=== PATIENT | female | born 1935 | race Caucasian/White ===

== ENCOUNTER 2016-04-07 17:59 | Emergency (ER) | payer OTHER ==
[~2016-04-07] VITALS: Ht 160 cm; Wt 79.5 kg
[~2016-04-07 17:59] MED LIST: ALPR-411 PO; ANAS1TAB6 PO; ATRINSX INH; CHOL1000 PO; COEN1CAP17 PO; CRG625 PO; CZR50 PO; DENOINJ SQ; FBR PO; FLUO10CA48 PO; FLUO20CA35 PO; HYDR2.5C60 TOP; KPP/250 PO; LSX80 PO; MULT1TAB22 PO; ONDA4TAB10 SL; OXGN; OXYC1TAB3 PO; WARF-285 PO; WARF3TAB PO; ZCR40 PO; [UNRECOGNIZED DRUG - CODE] PO
[2016-04-07 18:05] VITALS: TEMP 36.4; Ht 160 cm; Wt 79.5 kg
[2016-04-07] MEDS ORDERED: OXYCODONE/ACETAMINOPHEN 5-325 TAB PO STA (18:18)
--- NOTE | 2016-04-07 19:08 | DIAGNOSTIC IMAGING REPORT ---
PELVIS 1 OR 2 VIEW ROUTINE CLINICAL HISTORY: fall low back / pelvis pain trauma. Pain. COMPARISON: 10/14/2015 DISCUSSION: Generalized degenerative change of all major osseous structures. Prior right hip total arthroplasty. No evidence for acute bony abnormality. No evidence for acetabular protrusion. There is no evidence for soft tissue swelling. IMPRESSION: Generalized degenerative and postoperative change. No acute bony abnormality. Electronically signed by: Beck Iglesias M.D. 04/07/2016 7:06 PM
--- NOTE | 2016-04-07 19:09 | DIAGNOSTIC IMAGING REPORT ---
LUMBAR SPINE 5 VIEWS HISTORY: Trauma. Pain. fall, low back pain COMPARISON: 03/31/2015 FINDINGS: There is no fracture. -Grade 1 anterolisthesis of L4 on L5 on a degenerative basis. This is unchanged from the prior study. No evidence for an acute compression deformity. Slight wedge deformity superior endplate L1 considerable. Disc spaces are preserved. IMPRESSION: Generalized degenerative change. No acute bony abnormality. Electronically signed by: Beck Iglesias M.D. 04/07/2016 7:07 PM
--- NOTE | 2016-04-07 19:21 | EMERGENCY ROOM VISIT NOTE ---
History Report prepared by Christiano: Pia Dawson Under the Supervision of: Dr. Palomo Kimble D.O. First contact with patient: 18:13 Chief Complaint: BACK PAIN Stated Complaint: BACK & R KNEE PAIN History of Present Illness The patient is an 80 year old female who presents to the Emergency Room with complaints of a sudden fall that occurred yesterday. She currently rates her discomfort as a 5/10 in severity. The patient states that yesterday she was trying to get something out of her closet when she fell onto her right lower back. She notes progressively worsening right back pain. The patient notes difficulty ambulating and difficulty standing since the fall, noting that she has to ask for help when moving. She denies hitting her head during the fall and states that she hit the ground. The patient states that she is persistently on 6 liters of supplemental oxygen at home. She denies any recent illness. The patient states that she lives at home and states that her daughter frequently comes in to check on her. Source of History: patient Onset: yesterday Position: other (global) Symptom Intensity: 5/10 Quality: other (fall) Timing: other (sudden) Associated Symptoms: + back pain (lower right) Review of Systems See HPI for pertinent positives & negatives. A total of 10 systems reviewed and were otherwise negative. 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 (14) GI bleed (15) HTN (hypertension) (16) HYPERLIPIDEMIA NEC/NOS (17) HYPERTENSION NOS (18) Hypothyroidism (19) HYPOTHYROIDISM NOS (20) LBBB (left bundle branch block) (21) Osteoporosis (22) Pulmonary fibrosis (23) Shingles Surgical Problems: (1) H/O lumpectomy (2) History of knee replacement Family History Cancer Diabetes mellitus FHx: stroke Heart disease Hypertension Lung disease Social History Smoking Status: Never Smoker Alcohol Use: occasionally Drug Use: none Marital Status: Housing Status: lives alone Occupation Status: unemployed Current/Historical Medications Scheduled Alprazolam (Alprazolam), 0.5 MG PO BID Anastrozole (Anastrozole), 1 MG PO QAM Calcium Citrate-Vitamin D (Calcium Citrate/Vitamin D), 2 TAB PO QAM Calcium Polycarbophil (Fiber Tabs), 2 CPLT PO QAM Carvedilol (Carvedilol), 6.25 MG PO BIDM Cholecalciferol (Vitamin D3), 2,000 INTER.UNIT PO QAM Coenzyme Q10 (Ubidecarenone) (Co Q 10), 100 MG PO QAM Denosumab (Xgeva), Unknown Dose SQ MONTHLY Fluoxetine (Prozac), 20 MG PO DAILY Fluoxetine (Prozac), 10 MG PO DAILY Furosemide (Furosemide), 80 MG PO QAM Levetiractam (Keppra), 250 MG PO BID Losartan Potassium (Losartan Potassium), 50 MG PO QAM Multiple Vitamins W/ Minerals (One Daily For Women), 1 TAB PO QAM Ondasetron Odt (Zofran Odt), 4 MG SL TID Oxygen (Oxygen), 4 LITERS NA CONTINOUS Simvastatin (Simvastatin), 40 MG PO HS Warfarin Sodium (Warfarin Sodium), 3 MG PO 6XWK Warfarin Sodium (Coumadin), 4.5 MG PO WK Scheduled PRN Hydrocortisone (Rectal) (Procto-Med Hc), 1 APPLN TOP DAILY PRN for Hemorrhoids Ipratropium [place] (Atrovent 0.02% Soln), 1 DOSE INH Q4H PRN for Shortness of Breath Oxycodone Immediate Rel Tab (Roxicodone Ir), 5 MG PO Q6H PRN for Pain Allergies Coded Allergies: No Known Allergies (Verified , 10/14/15) Physical Exam Vital Signs Date Time Temp Pulse Resp B/P Pulse Ox O2 Delivery O2 Flow Rate FiO2 04/07/16 18:09 Nasal Cannula 6.0 04/07/16 18:05 36.4 67 16 127/60 96 6.0 Physical Exam CONSTITUTIONAL/VITAL SIGNS: Reviewed / noted above. GENERAL: Non-toxic in appearance. INTEGUMENTARY: Warm, dry, and [place]. HEAD: Normocephalic. EYES: without scleral icterus or trauma. ENT/OROPHARYNX: clear and moist. LYMPHADENOPATHY/NECK: Is supple without lymphadenopathy or meningismus. RESPIRATORY: Lungs clear and equal. CARDIOVASCULAR: Regular rate and rhythm. GI/ABDOMEN: Soft and nontender. No organomegaly or pulsatile mass. No rebound or guarding. Normal bowel sounds. EXTREMITIES: Warm and well perfused. BACK: Tenderness to palpation of the lower back, midline and right paraspinal muscles and soft tissue. No CVA tenderness. NEUROLOGICAL: Intact without focal deficits. PSYCHIATRIC: normal affect. MUSCULOSKELETAL: Normally developed with good muscle tone. Medical Decision & Procedures ER Provider Diagnostic Interpretation: X ray results and stated below per my interpretation and radiology interpretation. PELVIS 1 OR 2 VIEW ROUTINE CLINICAL HISTORY: fall low back / pelvis pain trauma. Pain. COMPARISON: 10/14/2015 DISCUSSION: Generalized degenerative change of all major osseous structures. Prior right hip total arthroplasty. No evidence for acute bony abnormality. No evidence for acetabular protrusion. There is no evidence for soft tissue swelling. IMPRESSION: Generalized degenerative and postoperative change. No acute bony abnormality. Electronically signed by: Beck Iglesias M.D. 04/07/2016 7:06 PM LUMBAR SPINE 5 VIEWS HISTORY: Trauma. Pain. fall, low back pain COMPARISON: 03/31/2015 FINDINGS: There is no fracture. -Grade 1 anterolisthesis of L4 on L5 on a degenerative basis. This is unchanged from the prior study. No evidence for an acute compression deformity. Slight wedge deformity superior endplate L1 considerable. Disc spaces are preserved. IMPRESSION: Generalized degenerative change. No acute bony abnormality. Electronically signed by: Beck Iglesias M.D. 04/07/2016 7:07 PM Medications Administered Medications (Trade) Dose Ordered Sig/Lindsey Route Start Time Stop Time Status Last Admin Dose Admin Oxycodone/ Acetaminophen (Percocet 5-325MG Tab) 1 tab NOW STAT PO 04/07/16 18:18 04/07/16 18:20 DC 04/07/16 18:26 1 TAB ED Course 1812: Previous medical records were reviewed. The patient was evaluated in room C6. A complete history and physical examination was performed. 1817: Ordered Oxycodone/Acetaminophen 1 tab PO. 1912: I reevaluated the patient and she is resting comfortably. I discussed the exam findings and I discussed the treatment plan. She verbalized complete understanding and agreement. She is ready to go home. Medical Decision Differential includes close head injury, intracranial bleed, facial trauma, cervical spine trauma, chest and thoracic trauma, abdominal and intra-abdominal trauma, spine neurologic trauma, extremity trauma. This is an 80-year-old female who presents to the ED with a chief complaint of a fall yesterday. The patient had a ground-level fall where she landed on the carpet and hit the right side of her back and pelvis. She states that her pain increases with standing. She normally wears oxygen at home. Her vital signs are stable. Exam reveals some tenderness to palpation of the low lumbar region as well as the soft tissue in the right low back region and around the pelvis. There is no obvious ecchymosis or abrasions. The patient does not have any discomfort with movement of the hips or lower extremities. She has no increased pain with straight leg raise off the bed. X-rays of the lumbar spine and pelvis did not show any obvious acute fractures or dislocations. The patient was given Percocet here. She has oxycodone at home for pain. Impression Primary Impression: Back contusion Scribe Attestation The scribe's documentation has been prepared under my direction and personally reviewed by me in its entirety. I confirm that the note above accurately reflects all work, treatment, procedures, and medical decision making performed by me. Departure Information Dispostion Home / Self-Care Referrals Pro,Abdirashid Young M.D. (PCP) Forms HOME CARE DOCUMENTATION FORM, IMPORTANT VISIT INFORMATION Patient Instructions A Signature Page, Back Pain - [facility], [facility] Additional Instructions Percocet as prescribed. No driving within 6 hours of use. Do not take additional Tylenol while taking Percocet. Percocet can cause constipation. Follow-up with your doctor for further care and evaluation in 1-2 days. Return to the emergency department for worsening or new symptoms or any concerns. You have been examined and treated today on an emergency basis only. This is not a substitute for, or an effort to provide, complete comprehensive medical care. It is impossible to recognize and treat all injuries or illnesses in a single emergency department visit. It is therefore important that you follow up closely with your doctor. Call as soon as possible for an appointment.
[2016-04-07 19:51] VITALS: BP 117/55; PULSE 62; O2SAT 94
[2016-05-14] MEDS ORDERED: ONDA4TAB10 SL (09:58)
[2016-05-14] MEDS ORDERED: ALPR0.25 PO (09:58)
[2016-05-14] MEDS ORDERED: LDDP5 TD (09:58)
[2016-06-13] MEDS ORDERED: SULF-302 PO (11:26)
[2016-07-12] MEDS ORDERED: HYDR2.5C37 TOP (11:36)
[2016-07-12] MEDS ORDERED: CLOP1TAB15 PO (11:52)
[2016-07-20] MEDS ORDERED: WARF2TAB PO (12:27)
[2016-08-06] MEDS ORDERED: LSX40 PO (10:31)
[2016-09-08] MEDS ORDERED: ALBINS INH (08:53)
[2016-09-08] MEDS ORDERED: IPRASOL4 INH (08:53)
[2016-09-08] MEDS ORDERED: NYSS5 MT (08:53)
[2016-09-08] MEDS ORDERED: AMOX1TAB43 PO (08:53)
[2016-09-08] MEDS ORDERED: PRD20 PO (09:02)
[2016-09-08] MEDS ORDERED: ALPR0.25 PO (16:54)
== END 2016-04-07 19:52 | disposition home or self-care (01) ==
LOC: EDBD 17:59 → C.EDC 18:02
DX: S20.221A Contusion of right back wall of thorax, initial encounter (principal); W19.XXXA Unspecified fall, initial encounter; I10 Essential (primary) hypertension; I25.10 Atherosclerotic heart disease of native coronary artery without angina pectoris; E03.9 Hypothyroidism, unspecified; Z79.01 Long term (current) use of anticoagulants; Z79.899 Other long term (current) drug therapy

== ENCOUNTER 2016-05-08 15:36 | Emergency (ER) | payer OTHER ==
[~2016-05-08] VITALS: Ht 160 cm; Wt 78.0 kg
[2016-05-08 15:36] VITALS: TEMP 36.8; Ht 160 cm; Wt 78.0 kg
--- NOTE | 2016-05-08 16:02 | EMERGENCY ROOM VISIT NOTE ---
History Report prepared by Kimberlyibwatson: Maury Llamas Under the Supervision of: Dr. Abdirashid Vance D.O. First contact with patient: 15:52 Chief Complaint: FALL Stated Complaint: FALL/ NECK & BACK PAIN History of Present Illness The patient is an 81 year old female who presents to the Emergency Room with complaints of an acute fall that occurred just prior to arrival. The patient fell after tripping over a pillow when she was getting out of bed. The patient now complains of neck pain, rated 6/10 in severity. She did not hit her head or lose consciousness. The patient denies any shortness of breath, nausea, vomiting , back pain, abdominal pain, or leg pain. Source of History: patient Onset: [employer] Position: other (global) Quality: other (fall) Timing: other (acute) Associated Symptoms: + neck pain, No LOC, No SOB, No abdominal pain, No back pain, No headache, No nausea, No vomiting Review of Systems See HPI for pertinent positives & negatives. A total of 10 systems reviewed and were otherwise negative. 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 (14) GI bleed (15) HTN (hypertension) (16) HYPERLIPIDEMIA NEC/NOS (17) HYPERTENSION NOS (18) Hypothyroidism (19) HYPOTHYROIDISM NOS (20) LBBB (left bundle branch block) (21) Osteoporosis (22) Pulmonary fibrosis (23) Shingles Surgical Problems: (1) H/O lumpectomy (2) History of knee replacement Family History Cancer Diabetes mellitus FHx: stroke Heart disease Hypertension Lung disease Social History Smoking Status: Never Smoker Alcohol Use: occasionally Drug Use: none Marital Status: Housing Status: lives alone Occupation Status: unemployed Current/Historical Medications Scheduled Alprazolam (Alprazolam), 0.5 MG PO BID Anastrozole (Anastrozole), 1 MG PO QAM Calcium Citrate-Vitamin D (Calcium Citrate/Vitamin D), 2 TAB PO QAM Calcium Polycarbophil (Fiber), 2 CPLT PO QAM Carvedilol (Carvedilol), 6.25 MG PO BIDM Cholecalciferol (Vitamin D3), 2,000 INTER.UNIT PO QAM Coenzyme Q10 (Ubidecarenone) (Co Q 10), 100 MG PO QAM Denosumab (Xgeva), Unknown Dose SQ MONTHLY Fluoxetine (Prozac), 20 MG PO DAILY Fluoxetine (Prozac), 10 MG PO DAILY Furosemide (Furosemide), 80 MG PO QAM Guaifenesin Ext Rel (Mucinex Ext Rel), 600 MG PO Q12 Levetiractam (Keppra), 250 MG PO BID Losartan Potassium (Losartan Potassium), 50 MG PO QAM Multiple Vitamins W/ Minerals (One Daily For Women), 1 TAB PO QAM Oxygen (Oxygen), 6 LITERS NA CONTINOUS Simvastatin (Simvastatin), 40 MG PO HS Warfarin Sodium (Warfarin Sodium), 3 MG PO 6XWK Warfarin Sodium (Coumadin), 4.5 MG PO WK Scheduled PRN Dextromethorphan Polistirex (Delsym), 20 ML PO Q4 PRN for Cough Hydrocortisone (Rectal) (Procto-Med Hc), 1 APPLN TOP DAILY PRN for Hemorrhoids Ipratropium [place] (Atrovent 0.02% Soln), 1 DOSE INH Q4H PRN for Shortness of Breath Ondasetron Odt (Zofran Odt), 4 MG SL TID PRN for Nausea or Vomiting Oxycodone Immediate Rel Tab (Roxicodone Ir), 5 MG PO Q6H PRN for Pain Allergies Coded Allergies: No Known Allergies (Verified , 10/14/15) Physical Exam Vital Signs Date Time Temp Pulse Resp B/P Pulse Ox O2 Delivery O2 Flow Rate FiO2 05/08/16 18:58 71 18 142/76 93 Room Air 05/08/16 17:19 67 20 124/71 97 Nasal Cannula 6.0 05/08/16 15:36 36.8 77 18 131/66 94 Room Air 6.0 Physical Exam GENERAL: Patient is awake, alert, somewhat anxious and uncomfortable appearing. EYES: The conjunctivae are clear. The pupils are round and reactive. EARS, NOSE, MOUTH AND THROAT: The nose is without any evidence of any deformity. Mucous membranes are moist tongue is midline NECK: Rigid cervical collar was placed [employer]. Midline cervical tenderness,range of motion testing deferred at this time. RESPIRATORY: Normal respiratory effort is noted there is no evidence of wheezing rhonchi or rales CARDIOVASCULAR: Regular rate and rhythm noted there no murmurs rubs or gallops normal S1 normal S2 GASTROINTESTINAL: The abdomen is soft. Bowel sounds are present in all quadrants. Abdomen is nontender BACK: No midline tenderness or or step-off noted range of motion in flexion extension as well as rotation no signs of muscle spasm noted MUSCULOSKELETAL/EXTREMITIES: There is no evidence of gross deformity full range of motion is noted in the hips and shoulders SKIN: Pedal edema noted bilaterally, skin is warm and dry, no evidence for cellulitis. NEUROLOGIC: Patient is awake alert and oriented x3 strength is symmetric. Medical Decision & Procedures ER Provider Diagnostic Interpretation: X ray results and stated below per my interpretation and radiology interpretation. Other radiology results per my review and radiologist interpretation: CERVICAL SPINE CT CT DOSE: 1230.36 mGy.cm HISTORY: Trauma fall TECHNIQUE: Multiaxial CT images of the cervical spine were performed and reformatted in the sagittal and coronal plane without the use of contrast. COMPARISON: None. FINDINGS: No fractures. No subluxation. Prevertebral soft tissues and the C1-C2 interval are intact. No pneumothorax. Considerable degenerative change throughout the entire cervical region. Posterior arch is intact at all levels. Considerable degenerative change lateral facets. IMPRESSION: Degenerative change. No acute bony abnormality. Electronically signed by: Beck Iglesias M.D. 05/08/2016 5:02 PM Dictated Date/Time: 05/08/2016 5:00 PM CHEST ONE VIEW PORTABLE CLINICAL HISTORY: fall trauma COMPARISON STUDY: 02/10/2016 FINDINGS: Moderate stable cardiomegaly. Chronic atelectatic change left base. Chronic pulmonary vascular congestion. Status post left axillary dissection. Status post total right shoulder replacement. IMPRESSION: Pulmonary vascular congestion. Moderate stable cardiomegaly. Electronically signed by: Beck Iglesias M.D. 05/08/2016 5:36 PM Dictated Date/Time: 05/08/2016 5:[address]AST CT DOSE: HISTORY: Trauma. Change in mental status. fall TECHNIQUE: Multiaxial CT images of the head were performed without the use of intravenous contrast. Comparison: 10/14/2015 Findings: The paranasal sinuses and mastoid air cells are clear. Age-related chronic small vessel change. No acute intracranial hemorrhage. No midline shift. Impression: Age-related change. No acute process. No change from the prior study. Electronically signed by: Beck Iglesias M.D. 05/08/2016 5:00 PM Dictated Date/Time: 05/08/2016 4:59 PM PELVIS 1 OR 2 VIEW ROUTINE CLINICAL HISTORY: fall trauma. Pain. COMPARISON: 04/07/2016 DISCUSSION: Total right hip replacement. Prosthetic is in good position. No acute bony abnormality. Mild degenerative change left hip. Degenerative changes low lumbar spine. There is no evidence for soft tissue swelling. IMPRESSION: Postoperative as well as degenerative change. No acute bony abnormality. Electronically signed by: Beck Iglesias M.D. 05/08/2016 5:34 PM Dictated Date/Time: 05/08/2016 5:33 PM Laboratory Results 05/08/16 16:16 Red Blood Count 5.20, Mean Corpuscular Volume 95.4, Mean Corpuscular Hemoglobin 32.3, Mean Corpuscular Hemoglobin Concent 33.9, Mean Platelet Volume 11.0, Neutrophils (%) (Auto) 65.1, Lymphocytes (%) (Auto) 14.1, Monocytes (%) (Auto) 10.9, Eosinophils (%) (Auto) 9.0, Basophils (%) (Auto) 0.6, Neutrophils # (Auto ) 7.06, Lymphocytes # (Auto) 1.53, Monocytes # (Auto) 1.18, Eosinophils # (Auto ) 0.97, Basophils # (Auto) 0.06 05/08/16 16:16 05/08/16 17:46 Test 05/08/16 15:55 05/08/16 16:16 05/08/16 17:46 Urine Color YELLOW Urine Appearance CLEAR (CLEAR) Urine pH 5.5 (4.5-7.5) Urine Specific [place] 1.016 (1.000-1.030) Urine Protein NEG (NEG) Urine Glucose (UA) NEG (NEG) Urine Ketones NEG (NEG) Urine Occult Blood NEG (NEG) Urine Nitrite NEG (NEG) Urine Bilirubin NEG (NEG) Urine Urobilinogen NEG (NEG) Urine Leukocyte Esterase NEG (NEG) White Blood Count 10.83 K/uL (4.8-10.8) Red Blood Count 5.20 M/uL (4.2-5.4) Hemoglobin 16.8 g/dL (12.0-16.0) Hematocrit 49.6 % (37-47) Mean Corpuscular Volume 95.4 fL (80-100) Mean Corpuscular Hemoglobin 32.3 pg (25-34) Mean Corpuscular Hemoglobin Concent 33.9 g/dl (32-36) Platelet Count 597 K/uL (130-400) Mean Platelet Volume 11.0 fL (7.4-10.4) Neutrophils (%) (Auto) 65.1 % Lymphocytes (%) (Auto) 14.1 % Monocytes (%) (Auto) 10.9 % Eosinophils (%) (Auto) 9.0 % Basophils (%) (Auto) 0.6 % Neutrophils # (Auto) 7.06 K/uL (1.4-6.5) Lymphocytes # (Auto) 1.53 K/uL (1.2-3.4) Monocytes # (Auto) 1.18 K/uL (0.11-0.59) Eosinophils # (Auto) 0.97 K/uL (0-0.5) Basophils # (Auto) 0.06 K/uL (0-0.2) RDW Standard Deviation 53.0 fL (36.4-46.3) RDW Coefficient of Variation 15.4 % (11.5-14.5) Immature Granulocyte % (Auto) 0.3 % Immature Granulocyte # (Auto) 0.03 K/uL (0.00-0.02) Anion Gap 10.0 mmol/L (3-11) Est Creatinine Clear Calc Drug Dose 49.6 ml/min Estimated GFR () 73.4 Estimated GFR (Non- 63.4 BUN/Creatinine Ratio 36.1 (10-20) Calcium Level 9.2 mg/dl (8.5-10.1) Total Bilirubin 0.5 mg/dl (0.2-1) Alanine Aminotransferase (ALT/SGPT) 43 U/L (12-78) Alkaline Phosphatase 79 U/L (45-117) Total Protein 7.2 gm/dl (6.4-8.2) Albumin 3.3 gm/dl (3.4-5.0) Lipase 110 U/L (73-393) Prothrombin Time 39.2 SECONDS (9.0-12.0) Prothromb Time International Ratio 3.5 (0.9-1.1) Activated Partial Thromboplast Time 43.4 SECONDS (21.0-31.0) Partial Thromboplastin Ratio 1.7 Direct Bilirubin < 0.1 mg/dl (0-0.2) Aspartate Amino Transf (AST/SGOT) 36 U/L (15-37) Laboratory results per my review. Medications Administered Medications (Trade) Dose Ordered Sig/Lindsey Route Start Time Stop Time Status Last Admin Dose Admin Morphine Sulfate (MoRPHine SULFATE INJ) 4 mg Q15M PRN IV 05/08/16 16:15 05/08/16 20:58 DC 05/08/16 16:21 4 MG Ondansetron HCl 4 mg 4 mg NOW STAT IV 05/08/16 16:03 05/08/16 16:05 DC 05/08/16 16:21 4 MG Sodium Chloride (Nss 500ml) 500 ml @ 999 mls/hr Q31M STAT IV 05/08/16 16:03 05/08/16 16:33 DC 05/08/16 16:21 999 MLS/HR Oxycodone HCl (Roxicodone Immediate Rel 5MG Home Pack) 1 homepack UD ONCE PO 05/08/16 18:45 05/08/16 18:46 DC 05/08/16 18:51 1 HOMEPACK Ondansetron HCl (ZOFRAN ODT 4MG Home Pack) 1 homepack UD ONCE PO 05/08/16 18:45 05/08/16 18:46 DC 05/08/16 18:51 1 HOMEPACK ED Course 1554: The patient was evaluated in room A12b. A complete history and physical examination were performed. 1603: NSS 500 ml @ 999 mls/hr, Zofran 4 mg IV. 1615: Morphine Sulfate 4 mg IV. 1840: Reassessed the patient. Discussed the findings with her. She verbalized understanding and agreement. The patient is ready for discharge. 1845: Zofran Odt 4 mg PO homepack, Oxycodone IR 5 mg PO homepack. Medical Decision Etiologies such as fracture, dislocation, intra-abdominal, pneumothorax, intrathoracic , intracranial, neurologic, as well as other traumatic pathologies were entertained. Nursing notes reviewed. Additional history is obtained from the patient's family members. The patient is an 81-year-old female who presented to the emergency department for an evaluation after a fall. The patient was placed in a cervical collar because of significant neck pain. She did not have any focal neurologic deficits but because she is on Coumadin further CAT scans were obtained to rule out any intercranial bleeding. The patient treated with IV fluids IV pain medicine IV antiemetics. On subsequent reevaluation she was feeling much better. I discussed the patient's laboratory and radiographic studies with her. She was feeling much better. She was encouraged to rest and avoid any strenuous activity. She was encouraged to continue all medications as prescribed. She was also encouraged to follow-up with her primary care physician for reevaluation but return to the emergency department immediately if symptoms change worsen or if the need arises. Impression Primary Impression: Fall Additional Impressions: Cervical strain Dehydration Shoulder strain Scribe Attestation The scribe's documentation has been prepared under my direction and personally reviewed by me in its entirety. I confirm that the note above accurately reflects all work, treatment, procedures, and medical decision making performed by me. Departure Information Dispostion Home / Self-Care Referrals Abdirashid Chavira M.D. (PCP) Forms HOME CARE DOCUMENTATION FORM, IMPORTANT VISIT INFORMATION Patient Instructions My [facility], Neck Strain - [facility] Additional Instructions Rest and avoid any strenuous activities. Call your family to schedule a follow-up appointment. Drink plenty clear liquids. Continue using Tylenol as directed for pain. Problem Qualifiers Additional Impressions: Cervical strain Encounter type: initial encounter Qualified Codes: S16.1XXA - Strain of muscle, fascia and tendon at neck level, initial encounter Shoulder strain Laterality: left
[2016-05-08] MEDS ORDERED: ONDANSETRON INJ 2 MG/ML 2 ML VIAL IV STA (16:03)
[2016-05-08] MEDS ORDERED: SODIUM CHLORIDE 0.9% 500ML 500 ML IV STA (16:03)
[2016-05-08] MEDS ORDERED: MoRPHine SULFATE 4 MG/ML 1 ML CARP\\VIAL IV PRN (16:15)
[2016-05-08 16:35] LABS: BASO % 0.6 %; BASO ABS # 0.06 K/uL (0-0.2); COMPLETE YES; HEMATOCRIT 49.6 % (37-47); IG% 0.3 %; LYMPH % 14.1 %; LYMPH ABS # 1.53 K/uL (1.2-3.4); MEAN CELL VOLUME 95.4 fL (80-100); MEAN CORPUSCULAR HEMOGLOBIN 32.3 pg (25-34); MEAN CORPUSCULAR HGB CONC 33.9 g/dl (32-36); MONO % 10.9 %; NEUT % 65.1 %; PLATELET COUNT 597 K/uL (130-400); WHITE BLOOD COUNT 10.83 K/uL (4.8-10.8)
[2016-05-08 16:46] LABS: MANUAL MICROSCOPIC REQUIRED? NO; REVIEW REQ? NO; URINE APPEARANCE CLEAR (CLEAR); URINE BILIRUBIN NEG (NEG); URINE COLOR YELLOW; URINE NITRITE NEG (NEG); URINE PH 5.5 (4.5-7.5); URINE SPECIFIC GRAVITY 1.016 (1.000-1.030); UROBILINOGEN NEG (NEG)
--- NOTE | 2016-05-08 17:02 | DIAGNOSTIC IMAGING REPORT ---
HEAD CT NONCONTRAST CT DOSE: HISTORY: Trauma. Change in mental status. fall TECHNIQUE: Multiaxial CT images of the head were performed without the use of intravenous contrast. Comparison: 10/14/2015 Findings: The paranasal sinuses and mastoid air cells are clear. Age-related chronic small vessel change. No acute intracranial hemorrhage. No midline shift. Impression: Age-related change. No acute process. No change from the prior study. Electronically signed by: Beck Iglesias M.D. 05/08/2016 5:00 PM Dictated Date/Time: 05/08/2016 4:59 PM
--- NOTE | 2016-05-08 17:03 | DIAGNOSTIC IMAGING REPORT ---
CERVICAL SPINE CT CT DOSE: 1230.36 mGy.cm HISTORY: Trauma fall TECHNIQUE: Multiaxial CT images of the cervical spine were performed and reformatted in the sagittal and coronal plane without the use of contrast. COMPARISON: None. FINDINGS: No fractures. No subluxation. Prevertebral soft tissues and the C1-C2 interval are intact. No pneumothorax. Considerable degenerative change throughout the entire cervical region. Posterior arch is intact at all levels. Considerable degenerative change lateral facets. IMPRESSION: Degenerative change. No acute bony abnormality. Electronically signed by: Beck Iglesias M.D. 05/08/2016 5:02 PM Dictated Date/Time: 05/08/2016 5:00 PM
[2016-05-08 17:08] LABS: ALKALINE PHOSPHATASE 79 U/L (45-117); ALT/SGPT 43 U/L (12-78); BLOOD UREA NITROGEN 31 mg/dl (7-18); BUN/CREATININE RATIO 36.1 (10-20); CALCIUM 9.2 mg/dl (8.5-10.1); CARBON DIOXIDE 29 mmol/L (21-32); CHLORIDE 104 mmol/L (98-107); CREATININE 0.85 mg/dl (0.60-1.20); GLUCOSE 137 mg/dl (70-99); SODIUM 143 mmol/L (136-145)
[2016-05-08] MEDS ORDERED: CALC625T35 PO (17:20)
--- NOTE | 2016-05-08 17:35 | DIAGNOSTIC IMAGING REPORT ---
PELVIS 1 OR 2 VIEW ROUTINE CLINICAL HISTORY: fall trauma. Pain. COMPARISON: 04/07/2016 DISCUSSION: Total right hip replacement. Prosthetic is in good position. No acute bony abnormality. Mild degenerative change left hip. Degenerative changes low lumbar spine. There is no evidence for soft tissue swelling. IMPRESSION: Postoperative as well as degenerative change. No acute bony abnormality. Electronically signed by: Beck Iglesias M.D. 05/08/2016 5:34 PM Dictated Date/Time: 05/08/2016 5:33 PM
--- NOTE | 2016-05-08 17:37 | DIAGNOSTIC IMAGING REPORT ---
CHEST ONE VIEW PORTABLE CLINICAL HISTORY: fall trauma COMPARISON STUDY: 02/10/2016 FINDINGS: Moderate stable cardiomegaly. Chronic atelectatic change left base. Chronic pulmonary vascular congestion. Status post left axillary dissection. Status post total right shoulder replacement. IMPRESSION: Pulmonary vascular congestion. Moderate stable cardiomegaly. Electronically signed by: Beck Iglesias M.D. 05/08/2016 5:36 PM Dictated Date/Time: 05/08/2016 5:35 PM
[2016-05-08] MEDS ORDERED: DEXT5LIQ23 PO (17:41)
[2016-05-08] MEDS ORDERED: GFNSR600 PO (17:41)
[2016-05-08 18:17] LABS: POTASSIUM 4.1 mmol/L (3.5-5.1)
[2016-05-08 18:19] LABS: INR 3.5 (0.9-1.1); PARTIAL THROMBOPLASTIN RATIO 1.7; PROTHROMBIN TIME (PATIENT) 39.2 SECONDS (9.0-12.0)
[2016-05-08 18:22] LABS: AST/SGOT 36 U/L (15-37)
[2016-05-08] MEDS ORDERED: ONDANSETRON HOME PACK 4MG OD TAB PO ONE (18:45)
[2016-05-08] MEDS ORDERED: OXYCODONE IR HOME PACK PO ONE (18:45)
[2016-05-08 18:58] VITALS: BP 142/76; PULSE 71; O2SAT 93
[2016-05-14] MEDS ORDERED: ONDA4TAB10 SL (09:58)
[2016-05-14] MEDS ORDERED: ALPR0.25 PO (09:58)
[2016-05-14] MEDS ORDERED: LDDP5 TD (09:58)
[2016-07-12] MEDS ORDERED: HYDR2.5C37 TOP (11:36)
[2016-07-12] MEDS ORDERED: CLOP1TAB15 PO (11:52)
[2016-07-20] MEDS ORDERED: WARF2TAB PO (12:27)
[2016-08-06] MEDS ORDERED: LSX40 PO (10:31)
[2016-08-25] MEDS ORDERED: SENN8.6T11 PO (12:03)
[2016-08-25] MEDS ORDERED: SENN8.6T15 PO (12:03)
[2016-09-08] MEDS ORDERED: NYSS5 MT (08:53)
[2016-09-08] MEDS ORDERED: AMOX1TAB43 PO (08:53)
[2016-09-08] MEDS ORDERED: ALBINS INH (08:53)
[2016-09-08] MEDS ORDERED: IPRASOL4 INH (08:53)
[2016-09-08] MEDS ORDERED: PRD20 PO (09:02)
[2016-09-08] MEDS ORDERED: ALPR0.25 PO (16:54)
== END 2016-05-08 19:16 | disposition home or self-care (01) ==
LOC: EDBD 15:36 → C.EDA 15:39
DX: S16.1XXA Strain of muscle, fascia and tendon at neck level, initial encounter (principal); S46.819A Strain of other muscles, fascia and tendons at shoulder and upper arm level, unspecified arm, initial encounter; W01.0XXA Fall on same level from slipping, tripping and stumbling without subsequent striking against object, initial encounter; I48.91 Unspecified atrial fibrillation; I50.9 Heart failure, unspecified; I10 Essential (primary) hypertension; E78.5 Hyperlipidemia, unspecified; E03.9 Hypothyroidism, unspecified; Z79.01 Long term (current) use of anticoagulants; Z79.899 Other long term (current) drug therapy

== ENCOUNTER 2016-05-11 13:18 | Inpatient (IN) | payer OTHER ==
[~2016-05-11] VITALS: Ht 160 cm; Wt 81.2 kg
[~2016-05-11 13:18] MED LIST changes: +CALC625T35 PO; +DEXT5LIQ23 PO; -FBR PO; +GFNSR600 PO
--- NOTE | 2016-05-11 14:21 | Pharmacy Progress Note ---
ED Pharmacist Counseling Note Date of Service: May 11, 2016. Background * I spent 10 minutes with the patient and her family discussing likely ingestions * Family believes she took 3 mornings worth and 1 evenings worth of medications. They note that they set up her medications in cups and believe that since discharge on Tuesday she has been non-adherent and then took multiple cups of medications this morning. * Home dose and likely ingestions include the following * Fluoxetine 90 mg (home dose 30 mg daily) * Alprazolam 2 mg (home dose 0.5 mg BID) * Furosemide 240 mg (home dose 80 mg daily) * Carvedilol 25 mg (home dose 6.25 mg BID) * Anastrazole 3 mg (home dose 1 mg daily) * Benadryl 100 mg (home dose prn) * Warfarin 3 mg (home dose 3 mg qPM except Tuesday 4.5 mg) * Simvastain 40 mg (home dose 40 mg qPM) * CoQ10 600 mg (home dose 200 mg daily) * Fiber 3 tabs (home dose 1 tab daily) * Citrate + D3 600 mg (home dose 200 mg daily) * Vitamin D3 3000 mg (home dose 1000 mg daily) * Multivitamin 3 tab (1 tab daily) * Unknown if/how much ingestions include the following: * Oxycodone - Patient typically takes 5 mg po daily. This started ~ 1 month ago. * Tylenol * Delsym * Mucinex Assessment * Ingestions of most concern (based on above) include the following: * Fluoxetine, alprazolam, furosemide, carvedilol, benadryl, oxycodone, tylenol * Warfarin - may not be an issue as patient may have only taken home dose. However, would still recommend close monitoring of INR as exact ingestion is not known. * Anastrazole - may not be an issue as doses up to 10 mg have been studied ( per oncology pharmacist). However, patient may still experience hot flashes, edema, N/V * Simvastatin - may have only taken home dose Recommend * Laboratory studies * PRP, INR, Tylenol level * Close monitoring of vital signs * Strict documentation of I & O (especially urine output) * Most concerned for the following complications: * Sedation/respiratory depression * Excessive beta-blockade * Acute kidney injury * Serotonergic excess * Bleeding 2nd supratherapeutic INR * Tylenol toxicity * Would not recommend flumazenil as this patient is on chronic benzos and this may cause more harm than good Please do not hesitate to contact pharmacy for an evaluation of medication effects and management should any concerning signs/symptoms arise
[2016-05-11 15:08] LABS: BASO % 0.6 %; BASO ABS # 0.06 K/uL (0-0.2); COMPLETE YES; EOS % 8.9 %; HEMATOCRIT 47.8 % (37-47); IG% 0.3 %; LYMPH % 15.1 %; MEAN CELL VOLUME 94.1 fL (80-100); MEAN CORPUSCULAR HEMOGLOBIN 31.9 pg (25-34); MEAN CORPUSCULAR HGB CONC 33.9 g/dl (32-36); MEAN PLATELET VOLUME 10.8 fL (7.4-10.4); MONO % 13.3 %; NEUT % 61.8 %; PLATELET COUNT 578 K/uL (130-400); RED BLOOD COUNT 5.08 M/uL (4.2-5.4); WHITE BLOOD COUNT 10.59 K/uL (4.8-10.8)
[2016-05-11] MEDS ORDERED: ONDANSETRON INJ 2 MG/ML 2 ML VIAL IV PRN (15:15)
[2016-05-11] MEDS ORDERED: OPTIRAY 320 IV PRN (15:30)
[2016-05-11 15:31] LABS: PARTIAL THROMBOPLASTIN RATIO 1.9; PROTHROMBIN TIME (PATIENT) 59.8 SECONDS (9.0-12.0)
[2016-05-11 15:32] LABS: BUN/CREATININE RATIO 42.9 (10-20); CREATININE 0.62 mg/dl (0.60-1.20); POTASSIUM 3.5 mmol/L (3.5-5.1)
[2016-05-11 15:33] LABS: INR 5.2 (0.9-1.1)
[2016-05-11] MEDS ORDERED: GLUCAGON FOR INJ 1 MG VIAL SQ PRN (15:45)
[2016-05-11] MEDS ORDERED: GLUCOSE 40% GEL 15 GM TUBE PO PRN (15:45)
[2016-05-11] MEDS ORDERED: GLUCOSE 10 TABS/TUBE PO PRN (15:45)
[2016-05-11] MEDS ORDERED: DEXTROSE 50% 50 ML SYR IV PRN (15:45)
--- NOTE | 2016-05-11 15:46 | EMERGENCY ROOM VISIT NOTE ---
History Report prepared by Christiano: Reyes Williamson Under the Supervision of: Dr. Laura Serra M.D. First contact with patient: 13:54 Chief Complaint: OVERDOSE (ACCIDENTAL) Stated Complaint: WEAKNESS/ POSSIBLE TOOK TO MANY DAILY MEDS Nursing Triage Summary: PT HERE VIA ALS FROM HOME WITH ALTERED MENTAL STATUS, CONFUSION AFTER TAKING 2 EXTRA DAYS WORTH OF MEDS PER DAUGHTER AFTER LOOKING AT MISSING PILLS. PT IS ALERT BUT SLURRING WORDS AND NOT ANSWERING QUESTIONS APPROPRIATELY. DENIES ANY PAIN. DAUGHTER STATES PT HAS BEEN HAVING INCREASED TROUBLE WITH AMBULATION. PT NORMALLY WEARS 6 LITERS OXYGEN, HX OF PULMONARY FIBROSIS. DENIES ANY PAIN TODAY History of Present Illness The patient is a 81 year old female who presents to the Emergency Room with complaints of an episode of accidental overdose. Per the family, she took 2 mg of Alprazolam when her normal dosage is 0.5 mg. She also has medications for epilepsy and anxiety. The patient notes "her feet were not working" and that her speech has been slurred. The patient notes falling 3 days ago and hitting her head. Source of History: patient, family Onset: earlier today Position: other (global) Quality: other (overdose) Timing: other (episode) Note: The patient notes having slurred speech. Review of Systems See HPI for pertinent positives & negatives. A total of 10 systems reviewed and were otherwise negative. 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 (14) GI bleed (15) HTN (hypertension) (16) HYPERLIPIDEMIA NEC/NOS (17) HYPERTENSION NOS (18) Hypothyroidism (19) HYPOTHYROIDISM NOS (20) LBBB (left bundle branch block) (21) Osteoporosis (22) Overdose (23) Pulmonary fibrosis (24) Shingles Surgical Problems: (1) H/O lumpectomy (2) History of knee replacement Family History Cancer Diabetes mellitus FHx: stroke Heart disease Hypertension Lung disease Social History Smoking Status: Never Smoker Alcohol Use: occasionally Drug Use: none Marital Status: Housing Status: lives alone Occupation Status: unemployed Current/Historical Medications Scheduled Alprazolam (Alprazolam), 0.5 MG PO BID Anastrozole (Anastrozole), 1 MG PO QAM Calcium Citrate-Vitamin D (Calcium Citrate/Vitamin D), 2 TAB PO QAM Calcium Polycarbophil (Fiber), 2 CPLT PO QAM Carvedilol (Carvedilol), 6.25 MG PO BIDM Cholecalciferol (Vitamin D3), 2,000 INTER.UNIT PO QAM Coenzyme Q10 (Ubidecarenone) (Co Q 10), 100 MG PO QAM Denosumab (Xgeva), Unknown Dose SQ MONTHLY Fluoxetine (Prozac), 20 MG PO DAILY Fluoxetine (Prozac), 10 MG PO DAILY Furosemide (Furosemide), 80 MG PO QAM Guaifenesin Ext Rel (Mucinex Ext Rel), 600 MG PO Q12 Levetiractam (Keppra), 250 MG PO BID Losartan Potassium (Losartan Potassium), 50 MG PO QAM Multiple Vitamins W/ Minerals (One Daily For Women), 1 TAB PO QAM Oxygen (Oxygen), 6 LITERS NA CONTINOUS Simvastatin (Simvastatin), 40 MG PO HS Warfarin Sodium (Warfarin Sodium), 3 MG PO 6XWK Warfarin Sodium (Coumadin), 4.5 MG PO WK Scheduled PRN Dextromethorphan Polistirex (Delsym), 20 ML PO Q4 PRN for Cough Hydrocortisone (Rectal) (Procto-Med Hc), 1 APPLN TOP DAILY PRN for Hemorrhoids Ipratropium [place] (Atrovent 0.02% Soln), 1 DOSE INH Q4H PRN for Shortness of Breath Ondasetron Odt (Zofran Odt), 4 MG SL TID PRN for Nausea or Vomiting Oxycodone Immediate Rel Tab (Roxicodone Ir), 5 MG PO Q6H PRN for Pain Allergies Coded Allergies: No Known Allergies (Verified , 10/14/15) Physical Exam Vital Signs Date Time Temp Pulse Resp B/P Pulse Ox O2 Delivery O2 Flow Rate FiO2 05/11/16 15:13 56 16 93 Nasal Cannula 6.0 05/11/16 13:42 94 Nasal Cannula 6.0 05/11/16 13:34 36.6 65 16 127/72 94 Nasal Cannula 6.0 05/11/16 13:28 64 Physical Exam CONSTITUTIONAL: Mildly sedated consistent with benzodiazepine excess. HEENT: No icterus, moist mucous membranes NECK: No meningismus, trachea is midline. CARDIOVASCULAR: Regular rate, normal perfusion RESPIRATORY: Unlabored breathing. Clear to auscultation. GASTROINTESTINAL: Non-tender GENITOURINARY: No flank tenderness MUSCULOSKELETAL: Full range of motion NEUROLOGIC: No acute gross focal deficits. PSYCHIATRIC: Normal affect SKIN: Normal for ethnicity. Medical Decision & Procedures Laboratory Results Test 05/11/16 14:45 Activated Partial Thromboplast Time 50.0 SECONDS (21.0-31.0) Partial Thromboplastin Ratio 1.9 Thyroid Stimulating Hormone (TSH) 1.740 uIu/ml (0.300-4.500) Acetaminophen Level < 2 ug/ml (10-30) Labs reviewed by ED physician. Medications Administered Medications (Trade) Dose Ordered Sig/Lindsey Route Start Time Stop Time Status Last Admin Dose Admin Sodium Chloride (Nss 1000ml) 1,000 ml @ 80 mls/hr [id number] IV 05/11/16 15:05 05/12/16 07:56 DC 05/12/16 07:45 80 MLS/HR ED Course 1357: Past medical records reviewed. The patient was evaluated in room A9B. A complete history and physical examination was performed. 1438: Discussed the patient's case with Dr. Perez. The patient will be evaluated for further management. Medical Decision Differentials include metabolic disorder secondary to therapeutic misadventures. Consults Time Called: 1430 Consulting Physician: Dr. Perez Returned Call: 1438 Discussed the patient's case with Dr. Perez. The patient will be evaluated for further management. Scribe Attestation The scribe's documentation has been prepared under my direction and personally reviewed by me in its entirety. I confirm that the note above accurately reflects all work, treatment, procedures, and medical decision making performed by me. Departure Information Dispostion Being Evaluated By Hospitalist Referrals Abdirashid Chavira M.D. (PCP) Patient Instructions My [facility]
--- NOTE | 2016-05-11 16:02 | History and Physical ---
History & Physical Date & Time of Service: May 11, 2016 at 15:14 Chief Complaint: Weakness/ Possible Took To Many Daily Meds Primary Care Physician: Abdirashid Chavira M.D. History of Present Illness Source: patient, family This is a 81 yo F with PMHx diastolic CHF, Atrial fibrillation with IVC filter, DM II, HTN, hyperlipidemia, hypothyroidism, hx breast cancer with bony metastasis, pulmonary fibrosis with probaby COPD, frequent falls who presents to the ED after accidental ingestion of three times the amount of her morning medications. Pt reports taking all meds at 0700 today and having breakfast. Her daughter and [id number] are present at bedside and supplement history. The patient denies knowing she took more medication that she was supposed to. She denies any acute complaints currently but is confused per the family. Pt's daughter reports she was extremely lethargic and slurring her speech this morning, and found it difficult to get her up to walk. She is unable to answer simple questions that she normally would know the answer to. Pt lives alone in a ranch house, uses a walker for ambulation normally. She reports recent fall on 05/08 where she fell and hit her back and head. She was evaluated in the ED at that time and CT head/cervical spine was negative. She denies fall since that time. The family has been considering moving in with her to support her. Pt has been estimated to have taken the following of concern: alprazolam 2 mg, fluoxetine 90 mg, furosemide 240 mg PO, carvedilol 25 mg. It is unknown if the patient took extra oxycodone (prescribed 5 mg Q4H prn), or tylenol. No imaging has been performed in the ED. Toxicology screen is in process. 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 Status: Chronic (14) HTN (hypertension) Status: Chronic (15) HYPERLIPIDEMIA NEC/NOS Status: Chronic (16) HYPERTENSION NOS Status: Chronic (17) Hypothyroidism Status: Chronic (18) HYPOTHYROIDISM NOS Status: Chronic (19) LBBB (left bundle branch block) Status: Chronic (20) Osteoporosis Status: Chronic (21) Pulmonary fibrosis Status: Chronic (22) Shingles Status: Resolved Surgical Problems: (1) H/O lumpectomy Status: Resolved (2) History of knee replacement Status: Chronic Family History Cancer Diabetes mellitus FHx: stroke Heart disease Hypertension Lung disease Social History Smoking Status: Never Smoker Smokeless Tobacco Use: No Alcohol Use: none Drug Use: none Marital Status: Housing status: lives alone Occupational Status: retired Immunizations History of Influenza Vaccine: Yes Influenza Vaccine Date: Jan 23, 2009 History of Tetanus Vaccine?: Unknown Tetanus Immunization Date: May 26, 2005 History of Pneumococcal: Yes Pneumococcal Date: May 26, 2006 History of Hepatitis B Vaccine: No Multi-Drug Resistant Organisms History of MDRO: No Allergies Coded Allergies: No Known Allergies (Verified , 10/14/15) Home Medications Scheduled Alprazolam (Alprazolam), 0.5 MG PO BID Anastrozole (Anastrozole), 1 MG PO QAM Calcium Citrate-Vitamin D (Calcium Citrate/Vitamin D), 2 TAB PO QAM Calcium Polycarbophil (Fiber), 2 CPLT PO QAM Carvedilol (Carvedilol), 6.25 MG PO BIDM Cholecalciferol (Vitamin D3), 2,000 INTER.UNIT PO QAM Coenzyme Q10 (Ubidecarenone) (Co Q 10), 100 MG PO QAM Denosumab (Xgeva), Unknown Dose SQ MONTHLY Fluoxetine (Prozac), 20 MG PO DAILY Fluoxetine (Prozac), 10 MG PO DAILY Furosemide (Furosemide), 80 MG PO QAM Guaifenesin Ext Rel (Mucinex Ext Rel), 600 MG PO Q12 Levetiractam (Keppra), 250 MG PO BID Losartan Potassium (Losartan Potassium), 50 MG PO QAM Multiple Vitamins W/ Minerals (One Daily For Women), 1 TAB PO QAM Oxygen (Oxygen), 6 LITERS NA CONTINOUS Simvastatin (Simvastatin), 40 MG PO HS Warfarin Sodium (Warfarin Sodium), 3 MG PO 6XWK Warfarin Sodium (Coumadin), 4.5 MG PO WK Scheduled PRN Dextromethorphan Polistirex (Delsym), 20 ML PO Q4 PRN for Cough Hydrocortisone (Rectal) (Procto-Med Hc), 1 APPLN TOP DAILY PRN for Hemorrhoids Ipratropium [place] (Atrovent 0.02% Soln), 1 DOSE INH Q4H PRN for Shortness of Breath Ondasetron Odt (Zofran Odt), 4 MG SL TID PRN for Nausea or Vomiting Oxycodone Immediate Rel Tab (Roxicodone Ir), 5 MG PO Q6H PRN for Pain Review of Systems Constitutional: No chills, No fever, No sweats Eyes: No problem reported ENT: + problem reported (poor peripheral vision, has never driven a vehicle due to this) Respiratory: + problem reported (wears 6L O2 continuosly), No cough, No dyspnea at rest, No dyspnea on exertion, No shortness of breath Cardiovascular: No chest pain, No palpitations Abdomen: No constipation, No diarrhea, No nausea, No pain, No vomiting Musculoskeletal: No joint pain, No swelling Neurologic: + balance problems, No numbness/tingling, No vertigo, No weakness Integumentary: No itch, No rash Physical Exam Vital Signs Date Time Temp Pulse Resp B/P Pulse Ox O2 Delivery O2 Flow Rate FiO2 05/11/16 13:42 94 Nasal Cannula 6.0 05/11/16 13:34 36.6 65 16 127/72 94 Nasal Cannula 6.0 05/11/16 13:28 64 General Appearance: WD/WN, no apparent distress Head: normocephalic, atraumatic Eyes: PERRL, EOMI, + pertinent finding (+ poor peripheral vision with visual perdue test, worse with right peripheral vision testing. ) ENT: hearing grossly normal, pharynx normal Neck: supple, no JVD, no carotid bruits Respiratory/Chest: lungs clear, normal breath sounds, no respiratory distress, no accessory muscle use, + pertinent finding (wearing 6 L )2 via NC) Cardiovascular: regular rate, rhythm, normal peripheral pulses Abdomen/GI: normal bowel sounds, non tender, soft Back: normal inspection Extremities/Musculoskelatal: normal inspection, no calf tenderness, no pedal edema Neurologic/Psych: alert, + disoriented, + pertinent finding (slowed responses to my questions, follow commands appropriately, Strength is 5/5 in upper extremities bilaterally, Strength in lower extremities: 4/5 LLE and 5/5 RLE. No pronator drift. ) Skin: normal color, warm/dry Diagnostics Laboratory Results Results Past 24 Hours Test 05/11/16 14:45 Range/Units White Blood Count 10.59 4.8-10.8 K/uL Red Blood Count 5.08 4.2-5.4 M/uL Hemoglobin 16.2 12.0-16.0 g/dL Hematocrit 47.8 37-47 % Mean Corpuscular Volume 94.1 80-100 fL Mean Corpuscular Hemoglobin 31.9 25-34 pg Mean Corpuscular Hemoglobin Concent 33.9 32-36 g/dl Platelet Count 578 130-400 K/uL Mean Platelet Volume 10.8 7.4-10.4 fL Neutrophils (%) (Auto) 61.8 % Lymphocytes (%) (Auto) 15.1 % Monocytes (%) (Auto) 13.3 % Eosinophils (%) (Auto) 8.9 % Basophils (%) (Auto) 0.6 % Neutrophils # (Auto) 6.55 1.4-6.5 K/uL Lymphocytes # (Auto) 1.60 1.2-3.4 K/uL Monocytes # (Auto) 1.41 0.11-0.59 K/uL Eosinophils # (Auto) 0.94 0-0.5 K/uL Basophils # (Auto) 0.06 0-0.2 K/uL RDW Standard Deviation 52.1 36.4-46.3 fL RDW Coefficient of Variation 15.3 11.5-14.5 % Immature Granulocyte % (Auto) 0.3 % Immature Granulocyte # (Auto) 0.03 0.00-0.02 K/uL Diagnostic Radiology No imaging to review Await CT scan results Await EKG results Impression Assessment and Plan 81 yo F with PMHx diastolic CHF, Atrial fibrillation with IVC filter, DM II, HTN, hyperlipidemia, hypothyroidism, hx breast cancer with bony metastasis, pulmonary fibrosis with probaby COPD, frequent falls who presents to the ED after accidental ingestion of three times the amount of her morning medications. Accidental Medication Overdose - Admit to tele - Toxicology in process, follow - VSS currently - Wears 6 L O2 via NC for pulmonary fibrosis with possible COPD, O2 sats = 88-90 % during exam at bedside - Continue NSS at 80 mL/hr with hx of taking lasix for HTN - Hgb is 16.2 and may be hemoconcentrated - Ordered CT head and brain with recent fall on 05/08 which was done without contrast, r/o intracranial hemorrhage with slurred speech, lethargy, confusion in light of medication overdose. - Checking EKG - Will need PT/OT consults tomorrow Diastolic CHF HTN - Hold cavedilol as patient likely took 25 mg this morning. - Hold lasix as pt likely took 240 mg PO this morning- gently rehydrate with NSS - Continue losartan 50 mg QAM - Closely monitor BPs Q4H at minimum Atrial Fibrillation - HOLD coumadin as pt INR is supratherapeutic at 5.2 ( normal regimen -3 mg daily except for Fridays where pt takes 4.5 mg ) - Checking CT head/brain- follow - Follow coags daily DM II - Diet controlled, not on medications. - Check HA1C with am labs - PRP glucose is 126. Can do ACHS accuchecks for 24 hours and stop if controlled and HgbA1C is <6.0 Pulmonary Fibrosis/ possible COPD - Cont sea captain inhalers- no shortness of breath, no respiratory depression currently. - CXR from 05/08 showing chronic changes - Cont O2 @ 6L continuously - Continuous pulse ox Depression/Anxiety - Hold prozac today with overdose, long half life will allow this to be restarted in 1-2 days. Must restart prior to d/c due to withdrawal effects - Hold xanax with increased lethargy and slurred speech Hypothyroidism - Check TSH; was 1.5 on 01/07/16 - Not on medication DVT ppx: INR supratherapeutic so holding coumadin, SCDs. CODE STATUS: DNR Disposition: CM consulted for discharge planning, from home, lives alone. Level of Care Telemetry Advanced Directives Existing Advance Directive: Yes Existing Living Will: Yes Existing Power of Electroencephalogram Technologist: Yes Resuscitation Status DO NOT RESUSCITATE VTE Prophylaxis VTE Risk Assessment Done? Y/N: Yes Risk Level: Low Given or contraindicated: SCD's Social Service Consult >80 yr.& Lives Alone Reviewed: Pt Seen/Exam by Me, RN Notes, HO Notes, Prior Records, Labs, RAD History I agree with PA H&P except as below 81 yo F with PMHx diastolic CHF, Atrial fibrillation with IVC filter, DM II, HTN, hyperlipidemia, hypothyroidism, hx breast cancer with bony metastasis, pulmonary fibrosis with probaby COPD, frequent falls who presents to the ED after accidental ingestion of three times the amount of her morning medications. Constitutional: denies: chills EENTM: denies: tearing Cardiovascular: denies chest pain Genitourinary: negative discharge Musculoskeletal: negative: back pain Neurological/Psych: negative: anxiety Hematologic/Lymphatic: negative: anemia General Appearance: WD/WN Eye Exam: bilateral eye normal inspection Ears, Nose, Throat: hearing grossly normal, pharynx normal Neck: non-tender, supple Respiratory: chest non-tender, normal breath sounds Cardiovascular: regular rate, rhythm, no gallop Gastrointestinal: normal bowel sounds, soft Extremities: non-tender, normal inspection Neurologic/Psychiatric: alert Skin Characteristics: warm/dry Assessment/Plan 81 yo F with PMHx diastolic CHF, Atrial fibrillation with IVC filter, DM II, HTN, hyperlipidemia, hypothyroidism, hx breast cancer with bony metastasis, pulmonary fibrosis with probaby COPD, frequent falls who presents to the ED after accidental ingestion of three times the amount of her morning medications. Accidental Medication Overdose tele Toxicology screen in process, follow VSS currently Wears 6 L O2 via NC for pulmonary fibrosis with possible COPD, O2 sats = 88-90% during exam at bedside Continue NSS at 80 mL/hr with hx of taking lasix for HTN Hgb is 16.2 and may be hemoconcentrated Checking EKG CT head and brain with recent fall on 05/08 which was done without contrast, normal PT/OT consults tomorrow Diastolic CHF, stable HTN Hold cavedilol as patient likely took 25 mg this morning. Hold lasix as pt likely took 240 mg PO this morning- gently rehydrate with NSS Continue losartan 50 mg QAM check Q4H Atrial Fibrillation HOLD coumadin as pt INR is supratherapeutic at 5.2 ( normal regimen -3 mg daily except for Fridays where pt takes 4.5 mg ) Checking CT head/brain- follow Follow coags daily DM II Diet controlled, not on medications. Check HA1C with am labs PRP glucose is 126. Can do ACHS accuchecks for 24 hours and stop if controlled and HgbA1C is <6.0 Pulmonary Fibrosis/ possible COPD Cont inhalers- no shortness of breath, no respiratory depression currently. CXR from 05/08 showing chronic changes Cont O2 @ 6L continuously Continuous pulse ox Depression/Anxiety Hold prozac today with overdose, long half life will allow this to be restarted in 1-2 days. Must restart prior to d/c due to withdrawal effects Hold xanax with increased lethargy and slurred speech Hypothyroidism Check TSH; was 1.5 on 01/07/16 Not on any medication DVT ppx: INR supratherapeutic so holding coumadin, SCDs. CODE STATUS: DNR Disposition: CM consulted for discharge planning, from home, lives alone. discussed with SONYA Small time spent 45 min
[2016-05-11 16:30] VITALS: BP 138/78; PULSE 69; TEMP 36.8; O2SAT 93; Ht 160 cm; Wt 81.2 kg
[2016-05-11] MEDS: SODIUM CHLORIDE 0.9% 1000ML 1,000 ML IV SCH (17:57)
--- NOTE | 2016-05-11 18:06 | DIAGNOSTIC IMAGING REPORT ---
HEAD CT NONCONTRAST CT DOSE: 638.56 mGycm HISTORY: Mental status change r/o intracranial hemorrhage TECHNIQUE: Multiaxial CT images of the head were performed without the use of intravenous contrast. Comparison: 05/08/2016 Findings: The paranasal sinuses and mastoid air cells are clear. Age-related chronic small vessel change. Stable mild atrophy. Ventricular system is midline. No evidence for acute intracranial hemorrhage. Impression: Age-related change. No acute process. No change from the prior study Electronically signed by: Beck Iglesias M.D. 05/11/2016 6:04 PM Dictated Date/Time: 05/11/2016 6:04 PM
[2016-05-11 18:07] LABS: URINE APPEARANCE CLEAR (CLEAR); URINE BILIRUBIN NEG (NEG); URINE COLOR YELLOW; URINE NITRITE NEG (NEG); URINE PH 7.5 (4.5-7.5); URINE SPECIFIC GRAVITY 1.006 (1.000-1.030); UROBILINOGEN NEG (NEG)
[2016-05-11 18:19] LABS: MANUAL MICROSCOPIC REQUIRED? NO; REVIEW REQ? NO
[2016-05-11] MEDS ORDERED: NURSING VERBAL MED ORDER ONE (18:45)
[2016-05-11 18:52] LABS: BENZODIAZEPINE, URINE POS (NEG); COCAINE,URINE NEG (NEG); PHENCYCLIDINE, URINE NEG (NEG)
[2016-05-11] MEDS: LIDODERM (LIDOCAINE) PATCH 5% TD SCH (19:43)
[2016-05-11 19:50] VITALS: BP 107/70; PULSE 68; TEMP 36.4; O2SAT 91
[2016-05-11] MEDS: SIMVASTATIN 40 MG TAB PO SCH (20:36)
[2016-05-11] MEDS: LEVETIRACETAM 250 MG TAB PO SCH (20:36)
[2016-05-11 23:25] VITALS: BP 109/67; PULSE 66; TEMP 36.6; O2SAT 96
[2016-05-12] VITALS (9 sets, daily range): BP systolic 112–143; BP diastolic 68–80; PULSE 53–70; TEMP 36.3–36.8; O2SAT 93–96
[2016-05-12 06:56] LABS: BASO % 0.4 %; BASO ABS # 0.04 K/uL (0-0.2); COMPLETE YES; EOS % 8.3 %; HEMATOCRIT 46.4 % (37-47); IG% 0.2 %; LYMPH % 18.7 %; LYMPH ABS # 1.76 K/uL (1.2-3.4); MEAN CELL VOLUME 94.7 fL (80-100); MEAN CORPUSCULAR HGB CONC 32.8 g/dl (32-36); MEAN PLATELET VOLUME 10.7 fL (7.4-10.4); MONO % 12.3 %; NEUT % 60.1 %; PLATELET COUNT 576 K/uL (130-400); WHITE BLOOD COUNT 9.41 K/uL (4.8-10.8)
[2016-05-12 07:04] LABS: INR 3.1 (0.9-1.1); PROTHROMBIN TIME (PATIENT) 35.1 SECONDS (9.0-12.0)
[2016-05-12 07:28] LABS: BUN/CREATININE RATIO 31.4 (10-20); CALCIUM 8.7 mg/dl (8.5-10.1); CREATININE 0.8 mg/dl (0.60-1.20); POTASSIUM 3.7 mmol/L (3.5-5.1)
[2016-05-12] MEDS: CEROVITE ADV FORMULA TAB PO SCH (07:44)
[2016-05-12] MEDS: LEVETIRACETAM 250 MG TAB PO SCH ×2 (07:44→20:33)
[2016-05-12] MEDS: LOSARTAN POTASSIUM 50 MG TAB PO SCH (07:45)
[2016-05-12] MEDS: SODIUM CHLORIDE 0.9% 1000ML 1,000 ML IV SCH (07:45)
[2016-05-12] MEDS: CALCIUM POLYCARBOPHIL 1 TAB PO SCH (07:46)
[2016-05-12] MEDS: CHOLECALCIFEROL 1000 INTER.UNIT TAB PO SCH (07:46)
[2016-05-12] MEDS: LIDODERM (LIDOCAINE) PATCH 5% TD SCH (07:49)
--- NOTE | 2016-05-12 07:53 | Progress Note ---
Subjective Date of Service: May 12, 2016. Subjective pt is lethargic but arousable, is mildly confused Problem List Medical Problems: (1) Abdominal contusion Status: Acute (2) Abdominal pain Status: Acute (3) Anxiety Status: Acute (4) Anxiety Status: Acute (5) Back contusion Status: Acute (6) Cervical strain Status: Acute (7) Chest pain Status: Acute (8) Confusion Status: Acute (9) Fall Status: Acute (10) Fall Status: Acute (11) Generalized weakness Status: Acute (12) Hypoglycemia Status: Acute (13) Lumbar contusion Status: Acute (14) Metastatic breast cancer Status: Acute (15) Rectal bleed Status: Acute (16) Shingles Status: Acute (17) Supratherapeutic INR Status: Acute (18) Weakness Status: Acute Review of Systems Constitutional: + fatigue, + weakness, No chills, No fever ENT: No hearing loss Respiratory: No cough, No dyspnea on exertion, No shortness of breath Cardiac: No chest pain, No edema Abdomen: No diarrhea, No nausea, No pain, No vomiting Female : No dysuria, No urinary frequency Objective Vital Signs Date Time Temp Pulse Resp B/P Pulse Ox O2 Delivery O2 Flow Rate FiO2 05/12/16 04:00 Nasal Cannula 6.0 05/12/16 02:58 36.3 53 18 112/69 96 Nasal Cannula 6.0 05/12/16 00:01 96 Nasal Cannula 6.0 05/11/16 23:25 36.6 66 18 109/67 96 Nasal Cannula 6.0 05/11/16 20:00 Nasal Cannula 6.0 05/11/16 19:50 36.4 68 17 107/70 91 Nasal Cannula 4.0 05/11/16 16:30 36.8 69 20 138/78 93 Nasal Cannula 6.0 05/11/16 15:35 59 16 128/68 91 Nasal Cannula 6.0 05/11/16 15:13 56 16 93 Nasal Cannula 6.0 05/11/16 13:42 94 Nasal Cannula 6.0 05/11/16 13:34 36.6 65 16 127/72 94 Nasal Cannula 6.0 05/11/16 13:28 64 Physical Exam General Appearance: WD/WN, + mild distress Respiratory/Chest: chest non-tender, lungs clear Cardiovascular: no murmur, + bradycardia Abdomen: normal bowel sounds, non tender, soft Extremities: normal range of motion, non-tender, normal inspection Neurologic/Psychiatric: alert, + depressed affect, + disoriented Laboratory Results Last 24 Hours Test 05/11/16 14:45 05/11/16 16:36 05/11/16 17:45 05/11/16 20:31 White Blood Count 10.59 K/uL Red Blood Count 5.08 M/uL Hemoglobin 16.2 g/dL Hematocrit 47.8 % Mean Corpuscular Volume 94.1 fL Mean Corpuscular Hemoglobin 31.9 pg Mean Corpuscular Hemoglobin Concent 33.9 g/dl Platelet Count 578 K/uL Mean Platelet Volume 10.8 fL Neutrophils (%) (Auto) 61.8 % Lymphocytes (%) (Auto) 15.1 % Monocytes (%) (Auto) 13.3 % Eosinophils (%) (Auto) 8.9 % Basophils (%) (Auto) 0.6 % Neutrophils # (Auto) 6.55 K/uL Lymphocytes # (Auto) 1.60 K/uL Monocytes # (Auto) 1.41 K/uL Eosinophils # (Auto) 0.94 K/uL Basophils # (Auto) 0.06 K/uL RDW Standard Deviation 52.1 fL RDW Coefficient of Variation 15.3 % Immature Granulocyte % (Auto) 0.3 % Immature Granulocyte # (Auto) 0.03 K/uL Prothrombin Time 59.8 SECONDS Prothromb Time International Ratio 5.2 Activated Partial Thromboplast Time 50.0 SECONDS Partial Thromboplastin Ratio 1.9 Sodium Level 142 mmol/L Potassium Level 3.5 mmol/L Chloride Level 103 mmol/L Carbon Dioxide Level 29 mmol/L Anion Gap 10.0 mmol/L Blood Urea Nitrogen 27 mg/dl Creatinine 0.62 mg/dl Est Creatinine Clear Calc Drug Dose 68.0 ml/min Estimated GFR () 96.6 Estimated GFR (Non- 83.4 BUN/Creatinine Ratio 42.9 Random Glucose 95 mg/dl Calcium Level 9.0 mg/dl Thyroid Stimulating Hormone (TSH) 1.740 uIu/ml Acetaminophen Level < 2 ug/ml Bedside Glucose 110 mg/dl 101 mg/dl Urine Color YELLOW Urine Appearance CLEAR Urine pH 7.5 Urine Specific Stanley 1.006 Urine Protein NEG Urine Glucose (UA) NEG Urine Ketones NEG Urine Occult Blood NEG Urine Nitrite NEG Urine Bilirubin NEG Urine Urobilinogen NEG Urine Leukocyte Esterase NEG Urine Opiates Screen NEG Urine Methadone, Qualitative NEG Urine Barbiturates NEG Urine Phencyclidine (PCP) Level NEG Ur Amphetamine/Methamphetamine NEG MDMA (Ecstasy) Screen NEG Urine Benzodiazepines Screen POS Urine Cocaine Metabolite NEG Urine Marijuana (THC) NEG Test 05/12/16 06:20 05/12/16 06:23 05/12/16 07:17 White Blood Count 9.41 K/uL Red Blood Count 4.90 M/uL Hemoglobin 15.2 g/dL Hematocrit 46.4 % Mean Corpuscular Volume 94.7 fL Mean Corpuscular Hemoglobin 31.0 pg Mean Corpuscular Hemoglobin Concent 32.8 g/dl Platelet Count 576 K/uL Mean Platelet Volume 10.7 fL Neutrophils (%) (Auto) 60.1 % Lymphocytes (%) (Auto) 18.7 % Monocytes (%) (Auto) 12.3 % Eosinophils (%) (Auto) 8.3 % Basophils (%) (Auto) 0.4 % Neutrophils # (Auto) 5.65 K/uL Lymphocytes # (Auto) 1.76 K/uL Monocytes # (Auto) 1.16 K/uL Eosinophils # (Auto) 0.78 K/uL Basophils # (Auto) 0.04 K/uL RDW Standard Deviation 53.4 fL RDW Coefficient of Variation 15.5 % Immature Granulocyte % (Auto) 0.2 % Immature Granulocyte # (Auto) 0.02 K/uL Sodium Level 141 mmol/L Potassium Level 3.7 mmol/L Chloride Level 104 mmol/L Carbon Dioxide Level 31 mmol/L Anion Gap 6.0 mmol/L Blood Urea Nitrogen 25 mg/dl Creatinine 0.80 mg/dl Est Creatinine Clear Calc Drug Dose 52.6 ml/min Estimated GFR () 79.0 Estimated GFR (Non- 68.2 BUN/Creatinine Ratio 31.4 Random Glucose 92 mg/dl Calcium Level 8.7 mg/dl Prothrombin Time 35.1 SECONDS Prothromb Time International Ratio 3.1 Bedside Glucose 91 mg/dl Assessment and Plan 81 yo F accidental ingestion of toxic doses of home meds, does have PMHx breast cancer with bony metastasis, chronic diastolic HF, Atrial fibrillation, IVC filter, DM II, pulmonary fibrosis COPD Accidental Medication Overdose, toxic encephalopathy secondary to accidental overdose supportive care eval of heart rhythm and blood pressure, Chronic hypoxic respiratory failure, 6 L O2 via NC for pulmonary fibrosis with possible COPD, PT/OT consults tomorrow Diastolic CHF/HTN home meds of coreg and lasix held, stop ivf am of 05/12, losartan 50 mg QAM consider restarting meds if stable and bp control is needed Atrial Fibrillation- rate controlled HOLD coumadin as pt INR is supratherapeutic at 5.2 ( normal regimen -3 mg daily except for Fridays where pt takes 4.5 mg ) DM II- Diet controlled, not on medications. HA1C Pulmonary Fibrosis/ possible COPD Depression/Anxiety holding xanax watch for withdrawal, prozac holding is less issue with long half life DVT ppx: INR supratherapeutic so holding coumadin, SCDs. CODE STATUS: DNR
[2016-05-12 08:34] LABS: ESTIMATED AVERAGE GLUCOSE 131 mg/dl; HA1C FLAG Normal (Normal)
--- NOTE | 2016-05-12 09:16 | Clinical Documentation Query ---
MIKAEL Miller : CLINICAL DOCUMENTATION QUERIES QUERY 1 OF 2 Patient is an 81 year old female presenting after accidental ingestion of three times the amount of her morning medications. Notably, these included Alprazolam and possibly Oxycodone. She was described as confused, extremely lethargic, and was slurring her words per family. She was unable to answer simple questions that she would normally know the answer to. CT scan of the head was negative. Toxicology screen pending. In your clinical opinion is this patient being managed for: (xx ) Toxic encephalopathy secondary to accidental overdose ( ) Other explanation of clinical findings (Please Explain) ( ) Unable to determine (Please Define) ( ) Need to Discuss ( ) Not Agree The medical record reflects the following clinical findings, treatment, and risk factors. Clinical Indicators: As above Treatment: Supportive, IVF, CT scan head Risk Factors: Age, ingestion of benzodiazepines, possibly narcotics at larger than prescribed dosages. QUERY 2 OF 2 Documentation includes pulmonary fibrosis, noting continuous use of supplemental oxygen. Please clarify as clinically appropriate. Thank you. In your clinical opinion is this patient being managed for: ( xx ) Chronic hypoxic respiratory failure ( ) Other explanation of clinical findings (Please Explain) ( ) Unable to determine (Please Define) ( ) Need to Discuss ( ) Not Agree The medical record reflects the following clinical findings, treatment, and risk factors. Clinical Indicators: As above Treatment: Ongoing supplemental oxygen Risk Factors: Pulmonary fibrosis. Please clarify and document your clinical opinion in the progress notes and discharge summary. Terms such as "probable", "suspected", "likely", "questionable", "possible", or "still to be ruled out" are acceptable. IF IN AGREEMENT, YOU MUST DOCUMENT ABOVE DIAGNOSTIC STATEMENT IN DAILY PROGRESS NOTES AND DISCHARGE SUMMARY. This document is not part of the patient's record. Thank You, Reyes Mccann, RN [phone]
[2016-05-12] MEDS ORDERED: WARFARIN SOD 3 MG TAB PO SCH (16:00)
[2016-05-12] MEDS: SIMVASTATIN 40 MG TAB PO SCH (20:32)
[2016-05-13] VITALS (7 sets, daily range): BP systolic 122–155; BP diastolic 60–84; PULSE 65–77; TEMP 36.3–36.6; O2SAT 95–98
[2016-05-13 07:12] LABS: INR 1.9 (0.9-1.1)
[2016-05-13 07:15] LABS: BASO % 0.6 %; BASO ABS # 0.06 K/uL (0-0.2); COMPLETE YES; EOS % 6.3 %; HEMATOCRIT 45.9 % (37-47); IG% 0.3 %; LYMPH % 17.1 %; MEAN CELL VOLUME 94.6 fL (80-100); MEAN CORPUSCULAR HEMOGLOBIN 32.4 pg (25-34); MEAN CORPUSCULAR HGB CONC 34.2 g/dl (32-36); MEAN PLATELET VOLUME 10.9 fL (7.4-10.4); NEUT % 62.7 %; PLATELET COUNT 567 K/uL (130-400); RED BLOOD COUNT 4.85 M/uL (4.2-5.4); WHITE BLOOD COUNT 9.38 K/uL (4.8-10.8)
[2016-05-13 07:43] LABS: BUN/CREATININE RATIO 32.1 (10-20); CALCIUM 8.8 mg/dl (8.5-10.1); CREATININE 0.67 mg/dl (0.60-1.20); POTASSIUM 4.2 mmol/L (3.5-5.1)
[2016-05-13] MEDS: CEROVITE ADV FORMULA TAB PO SCH (07:49)
[2016-05-13] MEDS: LEVETIRACETAM 250 MG TAB PO SCH ×2 (07:49→21:00)
[2016-05-13] MEDS: CHOLECALCIFEROL 1000 INTER.UNIT TAB PO SCH (07:50)
[2016-05-13] MEDS: LOSARTAN POTASSIUM 50 MG TAB PO SCH (07:50)
[2016-05-13] MEDS: LIDODERM (LIDOCAINE) PATCH 5% TD SCH (07:50)
[2016-05-13] MEDS: CALCIUM POLYCARBOPHIL 1 TAB PO SCH (07:51)
[2016-05-13] MEDS ORDERED: WARFARIN SOD 3 MG TAB PO SCH (16:00)
--- NOTE | 2016-05-13 17:20 | Progress Note ---
Subjective Date of Service: May 13, 2016. Subjective pt looks great, appears to not need coreg, will follow vs and family is aware for snf for subacute rehab Problem List Medical Problems: (1) Abdominal contusion Status: Acute (2) Abdominal pain Status: Acute (3) Anxiety Status: Acute (4) Anxiety Status: Acute (5) Back contusion Status: Acute (6) Cervical strain Status: Acute (7) Chest pain Status: Acute (8) Confusion Status: Acute (9) Fall Status: Acute (10) Fall Status: Acute (11) Generalized weakness Status: Acute (12) Hypoglycemia Status: Acute (13) Lumbar contusion Status: Acute (14) Metastatic breast cancer Status: Acute (15) Rectal bleed Status: Acute (16) Shingles Status: Acute (17) Supratherapeutic INR Status: Acute (18) Weakness Status: Acute Review of Systems Constitutional: No chills, No fever Respiratory: No cough, No sputum Cardiac: No chest pain, No orthopnea Abdomen: No nausea, No pain Female : No dysuria, No urinary frequency Neurologic: + memory loss (but improved) Objective Vital Signs Date Time Temp Pulse Resp B/P Pulse Ox O2 Delivery O2 Flow Rate FiO2 05/13/16 04:00 Nasal Cannula 6.0 05/13/16 04:00 36.5 65 18 155/84 96 Nasal Cannula 3.0 05/13/16 00:01 Nasal Cannula 6.0 05/12/16 23:05 36.7 67 18 143/80 94 Nasal Cannula 6.0 05/12/16 20:05 36.8 66 18 137/79 95 05/12/16 20:00 Nasal Cannula 6.0 05/12/16 16:00 Nasal Cannula 6.0 05/12/16 15:45 36.6 70 20 134/73 96 05/12/16 12:00 93 Nasal Cannula 6.0 05/12/16 11:47 36.3 62 20 123/76 95 Nasal Cannula 6.0 Physical Exam General Appearance: WD/WN, no apparent distress Neck: supple, no JVD Respiratory/Chest: chest non-tender, lungs clear, normal breath sounds, no respiratory distress Cardiovascular: regular rate, rhythm, no murmur Abdomen: normal bowel sounds, non tender, soft Extremities: no pedal edema, no calf tenderness Neurologic/Psychiatric: alert, + disoriented (only to time) Laboratory Results Last 24 Hours Test 05/12/16 11:16 05/12/16 16:08 05/12/16 20:25 05/13/16 06:31 Bedside Glucose 142 mg/dl 86 mg/dl 120 mg/dl 95 mg/dl Test 05/13/16 06:48 White Blood Count 9.38 K/uL Red Blood Count 4.85 M/uL Hemoglobin 15.7 g/dL Hematocrit 45.9 % Mean Corpuscular Volume 94.6 fL Mean Corpuscular Hemoglobin 32.4 pg Mean Corpuscular Hemoglobin Concent 34.2 g/dl Platelet Count 567 K/uL Mean Platelet Volume 10.9 fL Neutrophils (%) (Auto) 62.7 % Lymphocytes (%) (Auto) 17.1 % Monocytes (%) (Auto) 13.0 % Eosinophils (%) (Auto) 6.3 % Basophils (%) (Auto) 0.6 % Neutrophils # (Auto) 5.88 K/uL Lymphocytes # (Auto) 1.60 K/uL Monocytes # (Auto) 1.22 K/uL Eosinophils # (Auto) 0.59 K/uL Basophils # (Auto) 0.06 K/uL RDW Standard Deviation 53.6 fL RDW Coefficient of Variation 15.6 % Immature Granulocyte % (Auto) 0.3 % Immature Granulocyte # (Auto) 0.03 K/uL Prothrombin Time 21.0 SECONDS Prothromb Time International Ratio 1.9 Sodium Level 142 mmol/L Potassium Level 4.2 mmol/L Chloride Level 108 mmol/L Carbon Dioxide Level 27 mmol/L Anion Gap 7.0 mmol/L Blood Urea Nitrogen 21 mg/dl Creatinine 0.67 mg/dl Est Creatinine Clear Calc Drug Dose 63.5 ml/min Estimated GFR () 94.2 Estimated GFR (Non- 81.3 BUN/Creatinine Ratio 32.1 Random Glucose 90 mg/dl Calcium Level 8.8 mg/dl Assessment and Plan 81 yo F accidental ingestion of toxic doses of home meds, does have PMHx breast cancer with bony metastasis, chronic diastolic HF, Atrial fibrillation, IVC filter, DM II, pulmonary fibrosis COPD Accidental Medication Overdose, toxic encephalopathy secondary to accidental overdose supportive care no issues with heart rhythm and blood pressure, restarted losartan Chronic hypoxic respiratory failure, 6 L O2 via NC for pulmonary fibrosis with possible COPD, appears at baseline Diastolic CHF/HTN home meds of coreg and lasix held, seems to be tolerating withoutneed losartan 50 mg QAM restart 05/13 Atrial Fibrillation- rate controlled restart coumadin s INR normalized follow for titration DM II- Diet controlled, not on medications. HA1C 6.2 Pulmonary Fibrosis/ possible COPD Depression/Anxiety holding xanax watch for withdrawal, prozac holding is less issue with long half life DVT ppx: INR supratherapeutic so holding coumadin, SCDs. CODE STATUS: DNR
[2016-05-13] MEDS: SIMVASTATIN 40 MG TAB PO SCH (20:59)
[2016-05-14 04:07] VITALS: BP 147/73; PULSE 69; TEMP 36.4; O2SAT 97
[2016-05-14 06:28] LABS: BASO % 0.6 %; BASO ABS # 0.06 K/uL (0-0.2); COMPLETE YES; HEMATOCRIT 48.7 % (37-47); IG% 0.3 %; LYMPH ABS # 1.51 K/uL (1.2-3.4); MEAN CORPUSCULAR HEMOGLOBIN 31.3 pg (25-34); MEAN CORPUSCULAR HGB CONC 33.3 g/dl (32-36); MONO % 12.9 %; NEUT % 68.2 %; PLATELET COUNT 550 K/uL (130-400); RED BLOOD COUNT 5.18 M/uL (4.2-5.4)
[2016-05-14 06:34] LABS: INR 1.8 (0.9-1.1); PROTHROMBIN TIME (PATIENT) 19.2 SECONDS (9.0-12.0)
[2016-05-14 07:11] LABS: BUN/CREATININE RATIO 29.4 (10-20); CALCIUM 9.1 mg/dl (8.5-10.1); CREATININE 0.67 mg/dl (0.60-1.20); POTASSIUM 4.4 mmol/L (3.5-5.1)
[2016-05-14 07:19] VITALS: BP 153/79; PULSE 76; TEMP 36.3; O2SAT 96
[2016-05-14] MEDS: CALCIUM POLYCARBOPHIL 1 TAB PO SCH (07:54)
[2016-05-14] MEDS: CEROVITE ADV FORMULA TAB PO SCH (07:54)
[2016-05-14] MEDS: CHOLECALCIFEROL 1000 INTER.UNIT TAB PO SCH (07:55)
[2016-05-14] MEDS: LOSARTAN POTASSIUM 50 MG TAB PO SCH (07:55)
[2016-05-14] MEDS: LEVETIRACETAM 250 MG TAB PO SCH (07:55)
[2016-05-14] MEDS: LIDODERM (LIDOCAINE) PATCH 5% TD SCH (08:12)
[2016-05-14] MEDS ORDERED: ALPRAZOLAM 0.5 MG TAB PO SCH (09:00)
[2016-05-14] MEDS ORDERED: ONDA4TAB10 SL (09:58)
[2016-05-14] MEDS ORDERED: ALPR0.25 PO (09:58)
[2016-05-14] MEDS ORDERED: LDDP5 TD (09:58)
--- NOTE | 2016-05-14 10:03 | Discharge Instructions ---
Discharge Instructions Admission Reason for Admission: Overdose Discharge Discharge Diagnosis / Problem: toxic encephalopathy from accidental ingestion Discharge Goals Goal(s): Diagnostic testing, Therapeutic intervention Activity Recommendations Activity Level: Assistance Required Therapies: Physical Therapy, Occupational Therapy . Additional Information Patient informed of condition: Yes Advance Directives: Yes DNR: Yes Level of Care: Skilled Communicable Disease: No Prognosis: Stable Baum Catheter: No Instructions / Follow-Up Instructions / Follow-Up 81 yo F accidental ingestion of toxic doses of home meds, does have PMHx breast cancer with bony metastasis, chronic diastolic HF, Atrial fibrillation, IVC filter, DM II, pulmonary fibrosis COPD Accidental Medication Overdose, toxic encephalopathy secondary to accidental overdose supportive care no issues with heart rhythm and blood pressure, restarted losartan, did not restart coreg, lower dose of xanax Chronic hypoxic respiratory failure, 6 L O2 via NC for pulmonary fibrosis with possible COPD, appears at baseline Diastolic CHF/HTN coreg and lasix held, seems to be tolerating without need losartan 50 mg QAM restart 05/13 Atrial Fibrillation- rate controlled restart coumadin 29as INR 1.9 at discharge will need to be followed DM II- Diet controlled, not on medications. HA1C 6.2 Pulmonary Fibrosis/ possible COPD Depression/Anxiety low dose xanax restart, prozac at a lower dose CODE STATUS: DNR Current Hospital Diet Patient's current hospital diet: AHA Diet (Heart Healthy), Diabetes Type 2 Diet Discharge Diet Recommended Diet: Regular Diet Pending Studies Studies pending at discharge: no Laboratory Results Hemoglobin A1c Test 05/12/16 06:20 Range/Units Estimated Average Glucose 131 mg/dl Hemoglobin A1c 6.2 H 4.5-5.6 % Medical Emergencies . Who to Call and When: Medical Emergencies: If at any time you feel your situation is an emergency, please call 911 immediately. . Non-Emergent Contact Non-Emergency issues call your: Primary Care Provider . . "Provider Documentation" section prepared by Denny Hernández. Core Measure Problem Core Measures: None
[2016-05-14 11:31] VITALS: BP 114/79; PULSE 71; TEMP 36.6; O2SAT 96
[2016-05-14 12:48] VITALS: BP 114/79; PULSE 71; TEMP 36.6; O2SAT 96
--- NOTE | 2016-05-14 15:11 | Discharge Summary ---
Discharge Summary Admission Date: May 11, 2016 at 15:13 Discharge Date: May 14, 2016 Principal Diagnosis: toxic encephalopathy from unintentional med overdose Immunizations: Have You Had Influenza Vaccine: Yes Influenza Vaccine Date: Jan 23, 2009 History of Tetanus Vaccine?: Unknown Tetanus Immunization Date: May 26, 2005 History of Pneumococcal: Yes Pneumococcal Date: May 26, 2006 History of Hepatitis B Vaccine: No Medication Reconciliation New Medications: Lidocaine (Lidocaine) 1 Patch Tdsy 1 PATCH TD QAM, #10 PATCH Changed Medications: Alprazolam (Xanax) 0.25 Mg Tab 1 TAB PO BID for 30 Days, #60 TAB (Changed from: Alprazolam 0.5 Mg Tab 0.5 Mg PO BID) Continued Medications: Anastrozole (Anastrozole) 1 Mg Tab 1 MG PO QAM, TAB Calcium Citrate-Vitamin D (Calcium Citrate/Vitamin D) 1 Tab Tab 2 TAB PO QAM Calcium Polycarbophil (Fiber) 625 Mg Tab 2 CPLT PO QAM Cholecalciferol (Vitamin D3) 1,000 Unit Tab 2000 INTER.UNIT PO QAM Denosumab (Xgeva) 120 Mg/1.7 Ml Inj Unknown Dose SQ MONTHLY for OSTEOPOROSIS INJECTION ONCE MONTHLY WITH HEM/ONC Fluoxetine (Prozac) 20 Mg Cap 20 MG PO DAILY, CAP TAKE ONE 20 MG CAPSULE ALONG WITH ONE 10 MG CAPSULE TO EQUAL 30 MG DAILY DOSE. Ipratropium [place] (Atrovent 0.02% Soln) 2.5 Ml Nebu 1 DOSE INH Q4H PRN for Shortness of Breath Levetiractam (Keppra) 250 Mg Tab 250 MG PO BID Losartan Potassium (Losartan Potassium) 50 Mg Tab 50 MG PO QAM Multiple Vitamins W/ Minerals (One Daily For Women) 1 Tab Tab 1 TAB PO QAM Ondasetron Odt (Zofran Odt) 4 Mg Tab 4 MG SL TID PRN for Nausea or Vomiting, #30 DOSE (This prescription has been renewed) Oxygen (Oxygen) Gas 6 LITERS NA CONTINOUS Simvastatin (Simvastatin) 40 Mg Tab 40 MG PO HS Warfarin Sodium (Warfarin Sodium) 3 Mg Tab 3 MG PO [id number] MARIA TERESA 4 1/2MG, ALL OTHER DAYS 3 MG DAILY Warfarin Sodium (Coumadin) 3 Mg Tab 4.5 MG PO WK, TAB TAKE TUESDAY Discontinued Medications: Carvedilol (Carvedilol) 6.25 Mg Tab 6.25 MG PO BIDM Coenzyme Q10 (Ubidecarenone) (Co Q 10) 100 Mg Cap 100 MG PO QAM Dextromethorphan Polistirex (Delsym) 30 Mg/5 Ml Liq 20 ML PO Q4 PRN for Cough, ML Fluoxetine (Prozac) 10 Mg Cap 10 MG PO DAILY, CAP TAKE ONE 10 MG CAPSULE ALONG WITH ONE 20 MG CAPSULE TO EQUAL 30 MG DAILY DOSE. Furosemide (Furosemide) 80 Mg Tab 80 MG PO QAM Guaifenesin Ext Rel (Mucinex Ext Rel) 600 Mg Tabcr 600 MG PO Q12, TAB Hydrocortisone (Rectal) (Procto-Med Hc) 2.5 % Cre 1 APPLN TOP DAILY PRN for Hemorrhoids Oxycodone Immediate Rel Tab (Roxicodone Ir) 5 Mg Tab 5 MG PO Q6H PRN for Pain, #10 TAB Discharge Exam Review of Systems: Constitutional: No chills, No fever Respiratory: No cough, No sputum Cardiovascular: No chest pain, No orthopnea Abdomen: No pain Musculoskeletal: + joint pain, + swelling (minor knee swelling), No muscle pain Genitourinary - Female: No dysuria, No urinary frequency Physical Exam: General Appearance: WD/WN, + mild distress Neck: supple, no JVD Respiratory/Chest: chest non-tender, lungs clear, normal breath sounds Cardiovascular: regular rate, rhythm, + systolic murmur Abdomen / GI: normal bowel sounds, non tender, soft Extremities: + pertinent finding (some scant knee swelling and joint line tenerness consistent with oa) Hospital Course 81 yo F accidental ingestion of toxic doses of home meds, does have PMHx breast cancer with bony metastasis, chronic diastolic HF, Atrial fibrillation, IVC filter, DM II, pulmonary fibrosis COPD Accidental Medication Overdose, toxic encephalopathy secondary to accidental overdose supportive care no issues with heart rhythm and blood pressure, restarted losartan, did not restart coreg, lower dose of xanax Chronic hypoxic respiratory failure, 6 L O2 via NC for pulmonary fibrosis with possible COPD, appears at baseline Diastolic CHF/HTN coreg and lasix held, seems to be tolerating without need losartan 50 mg QAM restart 05/13 Atrial Fibrillation- rate controlled restart coumadin 2/9as INR 1.9 at discharge will need to be followed DM II- Diet controlled, not on medications. HA1C 6.2 Pulmonary Fibrosis/ possible COPD Depression/Anxiety low dose xanax restart, prozac at a lower dose some knee pain with history of occasional steroid injections, will follow and may reconsult orhto if needed CODE STATUS: DNR Total Time Spent: Greater than 30 minutes This includes examination of the patient, discharge planning, medication reconciliation, and communication with other providers. Discharge Instructions Please refer to the electronic Patient Visit Report (Discharge Instructions) for additional information.
[2016-05-14] MEDS ORDERED: WARFARIN TAB 4 MG, WARFARIN TAB 0.5 MG PO SCH ×2 (16:00)
[2016-05-14 16:54] LABS: HYDROXYETHYLFLURAZEPAM CONF NEGATIVE NG/ML (CUTOFF=50); HYDROXYMIDAZOLAM NEGATIVE NG/ML (CUTOFF=50); HYDROXYTRIAZOLAM CONF NEGATIVE NG/ML (CUTOFF=50); TEMAZEPAM CONF NEGATIVE NG/ML (CUTOFF=50)
[2016-07-12] MEDS ORDERED: HYDR2.5C37 TOP (11:36)
[2016-07-12] MEDS ORDERED: CLOP1TAB15 PO (11:52)
[2016-07-20] MEDS ORDERED: WARF2TAB PO (12:27)
[2016-08-06] MEDS ORDERED: LSX40 PO (10:31)
[2016-08-25] MEDS ORDERED: SENN8.6T11 PO (12:03)
[2016-08-25] MEDS ORDERED: SENN8.6T15 PO (12:03)
[2016-09-08] MEDS ORDERED: NYSS5 MT (08:53)
[2016-09-08] MEDS ORDERED: IPRASOL4 INH (08:53)
[2016-09-08] MEDS ORDERED: AMOX1TAB43 PO (08:53)
[2016-09-08] MEDS ORDERED: ALBINS INH (08:53)
[2016-09-08] MEDS ORDERED: PRD20 PO (09:02)
[2016-09-08] MEDS ORDERED: ALPR0.25 PO (16:54)
== END 2016-05-14 14:13 | DRG 917 ==
LOC: ENRESERVTM → ENRESERVDT → EDBD 13:18 → C.EDA 13:20 → C.2T 15:13 → C.4E 05-13 15:57
PROVIDERS: ADMIT Hospitalist; ATTEND Internal Medicine
DX: T42.4X1A Poisoning by benzodiazepines, accidental (unintentional), initial encounter (principal); G92 Toxic encephalopathy; I50.32 Chronic diastolic (congestive) heart failure; J96.11 Chronic respiratory failure with hypoxia; I48.91 Unspecified atrial fibrillation; E11.9 Type 2 diabetes mellitus without complications; I10 Essential (primary) hypertension; Z85.3 Personal history of malignant neoplasm of breast; E78.5 Hyperlipidemia, unspecified; I44.7 Left bundle-branch block, unspecified; E03.9 Hypothyroidism, unspecified; F41.9 Anxiety disorder, unspecified; M19.90 Unspecified osteoarthritis, unspecified site; Z86.711 Personal history of pulmonary embolism; F32.9 Major depressive disorder, single episode, unspecified; I25.10 Atherosclerotic heart disease of native coronary artery without angina pectoris; G40.909 Epilepsy, unspecified, not intractable, without status epilepticus; M81.0 Age-related osteoporosis without current pathological fracture; Z96.659 Presence of unspecified artificial knee joint; Z80.9 Family history of malignant neoplasm, unspecified; Z82.49 Family history of ischemic heart disease and other diseases of the circulatory system; Z83.6 Family history of other diseases of the respiratory system; Z82.3 Family history of stroke; Z99.81 Dependence on supplemental oxygen; Z79.899 Other long term (current) drug therapy; Z79.01 Long term (current) use of anticoagulants; J84.10 Pulmonary fibrosis, unspecified; R79.1 Abnormal coagulation profile; Z66 Do not resuscitate

== ENCOUNTER 2016-06-09 14:00 | Inpatient (IN) | payer OTHER ==
[~2016-06-09] VITALS: Ht 160 cm; Wt 76.0 kg
[~2016-06-09 14:00] MED LIST changes: -ALPR-411 PO; +ALPR0.25 PO; -COEN1CAP17 PO; -CRG625 PO; -DEXT5LIQ23 PO; -FLUO10CA48 PO; -GFNSR600 PO; -HYDR2.5C60 TOP; +LDDP5 TD; -LSX80 PO; -OXYC1TAB3 PO
[2016-06-09] MEDS ORDERED: SODIUM CHLORIDE 0.9% 1000ML 1,000 ML IV SCH (14:19)
[2016-06-09 14:40] LABS: BASO % 0.4 %; BASO ABS # 0.05 K/uL (0-0.2); COMPLETE YES; EOS % 2.3 %; HEMATOCRIT 48.5 % (37-47); IG% 0.3 %; LYMPH % 13.3 %; LYMPH ABS # 1.63 K/uL (1.2-3.4); MEAN CELL VOLUME 94.2 fL (80-100); MEAN CORPUSCULAR HEMOGLOBIN 31.8 pg (25-34); MEAN CORPUSCULAR HGB CONC 33.8 g/dl (32-36); MEAN PLATELET VOLUME 10.7 fL (7.4-10.4); MONO % 9.6 %; NEUT % 74.1 %; PLATELET COUNT 743 K/uL (130-400); RED BLOOD COUNT 5.15 M/uL (4.2-5.4); WHITE BLOOD COUNT 12.24 K/uL (4.8-10.8)
--- NOTE | 2016-06-09 14:41 | DIAGNOSTIC IMAGING REPORT ---
HEAD CT NONCONTRAST CT DOSE: 823.94 mGycm HISTORY: Mental status change Stroke TECHNIQUE: Multiaxial CT images of the head were performed without the use of intravenous contrast. Comparison: 05/11/2016 Findings: The paranasal sinuses and mastoid air cells are clear. The calvarium and skull base are intact. The ventricles and sulci are within normal limits. There is no mass, hematoma, midline shift, or acute infarct. Chronic age-related small vessel change unaltered from the prior exam. No evidence for acute intracranial hemorrhage. Impression: Chronic and age-related change. No acute process. No change from the prior exam. Electronically signed by: Beck Iglesias M.D. 06/09/2016 2:39 PM Dictated Date/Time: 06/09/2016 2:38 PM
[2016-06-09] MEDS ORDERED: SALONPAS TD (14:46)
[2016-06-09] MEDS ORDERED: NYST100010 TOP (14:46)
[2016-06-09] MEDS ORDERED: DLSYL PO (14:46)
[2016-06-09] MEDS ORDERED: ACET-1311 PO (14:46)
[2016-06-09] MEDS ORDERED: ALPR0.25 PO (14:46)
[2016-06-09 14:57] LABS: BLOOD UREA NITROGEN 19 mg/dl (7-18); BUN/CREATININE RATIO 23.4 (10-20); CALCIUM 9.6 mg/dl (8.5-10.1); CARBON DIOXIDE 31 mmol/L (21-32); CHLORIDE 101 mmol/L (98-107); CREATININE 0.82 mg/dl (0.60-1.20); GLUCOSE 169 mg/dl (70-99); POTASSIUM 4.3 mmol/L (3.5-5.1); SODIUM 138 mmol/L (136-145)
[2016-06-09 14:59] LABS: INR 2.2 (0.9-1.1); PARTIAL THROMBOPLASTIN RATIO 1.5; PROTHROMBIN TIME (PATIENT) 24.2 SECONDS (9.0-12.0)
[2016-06-09 15:02] LABS: CKMB/CK RATIO 4.5 (0-3.0)
--- NOTE | 2016-06-09 15:43 | DIAGNOSTIC IMAGING REPORT ---
CHEST ONE VIEW PORTABLE CLINICAL HISTORY: stroke COMPARISON STUDY: 05/08/2016 FINDINGS: The heart is enlarged. There is minor central pulmonary vascular congestion. There is no lobar consolidation. There are no significant pleural effusions. There are postsurgical changes involving the right shoulder. There are surgical clips project over the left breast and axillary region.[ IMPRESSION: Stable cardiomegaly and minor central pulmonary vascular congestion. No evidence of focal pulmonary consolidation Electronically signed by: Bartolome Garcia M.D. 06/09/2016 3:42 PM Dictated Date/Time: 06/09/2016 3:41 PM
--- NOTE | 2016-06-09 16:37 | EMERGENCY ROOM VISIT NOTE ---
History Report prepared by Christiano: Doyle Diallo Under the Supervision of: Dr. Sukhjinder Barker D.O. First contact with patient: 14:10 Chief Complaint: STROKE SYMPTOMS Stated Complaint: NO FEELING OR CONTROL ON LEFT SIDE POSS. STROKE Nursing Triage Summary: Triage Note: Pt daughter and grand daughter report "we are concerned that she seems very different than she usually is." Family reports "she can't control bilat legs since about 1300." pt reports "i have felt weak since this morning." pt denies any pain at this time. History of Present Illness The patient is an 81 year old female who presents to the Emergency Room with concerns over possible stroke symptoms that the patient's daughter first noticed this afternoon at 1300, 1.5 hours prior to arrival. The patient's daughter states that she was trying to get her to the [facility] today, when the patient began to exhibit significant weakness in her legs. She was not able to get herself into the car. The daughter also notes that she can currently notice a left-sided facial droop. The patient notes that her right side feels weaker than her left. The patient was last seen at baseline by her speech therapist and daughter at 1300 this morning, 1.5 hours prior to arrival just prior to taking a nap. The patient is under 24-hour care at home due to previous accidental overdoses when she was living on her own. The patient has not been diagnosed with any time of cancer at time, but is being evaluated at the [facility]. Patient denies headache, change in vision, fevers, chest pain, shortness of breath, nausea, vomiting, diarrhea, pain with urination, and melena. Source of History: patient, family Onset: 2.5 hour [employer] Quality: other (Stroke symptoms) Timing: constant Associated Symptoms: + weakness Note: Daughter notes facial droop Review of Systems See HPI for pertinent positives & negatives. A total of 10 systems reviewed and were otherwise negative. 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 (15) GI bleed (16) HTN (hypertension) (17) HYPERLIPIDEMIA NEC/NOS (18) HYPERTENSION NOS (19) Hypothyroidism (20) HYPOTHYROIDISM NOS (21) LBBB (left bundle branch block) (22) Osteoporosis (23) Overdose (24) Pulmonary fibrosis (25) Shingles Surgical Problems: (1) H/O lumpectomy (2) History of knee replacement Family History Cancer Diabetes mellitus FHx: stroke Heart disease Hypertension Lung disease Social History Smoking Status: Never Smoker Alcohol Use: occasionally Drug Use: none Marital Status: Housing Status: lives alone Occupation Status: retired Current/Historical Medications Scheduled Alprazolam (Xanax), 0.25 MG PO BID Anastrozole (Anastrozole), 1 MG PO QAM Calcium Citrate-Vitamin D (Calcium Citrate/Vitamin D), 1 TAB PO BID Cholecalciferol (Vitamin D3), 2,000 INTER.UNIT PO QAM Denosumab (Xgeva), Unknown Dose SQ MONTHLY Fluoxetine (Prozac), 20 MG PO QAM Levetiractam (Keppra), 250 MG PO BID Losartan Potassium (Losartan Potassium), 50 MG PO QAM Nystatin (Topical) (Nystop), 1 APPLN TOP DAILY Oxygen (Oxygen), 6 LITERS NA CONTINOUS Simvastatin (Simvastatin), 40 MG PO HS Warfarin Sodium (Warfarin Sodium), 3 MG PO QPM [Salonpas], 1 PATCH TD QAM Scheduled PRN Acetaminophen (Tylenol), 650 MG PO BID PRN for Pain Dextromethorphan Polymr Complx (Delsym), 10 ML PO Q12 PRN for Cough Allergies Coded Allergies: No Known Allergies (Verified , 06/09/16) Physical Exam Vital Signs Date Time Temp Pulse Resp B/P Pulse Ox O2 Delivery O2 Flow Rate FiO2 06/09/16 17:50 80 20 146/70 98 Nasal Cannula 6.0 06/09/16 17:14 69 20 163/90 06/09/16 15:55 75 18 170/83 96 Nasal Cannula 6.0 168/78 06/09/16 15:23 80 18 151/94 96 Nasal Cannula 6.0 06/09/16 15:01 82 18 140/82 97 Nasal Cannula 6.0 06/09/16 14:47 150/82 06/09/16 14:38 163/107 06/09/16 14:20 100 06/09/16 14:15 138/92 06/09/16 14:13 96 Room Air 06/09/16 14:08 36.3 93 20 132/74 96 Nasal Cannula 6.0 Physical Exam GENERAL: Patient is sitting up in bed, disheveled, chronically ill appearing on nasal cannula. EYE EXAM: normal conjunctiva, PERRL and EOM's intact OROPHARYNX: no exudate, no erythema, lips, buccal mucosa, and tongue normal and mucous membranes are moist NECK: supple, no nuchal rigidity, no adenopathy, non-tender LUNGS: Coarse breath sounds at the bases bilaterally. Normal chest wall mechanics HEART: no murmurs, S1 normal and S2 normal ABDOMEN: abdomen soft, non-tender, normo-active bowel sounds, no masses, no rebound or guarding. BACK: Back is symmetrical on inspection and there is no deformity, no midline tenderness, no CVA tenderness. SKIN: no rashes and no bruising UPPER EXTREMITIES: upper extremities are grossly normal. LOWER EXTREMITIES: No pitting edema. NEURO EXAM: Normal sensorium, cranial nerves II-XII intact, normal speech, no weakness of arms, Slight weakness of plantar and dorsal flexion, right slightly weaker than the left. No drift. Finger to nose intact. Gross sensation intact. Medical Decision & Procedures ER Provider Diagnostic Interpretation: Xray results per the radiologist and my interpretation. Other results have been interpreted by the radiologist and reviewed by me. CHEST ONE VIEW PORTABLE CLINICAL HISTORY: stroke COMPARISON STUDY: 05/08/2016 FINDINGS: The heart is enlarged. There is minor central pulmonary vascular congestion. There is no lobar consolidation. There are no significant pleural effusions. There are postsurgical changes involving the right shoulder. There are surgical clips project over the left breast and axillary region.[ IMPRESSION: Stable cardiomegaly and minor central pulmonary vascular congestion. No evidence of focal pulmonary consolidation Electronically signed by: Bartolome Garcia M.D. 06/09/2016 3:42 PM Dictated Date/Time: 06/09/2016 3:[address] NONCONTRAST CT DOSE: 823.94 mGycm HISTORY: Mental status change Stroke TECHNIQUE: Multiaxial CT images of the head were performed without the use of intravenous contrast. Comparison: 05/11/2016 Findings: The paranasal sinuses and mastoid air cells are clear. The calvarium and skull base are intact. The ventricles and sulci are within normal limits. There is no mass, hematoma, midline shift, or acute infarct. Chronic age-related small vessel change unaltered from the prior exam. No evidence for acute intracranial hemorrhage. Impression: Chronic and age-related change. No acute process. No change from the prior exam. Electronically signed by: Beck Iglesias M.D. 06/09/2016 2:39 PM Dictated Date/Time: 06/09/2016 2:38 PM Laboratory Results 06/09/16 14:28 Red Blood Count 5.15, Mean Corpuscular Volume 94.2, Mean Corpuscular Hemoglobin 31.8, Mean Corpuscular Hemoglobin Concent 33.8, Mean Platelet Volume 10.7, Neutrophils (%) (Auto) 74.1, Lymphocytes (%) (Auto) 13.3, Monocytes (%) (Auto) 9.6, Eosinophils (%) (Auto) 2.3, Basophils (%) (Auto) 0.4, Neutrophils # (Auto) 9.06, Lymphocytes # (Auto) 1.63, Monocytes # (Auto) 1.18, Eosinophils # (Auto) 0.28, Basophils # (Auto) 0.05 06/09/16 14:28 Test 06/09/16 14:24 06/09/16 14:27 06/09/16 14:28 06/09/16 16:30 Bedside Glucose 158 mg/dl (70-90) Bedside Prothrombin Time INR 2.2 (0.9-1.1) White Blood Count 12.24 K/uL (4.8-10.8) Red Blood Count 5.15 M/uL (4.2-5.4) Hemoglobin 16.4 g/dL (12.0-16.0) Hematocrit 48.5 % (37-47) Mean Corpuscular Volume 94.2 fL (80-100) Mean Corpuscular Hemoglobin 31.8 pg (25-34) Mean Corpuscular Hemoglobin Concent 33.8 g/dl (32-36) Platelet Count 743 K/uL (130-400) Mean Platelet Volume 10.7 fL (7.4-10.4) Neutrophils (%) (Auto) 74.1 % Lymphocytes (%) (Auto) 13.3 % Monocytes (%) (Auto) 9.6 % Eosinophils (%) (Auto) 2.3 % Basophils (%) (Auto) 0.4 % Neutrophils # (Auto) 9.06 K/uL (1.4-6.5) Lymphocytes # (Auto) 1.63 K/uL (1.2-3.4) Monocytes # (Auto) 1.18 K/uL (0.11-0.59) Eosinophils # (Auto) 0.28 K/uL (0-0.5) Basophils # (Auto) 0.05 K/uL (0-0.2) RDW Standard Deviation 54.0 fL (36.4-46.3) RDW Coefficient of Variation 15.8 % (11.5-14.5) Immature Granulocyte % (Auto) 0.3 % Immature Granulocyte # (Auto) 0.04 K/uL (0.00-0.02) Prothrombin Time 24.2 SECONDS (9.0-12.0) Prothromb Time International Ratio 2.2 (0.9-1.1) Activated Partial Thromboplast Time 38.0 SECONDS (21.0-31.0) Partial Thromboplastin Ratio 1.5 Anion Gap 6.0 mmol/L (3-11) Est Creatinine Clear Calc Drug Dose 50.7 ml/min Estimated GFR () 76.7 Estimated GFR (Non- 66.2 BUN/Creatinine Ratio 23.4 (10-20) Calcium Level 9.6 mg/dl (8.5-10.1) Total Bilirubin 0.5 mg/dl (0.2-1) Direct Bilirubin 0.1 mg/dl (0-0.2) Aspartate Amino Transf (AST/SGOT) 30 U/L (15-37) Alanine Aminotransferase (ALT/SGPT) 35 U/L (12-78) Alkaline Phosphatase 83 U/L (45-117) Total Creatine Kinase 40 U/L (26-192) Creatine Kinase MB 1.8 ng/ml (0.5-3.6) Creatine Kinase MB Ratio 4.5 (0-3.0) Troponin I < 0.015 ng/ml (0-0.045) Total Protein 7.7 gm/dl (6.4-8.2) Albumin 3.4 gm/dl (3.4-5.0) Lipase 109 U/L (73-393) Urine Color YELLOW Urine Appearance TURBID (CLEAR) Urine pH 7.5 (4.5-7.5) Urine Specific [place] 1.012 (1.000-1.030) Urine Protein 1+ (NEG) Urine Glucose (UA) NEG (NEG) Urine Ketones NEG (NEG) Urine Occult Blood 2+ (NEG) Urine Nitrite NEG (NEG) Urine Bilirubin NEG (NEG) Urine Urobilinogen NEG (NEG) Urine Leukocyte Esterase LARGE (NEG) Urine WBC (Auto) >30 /hpf (0-5) Urine RBC (Auto) 0-4 /hpf (0-4) Urine Hyaline Casts (Auto) 0 /lpf (0-5) Urine Epithelial Cells (Auto) >30 /lpf (0-5) Urine Bacteria (Auto) 3+ (NEG) Urine Pathogenic Casts /lpf (0) Urine Yeast (Auto) (NONE PRSENT) Urine Opiates Screen NEG (NEG) Urine Methadone, Qualitative NEG (NEG) Urine Barbiturates NEG (NEG) Urine Phencyclidine (PCP) Level NEG (NEG) Ur Amphetamine/Methamphetamine NEG (NEG) MDMA (Ecstasy) Screen NEG (NEG) Urine Benzodiazepines Screen POS (NEG) Urine Cocaine Metabolite NEG (NEG) Urine Marijuana (THC) NEG (NEG) Laboratory results per my review. Medications Administered Medications (Trade) Dose Ordered Sig/Lindsey Route Start Time Stop Time Status Last Admin Dose Admin Sodium Chloride (Nss 1000ml) 1,000 ml @ 50 mls/hr Q20H IV 06/09/16 14:19 07/09/16 14:18 06/09/16 14:45 50 MLS/HR Aspirin (Aspirin Chew) 81 mg ONE STAT PO 06/09/16 17:22 06/09/16 17:36 DC 06/09/16 17:50 81 MG ECG Indication: altered mental status, weakness Rate (beats per minute): 83 Rhythm: sinus rhythm Findings: LBBB, other (LAD) Comparison ECG Date: 05/11/2016 Change: no significant change ED Course ED COURSE: Vital signs were reviewed and showed Hypertensive vitals. The patients medical record was reviewed The above diagnostic studies were performed and reviewed. ED treatments and interventions as stated above. 1411: The patient was evaluated in room B6. A complete history and physical examination was performed. 1419: Ordered Sodium Chloride 1000 mL @ 50 mL/hr IV. 1446: I checked on the patient and updated the family at this time. Her INR is currently 2.1 1450: I discussed the case with [facility] at this time, they will evaluate the patient. She is not a TPA candidate. 1512: There was no change on repeat EKG. Updated the patient that she will go to CT at this time. 1524: I discussed the case with Dr. Sosa at this time, he recommends stroke workup and admission to the hospital. 1553: Upon reevaluation, the patient is resting in bed.I discussed my findings with the patient and she understands and agrees with the treatment plan. Based on the patients age, coexisting illnesses, exam and lab findings the decision to treat as an inpatient was made. The patient remained stable while under my care. The patient will be evaluated for further management. 1706: discussed the case with Dr. Hunt at this time, he will evaluate the patient for further treatment. Medical Decision Differential Diagnosis includes but is not limited to ischemic Stroke, hemorrhagic stroke, bells palsy, mass, neoplasm, migraine headache, seizure, subarachnoid hemorrhage, TIA, and transient global amnesia. Patient is an 81-year-old female who is brought in by family as they're concerned that she was having a stroke. They noted around 1 PM she had trouble ambulating and was unable to move her right lower extremity and she had a facial droop on the left side. Upon presentation there still complaining of a left-sided facial droop which I was unable to visualize. Neuro exam was intact with exception of mild weakness in the right lower extremity with plantar and dorsiflexion. Stroke alert was called. CT was negative. INR was therapeutic and consequently she was not a TPA candidate. Her stroke scale is minimal. Patient/family were updated at bedside. Labs show a mild leukocytosis along with an elevated platelets. BMP along with LFTs and troponin were negative. Lipase is negative. INR was therapeutic at 2.2 as discussed above. Patient was updated at bedside. Chest x-ray was unremarkable. EKG shows no signs of obvious ischemia. Patient was admitted to internal medicine for a further stroke workup following being evaluated by neurology via tele-stroke. Consults Time Called: 1621 Consulting Physician: Dr. Hunt - [facility] [place] [facility] Returned Call: [phone] I discussed the case with Dr. Hunt at this time, he will evaluate the patient for further treatment. Additional Consults: Time Called: 1520 Consulted Physician: Dr. Sosa - [facility] Returned Call: [phone] Additional Comments: I discussed the case with [facility] multiple times. Dr. Sosa suggest stroke workup and admission to the hospital. Not a TPA candidate. Impression Primary Impression: Weakness Additional Impressions: possible stroke Elevated platelet count Leukocytosis International normalized ratio (INR) greater than 2 Scribe Attestation The scribe's documentation has been prepared under my direction and personally reviewed by me in its entirety. I confirm that the note above accurately reflects all work, treatment, procedures, and medical decision making performed by me. Departure Information Dispostion Being Evaluated By Hospitalist Referrals Pro,Abdirashid Young M.D. (PCP) Patient Instructions My [facility] Problem Qualifiers Additional Impressions: Leukocytosis Leukocytosis type: unspecified Qualified Codes: D72.829 - Elevated white blood cell count, unspecified
[2016-06-09 16:50] LABS: URINE APPEARANCE TURBID (CLEAR); URINE BILIRUBIN NEG (NEG); URINE COLOR YELLOW; URINE EPITHELIAL CELL AUTO >30 /lpf (0-5); URINE NITRITE NEG (NEG); URINE PH 7.5 (4.5-7.5); URINE SPECIFIC GRAVITY 1.012 (1.000-1.030); UROBILINOGEN NEG (NEG)
[2016-06-09 17:13] LABS: MANUAL MICROSCOPIC REQUIRED? NO; REVIEW REQ? YES
[2016-06-09 17:15] LABS: SULFASALICYLIC ACID POS (NEG)
[2016-06-09] MEDS ORDERED: PHARMACIST DISCHARGE MED REC CONSULT PRN (17:15)
[2016-06-09] MEDS ORDERED: ONDANSETRON INJ 2 MG/ML 2 ML VIAL IV PRN (17:15)
[2016-06-09] MEDS ORDERED: ALUMINUM/MAGNESIUM/SIMETH (MAALOX MAX) 30 ML UDC PO PRN (17:15)
[2016-06-09] MEDS ORDERED: MAGNESIUM HYDROXIDE SUSP 30 ML UDC PO PRN (17:15)
[2016-06-09] MEDS ORDERED: POLYETHYLENE (MIRALAX) 17 GM PACK PO PRN (17:15)
[2016-06-09 17:17] LABS: BENZODIAZEPINE, URINE POS (NEG); COCAINE,URINE NEG (NEG); PHENCYCLIDINE, URINE NEG (NEG)
[2016-06-09] MEDS ORDERED: ASPIRIN 81 MG CHEW PO STA (17:22)
--- NOTE | 2016-06-09 18:01 | History and Physical ---
History & Physical Date & Time of Service: Jun 09, 2016 at 17:24 Chief Complaint: No Feeling Or Control On Left Side Poss. Stroke Primary Care Physician: Abdirashid Chavira M.D. History of Present Illness Source: patient, family 81 y/o F with an extensive medical history including AF, diastolic CHF, pulmonary fibrosis, breast CA, NIDDM, PE and IVC filter placement. Pt became acutely week on her R side exhibiting an unstable gait, RUE weakness, facial asymmetry and slurred speech. This occurred 1.5 hours prior to arriving at the hospital and has persisted. She was evaluated by the telestroke service on arrival to the ER, however she was not eligible for TPA as she is anticoagulated with Coumadin and has a therapeutic INR. The pt denies CP, SOB above baseline, denies a RUBIO or visual changes. She exhibits hemoconcentration on initial labs including an elevated BUN and a high platelet count. 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 (14) HTN (hypertension) Status: Chronic (15) HYPERLIPIDEMIA NEC/NOS Status: Chronic (16) HYPERTENSION NOS Status: Chronic (17) Hypothyroidism Status: Chronic (18) HYPOTHYROIDISM NOS Status: Chronic (19) LBBB (left bundle branch block) Status: Chronic (20) Osteoporosis Status: Chronic (21) Pulmonary fibrosis Status: Chronic (22) Shingles Status: Resolved Surgical Problems: (1) H/O lumpectomy Status: Resolved (2) History of knee replacement Status: Chronic Family History Cancer Diabetes mellitus FHx: stroke Heart disease Hypertension Lung disease Social History Smoking Status: Never Smoker Drug Use: none Marital Status: Housing status: lives alone Occupational Status: retired Immunizations History of Influenza Vaccine: Yes Influenza Vaccine Date: Jan 23, 2009 History of Tetanus Vaccine?: Unknown Tetanus Immunization Date: May 26, 2005 History of Pneumococcal: Yes Pneumococcal Date: May 26, 2006 History of Hepatitis B Vaccine: No Multi-Drug Resistant Organisms History of MDRO: No Allergies Coded Allergies: No Known Allergies (Verified , 06/09/16) Home Medications Scheduled Alprazolam (Xanax), 0.25 MG PO BID Anastrozole (Anastrozole), 1 MG PO QAM Calcium Citrate-Vitamin D (Calcium Citrate/Vitamin D), 1 TAB PO BID Cholecalciferol (Vitamin D3), 2,000 INTER.UNIT PO QAM Denosumab (Xgeva), Unknown Dose SQ MONTHLY Fluoxetine (Prozac), 20 MG PO QAM Levetiractam (Keppra), 250 MG PO BID Losartan Potassium (Losartan Potassium), 50 MG PO QAM Nystatin (Topical) (Nystop), 1 APPLN TOP DAILY Oxygen (Oxygen), 6 LITERS NA CONTINOUS Simvastatin (Simvastatin), 40 MG PO HS Warfarin Sodium (Warfarin Sodium), 3 MG PO QPM [Salonpas], 1 PATCH TD QAM Scheduled PRN Acetaminophen (Tylenol), 650 MG PO BID PRN for Pain Dextromethorphan Polymr Complx (Delsym), 10 ML PO Q12 PRN for Cough Review of Systems Constitutional: No chills, No fever, No sweats Eyes: No eye pain, No worsening of vision ENT: No hearing loss, No nasal symptoms, No unusual epistaxis Respiratory: + shortness of breath (chronic), No cough, No sputum, No wheezing Cardiovascular: No PND, No chest pain, No orthopnea Abdomen: No nausea, No pain, No vomiting Musculoskeletal: + joint pain, + muscle pain (describes RLE pain - bottom of foot ) Genitourinary - Female: No dysuria, No urinary frequency, No urinary urgency Neurologic: + weakness, No memory loss Psychiatric: No anhedonism, No depression symptoms Endocrine: No fatigue Hematologic / Lymphatic: No abnormal bleeding/bruising, No clotting problems Integumentary: No rash Allergic / Immunologic: No environmental allergies, No pet sensitivities, No seasonal allergies Physical Exam Vital Signs Date Time Temp Pulse Resp B/P Pulse Ox O2 Delivery O2 Flow Rate FiO2 06/09/16 15:55 75 18 170/83 96 Nasal Cannula 6.0 168/78 06/09/16 15:23 80 18 151/94 96 Nasal Cannula 6.0 06/09/16 15:01 82 18 140/82 97 Nasal Cannula 6.0 06/09/16 14:47 150/82 06/09/16 14:38 163/107 06/09/16 14:20 100 06/09/16 14:15 138/92 06/09/16 14:13 96 Room Air 06/09/16 14:08 36.3 93 20 132/74 96 Nasal Cannula 6.0 General Appearance: WD/WN, no apparent distress, + pertinent finding (Alert elderly female - facial asymmetry is apparent - speech is slurred) Head: normocephalic, atraumatic Eyes: normal inspection, PERRL, EOMI ENT: normal ENT inspection, hearing grossly normal, pharynx normal Neck: supple, no JVD Respiratory/Chest: chest non-tender, lungs clear, normal breath sounds Cardiovascular: regular rate, rhythm, no edema, no gallop, + systolic murmur Abdomen/GI: normal bowel sounds, non tender, soft Back: normal inspection, no CVA tenderness, no muscle spasm, normal range of motion Extremities/Musculoskelatal: normal inspection, no calf tenderness, normal capillary refill Neurologic/Psych: + pertinent finding (The pts seech is slighly slurred - she does not exhibit recptive aphasiaThere is a R facial droop - there is a probator drift on the R - distal strength is intact. There is weakness of the proximal and distal muscles of the RLE - sensation is slighly impared on R as is coordination - she is fully oriented) Skin: normal color, warm/dry, no rash Diagnostics Laboratory Results Results Past 24 Hours Test 06/09/16 14:24 06/09/16 14:27 06/09/16 14:28 06/09/16 16:30 Range/Units Bedside Glucose 158 70-90 mg/dl Bedside Prothrombin Time INR 2.2 0.9-1.1 White Blood Count 12.24 4.8-10.8 K/uL Red Blood Count 5.15 4.2-5.4 M/uL Hemoglobin 16.4 12.0-16.0 g/dL Hematocrit 48.5 37-47 % Mean Corpuscular Volume 94.2 80-100 fL Mean Corpuscular Hemoglobin 31.8 25-34 pg Mean Corpuscular Hemoglobin Concent 33.8 32-36 g/dl Platelet Count 743 130-400 K/uL Mean Platelet Volume 10.7 7.4-10.4 fL Neutrophils (%) (Auto) 74.1 % Lymphocytes (%) (Auto) 13.3 % Monocytes (%) (Auto) 9.6 % Eosinophils (%) (Auto) 2.3 % Basophils (%) (Auto) 0.4 % Neutrophils # (Auto) 9.06 1.4-6.5 K/uL Lymphocytes # (Auto) 1.63 1.2-3.4 K/uL Monocytes # (Auto) 1.18 0.11-0.59 K/uL Eosinophils # (Auto) 0.28 0-0.5 K/uL Basophils # (Auto) 0.05 0-0.2 K/uL RDW Standard Deviation 54.0 36.4-46.3 fL RDW Coefficient of Variation 15.8 11.5-14.5 % Immature Granulocyte % (Auto) 0.3 % Immature Granulocyte # (Auto) 0.04 0.00-0.02 K/uL Prothrombin Time 24.2 9.0-12.0 SECONDS Prothromb Time International Ratio 2.2 0.9-1.1 Activated Partial Thromboplast Time 38.0 21.0-31.0 SECONDS Partial Thromboplastin Ratio 1.5 Sodium Level 138 136-145 mmol/L Potassium Level 4.3 3.5-5.1 mmol/L Chloride Level 101 98-107 mmol/L Carbon Dioxide Level 31 21-32 mmol/L Anion Gap 6.0 3-11 mmol/L Blood Urea Nitrogen 19 7-18 mg/dl Creatinine 0.82 0.60-1.20 mg/dl Est Creatinine Clear Calc Drug Dose 50.7 ml/min Estimated GFR () 76.7 Estimated GFR (Non- 66.2 BUN/Creatinine Ratio 23.4 10-20 Random Glucose 169 70-99 mg/dl Calcium Level 9.6 8.5-10.1 mg/dl Total Bilirubin 0.5 0.2-1 mg/dl Direct Bilirubin 0.1 0-0.2 mg/dl Aspartate Amino Transf (AST/SGOT) 30 15-37 U/L Alanine Aminotransferase (ALT/SGPT) 35 12-78 U/L Alkaline Phosphatase 83 45-117 U/L Total Creatine Kinase 40 26-192 U/L Creatine Kinase MB 1.8 0.5-3.6 ng/ml Creatine Kinase MB Ratio 4.5 0-3.0 Troponin I < 0.015 0-0.045 ng/ml Total Protein 7.7 6.4-8.2 gm/dl Albumin 3.4 3.4-5.0 gm/dl Lipase 109 73-393 U/L Urine Color YELLOW Urine Appearance TURBID CLEAR Urine pH 7.5 4.5-7.5 Urine Specific [place] 1.012 1.000-1.030 Urine Protein 1+ NEG Urine Glucose (UA) NEG NEG Urine Ketones NEG NEG Urine Occult Blood 2+ NEG Urine Nitrite NEG NEG Urine Bilirubin NEG NEG Urine Urobilinogen NEG NEG Urine Leukocyte Esterase LARGE NEG Urine Opiates Screen NEG NEG Urine Methadone, Qualitative NEG NEG Urine Barbiturates NEG NEG Urine Phencyclidine (PCP) Level NEG NEG Ur Amphetamine/Methamphetamine NEG NEG MDMA (Ecstasy) Screen NEG NEG Urine Benzodiazepines Screen POS NEG Urine Cocaine Metabolite NEG NEG Urine Marijuana (THC) NEG NEG Diagnostic Radiology CT head: Findings: The paranasal sinuses and mastoid air cells are clear. The calvarium and skull base are intact. The ventricles and sulci are within normal limits. There is no mass, hematoma, midline shift, or acute infarct. Chronic age-related small vessel change unaltered from the prior exam. No evidence for acute intracranial hemorrhage. Impression: Chronic and age-related change. No acute process. No change from the prior exam. EKG Sinus , L axis , LVH , incomplete LBBB - no significant morphological change Impression Assessment and Plan 81 y/o F with an extensive medical history including AF, diastolic CHF, pulmonary fibrosis, breast CA, NIDDM, PE and IVC filter placement. Pt became acutely week on her R side exhibiting an unstable gait, RUE weakness, facial asymmetry and slurred speech. This occurred 1.5 hours prior to arriving at the hospital and has persisted. She was evaluated by the telestroke service on arrival to the ER, however she was not eligible for TPA as she is anticoagulated with Coumadin and has a therapeutic INR. The pt denies CP, SOB above baseline, denies a RUBIO or visual changes. She exhibits hemoconcentration on initial labs including an elevated BUN and a high platelet count. Initial CT was negative for acute findings. 1) CVA - MRI/MRA, Carotid dopplers, neurology consult, echo pending. She will continue Coumadin and has been placed on ASA. We will hold her ARB and monitor on telemetry with frequent neurochecks. 2) Elevated cell count - including WBC, RBC, Platelets - may be do to hemoconcentration - we will provide IVF and recheck a CBC AM - if there is persistent elevation in her platelets hematology should be consulted. ASA provided. 3) CHF - pt is presently dehydrated clinically - IVF and monitor volume - echo is pending due to CVA 4) DM - diet controlled presently - we can place her on a low sliding scale as she recovers form her CVA 5) Seizure disorder - cont Keppra 6) Paroxysmal AF - sinus rhythm on admission - Coumadin is continued pending neuro eval 7) Breast CA - hormonal therapy held - she states she is in remission but pending reevaluation as the disease was metastatic previously. 8) Pulmonary fibrosis - 02 - no hypoxia or SOB above baseline described. DNR/DNI - Anticoagulated with Coumadin Total time for this admit including review of extensive records, labs, EKG, imaging - discussion with pt, family and ER attending - 42 min Level of Care Telemetry Resuscitation Status DO NOT RESUSCITATE VTE Prophylaxis VTE Risk Assessment Done? Y/N: Yes Risk Level: High Given or contraindicated: Warfarin (Coumadin)
[2016-06-09 18:15] VITALS: BP 137/79; PULSE 77; TEMP 36.4; O2SAT 99; Ht 160 cm; Wt 76.0 kg
[2016-06-09 19:48] VITALS: BP 124/69; PULSE 78; TEMP 36.7; O2SAT 96
[2016-06-09 20:00] VITALS: O2SAT 96
[2016-06-09] MEDS ORDERED: WARFARIN SOD 3 MG TAB PO SCH (21:00)
[2016-06-09] MEDS: LEVETIRACETAM 250 MG TAB PO SCH (21:11)
[2016-06-09] MEDS: ALPRAZOLAM 0.25 MG TAB PO SCH (21:14)
--- NOTE | 2016-06-09 22:56 | DIAGNOSTIC IMAGING REPORT ---
MR ANGIOGRAM OF THE BRAIN CLINICAL HISTORY: Strokelike symptoms. COMPARISON STUDY: CT of the brain dated 06/09/2016. MRI of the brain dated 04/26/2014. TECHNIQUE: 3-D [id number] MR angiography of the intracranial circulation is performed. 3-D tumble views are created and assessed. IV contrast was not administered for this examination. FINDINGS: There is a large left posterior communicating artery. The internal carotid arteries are widely patent bilaterally, as are the anterior and middle cerebral arteries. There is loss of the left vertebral artery flow void. The right vertebral artery flow void and the basilar flow voids are preserved the posterior cerebral arteries are patent. There is no aneurysm or high-grade stenosis seen throughout the intracranial circulation. The brain parenchyma is normal as visualized. IMPRESSION: 1. There is loss of the left vertebral artery flow with the skull base. This could represent slow flow or occlusion. 2. The remaining intracranial vessels are widely patent. No aneurysm is seen. Electronically signed by: Ricardo Sotomayor M.D. 06/09/2016 10:54 PM Dictated Date/Time: 06/09/2016 10:49 PM
[2016-06-09] MEDS ORDERED: GADAVIST IV PRN (23:30)
[2016-06-09 23:37] VITALS: BP 149/90; PULSE 77; TEMP 36.4; O2SAT 95
[2016-06-10] MEDS ORDERED: HEPARIN IV LOW DOSE NO BOLUS SCH (00:45)
[2016-06-10] MEDS: HEPARIN 25,000 UNIT/500ML D5W 500 ML IV PRN ×2 (01:29→18:11)
[2016-06-10 03:05] LABS: BASO % 0.5 %; BASO ABS # 0.05 K/uL (0-0.2); COMPLETE YES; EOS % 3.5 %; HEMATOCRIT 44.7 % (37-47); IG% 0.3 %; LYMPH % 21.4 %; LYMPH ABS # 1.97 K/uL (1.2-3.4); MEAN CELL VOLUME 94.1 fL (80-100); MEAN CORPUSCULAR HEMOGLOBIN 31.6 pg (25-34); MEAN CORPUSCULAR HGB CONC 33.6 g/dl (32-36); MEAN PLATELET VOLUME 10.4 fL (7.4-10.4); MONO % 12.3 %; PLATELET COUNT 621 K/uL (130-400); RED BLOOD COUNT 4.75 M/uL (4.2-5.4); WHITE BLOOD COUNT 9.19 K/uL (4.8-10.8)
[2016-06-10 03:08] VITALS: BP 148/89; PULSE 75; TEMP 36.4; O2SAT 99
[2016-06-10 03:21] LABS: BUN/CREATININE RATIO 26.4 (10-20); CALCIUM 8.6 mg/dl (8.5-10.1); CREATININE 0.64 mg/dl (0.60-1.20); POTASSIUM 4.4 mmol/L (3.5-5.1)
[2016-06-10 03:24] LABS: CHOLESTEROL/HDL RATIO 2.5
[2016-06-10 06:16] LABS: ESTIMATED AVERAGE GLUCOSE 131 mg/dl; HA1C FLAG Normal (Normal)
--- NOTE | 2016-06-10 07:15 | DIAGNOSTIC IMAGING REPORT ---
NECK MRA HISTORY: Mental status change Stroke TECHNIQUE: Eoaw-ke-cdokok and gadolinium-enhanced MRA of the neck was performed both before and after the intravenous administration of contrast. All measurements were calculated based on NASCET criteria. COMPARISON STUDY: None. FINDINGS: The aortic arch and proximal great vessels are widely patent. Moderate narrowing of the origin of the carotid systems bilaterally at their is a mild to moderate atherosclerotic narrowing of the carotid bifurcations. Left vertebral artery is very small with dampened flow.] Deep arteries dominant with the basilar unremarkable. IMPRESSION: 1. Very small caliber left vertebral artery with dampened flow. Components of this may be on a congenital basis.. 2. Moderate chronic narrowing of the carotid system and carotid bifurcations. 3. No evidence for high-grade stenotic process of the carotid systems Electronically signed by: Beck Iglesias M.D. 06/10/2016 7:13 AM Dictated Date/Time: 06/10/2016 7:05 AM
[2016-06-10 07:48] VITALS: BP 139/73; PULSE 68; TEMP 36.4; O2SAT 97
--- NOTE | 2016-06-10 07:49 | DIAGNOSTIC IMAGING REPORT ---
Brain MRI WITHOUT CONTRAST HISTORY: Mental status change Stroke TECHNIQUE: Multiplanar multisequence MRI of the brain was performed without the use of contrast. COMPARISON STUDY: None. FINDINGS: Diffusion-weighted images show multiple punctate acute infarcts of the left occipital lobe, left cerebral hemisphere, and to a lesser extent right occipital lobe. These findings are superimposed upon considerable chronic small vessel change of the periventricular deep white matter regions. Ventricular system is midline. Sella and parasellar regions are unremarkable. There is no evidence for midline shift. IMPRESSION: Multiple multifocal punctate watershed type infarcts of the left cerebral hemisphere as well as right occipital lobe. All findings are superimposed upon chronic small vessel change. Electronically signed by: Beck Iglesias M.D. 06/10/2016 7:48 AM Dictated Date/Time: 06/10/2016 7:44 AM
--- NOTE | 2016-06-10 07:50 | Progress Note ---
Progress Note Date of Service Jun 10, 2016. Progress Note Called overnight for MRI report by [facility]. Given multiple infarcts while on therapeutic warfarin dosing will hold her warfarin and start on low dose heparin drip pending neurology review in the morning. 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 This appeared to be improving since admission however. Given mildly elevated WBC x3 blood cultures were ordered over 3 hours from 3 sites. We will hold off treating for infective endocarditis at present as she is afebrile and lack of other evidence to support IE diagnosis. Patient was discussed with the team taking over her care during the day.
--- NOTE | 2016-06-10 08:07 | Clinical Documentation Query ---
Dr. LYNN, [facility] : CLINICAL DOCUMENTATION QUERY Patient is an 81 year old female admitted for evaluation and treatment of acute CVA. MRA of the brain read to include "there is loss of the left vertebral artery flow with the skull base. This could represent slow flow or occlusion". She is being monitored on telemetry, had an MRI of the brain completed, carotid dopplers, echocardiogram, and neurology consultation pending. She has been continued on Coumadin and placed on ASA. In your clinical opinion is this patient being managed for: ( ) CVA due to occlusion or stenosis of left vertebral artery ( ) Other explanation of clinical findings (Please Explain) ( ) Unable to determine (Please Define) ( ) Need to Discuss ( x ) Not Agree The medical record reflects the following clinical findings, treatment, and risk factors. Clinical Indicators: As above. Anticoagulated on Coumadin so likely not embolic? Treatment:She is being monitored on telemetry, had an MRI of the brain completed, carotid dopplers, echocardiogram, and neurology consultation pending Risk Factors: Age, DM, hypertension, hyperlipidemia, cerebral vascular disease per MRA Please clarify and document your clinical opinion in the progress notes and discharge summary. Terms such as "probable", "suspected", "likely", "questionable", "possible", or "still to be ruled out" are acceptable. IF IN AGREEMENT, YOU MUST DOCUMENT ABOVE DIAGNOSTIC STATEMENT IN DAILY PROGRESS NOTES AND DISCHARGE SUMMARY. This document is not part of the patient's record. Thank You, Reyes Mccann, BENI [phone]
--- NOTE | 2016-06-10 08:08 | Clinical Documentation Query ---
MUNIR Maciel : CLINICAL DOCUMENTATION QUERY Patient is an 81 year old female admitted for evaluation and treatment of acute CVA. MRA of the brain read to include "there is loss of the left vertebral artery flow with the skull base. This could represent slow flow or occlusion". She is being monitored on telemetry, had an MRI of the brain completed, carotid dopplers, echocardiogram, and neurology consultation pending. She has been continued on Coumadin and placed on ASA. In your clinical opinion is this patient being managed for: ( ) CVA due to occlusion or stenosis of left vertebral artery ( ) Other explanation of clinical findings (Please Explain) ( ) Unable to determine (Please Define) (x ) Need to Discuss ( ) Not Agree The medical record reflects the following clinical findings, treatment, and risk factors. Clinical Indicators: As above. Anticoagulated on Coumadin so likely not embolic? Treatment:She is being monitored on telemetry, had an MRI of the brain completed, carotid dopplers, echocardiogram, and neurology consultation pending Risk Factors: Age, DM, hypertension, hyperlipidemia, cerebral vascular disease per MRA Please clarify and document your clinical opinion in the progress notes and discharge summary. Terms such as "probable", "suspected", "likely", "questionable", "possible", or "still to be ruled out" are acceptable. IF IN AGREEMENT, YOU MUST DOCUMENT ABOVE DIAGNOSTIC STATEMENT IN DAILY PROGRESS NOTES AND DISCHARGE SUMMARY. This document is not part of the patient's record. Thank You, Reyes Mccann, BENI [phone] Patient has a watershed infarct, this is nonocculusive in nature *
--- NOTE | 2016-06-10 08:19 | Family Medicine Progress Note ---
Progress Note Date of Service Jun 10, 2016. Subjective Pt evaluation today including: conversation w/ patient, conversation w/ family , physical exam, chart review, lab review, review of inpatient medication list Pain: 0/10 Voiding: no voiding problems Patient states the numbness of her left arm is improving and she feels there is a mild improvement of her weakness ongoing dysarthria passed dysphagia screen would like me to speak to daughter Constitutional: No fever Eyes: No worsening of vision ENT: No hearing loss Respiratory: No cough, No dyspnea on exertion, No shortness of breath, No sputum, No wheezing Cardiovascular: No chest pain Abdomen: No constipation, No diarrhea, No nausea, No pain, No vomiting Musculoskeletal: No joint pain Neurologic: + balance problems, + numbness/tingling, + paralysis, + weakness Heme: No abnormal bleeding/bruising Endo: No fatigue Skin: No rash Medications Medications Administered Medications (Trade) Dose Ordered Sig/Lindsey Route Start Time Stop Time Status Last Admin Dose Admin Sodium Chloride (Nss 1000ml) 1,000 ml @ 50 mls/hr Q20H IV 06/09/16 14:19 06/09/16 19:33 DC 06/09/16 14:45 50 MLS/HR Alprazolam (Xanax Tab) 0.25 mg BID PO 06/09/16 21:00 07/09/16 20:59 06/09/16 21:14 0.25 MG Levetiracetam (Keppra Tab) 250 mg BID PO 06/09/16 21:00 07/09/16 20:59 06/09/16 21:11 250 MG Warfarin Sodium (Coumadin Tab) 3 mg DAILY@1600 PO 06/09/16 21:00 06/10/16 00:34 DC 06/09/16 21:10 3 MG Aspirin 81 mg 81 mg ONE STAT PO 06/09/16 17:22 06/09/16 17:36 DC 06/09/16 17:50 81 MG Heparin Sodium/ Dextrose (Heparin 25,000 Unit/500ml D5W) 500 ml @ 15 mls/hr Q24H PRN IV 06/10/16 01:30 07/10/16 01:29 06/10/16 01:29 15 MLS/HR Objective Vital Signs Date Time Temp Pulse Resp B/P Pulse Ox O2 Delivery O2 Flow Rate FiO2 06/10/16 07:48 36.4 68 18 139/73 97 Nasal Cannula 6.0 06/10/16 04:00 Nasal Cannula 6.0 06/10/16 03:08 36.4 75 20 148/89 99 Nasal Cannula 5.0 06/09/16 23:59 Nasal Cannula 6.0 06/09/16 23:37 36.4 77 18 149/90 95 Nasal Cannula 5.0 06/09/16 20:00 96 Nasal Cannula 6.0 Humidified Oxygen 06/09/16 19:48 36.7 78 18 124/69 96 06/09/16 18:15 36.4 77 16 137/79 99 Nasal Cannula 6.0 06/09/16 17:50 80 20 146/70 98 Nasal Cannula 6.0 06/09/16 17:14 69 20 163/90 06/09/16 15:55 75 18 170/83 96 Nasal Cannula 6.0 168/78 06/09/16 15:23 80 18 151/94 96 Nasal Cannula 6.0 06/09/16 15:01 82 18 140/82 97 Nasal Cannula 6.0 06/09/16 14:47 150/82 06/09/16 14:38 163/107 06/09/16 14:20 100 06/09/16 14:15 138/92 06/09/16 14:13 96 Room Air 06/09/16 14:08 36.3 93 20 132/74 96 Nasal Cannula 6.0 Physical Exam General Appearance: WD/WN, no apparent distress Eyes: normal inspection ENT: normal ENT inspection Neck: supple Respiratory/Chest: lungs clear, normal breath sounds, no respiratory distress, no accessory muscle use Cardiovascular: regular rate, rhythm, no murmur Abdomen: normal bowel sounds, non tender, soft Extremities: non-tender, no pedal edema, no calf tenderness Neurologic/Psychiatric: + facial droop, + motor weakness (right> left ), + pertinent finding (right facial drooping, right tongue deviation, dysarthria, numbness sensation inleft arm, positive right babinski ) Skin: normal color, warm/dry, no rash Lymphatic: no adenopathy Laboratory Results Results Past 24 Hours Test 06/09/16 14:24 06/09/16 14:27 06/09/16 14:28 06/09/16 16:30 Range/Units Bedside Glucose 158 70-90 mg/dl Bedside Prothrombin Time INR 2.2 0.9-1.1 White Blood Count 12.24 4.8-10.8 K/uL Red Blood Count 5.15 4.2-5.4 M/uL Hemoglobin 16.4 12.0-16.0 g/dL Hematocrit 48.5 37-47 % Mean Corpuscular Volume 94.2 80-100 fL Mean Corpuscular Hemoglobin 31.8 25-34 pg Mean Corpuscular Hemoglobin Concent 33.8 32-36 g/dl Platelet Count 743 130-400 K/uL Mean Platelet Volume 10.7 7.4-10.4 fL Neutrophils (%) (Auto) 74.1 % Lymphocytes (%) (Auto) 13.3 % Monocytes (%) (Auto) 9.6 % Eosinophils (%) (Auto) 2.3 % Basophils (%) (Auto) 0.4 % Neutrophils # (Auto) 9.06 1.4-6.5 K/uL Lymphocytes # (Auto) 1.63 1.2-3.4 K/uL Monocytes # (Auto) 1.18 0.11-0.59 K/uL Eosinophils # (Auto) 0.28 0-0.5 K/uL Basophils # (Auto) 0.05 0-0.2 K/uL RDW Standard Deviation 54.0 36.4-46.3 fL RDW Coefficient of Variation 15.8 11.5-14.5 % Immature Granulocyte % (Auto) 0.3 % Immature Granulocyte # (Auto) 0.04 0.00-0.02 K/uL Prothrombin Time 24.2 9.0-12.0 SECONDS Prothromb Time International Ratio 2.2 0.9-1.1 Activated Partial Thromboplast Time 38.0 21.0-31.0 SECONDS Partial Thromboplastin Ratio 1.5 Sodium Level 138 136-145 mmol/L Potassium Level 4.3 3.5-5.1 mmol/L Chloride Level 101 98-107 mmol/L Carbon Dioxide Level 31 21-32 mmol/L Anion Gap 6.0 3-11 mmol/L Blood Urea Nitrogen 19 7-18 mg/dl Creatinine 0.82 0.60-1.20 mg/dl Est Creatinine Clear Calc Drug Dose 50.7 ml/min Estimated GFR () 76.7 Estimated GFR (Non- 66.2 BUN/Creatinine Ratio 23.4 10-20 Random Glucose 169 70-99 mg/dl Estimated Average Glucose 131 mg/dl Hemoglobin A1c 6.2 4.5-5.6 % Calcium Level 9.6 8.5-10.1 mg/dl Total Bilirubin 0.5 0.2-1 mg/dl Direct Bilirubin 0.1 0-0.2 mg/dl Aspartate Amino Transf (AST/SGOT) 30 15-37 U/L Alanine Aminotransferase (ALT/SGPT) 35 12-78 U/L Alkaline Phosphatase 83 45-117 U/L Total Creatine Kinase 40 26-192 U/L Creatine Kinase MB 1.8 0.5-3.6 ng/ml Creatine Kinase MB Ratio 4.5 0-3.0 Troponin I < 0.015 0-0.045 ng/ml Total Protein 7.7 6.4-8.2 gm/dl Albumin 3.4 3.4-5.0 gm/dl Lipase 109 73-393 U/L Urine Color YELLOW Urine Appearance TURBID CLEAR Urine pH 7.5 4.5-7.5 Urine Specific [place] 1.012 1.000-1.030 Urine Protein 1+ NEG Urine Glucose (UA) NEG NEG Urine Ketones NEG NEG Urine Occult Blood 2+ NEG Urine Nitrite NEG NEG Urine Bilirubin NEG NEG Urine Urobilinogen NEG NEG Urine Leukocyte Esterase LARGE NEG Urine WBC (Auto) >30 0-5 /hpf Urine RBC (Auto) 0-4 0-4 /hpf Urine Hyaline Casts (Auto) 0 0-5 /lpf Urine Epithelial Cells (Auto) >30 0-5 /lpf Urine Bacteria (Auto) 3+ NEG Urine Pathogenic Casts 0 /lpf Urine Yeast (Auto) NONE PRSENT Urine Opiates Screen NEG NEG Urine Methadone, Qualitative NEG NEG Urine Barbiturates NEG NEG Urine Phencyclidine (PCP) Level NEG NEG Ur Amphetamine/Methamphetamine NEG NEG MDMA (Ecstasy) Screen NEG NEG Urine Benzodiazepines Screen POS NEG Urine Cocaine Metabolite NEG NEG Urine Marijuana (THC) NEG NEG Test 06/10/16 02:55 06/10/16 06:30 06/10/16 07:35 Range/Units White Blood Count 9.19 4.8-10.8 K/uL Red Blood Count 4.75 4.2-5.4 M/uL Hemoglobin 15.0 12.0-16.0 g/dL Hematocrit 44.7 37-47 % Mean Corpuscular Volume 94.1 80-100 fL Mean Corpuscular Hemoglobin 31.6 25-34 pg Mean Corpuscular Hemoglobin Concent 33.6 32-36 g/dl Platelet Count 621 130-400 K/uL Mean Platelet Volume 10.4 7.4-10.4 fL Neutrophils (%) (Auto) 62.0 % Lymphocytes (%) (Auto) 21.4 % Monocytes (%) (Auto) 12.3 % Eosinophils (%) (Auto) 3.5 % Basophils (%) (Auto) 0.5 % Neutrophils # (Auto) 5.69 1.4-6.5 K/uL Lymphocytes # (Auto) 1.97 1.2-3.4 K/uL Monocytes # (Auto) 1.13 0.11-0.59 K/uL Eosinophils # (Auto) 0.32 0-0.5 K/uL Basophils # (Auto) 0.05 0-0.2 K/uL RDW Standard Deviation 53.8 36.4-46.3 fL RDW Coefficient of Variation 15.7 11.5-14.5 % Immature Granulocyte % (Auto) 0.3 % Immature Granulocyte # (Auto) 0.03 0.00-0.02 K/uL Sodium Level 141 136-145 mmol/L Potassium Level 4.4 3.5-5.1 mmol/L Chloride Level 105 98-107 mmol/L Carbon Dioxide Level 28 21-32 mmol/L Anion Gap 8.0 3-11 mmol/L Blood Urea Nitrogen 17 7-18 mg/dl Creatinine 0.64 0.60-1.20 mg/dl Est Creatinine Clear Calc Drug Dose 65.0 ml/min Estimated GFR () 95.6 Estimated GFR (Non- 82.5 BUN/Creatinine Ratio 26.4 10-20 Random Glucose 107 70-99 mg/dl Calcium Level 8.6 8.5-10.1 mg/dl Triglycerides Level 39 0-150 mg/dl Cholesterol Level 111 0-200 mg/dl HDL Cholesterol 44 mg/dl LDL Cholesterol, Calculated 59 mg/dl VLDL Cholesterol, Calculated 8 mg/dl Cholesterol/HDL Ratio 2.5 Bedside Glucose 95 70-90 mg/dl Microbiology Results 06/10/16 Blood Culture, Received Pending 06/10/16 Blood Culture, Received Pending 06/10/16 Blood Culture, Received Pending Assessment and Plan This is an 81 yo f with PAF and was therapeutic on warfarin suffering from a stroke. MRI revealed multiple infarcts in watershed regions; hypotensive episode vs embolic in nature CVA in watershed regions and concerning that it is secondary to hypotensive episode vs embolic - continue to monitor on tele - neurochecks q 2 - echo pending - neuro input appreciated - swallow study/ consult - FLP and HBA1c - will d/c heparin as most likely hypotensive episode contributing factor for watershed stroke - was therapeutic on coumadin Leukocytosis - improved overnight - UA reflective of UTI ; possible source of hypotension? - Rocephin DMII - HBA1C was 6.2 - will continue to monitor glucose Seizure Disorder - continue Keppra PAF - Currently on heparin and coumadin held - Coag consult pending H/O Breast Ca - hormonal therapy held at this time - was metastatic in the past and pending evaluation - consult hemm onc- Can she continue hormonal therapy? Pulmonary Fibrosis O2 per protocol HTN - losartan held Depression - fluoxetine and xanax cont DVt Prophylaxis -Heparin Diso: Pt Ot Continued [facility] stay due to: other Discharge planning: uncertain Reviewed: Pt Seen/Exam by Me Constitutional: denies: fever Respiratory: negative: short of breath Cardiovascular: denies chest pain Gastrointestinal/Abdominal: negative: abdominal pain General Appearance: no apparent distress Respiratory: lungs clear, no respiratory distress Cardiovascular: regular rate, rhythm Neurologic/Psychiatric: alert, oriented x 3, other (right facial droop, right UE and LE weakness. positive babinski) Skin Characteristics: warm/dry Assessment/Plan I have reviewed the medical record and performed a history and physical examination of this patient today. I have discussed the case with Dr. Das. The above note reflects my findings, conclusions, and recommendations.
[2016-06-10] MEDS: ANASTROZOLE 1 MG TAB PO SCH (09:23)
[2016-06-10] MEDS: LEVETIRACETAM 250 MG TAB PO SCH ×2 (09:23→21:09)
[2016-06-10] MEDS: ASPIRIN 81 MG ECTAB PO SCH (09:23)
[2016-06-10] MEDS: ALPRAZOLAM 0.25 MG TAB PO SCH ×2 (09:24→21:14)
[2016-06-10] MEDS: FLUOXETINE HCL 20 MG CAP PO SCH (09:24)
--- NOTE | 2016-06-10 10:00 | Neurology Consultation ---
Neurology Consultation Date of Consultation: Jun 10, 2016. Attending Physician: Warren Hunt MD Primary Care Physician: Abdirashid Chavira M.D. Reason for Consultation: Patient is an 81-year-old, who was asked to see the request of Dr. Ghosh, for neurologic consultation regarding stroke. History of Present Illness Source: patient, caregiver, hospital records This patient, although having no history of stroke in the past, has had a number of medical conditions of significance. She has a history of hypertension , dyslipidemia, and type 2 diabetes. These are fairly well controlled over time. She also has a history of congestive heart failure, cardiomyopathy, left bundle branch block. About 3 years ago she had atrial fibrillation has been on Coumadin since. In the past she had a right total knee replacement followed by a DVT in that leg. She has an IVC filter in place. 5 years ago or so she was diagnosed with left breast cancer. She had a lumpectomy biopsy with radiation in the left breast. She directed chemotherapy was put on tamoxifen and other medication thereafter. There was a concern about bony metastases but she did have a biopsy of the T9 bone which showed sclerosis and not a metastasis. She last saw oncologist in 2015. There is no known metastasis or active cancer currently. Patient has a history of a seizure in April 2014. An MRI of the brain at that time just showed old small vessel ischemic disease with no new stroke or other abnormality. She had no tumor or cancer. An EEG was unremarkable. She was put on Keppra 250 mg twice a day and has been on this ever since. She has had no seizure recurrence. Patient has been diagnosed with moderate sleep apnea and is supposed to take C Pap each night. She believes this is too hard to do and she doesn't always wear the mask. She has pulmonary fibrosis and probable COPD. She has chronic spine pain and radicular pain in left greater than right leg. Yesterday morning, June 09, she got up and was in her usual state of health. Around 1:00 in the afternoon she was noted to have the onset of a facial droop, slurred speech and weakness in both legs although right was worse than the left. She could not walk. She arrived in the emergency room at 04/07/07 hours with a temperature 36.3, pulse 93 and regular, respiratory rate 20, blood pressure 132/74, and O2 saturation 96%. Chest x-ray was unremarkable. CT scan of the head was unremarkable except for old ischemia. CBC showed a mildly elevated white count with normal hemoglobin and hematocrit. Chemistry profile showed elevated glucose and lipid profile was unremarkable. Tox screen was unremarkable and a urinalysis showed a probable urinary tract infection. MRI of the brain showed multiple small infarcts in the left hemisphere from frontal to posterior parietal watershed distribution lined up. There was some few punctate spots in the right occipital lobe and may be a spot in the right hemisphere as well. In addition she had old ischemia of a moderate nature with generalized atrophy of a [id number] degree. MRA of the head showed decrease left vertebral flow but otherwise good collateral circulation from the right and no significant stenoses. MRI of the neck showed slow flow in the left vertebral with a small left vertebral possibly congenital. I reviewed these films with the radiologist and there is no evidence of subclavian steal syndrome. This morning the patient is a little short of breath but feels better with her legs. She does have some pain in her left knee. She knows that her speech is still little slurred. She has no headache or pain otherwise. She has no new mentation difficulties. She has no swallowing issues, or chest pain. She does have incontinence of urine but this is chronic. Past Medical/Surgical History Medical Problems: (1) Abdominal contusion Status: Acute (2) Abdominal pain Status: Acute (3) Anxiety Status: Acute (4) Anxiety Status: Acute (5) Back contusion Status: Acute (6) Cervical strain Status: Acute (7) Chest pain Status: Acute (8) Confusion Status: Acute (9) Elevated platelet count Status: Acute (10) Fall Status: Acute (11) Fall Status: Acute (12) Generalized weakness Status: Acute (13) Hypoglycemia Status: Acute (14) International normalized ratio (INR) greater than 2 Status: Acute (15) Leukocytosis Status: Acute (16) Lumbar contusion Status: Acute (17) Metastatic breast cancer Status: Acute (18) Rectal bleed Status: Acute (19) Shingles Status: Acute (20) Supratherapeutic INR Status: Acute (21) Weakness Status: Acute (22) Weakness Status: Acute Seizure April 2014, stable on low-dose Keppra. No seizure recurrence. Hypertension, adequately controlled Dyslipidemia, controlled Type 2 diabetes Hypothyroidism History of depression controlled on fluoxetine Moderate sleep apnea, not overly compliant with C Pap Pulmonary fibrosis with COPD History of atrial fibrillation on Coumadin, currently in sinus rhythm Chronic low back pain History of congestive heart failure, cardiomyopathy, left bundle branch block Chronic urinary incontinence Post bilateral cataract surgery Post-tonsillectomy post left total knee replacement by Dr. Luke Family History Mother at age 75 of heart related issues. Father in his early 70s of heart related issues. Social History Patient never smoked cigarettes and use alcohol. Patient used to work in a [employer] and retired about 10 years ago when she moved to [facility] from [place]. Smoking Status: Never smoker Smokeless Tobacco Use: No Alcohol Use: none Drug Use: none Marital Status: Housing Status: lives alone Occupation Status: retired Allergies Coded Allergies: No Known Allergies (Verified , 06/09/16) Current Inpatient Medications Current Inpatient Medications Medications (Trade) Dose Ordered Sig/Lindsey Route Start Time Stop Time Status Last Admin Dose Admin Miscellaneous Information (Pharmacist Discharge Med Rec Consult) 1 ea UD PRN N/A 06/09/16 17:15 07/09/16 17:14 Alprazolam (Xanax Tab) 0.25 mg BID PO 06/09/16 21:00 07/09/16 20:59 06/09/16 21:14 0.25 MG Anastrozole (Arimidex Tab) 1 mg QAM PO 06/10/16 09:00 07/10/16 08:59 Fluoxetine HCl (Prozac Cap) 20 mg QAM PO 06/10/16 09:00 07/10/16 08:59 Levetiracetam (Keppra Tab) 250 mg BID PO 06/09/16 21:00 07/09/16 20:59 06/09/16 21:11 250 MG Acetaminophen (Tylenol Tab) 650 mg Q4H PRN PO 06/09/16 17:15 07/09/16 17:14 Al Hydrox/Mg Hydrox/Simethicone (Maalox Max Susp) 15 ml Q4H PRN PO 06/09/16 17:15 07/09/16 17:14 Magnesium Hydroxide (Milk Of Magnesia Susp) 30 ml Q12H PRN PO 06/09/16 17:15 07/09/16 17:14 Ondansetron HCl (Zofran Inj) 4 mg Q6H PRN IV 06/09/16 17:15 07/09/16 17:14 Aspirin (Ecotrin Tab) 81 mg QAM PO 06/10/16 09:00 07/10/16 08:59 Polyethylene (Miralax Powder Packet) 17 gm DAILY PRN PO 06/09/16 17:15 07/09/16 17:14 Gadobutrol 7.5 mmol 7.5 mmol UD PRN IV 06/09/16 23:30 06/13/16 23:29 Heparin Sodium/ Dextrose (Heparin 25,000 Unit/500ml D5W) 500 ml @ 15 mls/hr Q24H PRN IV 06/10/16 01:30 07/10/16 01:29 06/10/16 01:29 15 MLS/HR Review of Systems Constitutional: + weakness, No fatigue, No fever Eyes: No diplopia, No worsening of vision ENT: + hearing loss, No tinnitus Respiratory: + cough, + shortness of breath Cardiovascular: No chest pain, No palpitations Abdomen: No nausea, No pain Musculoskeletal: + joint pain, No muscle pain Genitourinary - Female: + urinary incontinence, No dysuria Neurologic: + weakness, No balance problems, No memory loss, No numbness/ tingling, No vertigo Psychiatric: No anxiety, No depression symptoms Endocrine: No fatigue Hematologic / Lymphatic: No abnormal bleeding/bruising Integumentary: No rash Allergic / Immunologic: No hives Physical Exam Vital Signs (Past 24 Hrs): Date Time Temp Pulse Resp B/P Pulse Ox O2 Delivery O2 Flow Rate FiO2 06/10/16 07:48 36.4 68 18 139/73 97 Nasal Cannula 6.0 06/10/16 04:00 Nasal Cannula 6.0 06/10/16 03:08 36.4 75 20 148/89 99 Nasal Cannula 5.0 06/09/16 23:59 Nasal Cannula 6.0 06/09/16 23:37 36.4 77 18 149/90 95 Nasal Cannula 5.0 06/09/16 20:00 96 Nasal Cannula 6.0 Humidified Oxygen 06/09/16 19:48 36.7 78 18 124/69 96 06/09/16 18:15 36.4 77 16 137/79 99 Nasal Cannula 6.0 06/09/16 17:50 80 20 146/70 98 Nasal Cannula 6.0 06/09/16 17:14 69 20 163/90 06/09/16 15:55 75 18 170/83 96 Nasal Cannula 6.0 168/78 06/09/16 15:23 80 18 151/94 96 Nasal Cannula 6.0 06/09/16 15:01 82 18 140/82 97 Nasal Cannula 6.0 06/09/16 14:47 150/82 06/09/16 14:38 163/107 06/09/16 14:20 100 06/09/16 14:15 138/92 06/09/16 14:13 96 Room Air 06/09/16 14:08 36.3 93 20 132/74 96 Nasal Cannula 6.0 The patient is left-handed. The patient is awake and alert. Speech is without aphasia but there is mild dysarthria. She can name and do calculations. Mentation and thought processes seem intact with orientation and normal fund of knowledge. Mood and affect are normal and appropriate. Appearance and grooming are normal. The discs are sharp with positive venous pulsations. There are no exudates, hemorrhages, or blood vessel changes seen. Pupils are 3mm bilaterally and reactive to light. Extraocular eye muscles are intact without nystagmus. Visual acuity and visual perdue seem normal grossly to confrontation. There are no deficits to sensation of the face bilaterally. Corneal reflexes are positive bilaterally. Facial movement is normal bilaterally but there is a right facial droop and. Hearing seems intact grossly to voice and finger rub. Palate moves well without asymmetry. There is normal sternocleidomastoid and trapezius strength bilaterally. Tongue is midline with good strength bilaterally. Neck is with full range of motion without discomfort. There are no cervical bruits. There are no cranial or ocular bruits. Heart is without murmur. Cervical, thoracic, and lumbar spine are nontender to palpation. Gait is is not tested but stance sitting up in bed is normal With outstretched arms there is no drift. There are no resting, postural, or action tremors. There is no ataxia with [id number] testing. There is decreased facility in the right hand, but not the left. There are no abnormal involuntary movements noted. Motor strength is 5/5 diffusely in the arms bilaterally including deltoids, biceps, brachioradialis, wrist flexors and extensors, loan operations specialist, and intrinsic hand muscles. Motor strength is 4/5 diffusely proximally in both legs and 5/5 diffusely distally in both legs. The right leg may be slightly weaker than the left. The limbs have good tone without rigidity or spasticity, and there is no atrophy noted. Muscle bulk is normal, there is no tenderness, no myotonia noted to percussion, and no fasciculations seen. Sensory examination is intact to pin and touch throughout all four limbs. Reflexes are 1/4 in the biceps, triceps, brachioradialis, quadriceps, and Achilles tendons bilaterally. Toes are downgoing with plantar stimulation on the left but upgoing with plantar stimulation on the right. Peripheral pulses are present and of normal quality distally in all four limbs. There is no peripheral edema noted. Laboratory Results Past 24 Hours: 06/10/16 02:55 Red Blood Count 4.75, Mean Corpuscular Volume 94.1, Mean Corpuscular Hemoglobin 31.6, Mean Corpuscular Hemoglobin Concent 33.6, Mean Platelet Volume 10.4, Neutrophils (%) (Auto) 62.0, Lymphocytes (%) (Auto) 21.4, Monocytes (%) (Auto) 12.3, Eosinophils (%) (Auto) 3.5, Basophils (%) (Auto) 0.5, Neutrophils # (Auto ) 5.69, Lymphocytes # (Auto) 1.97, Monocytes # (Auto) 1.13, Eosinophils # (Auto ) 0.32, Basophils # (Auto) 0.05 06/10/16 02:55 Test 06/09/16 14:27 06/09/16 14:28 06/09/16 16:30 06/10/16 02:55 Bedside Prothrombin Time INR 2.2 (0.9-1.1) Prothrombin Time 24.2 SECONDS (9.0-12.0) Prothromb Time International Ratio 2.2 (0.9-1.1) Estimated Average Glucose 131 mg/dl Hemoglobin A1c 6.2 % (4.5-5.6) Total Bilirubin 0.5 mg/dl (0.2-1) Direct Bilirubin 0.1 mg/dl (0-0.2) Aspartate Amino Transf (AST/SGOT) 30 U/L (15-37) Alanine Aminotransferase (ALT/SGPT) 35 U/L (12-78) Alkaline Phosphatase 83 U/L (45-117) Total Creatine Kinase 40 U/L (26-192) Creatine Kinase MB 1.8 ng/ml (0.5-3.6) Creatine Kinase MB Ratio 4.5 (0-3.0) Troponin I < 0.015 ng/ml (0-0.045) Total Protein 7.7 gm/dl (6.4-8.2) Albumin 3.4 gm/dl (3.4-5.0) Lipase 109 U/L (73-393) Urine Color YELLOW Urine Appearance TURBID (CLEAR) Urine pH 7.5 (4.5-7.5) Urine Specific [place] 1.012 (1.000-1.030) Urine Protein 1+ (NEG) Urine Glucose (UA) NEG (NEG) Urine Ketones NEG (NEG) Urine Occult Blood 2+ (NEG) Urine Nitrite NEG (NEG) Urine Bilirubin NEG (NEG) Urine Urobilinogen NEG (NEG) Urine Leukocyte Esterase LARGE (NEG) Urine WBC (Auto) >30 /hpf (0-5) Urine RBC (Auto) 0-4 /hpf (0-4) Urine Hyaline Casts (Auto) 0 /lpf (0-5) Urine Epithelial Cells (Auto) >30 /lpf (0-5) Urine Bacteria (Auto) 3+ (NEG) Urine Pathogenic Casts /lpf (0) Urine Yeast (Auto) (NONE PRSENT) Urine Opiates Screen NEG (NEG) Urine Methadone, Qualitative NEG (NEG) Urine Barbiturates NEG (NEG) Urine Phencyclidine (PCP) Level NEG (NEG) Ur Amphetamine/Methamphetamine NEG (NEG) MDMA (Ecstasy) Screen NEG (NEG) Urine Benzodiazepines Screen POS (NEG) Urine Cocaine Metabolite NEG (NEG) Urine Marijuana (THC) NEG (NEG) White Blood Count 9.19 K/uL (4.8-10.8) Red Blood Count 4.75 M/uL (4.2-5.4) Hemoglobin 15.0 g/dL (12.0-16.0) Hematocrit 44.7 % (37-47) Mean Corpuscular Volume 94.1 fL (80-100) Mean Corpuscular Hemoglobin 31.6 pg (25-34) Mean Corpuscular Hemoglobin Concent 33.6 g/dl (32-36) Platelet Count 621 K/uL (130-400) Mean Platelet Volume 10.4 fL (7.4-10.4) Neutrophils (%) (Auto) 62.0 % Lymphocytes (%) (Auto) 21.4 % Monocytes (%) (Auto) 12.3 % Eosinophils (%) (Auto) 3.5 % Basophils (%) (Auto) 0.5 % Neutrophils # (Auto) 5.69 K/uL (1.4-6.5) Lymphocytes # (Auto) 1.97 K/uL (1.2-3.4) Monocytes # (Auto) 1.13 K/uL (0.11-0.59) Eosinophils # (Auto) 0.32 K/uL (0-0.5) Basophils # (Auto) 0.05 K/uL (0-0.2) RDW Standard Deviation 53.8 fL (36.4-46.3) RDW Coefficient of Variation 15.7 % (11.5-14.5) Immature Granulocyte % (Auto) 0.3 % Immature Granulocyte # (Auto) 0.03 K/uL (0.00-0.02) Anion Gap 8.0 mmol/L (3-11) Est Creatinine Clear Calc Drug Dose 65.0 ml/min Estimated GFR () 95.6 Estimated GFR (Non- 82.5 BUN/Creatinine Ratio 26.4 (10-20) Calcium Level 8.6 mg/dl (8.5-10.1) Triglycerides Level 39 mg/dl (0-150) Cholesterol Level 111 mg/dl (0-200) HDL Cholesterol 44 mg/dl LDL Cholesterol, Calculated 59 mg/dl VLDL Cholesterol, Calculated 8 mg/dl Cholesterol/HDL Ratio 2.5 Test 06/10/16 06:30 06/10/16 07:35 Bedside Glucose 95 mg/dl (70-90) Activated Partial Thromboplast Time 51.6 SECONDS (21.0-31.0) Partial Thromboplastin Ratio 2.0 Imaging Brain MRI WITHOUT CONTRAST HISTORY: Mental status change Stroke TECHNIQUE: Multiplanar multisequence MRI of the brain was performed without the use of contrast. COMPARISON STUDY: None. FINDINGS: Diffusion-weighted images show multiple punctate acute infarcts of the left occipital lobe, left cerebral hemisphere, and to a lesser extent right occipital lobe. These findings are superimposed upon considerable chronic small vessel change of the periventricular deep white matter regions. Ventricular system is midline. Sella and parasellar regions are unremarkable. There is no evidence for midline shift. IMPRESSION: Multiple multifocal punctate watershed type infarcts of the left cerebral hemisphere as well as right occipital lobe. All findings are superimposed upon chronic small vessel change. Electronically signed by: Beck Iglesias M.D. MR ANGIOGRAM OF THE BRAIN CLINICAL HISTORY: Strokelike symptoms. COMPARISON STUDY: CT of the brain dated 06/09/2016. MRI of the brain dated 04/26/2014. TECHNIQUE: 3-D [id number] MR angiography of the intracranial circulation is performed. 3-D tumble views are created and assessed. IV contrast was not administered for this examination. FINDINGS: There is a large left posterior communicating artery. The internal carotid arteries are widely patent bilaterally, as are the anterior and middle cerebral arteries. There is loss of the left vertebral artery flow void. The right vertebral artery flow void and the basilar flow voids are preserved the posterior cerebral arteries are patent. There is no aneurysm or high-grade stenosis seen throughout the intracranial circulation. The brain parenchyma is normal as visualized. IMPRESSION: 1. There is loss of the left vertebral artery flow with the skull base. This could represent slow flow or occlusion. 2. The remaining intracranial vessels are widely patent. No aneurysm is seen. Electronically signed by: Ricardo Sotomayor M.D. 06/09/2016 10:54 PM NECK MRA HISTORY: Mental status change Stroke TECHNIQUE: Tron-rl-[id number] and gadolinium-enhanced MRA of the neck was performed both before and after the intravenous administration of contrast. All measurements were calculated based on NASCET criteria. COMPARISON STUDY: None. FINDINGS: The aortic arch and proximal great vessels are widely patent. Moderate narrowing of the origin of the carotid systems bilaterally at their is a mild to moderate atherosclerotic narrowing of the carotid bifurcations. Left vertebral artery is very small with dampened flow.] Deep arteries dominant with the basilar unremarkable. IMPRESSION: 1. Very small caliber left vertebral artery with dampened flow. Components of this may be on a congenital basis.. 2. Moderate chronic narrowing of the carotid system and carotid bifurcations. 3. No evidence for high-grade stenotic process of the carotid systems Electronically signed by: Beck Iglesias M.D. 06/10/2016 7:13 AM Impression 1. Acute bihemispheric stroke left greater than right side, and a watershed distribution. It is fairly extensive on the left and minimal on the right. It crosses multiple vascular territories. This type of stroke is consistent with global hypoperfusion of the brain due to either transient global hypotension or cardiac dysrhythmia with hypotension. This type of stroke is not consistent with emboli or a single vascular ischemic infarct. The patient has known atrial fibrillation but she's been in sinus rhythm since admission. She has been on Coumadin as well. She has relatively mild deficits on exam including some dysarthria, clumsiness of the right hand, and some weakness of the right leg with upgoing toe. I believe the proximal bilateral lower extremity weakness is old and not new with this stroke. She has multiple risk factors for stroke including atrial fibrillation history and other cardiac history, hypertension, dyslipidemia, diabetes, and sleep apnea. These have been fairly well controlled. The patient wasn't not a TPA candidate based on her presentation and medications on admission. This morning, NIH stroke scale equals 3 2. Patient has changes in her urine consistent with urinary tract infection 3. History of single seizure in April 2014, controlled and stable on low- dose Keppra 4. 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 5. MR angiography shows a small left vertebral artery with slow or no flow. There is adequate collateral circulation and no evidence of subclavian steal. There are no significant vessel stenoses otherwise. Plan 1. Check echocardiogram. If there is no evidence of valvular vegetations or source of emboli that I would discontinue heparin and keep her on Coumadin and 81 mg aspirin alone 2. Keep blood pressure supported so it is not too low. Go for an MAP of 100. 3. Keep Keppra the same 4. Avoid high-dose statins in this patient as she is elderly and has a very low cholesterol 111. High-dose statins would put her at bleeding risk. I've spoken with Dr. Sebastian and Dr. Das regarding this case including differential diagnosis and treatment options. I personally spent over 90 minutes with this patient in direct patient care
[2016-06-10] MEDS ORDERED: CEFTRIAXONE SOD INJ 1 GM in DEXTROSE 5% ADD-VANTAGE 50ML 50 ML IV SCH (11:00)
--- NOTE | 2016-06-10 11:05 | ECHOCARDIOGRAM REPORT ---
*NOTICE TO RECEIVING DEMOCRAT AGENCY This information is strictly Confidential and protected under [place] law. [place] law prohibits you from making any further disclosure of this information unless further disclosure is expressly permitted by the written consent of the person to whom it pertains or is authorized by law. A general authorization for the release of medical or other information is not sufficient for this purpose. Hospital accepts no responsibility if the information is made available to any other person, INCLUDING THE PATIENT. Interpretation Summary * Name: HAILEE HARPER Study Date: 06/10/2016 06:23 AM BP: 148/89 mmHg * Patient Location: C.2E\S\E207\S\1 HR: 72 * : 1935 (M/d/yyyy) Gender: Female Height: 63 in * Age: 81 yrs Ethnicity: CA Weight: 167 lb * Ordering Physician: Warren Hunt * Referring Physician: Self, Referred * Performed By: Ainsley Rosas RCS * * Reason For Study: AORTIC DISSECTION * BSA: 1.8 m2 * -- Conclusions -- * Left ventricular systolic function is moderate to severely reduced. * There is moderate to severe global hypokinesis of the left ventricle. * Ejection Fraction = 25-30%. * There is mild tricuspid regurgitation. * Mildly dilated ascending aorta. Procedure Details * A complete two-dimensional transthoracic echocardiogram was performed (2D, M-mode, Doppler and color flow Doppler). Left Ventricle * The left ventricle is grossly normal size. * There is normal left ventricular wall thickness. * Left ventricular systolic function is moderate to severely reduced. * Ejection Fraction = 25-30%. * There is moderate to severe global hypokinesis of the left ventricle. Right Ventricle * The right ventricular cavity size is normal (basal dimension <4.2 cm in right ventricular apical 4-chamber view). * The right ventricular systolic function is normal as assessed by tricuspid annular plane systolic excursion (TAPSE) (normal >1.5 cm). Atria * The left atrial size is normal. * Right atrial size is normal. * There is no evidence of atrial septal defect, but resolution does not allow assessment for a patent foramen ovale. Mitral Valve * The mitral valve is grossly normal. * There is no mitral valve stenosis. * There is trace mitral regurgitation. Tricuspid Valve * The tricuspid valve is not well visualized, but is grossly normal. * There is no tricuspid stenosis. * There is mild tricuspid regurgitation. Aortic Valve * The aortic valve is trileaflet. * The aortic valve opens well. * Aortic valve sclerosis mild, without significant aortic valvular stenosis. * Trace aortic regurgitation. Pulmonic Valve * The pulmonic valve is not well visualized. * There is no significant pulmonary regurgitation. Great Vessels * The aortic root is normal size. * Mildly dilated ascending aorta. * The pulmonary is not well visualized. Pericardium/Pleural * There is no pericardial effusion. Great Vessels * IVC not well visualized. MMode 2D Measurements and Calculations IVSd 1.5 cm IVSs 1.3 cm LVIDd 4.2 cm LVIDs 3.9 cm LVPWd 1.2 cm LVPWs 1.5 cm IVS/LVPW 1.2 FS 5.8 % EDV(Teich) 76.6 ml ESV(Teich) 66.4 ml EF(Teich) 13.3 % EDV(cubed) 71.7 ml ESV(cubed) 59.8 ml EF(cubed) 16.5 % % IVS thick -12.30 % % LVPW thick 22.2 % LV mass(C)d 204.3 grams LV mass(C)dI 114.0 grams/m\S\2 LV mass(C)s 196.5 grams LV mass(C)sI 109.7 grams/m\S\2 SV(Teich) 10.2 ml SI(Teich) 5.7 ml/m\S\2 SV(cubed) 11.9 ml SI(cubed) 6.6 ml/m\S\2 Ao root diam 3.3 cm Ao root area 8.7 cm\S\2 ACS 1.8 cm LA dimension 2.4 cm LA/Ao 0.73 LVOT diam 2.0 cm LVOT area 3.1 cm\S\2 LVAd ap4 20.7 cm\S\2 LVLd ap4 6.6 cm EDV(MOD-sp4) 53.3 ml EDV(sp4-el) 54.7 ml LVAs ap4 21.7 cm\S\2 LVLs ap4 7.1 cm ESV(MOD-sp4) 57.2 ml ESV(sp4-el) 56.4 ml EF(MOD-sp4) -7.43 % EF(sp4-el) -3.07 % LVAd ap2 27.5 cm\S\2 LVLd ap2 7.0 cm EDV(MOD-sp2) 89.7 ml EDV(sp2-el) 92.2 ml LVAs ap2 22.9 cm\S\2 LVLs ap2 6.2 cm ESV(MOD-sp2) 68.2 ml ESV(sp2-el) 71.4 ml EF(MOD-sp2) 24.0 % EF(sp2-el) 22.6 % LVLd %diff 4.7 % EDV(MOD-bp) 70.3 ml LVLs %diff -13.76 % ESV(MOD-bp) 66.2 ml EF(MOD-bp) 5.9 % SV(MOD-sp4) -3.95 ml SI(MOD-sp4) -2.21 ml/m\S\2 SV(MOD-sp2) 21.5 ml SI(MOD-sp2) 12.0 ml/m\S\2 SV(MOD-bp) 4.1 ml SI(MOD-bp) 2.3 ml/m\S\2 SV(sp4-el) -1.68 ml SI(sp4-el) -0.94 ml/m\S\2 SV(sp2-el) 20.8 ml SI(sp2-el) 11.6 ml/m\S\2 Doppler Measurements and Calculations MV E max april 99.9 cm/sec MV P1/2t max april 109.7 cm/sec MV P1/2t 67.0 msec MVA(P1/2t) 3.3 cm\S\2 MV dec slope 479.2 cm/sec\S\2 MV dec time 0.16 sec Ao V2 max 126.7 cm/sec Ao max PG 6.4 mmHg Ao max PG (full) 4.5 mmHg SANA(V,A) 1.7 cm\S\2 SANA(V,D) 1.7 cm\S\2 LV V1 max PG 1.9 mmHg LV V1 max 68.4 cm/sec MR max april 476.6 cm/sec MR max PG 90.9 mmHg TR max april 297.7 cm/sec
[2016-06-10 11:35] VITALS: BP 136/103; PULSE 78; TEMP 36.6; O2SAT 98
[2016-06-10 12:00] VITALS: BP 143/74; PULSE 78; O2SAT 98
--- NOTE | 2016-06-10 14:14 | DIAGNOSTIC IMAGING REPORT ---
VIDEO SWALLOW STUDY CLINICAL HISTORY: Aspiration. History of stroke. COMPARISON STUDY: Video swallow study dated 07/09/2015. Fluoroscopy time: 3.1 minutes. FINDINGS: Fluoroscopic guidance was provided to the Department of Speech Pathology in performing a video swallow study. The patient consumed barium-impregnated pudding, cracker with paste, nectar thick liquid, and thin barium while the swallowing mechanism was observed in real-time. Penetration with silent aspiration was seen on the thin barium texture. No aspiration was seen with the remaining sample textures. IMPRESSION: 1. Silent aspiration was seen with thin barium. 2. No aspiration was seen with the remaining sampled textures. 3. See dedicated speech pathology report for detailed findings and recommendations. Dictated: 06/10/2016 2:05 PM Transcribed: 06/10/2016 2:13 PM [email or web address] Electronically signed by: Ricardo Sotomayor M.D. 06/10/2016 2:16 PM Dictated Date/Time: 06/10/2016 2:05 PM
[2016-06-10 15:35] VITALS: BP 127/79; PULSE 82; TEMP 36.6; O2SAT 95
--- NOTE | 2016-06-10 15:45 | ONCOLOGY CONSULTATION ---
DATE OF CONSULTATION: 06/10/2016 REASON FOR CONSULTATION: Options for anticoagulation in an 81-year-old female patient with left-sided CVA. HISTORY OF PRESENT ILLNESS: Jade is a pleasant 81-year-old female patient with extensive comorbid issues including atrial fibrillation, diastolic CHF, pulmonary fibrosis and metastatic breast cancer (osseous metastasis), noninsulin dependent diabetes mellitus, status post PE and IVC filter placement. The patient was admitted on June 09 with acutely weak right side. She apparently exhibited unstable gait, right upper extremity weakness, facial asymmetry and altered speech. The symptoms occurred about an hour and a half prior to hospitalization. She was evaluated by the telestroke service on arrival and felt not to be eligible for TPA because she was already anticoagulated with Coumadin and had a therapeutic INR. Jade is well [facility], currently under the care of Dr. Ayush Ling. Her original diagnosis of breast cancer was established in late 2002. She subsequently more recently developed what was believed to be skeletal metastatic disease. However, biopsies have been nonconclusive. She had continued on aromatase inhibitors and receives bisphosphonate therapy in clinic. Dr. Ling had last seen her in March and she is due to be seen in July. Jade has been thoroughly evaluated by neurology who comfirms she had a relatively extensive stroke. She is now on intravenous heparin and primary service is wanting guidance on anticoagulation going forward. Considering the fact she was therapeutic on Coumadin, would certainly suggest warfarin failure. PAST MEDICAL HISTORY: Significant for: 1. Metastatic breast cancer. 2. Atrial fibrillation. 3. Anxiety. 4. Osteoarthritis. 5. Cardiomyopathy. 6. Diastolic CHF. 7. Chronic pulmonary embolism. 8. Coronary atherosclerosis. 9. Depression. 10. Epilepsy. 11. Hypertension. 12. Pulmonary fibrosis. 13. Osteoporosis. 14. Left bundle branch block. PAST SURGICAL HISTORY: Status post knee replacement and lumpectomy. FAMILY HISTORY: Includes cancer, diabetes mellitus, stroke, heart disease, hypertension and pulmonary disease. SOCIAL HISTORY: The patient is , lives by herself. Nonsmoker, nondrinker. MEDICATIONS: On admission include Xanax 0.25 mg p.o. b.i.d., anastrozole 1 mg p.o. every day, calcium citrate with vitamin D 1 tablet p.o. b.i.d., cholecalciferol 2000 international units p.o. q.a.m., Xgeva 120 mg subQ q. monthly, Prozac 20 mg p.o. q.a.m., Keppra 250 mg p.o. b.i.d., losartan 50 mg p.o. q.a.m., Nystatin topical 1 application to the affected area daily, simvastatin 40 mg p.o. at bedtime, and warfarin 3 mg p.o. every day. ALLERGIES: No known drug allergies. REVIEW OF SYSTEMS: As per HPI. The patient herself is not an optimal historian to provide complete review of systems. PHYSICAL EXAMINATION: GENERAL: Jade is an 81-year-old female patient, lying supine in bed, in no acute distress. VITAL SIGNS: Temperature 36.6, pulse 78, respirations 20, blood pressure 136/103. SKIN: Without rash or lesion. No petechiae or ecchymosis noted. Turgor is fair. HEENT: Head is atraumatic, normocephalic. EYES: PERRLA, EOMI. Sclerae nonicteric. No conjunctival injection. Nares patent without rhinorrhea or discharge. Slight facial droop noted. Tongue is midline. No buccal lesions or ulcerations. NECK: Supple without JVD or thyromegaly. LYMPH: No cervical, supraclavicular, axillary palpable nodes. HEART: Regular rate and rhythm. No clicks, rubs, murmurs or gallops. LUNGS: Clear to auscultation bilaterally. ABDOMEN: Soft, nontender, nondistended, without palpable hepatosplenomegaly. EXTREMITIES: No calf tenderness or swelling. No clubbing, cyanosis or edema. NEUROLOGIC: She obviously has slurred speech. Her motor function and general weakness is more notable on right side, particularly right upper extremity. Cranial nerves II-XII appear to be intact. She is awake and alert and again definitely a bit disoriented. LABORATORY DATA: WBC count is 9190, hemoglobin 15, platelet count 621,000. Sodium 141, potassium 4.4, chloride 105, carbon dioxide 28, BUN 17, and creatinine 0.64. RADIOGRAPHIC DATA: MRI of the brain, multiple multifocal punctate, watershed type infarcts in the left cerebral hemisphere as well as right occipital lobe. MRA consistent with loss of left vertebral artery flow at skull base, remaining intracranial vessels are widely patent. IMPRESSION: 1. Cerebrovascular accident. 2. History of atrial fibrillation. 3. Seizure disorder. 4. Diabetes mellitus. 5. Congestive heart failure. 6. Metastatic breast cancer. PLAN: Jade is a pleasant but unfortunate 81-year-old with multiple comorbid issues, admitted for right-sided weakness, abnormal gait and slurring of speech. MRI and MRA confirmed cerebral vascular accident. The patient has been formally evaluated by neurology and agree with their assessment that is stroke may be secondary to hypocerebral perfusion versus cardiac arrhythmia. I am certainly troubled by the fact that her Coumadin was therapeutic on admission, which would make one suspicious for anticoagulant failure. Unfortunately, there is no safe anticoagulant; however, in this case, Jade should be placed on oral direct thrombin inhibition, particularly Pradaxa, which is appropriate in patients with atrial fibrillation. Goal of anticoagulation is to prevent further extension of her stroke. As said previously, there are no absolute safe anticoagulants and bleeding as well as fall risk, all need to be considered in this decision. These risks were explained to Jade and I would be more than happy to discuss further with the patient's daughter. If all parties agree with discontinuing heparin, begin Pradaxa at appropriate therapeutic dose and prepare the patient for outpatient disposition. I will ensure that she is scheduled for follow up with Dr. Ling shortly after discharge. Thank you very much for allowing us to participate in her care. JOSS
[2016-06-10] MEDS ORDERED: NURSING VERBAL MED ORDER ONE (17:45)
[2016-06-10] MEDS: ACETAMINOPHEN 325 MG TAB PO PRN ×2 (18:13→22:20)
[2016-06-10 19:40] VITALS: BP 145/86; PULSE 72; TEMP 36.5; O2SAT 98
[2016-06-10] MEDS: SULFAMETHOXAZOLE/TRIMETHOPRIM DS 800/160MG TAB PO SCH (21:09)
[2016-06-11] VITALS (8 sets, daily range): BP systolic 102–161; BP diastolic 63–107; PULSE 66–85; TEMP 36.5–37.2; O2SAT 94–98
[2016-06-11 06:01] LABS: BASO % 0.8 %; BASO ABS # 0.07 K/uL (0-0.2); COMPLETE YES; EOS % 3.9 %; HEMATOCRIT 45.4 % (37-47); IG% 0.2 %; LYMPH % 21.8 %; LYMPH ABS # 1.95 K/uL (1.2-3.4); MEAN CELL VOLUME 94.8 fL (80-100); MEAN CORPUSCULAR HEMOGLOBIN 31.5 pg (25-34); MEAN CORPUSCULAR HGB CONC 33.3 g/dl (32-36); MEAN PLATELET VOLUME 10.5 fL (7.4-10.4); MONO % 13.4 %; NEUT % 59.9 %; PLATELET COUNT 646 K/uL (130-400); RED BLOOD COUNT 4.79 M/uL (4.2-5.4); WHITE BLOOD COUNT 8.96 K/uL (4.8-10.8)
[2016-06-11 06:27] LABS: INR 2.8 (0.9-1.1); PROTHROMBIN TIME (PATIENT) 31.6 SECONDS (9.0-12.0)
[2016-06-11 06:36] LABS: BUN/CREATININE RATIO 26.3 (10-20); CALCIUM 8.6 mg/dl (8.5-10.1); CREATININE 0.63 mg/dl (0.60-1.20); POTASSIUM 4.2 mmol/L (3.5-5.1)
--- NOTE | 2016-06-11 08:57 | HEME/ONC PROGRESS NOTE ---
DATE: 06/11/2016 DIAGNOSES: 1. Cerebrovascular accident. 2. History of atrial fibrillation. 3. Seizure disorder. 4. Metastatic breast cancer. HOSPITAL COURSE: Jade is a pleasant 81-year-old female patient, well known to the [facility] with significant comorbid issues, admitted because of subacute onset unstable gait, right upper extremity weakness and altered speech. Radiographically proved to have suffered a pretty significant CVA as per described by neurology. I was asked to see her regarding anticoagulation choice. I have recommended Pradaxa. According to nursing family, specifically BLANCA (daughter), are going to decide rather to pursue this option. She continues on intravenous heparin. Clinically, she seems much brighter today. Again other than slurred speech, most of her neurologic deficit seems to be improving. Nursing reports no overnight issues. PHYSICAL EXAMINATION: GENERAL: She is pleasant, awake, and appropriate, in no acute distress. VITAL SIGNS: Temperature 36.9, pulse 78, respirations 18, and blood pressure 142/86. SKIN: Warm and dry without petechiae or ecchymosis. HEENT: Oral mucosa without erythema or ulceration. NECK: Supple. HEART: Regular rate and rhythm. LUNGS: Clear. ABDOMEN: Soft, nontender, and nondistended without palpable hepatosplenomegaly. EXTREMITIES: No calf tenderness or swelling. NEUROLOGIC: Again, slurring of speech, but otherwise nonfocal. LABORATORY DATA: WBC count 8960, hemoglobin 15.1, and platelet count 646,000. Sodium 142, potassium 4.2, chloride 107, carbon dioxide 28, creatinine 0.63, and BUN 17. IMPRESSION: 1. Cerebrovascular accident. 2. History of atrial fibrillation. 3. Metastatic breast cancer. 4. Thrombocytosis. PLAN: Jade is an 81-year-old female patient, well known to the [facility], admitted with right-sided weakness, abnormal gait and slurred speech. MRI/MRA of both the head and neck confirmed hypoperfusion and watershed type of CVA. She continues on an intravenous heparin. I have recommended conversion to Pradaxa as long as power of prosecuting attorney agrees. I will discuss the patient's elevated platelet count with Dr. Ling. It is unclear whether this finding is new. In view of recent vascular events, however, cyto- reduction may be indicated. We will continue to follow with her periodically and ensure of outpatient followup at [facility]. Thank you again for allowing us to assist in the care of this very pleasant lady. JOSS
[2016-06-11] MEDS: LEVETIRACETAM 250 MG TAB PO SCH ×2 (10:05→20:45)
[2016-06-11] MEDS: FLUOXETINE HCL 20 MG CAP PO SCH (10:05)
[2016-06-11] MEDS: SULFAMETHOXAZOLE/TRIMETHOPRIM DS 800/160MG TAB PO SCH ×2 (10:05→20:45)
[2016-06-11] MEDS: ASPIRIN 81 MG ECTAB PO SCH (10:05)
[2016-06-11] MEDS: ANASTROZOLE 1 MG TAB PO SCH (10:06)
[2016-06-11] MEDS: ALPRAZOLAM 0.25 MG TAB PO SCH ×2 (10:08→20:45)
--- NOTE | 2016-06-11 11:23 | Medical Student: [facility] ---
Consultation Date of Consultation: Jun 11, 2016. Requesting Physician: Nicole Sebastian MD Attending Physician: Dimas Ayala MD Reason for Consultation: Cardiomyopathy, heart failure History of Present Illness Ms. Gilbert is a pleasant 81 y/o female with a very complicated past medical history, including diastolic HF, paroxysmal AF, and CAD who presented to the ED yesterday complaining of a right sided hemiparesis, right-sided facial droop, and dysarthria that started around 1300. Head CT showed no bleed or acute changes. MRI of the brain showed multiple small watershed infarcts. tPA was not given, as she is anticoagulated with warfarin and had a therapeutic INR. She has chronic pulmonary emboli and is s/p IVC filter placement. EKG performed on admission showed NSR with a first degree AV block and LBBB, but this is not changed from previous. Labs on admission showed evidence of UTI, but were otherwise unremarkable. Troponin and CK were negative on admission. Echocardiogram performed yesterday showed significant LV systolic dysfunction and moderate to severe global hypokinesis of the LV. Her ejection fraction was estimated to be 25-30%. Today, she feels much better and her symptoms are resolving. She reports some continued clumsiness in the RLE and right-sided facial droop, but these are much improved since yesterday. She denies headache, visual changes, chest pain, or shortness of breath. She does report some intermittent constipation and diarrhea, but this is baseline for her. She denies any lower extremity swelling or calf pain. She did report that it was difficult for her to ambulate to the commode, but this is baseline for her. Her vitals have been stable since admission, with the exception of some labile blood pressures. She has no additional concerns at this time. 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 (15) GI bleed (16) HTN (hypertension) (17) HYPERLIPIDEMIA NEC/NOS (18) HYPERTENSION NOS (19) Hypothyroidism (20) HYPOTHYROIDISM NOS (21) LBBB (left bundle branch block) (22) Osteoporosis (23) Overdose (24) Pulmonary fibrosis (25) Shingles Surgical History: Surgical Problems: (1) H/O lumpectomy (2) History of knee replacement Family History Cancer Diabetes mellitus FHx: stroke Heart disease Hypertension Lung disease Social History Smoking Status: Unknown if Ever Smoked History of Alcohol Use: No Drug Use: none Marital Status: Housing Status: lives alone Occupation Status: retired Review of Systems Constitutional: + fatigue, + weakness, No chills, No fever, No sweats Eyes: No diplopia, No eye pain, No worsening of vision ENT: No hearing loss, No sore throat, No tinnitus, No trouble swallowing Respiratory: + dyspnea on exertion, No cough, No dyspnea at rest, No shortness of breath, No sputum, No wheezing Cardiac: No PND, No chest pain, No claudication, No edema, No orthopnea, No palpitations Breast: No breast lump, No breast pain, No nipple discharge Abdomen: + constipation, + diarrhea, No GI bleeding, No nausea, No pain, No vomiting Musculoskeletal: No calf pain, No muscle pain Female : + see HPI Neurologic: + balance problems, + weakness, No memory loss, No numbness/ tingling, No paralysis, No vertigo Skin: No new/changing skin lesions, No rash All Other Systems: Reviewed and Negative Allergies Coded Allergies: No Known Allergies (Verified , 06/09/16) Medications Current Inpatient Medications Medications (Trade) Dose Ordered Sig/Lindsey Route Start Time Stop Time Status Last Admin Dose Admin Miscellaneous Information (Pharmacist Discharge Med Rec Consult) 1 ea UD PRN N/A 06/09/16 17:15 07/09/16 17:14 Alprazolam (Xanax Tab) 0.25 mg BID PO 06/09/16 21:00 07/09/16 20:59 06/11/16 10:08 0.25 MG Anastrozole (Arimidex Tab) 1 mg QAM PO 06/10/16 09:00 07/10/16 08:59 Future hold 06/11/16 10:06 1 MG Fluoxetine HCl (Prozac Cap) 20 mg QAM PO 06/10/16 09:00 07/10/16 08:59 06/11/16 10:05 20 MG Levetiracetam (Keppra Tab) 250 mg BID PO 06/09/16 21:00 07/09/16 20:59 06/11/16 10:05 250 MG Acetaminophen (Tylenol Tab) 650 mg Q4H PRN PO 06/09/16 17:15 07/09/16 17:14 06/10/16 22:20 650 MG Al Hydrox/Mg Hydrox/Simethicone (Maalox Max Susp) 15 ml Q4H PRN PO 06/09/16 17:15 07/09/16 17:14 Magnesium Hydroxide (Milk Of Magnesia Susp) 30 ml Q12H PRN PO 06/09/16 17:15 07/09/16 17:14 Ondansetron HCl (Zofran Inj) 4 mg Q6H PRN IV 06/09/16 17:15 07/09/16 17:14 Polyethylene (Miralax Powder Packet) 17 gm DAILY PRN PO 06/09/16 17:15 07/09/16 17:14 Gadobutrol (Gadavist) 7.5 mmol UD PRN IV 06/09/16 23:30 06/13/16 23:29 Trimethoprim/ Sulfamethoxazole (Septra Ds 800/ 160MG Tab) 1 tab Q12 PO 06/10/16 21:00 06/15/16 20:59 06/11/16 10:05 1 TAB Clopidogrel Bisulfate (plAVix TAB) 75 mg QAM PO 06/12/16 09:00 07/12/16 08:59 Nystatin (Mycostatin Powder) 1 appln DAILY EXT 06/12/16 09:00 07/12/16 08:59 Physical Exam Date Time Temp Pulse Resp B/P Pulse Ox O2 Delivery O2 Flow Rate FiO2 06/11/16 07:00 36.6 77 16 147/107 98 Nasal Cannula 6.0 06/11/16 04:51 Nasal Cannula 6.0 06/11/16 04:15 36.9 78 18 142/86 95 06/11/16 00:10 36.5 72 18 102/63 98 06/11/16 00:00 Nasal Cannula 6.0 06/10/16 20:00 Nasal Cannula 6.0 06/10/16 19:40 36.5 72 20 145/86 98 Nasal Cannula 6.0 06/10/16 15:35 36.6 82 22 127/79 95 Nasal Cannula 6.0 06/10/16 12:00 78 98 06/10/16 11:35 36.6 78 20 136/103 98 Nasal Cannula 6.0 General Appearance: WD/WN, no apparent distress Eyes: bilateral eyes EOMI, bilateral eyes PERRL, bilateral eyes normal inspection ENT: normal ENT inspection, hearing grossly normal Neck: supple, no adenopathy, thyroid normal, no JVD, no carotid bruits, trachea midline Respiratory: chest non-tender, lungs clear, normal breath sounds, no respiratory distress, no accessory muscle use Cardiovascular: regular rate, rhythm, no edema, no gallop, no JVD, no murmur, + pertinent finding (weak DP and PT pulses bilaterally) Abdomen: normal bowel sounds, non tender, soft, no organomegaly, no pulsatile mass Musculoskeletal: abnormal strength (4/5 strength in R leg) Neurologic/Psychiatric: alert, normal mood/affect, oriented x 3, + abnormal cerebellar tests (unable to adequately perform finger to nose with right hand), + facial droop, + motor weakness Skin: normal color, warm/dry, no rash Laboratory Results Last 24 Hours Test 06/10/16 11:34 06/10/16 21:05 06/11/16 05:40 06/11/16 06:33 Bedside Glucose 123 mg/dl 102 mg/dl 101 mg/dl White Blood Count 8.96 K/uL Red Blood Count 4.79 M/uL Hemoglobin 15.1 g/dL Hematocrit 45.4 % Mean Corpuscular Volume 94.8 fL Mean Corpuscular Hemoglobin 31.5 pg Mean Corpuscular Hemoglobin Concent 33.3 g/dl Platelet Count 646 K/uL Mean Platelet Volume 10.5 fL Neutrophils (%) (Auto) 59.9 % Lymphocytes (%) (Auto) 21.8 % Monocytes (%) (Auto) 13.4 % Eosinophils (%) (Auto) 3.9 % Basophils (%) (Auto) 0.8 % Neutrophils # (Auto) 5.37 K/uL Lymphocytes # (Auto) 1.95 K/uL Monocytes # (Auto) 1.20 K/uL Eosinophils # (Auto) 0.35 K/uL Basophils # (Auto) 0.07 K/uL RDW Standard Deviation 55.5 fL RDW Coefficient of Variation 16.0 % Immature Granulocyte % (Auto) 0.2 % Immature Granulocyte # (Auto) 0.02 K/uL Prothrombin Time 31.6 SECONDS Prothromb Time International Ratio 2.8 Sodium Level 142 mmol/L Potassium Level 4.2 mmol/L Chloride Level 107 mmol/L Carbon Dioxide Level 28 mmol/L Anion Gap 7.0 mmol/L Blood Urea Nitrogen 17 mg/dl Creatinine 0.63 mg/dl Est Creatinine Clear Calc Drug Dose 64.5 ml/min Estimated GFR () 96.1 Estimated GFR (Non- 82.9 BUN/Creatinine Ratio 26.3 Random Glucose 100 mg/dl Calcium Level 8.6 mg/dl Assessment & Plan ASSESSMENT: Ms. Gilbert is a 81 y/o female with a history of paroxysmal AF, CAD , diastolic HF, and a large number of other chronic medical conditions who was admitted yesterday for ischemic stroke. MRI of the head showed multifocal watershed infarcts, which indicates global cerebral hypoperfusion as the etiology of her stroke. Additionally, she was noted to have significant systolic dysfunction of the LV on echo performed in the hospital. Given her additional history of paroxysmal AF and diastolic heart failure, her cerebral hypoperfusion was likely cardiogenic in nature. Blood pressures in the hospital have been labile, but there have not been any episodes of profound hypotension. She has been seen by neurology and they have recommended maintaining a MAP of at least 100 in order to ensure adequate cerebral perfusion. PLAN: 1. Combined systolic and diastolic heart failure with reduced EF -Since EF is only 25-30%, consider ICD -Hold losartan to allow for permissive hypertension -Resume statin therapy -Arrange close outpatient follow-up with cardiology 2. Ischemic stroke -Continue Plavix 75mg daily DR. AYALA ADDENDUM: Patient seen and examined with medical student. Please see my dictated Cardiology Consult for Assessment and Plan.
--- NOTE | 2016-06-11 14:31 | Family Medicine Progress Note ---
Progress Note Date of Service Jun 11, 2016. Subjective Pt evaluation today including: conversation w/ patient, conversation w/ family , physical exam, chart review, lab review, review of studies, conversation w/ property consultant, review of inpatient medication list Pain: 0/10 PO Intake: WNL Voiding: incontinence (occasional) Patient states that she feels that the speech is improving as well as the weakness denies any pain at this time Discussed the case with the daughter and the patient - questions and concerns were addressed Constitutional: No fever Eyes: No worsening of vision ENT: No hearing loss Respiratory: No cough, No dyspnea on exertion, No shortness of breath, No sputum, No wheezing Cardiovascular: No chest pain Abdomen: No constipation, No diarrhea, No nausea, No pain, No vomiting Musculoskeletal: No joint pain, No muscle pain Neurologic: + balance problems, + paralysis, + weakness Psychiatric: No depression symptoms Endo: + fatigue Skin: No rash Medications Medications Administered Medications (Trade) Dose Ordered Sig/Lindsey Route Start Time Stop Time Status Last Admin Dose Admin Sodium Chloride (Nss 1000ml) 1,000 ml @ 50 mls/hr Q20H IV 06/09/16 14:19 06/09/16 19:33 DC 06/09/16 14:45 50 MLS/HR Alprazolam (Xanax Tab) 0.25 mg BID PO 06/09/16 21:00 07/09/16 20:59 06/11/16 10:08 0.25 MG Anastrozole (Arimidex Tab) 1 mg QAM PO 06/10/16 09:00 07/10/16 08:59 Future hold 06/11/16 10:06 1 MG Fluoxetine HCl (Prozac Cap) 20 mg QAM PO 06/10/16 09:00 07/10/16 08:59 06/11/16 10:05 20 MG Levetiracetam (Keppra Tab) 250 mg BID PO 06/09/16 21:00 07/09/16 20:59 06/11/16 10:05 250 MG Warfarin Sodium (Coumadin Tab) 3 mg DAILY@1600 PO 06/09/16 21:00 06/10/16 00:34 DC 06/09/16 21:10 3 MG Acetaminophen (Tylenol Tab) 650 mg Q4H PRN PO 06/09/16 17:15 07/09/16 17:14 06/10/16 22:20 650 MG Aspirin (Ecotrin Tab) 81 mg QAM PO 06/10/16 09:00 06/11/16 10:12 DC 06/11/16 10:05 81 MG Aspirin 81 mg 81 mg ONE STAT PO 06/09/16 17:22 06/09/16 17:36 DC 06/09/16 17:50 81 MG Heparin Sodium/ Dextrose (Heparin 25,000 Unit/500ml D5W) 500 ml @ 15 mls/hr Q24H PRN IV 06/10/16 01:30 06/11/16 10:12 DC 06/10/16 01:29 15 MLS/HR Trimethoprim/ Sulfamethoxazole (Septra Ds 800/ 160MG Tab) 1 tab Q12 PO 06/10/16 21:00 06/15/16 20:59 06/11/16 10:05 1 TAB Objective Vital Signs Date Time Temp Pulse Resp B/P Pulse Ox O2 Delivery O2 Flow Rate FiO2 06/11/16 12:00 Room Air 06/11/16 11:00 81 16 127/77 97 Nasal Cannula 6.0 06/11/16 09:46 75 94 06/11/16 08:00 Room Air 06/11/16 07:00 36.6 77 16 147/107 98 Nasal Cannula 6.0 06/11/16 04:51 Nasal Cannula 6.0 06/11/16 04:15 36.9 78 18 142/86 95 06/11/16 00:10 36.5 72 18 102/63 98 06/11/16 00:00 Nasal Cannula 6.0 06/10/16 20:00 Nasal Cannula 6.0 06/10/16 19:40 36.5 72 20 145/86 98 Nasal Cannula 6.0 06/10/16 15:35 36.6 82 22 127/79 95 Nasal Cannula 6.0 Physical Exam General Appearance: WD/WN, no apparent distress Eyes: normal inspection, + pertinent finding (right facial droop (improved)) ENT: normal ENT inspection Neck: supple Respiratory/Chest: lungs clear, normal breath sounds, no respiratory distress, no accessory muscle use Cardiovascular: regular rate, rhythm, no murmur Abdomen: normal bowel sounds, non tender, soft Extremities: non-tender, normal inspection, no pedal edema, no calf tenderness Neurologic/Psychiatric: alert, normal mood/affect, oriented x 3, + motor weakness (R>L but improving), + pertinent finding (tongue deviation resolved, positive babinski right) Skin: normal color, warm/dry, no rash Lymphatic: no adenopathy Laboratory Results Results Past 24 Hours Test 06/10/16 21:05 06/11/16 05:40 06/11/16 06:33 06/11/16 11:26 Range/Units Bedside Glucose 102 101 101 70-90 mg/dl White Blood Count 8.96 4.8-10.8 K/uL Red Blood Count 4.79 4.2-5.4 M/uL Hemoglobin 15.1 12.0-16.0 g/dL Hematocrit 45.4 37-47 % Mean Corpuscular Volume 94.8 80-100 fL Mean Corpuscular Hemoglobin 31.5 25-34 pg Mean Corpuscular Hemoglobin Concent 33.3 32-36 g/dl Platelet Count 646 130-400 K/uL Mean Platelet Volume 10.5 7.4-10.4 fL Neutrophils (%) (Auto) 59.9 % Lymphocytes (%) (Auto) 21.8 % Monocytes (%) (Auto) 13.4 % Eosinophils (%) (Auto) 3.9 % Basophils (%) (Auto) 0.8 % Neutrophils # (Auto) 5.37 1.4-6.5 K/uL Lymphocytes # (Auto) 1.95 1.2-3.4 K/uL Monocytes # (Auto) 1.20 0.11-0.59 K/uL Eosinophils # (Auto) 0.35 0-0.5 K/uL Basophils # (Auto) 0.07 0-0.2 K/uL RDW Standard Deviation 55.5 36.4-46.3 fL RDW Coefficient of Variation 16.0 11.5-14.5 % Immature Granulocyte % (Auto) 0.2 % Immature Granulocyte # (Auto) 0.02 0.00-0.02 K/uL Prothrombin Time 31.6 9.0-12.0 SECONDS Prothromb Time International Ratio 2.8 0.9-1.1 Sodium Level 142 136-145 mmol/L Potassium Level 4.2 3.5-5.1 mmol/L Chloride Level 107 98-107 mmol/L Carbon Dioxide Level 28 21-32 mmol/L Anion Gap 7.0 3-11 mmol/L Blood Urea Nitrogen 17 7-18 mg/dl Creatinine 0.63 0.60-1.20 mg/dl Est Creatinine Clear Calc Drug Dose 64.5 ml/min Estimated GFR () 96.1 Estimated GFR (Non- 82.9 BUN/Creatinine Ratio 26.3 10-20 Random Glucose 100 70-99 mg/dl Calcium Level 8.6 8.5-10.1 mg/dl Assessment and Plan This is an 81 yo f with PAF and was therapeutic on warfarin suffering from a stroke. MRI revealed multiple infarcts in watershed regions reflective of most likely a hypotensive episode CVA in watershed regions and concerning that it is secondary to hypotensive episode - continue to monitor on tele - neurochecks - echo- EF 25%- 30% Mild TR Mild dil of ascending aorta LV function Severely reduced - neuro input appreciated - plan is to start plavix daily, d/c ASA - swallow study/ consult - appreciate input - FLP and HBA1c - will d/c heparin as most likely hypotensive episode contributing factor for watershed stroke - was therapeutic on coumadin - discussed case with both Dr George and Dr Kelley, will ultimately stay on Warfarin Cardiomyopathy - Echo as above - CVS consult Leukocytosis - improved - UA reflective of UTI ; possible source of hypotension? - Bactrim DMII - HBA1C was 6.2 - will continue to monitor glucose Seizure Disorder - continue Keppra PAF - Currently on heparin and coumadin held - Coag consult pending H/O Breast Ca - hormonal therapy cont Pulmonary Fibrosis O2 per protocol - incentive spirometer HTN - losartan held Depression - fluoxetine and xanax cont DVt Prophylaxis -warfarin- INR therapeutic but warfarin still held for now Diso: Pt Ot Continued [facility] stay due to: other Discharge planning: rehab hospital Reviewed: Pt Seen/Exam by Me History no new issues overnight Constitutional: denies: fever Respiratory: negative: short of breath Cardiovascular: denies chest pain Gastrointestinal/Abdominal: negative: abdominal pain General Appearance: no apparent distress (sitting in chair) Respiratory: lungs clear, no respiratory distress Cardiovascular: regular rate, rhythm Neurologic/Psychiatric: alert, oriented x 3, other (neuro exam unchanged) Skin Characteristics: warm/dry Assessment/Plan I have reviewed the medical record and performed a history and physical examination of this patient today. I have discussed the case with Dr. Das. The above note reflects my findings, conclusions, and recommendations.
--- NOTE | 2016-06-11 15:16 | Neurology Progress Notes ---
Neurology Progress Note Date of Service Jun 11, 2016. Subjective Patient feels better today. Nursing reports no new events or seizures. She still has some right-sided weakness and clumsiness although she feels this may be a little bit better. Echocardiogram showed moderate to severe global hypokinesis of the left ventricle with some moderate to severely reduced left ventricular systolic function. Ejection fraction was 25-30% with mild tricuspid regurgitation. Objective Date Time Temp Pulse Resp B/P Pulse Ox O2 Delivery O2 Flow Rate FiO2 06/11/16 12:00 Room Air 06/11/16 11:00 81 16 127/77 97 Nasal Cannula 6.0 06/11/16 09:46 75 94 06/11/16 08:00 Room Air 06/11/16 07:00 36.6 77 16 147/107 98 Nasal Cannula 6.0 06/11/16 04:51 Nasal Cannula 6.0 06/11/16 04:15 36.9 78 18 142/86 95 06/11/16 00:10 36.5 72 18 102/63 98 06/11/16 00:00 Nasal Cannula 6.0 06/10/16 20:00 Nasal Cannula 6.0 06/10/16 19:40 36.5 72 20 145/86 98 Nasal Cannula 6.0 06/10/16 15:35 36.6 82 22 127/79 95 Nasal Cannula 6.0 Last 24 Hours Test 06/10/16 21:05 06/11/16 05:40 06/11/16 06:33 06/11/16 11:26 Bedside Glucose 102 mg/dl 101 mg/dl 101 mg/dl White Blood Count 8.96 K/uL Red Blood Count 4.79 M/uL Hemoglobin 15.1 g/dL Hematocrit 45.4 % Mean Corpuscular Volume 94.8 fL Mean Corpuscular Hemoglobin 31.5 pg Mean Corpuscular Hemoglobin Concent 33.3 g/dl Platelet Count 646 K/uL Mean Platelet Volume 10.5 fL Neutrophils (%) (Auto) 59.9 % Lymphocytes (%) (Auto) 21.8 % Monocytes (%) (Auto) 13.4 % Eosinophils (%) (Auto) 3.9 % Basophils (%) (Auto) 0.8 % Neutrophils # (Auto) 5.37 K/uL Lymphocytes # (Auto) 1.95 K/uL Monocytes # (Auto) 1.20 K/uL Eosinophils # (Auto) 0.35 K/uL Basophils # (Auto) 0.07 K/uL RDW Standard Deviation 55.5 fL RDW Coefficient of Variation 16.0 % Immature Granulocyte % (Auto) 0.2 % Immature Granulocyte # (Auto) 0.02 K/uL Prothrombin Time 31.6 SECONDS Prothromb Time International Ratio 2.8 Sodium Level 142 mmol/L Potassium Level 4.2 mmol/L Chloride Level 107 mmol/L Carbon Dioxide Level 28 mmol/L Anion Gap 7.0 mmol/L Blood Urea Nitrogen 17 mg/dl Creatinine 0.63 mg/dl Est Creatinine Clear Calc Drug Dose 64.5 ml/min Estimated GFR () 96.1 Estimated GFR (Non- 82.9 BUN/Creatinine Ratio 26.3 Random Glucose 100 mg/dl Calcium Level 8.6 mg/dl Exam: She is awake and alert. Speech is normal without any significant aphasia or dysarthria. Mood and affect seem normal and appropriate. Thought processes are intact. Extraocular eye muscles are intact without nystagmus. She does have a facial droop at the corner of the mouth on the right but it moves fairly well with voluntary command. She has some clumsiness and weakness of the right upper extremity as before and has weakness of the proximal right lower extremity. The left side is strong. There are no abnormal involuntary movements Current Inpatient Medications Medications (Trade) Dose Ordered Sig/Lindsey Route Start Time Stop Time Status Last Admin Dose Admin Miscellaneous Information (Pharmacist Discharge Med Rec Consult) 1 ea UD PRN N/A 06/09/16 17:15 07/09/16 17:14 Alprazolam (Xanax Tab) 0.25 mg BID PO 06/09/16 21:00 07/09/16 20:59 06/11/16 10:08 0.25 MG Anastrozole (Arimidex Tab) 1 mg QAM PO 06/10/16 09:00 07/10/16 08:59 Future hold 06/11/16 10:06 1 MG Fluoxetine HCl (Prozac Cap) 20 mg QAM PO 06/10/16 09:00 07/10/16 08:59 06/11/16 10:05 20 MG Levetiracetam (Keppra Tab) 250 mg BID PO 06/09/16 21:00 07/09/16 20:59 06/11/16 10:05 250 MG Acetaminophen (Tylenol Tab) 650 mg Q4H PRN PO 06/09/16 17:15 07/09/16 17:14 06/10/16 22:20 650 MG Al Hydrox/Mg Hydrox/Simethicone (Maalox Max Susp) 15 ml Q4H PRN PO 06/09/16 17:15 07/09/16 17:14 Magnesium Hydroxide (Milk Of Magnesia Susp) 30 ml Q12H PRN PO 06/09/16 17:15 07/09/16 17:14 Ondansetron HCl (Zofran Inj) 4 mg Q6H PRN IV 06/09/16 17:15 07/09/16 17:14 Polyethylene (Miralax Powder Packet) 17 gm DAILY PRN PO 06/09/16 17:15 07/09/16 17:14 Gadobutrol (Gadavist) 7.5 mmol UD PRN IV 06/09/16 23:30 06/13/16 23:29 Trimethoprim/ Sulfamethoxazole (Septra Ds 800/ 160MG Tab) 1 tab Q12 PO 06/10/16 21:00 06/15/16 20:59 06/11/16 10:05 1 TAB Clopidogrel Bisulfate (plAVix TAB) 75 mg QAM PO 06/12/16 09:00 07/12/16 08:59 Nystatin (Mycostatin Powder) 1 appln DAILY EXT 06/12/16 09:00 07/12/16 08:59 Impression 1. Acute bihemispheric stroke left greater than right side, in a watershed distribution. It is fairly extensive on the left and minimal on the right. It crosses multiple vascular territories. This type of stroke is consistent with global hypoperfusion of the brain due to either transient global hypotension or cardiac dysrhythmia with hypotension. Alternatively global hypoxia such as could be obtained from significant sleep apnea, is also a possibility. This type of stroke is not consistent with emboli or a single vascular ischemic infarct. I do not believe it has anything to do with a subtherapeutic anticoagulant level. The patient has known atrial fibrillation but she's been in sinus rhythm since admission. She has been on Coumadin as well. She is making improvements mildly clinically. She has multiple risk factors for stroke including atrial fibrillation history and other cardiac history, hypertension, dyslipidemia, diabetes, and sleep apnea. These have been fairly well controlled. The patient wasn't not a TPA candidate based on her presentation and medications on admission. This morning, NIH stroke scale equals 2 2. Patient has changes in her urine consistent with urinary tract infection 3. History of single seizure in April 2014, controlled and stable on low- dose Keppra 4. 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 5. MR angiography shows a small left vertebral artery with slow or no flow. There is adequate collateral circulation and no evidence of subclavian steal. There are no significant vessel stenoses otherwise. Plan 1. Keep on an anticoagulant because of her cardiac issues and initiate Plavix 75 mg daily for small vessel ischemic disease prevention. Aspirin can be discontinued. 2. Keep blood pressure supported so it is not too low. Go for an MAP of 100. 3. Keep Keppra the same 4. Avoid high-dose statins in this patient as she is elderly and has a very low cholesterol 111. High-dose statins would put her at bleeding risk. 5. The patient needs to use C Pap regularly for her sleep apnea I've spoken with Dr. Sebastian and Dr. Das regarding this case including differential diagnosis and treatment options. I have no further neurologic testing or treatment recommendations to make at this time. Please contact me if I can be of further assistance on this case.
--- NOTE | 2016-06-11 17:10 | CARDIOLOGY CONSULTATION ---
DATE OF CONSULTATION: 06/11/2016 REQUESTING PHYSICIAN: Dr. Nicole Sebastian. REASON FOR CONSULTATION: LV dysfunction. HISTORY OF PRESENT ILLNESS: Ms. Gilbert is a very pleasant 80-year-old woman with a history of paroxysmal atrial fibrillation on Coumadin, hypertension, chronic diastolic heart failure, pulmonary fibrosis on 4 liters, obstructive sleep apnea on CPAP, metastatic breast cancer on hormonal therapy, who was readmitted in the setting of acute onset of right-sided weakness and facial droop who was found to have an acute bilateral watershed strokes. In the process of her workup, the patient was noted to have new LV dysfunction and cardiology consulted for further management. The patient is followed by me as an outpatient for her cardiac care and was last seen back in December. She had recently been in [facility] after she had had a hospital admission in the setting of confusion and slurred speech. At that point, the episode was thought to be due to medication overdose as she had taken 3 extra days of her medications including Keppra, Xanax and her blood pressure medications. Following her rehab stay, she had returned home, but soon thereafter developed acute onset of right-sided weakness as well as facial droop. She was brought to the Emergency Department where a head CT showed no acute intracranial hemorrhage. She was evaluated by neurology telestroke medicine and as she was on anticoagulation was not thought to be a candidate for TPA. MRI later confirmed left hemispheric and right occipital CVAs thought secondary to hypoperfusion/watershed in nature. As part of her workup, she had an echocardiogram done which showed new moderate to severely reduced LV function with global hypokinesis and an EF of 25%-30%. There was mild TR. There was mildly dilated ascending aorta. No significant regional wall motion abnormalities. No significant valvular pathology. At present, the patient states that she is feeling okay. She states that her strength seems to be returning and that her facial droop seems to be improving. Prior to this event, she denies any chest pain, any palpitations. Denies any recent illnesses other than viral upper respiratory symptoms approximately 2 weeks ago. PAST MEDICAL HISTORY: 1. Atrial fibrillation. 2. Breast cancer on hormonal therapy. 3. Chronic diastolic heart failure. 4. Hypertension. 5. Hyperlipidemia. 6. Hypothyroidism. 7. Chronic left bundle branch block. 8. Pulmonary fibrosis on 6 liters of oxygen. 9. Anxiety. 10. Arthritis. FAMILY HISTORY: Noncontributory. SOCIAL HISTORY: She is a lifelong never smoker. Denies any alcohol or drug use. She is . She lives with her daughter. ALLERGIES: No known drug allergies. HOME MEDICATIONS: Xanax, anastrozole, calcium, vitamin D, cholecalciferol, denosumab, fluoxetine, Keppra, losartan 50, simvastatin and warfarin. REVIEW OF SYSTEMS: A 10-point review of systems was completed and otherwise negative unless mentioned in the HPI. PHYSICAL EXAMINATION: VITAL SIGNS: Temperature 36.6, pulse 81, blood pressure 127/77. She is satting 97% on 6 liters nasal cannula. GENERAL: The patient appears comfortable in no acute distress. HEENT: Sclera anicteric. Oropharynx is clear. She has a notable right facial droop. NECK: No significant jugular venous distention. LUNGS: Clear to auscultation bilaterally. CARDIAC: She has a regular rate and rhythm with no murmurs, rubs or gallops. ABDOMEN: Soft, nontender, nondistended with positive bowel sounds. EXTREMITIES: Warm. She has trace lower extremity edema to just above the ankle, left greater than right. SKIN: Shows no significant rashes or lesions. NEUROLOGIC: She has grossly equal strength bilaterally in upper and lower extremities. PSYCHIATRIC: She is alert and oriented x3 and mood and affect is appropriate. DATA: White blood cell count 8.9, hemoglobin 15.1, platelets of 646. INR of 2.8. Sodium of 142, potassium of 4.2, BUN of 17, creatinine 0.6, calcium 8.6. Troponin on admission was negative at less than 0.015. Total cholesterol 111, triglycerides 39, LDL 59, HDL 44. IMAGING: Brain MRI showed multiple multifocal punctate watershed type infarcts in the left cerebral hemisphere as well as right occipital lobe superimposed on chronic vessel change. MRA, there was loss of vertebral flow on the left at the skull base, otherwise intracranial vessels are widely patent. Carotids showed moderate chronic narrowing at the bifurcations, but no evidence of high grade stenosis and chest x-ray showed stable cardiomegaly with minor pulmonary vascular congestion. Telemetry reviewed. No complex arrhythmias. IMPRESSION AND PLAN: 1. Acute watershed CVA involving the left hemisphere, right occipital lobe. 2. New [id number] left ventricular dysfunction. 3. Atrial fibrillation. 4. Hypertension. 5. Pulmonary fibrosis on 6 liters. 6. Breast cancer on hormonal therapy. Patient with new [id number] LV dysfunction on echocardiogram. Etiology of new dysfunction not initially clear. The patient has no regional wall motion abnormalities and has chronic left bundle branch block. No prior symptoms to suggest ischemic cause, but may consider further evaluation with possible stress test as an outpatient. Otherwise, would check reversible metabolic causes including repeat thyroid panel. Possible cardiomyopathy may be a stress-induced phenomenon and is secondary to neurologic event. Going forward when safe to resume blood pressure medications from a stroke standpoint would continue on home losartan and resume prior carvedilol. Will need repeat surveillance echocardiogram in 2-3 months. Otherwise, unclear what exactly led to global hypoperfusion as reduced LV function should not have led to reduced cardiac output alone. Question possible arrhythmia induced hypotension in the setting of LV dysfunction. No indication for ICD or RELAY RECORD CLERK-D device at present but will continue to monitor on telemetry and if no further events and LV dysfunction persists consider 3 months from now. [facility] specialist [facility] prognosis with regards to cancer would affect potential to receive ICD. Will continue to follow patient while she is in the hospital. Please contact with any questions. Thank you for allowing us to participate in the care of this patient. JOSS
[2016-06-12] VITALS (8 sets, daily range): BP systolic 136–157; BP diastolic 68–86; PULSE 65–77; TEMP 36.4–36.5; O2SAT 94–98
[2016-06-12 06:11] LABS: BASO % 0.6 %; BASO ABS # 0.06 K/uL (0-0.2); COMPLETE YES; EOS % 3.3 %; HEMATOCRIT 44.1 % (37-47); IG% 0.4 %; LYMPH % 21.1 %; LYMPH ABS # 2.04 K/uL (1.2-3.4); MEAN CELL VOLUME 92.5 fL (80-100); MEAN CORPUSCULAR HGB CONC 33.6 g/dl (32-36); MEAN PLATELET VOLUME 10.6 fL (7.4-10.4); MONO % 9.6 %; PLATELET COUNT 680 K/uL (130-400); RED BLOOD COUNT 4.77 M/uL (4.2-5.4); WHITE BLOOD COUNT 9.67 K/uL (4.8-10.8)
[2016-06-12 06:49] LABS: BUN/CREATININE RATIO 24.9 (10-20); CALCIUM 8.8 mg/dl (8.5-10.1); CREATININE 0.6 mg/dl (0.60-1.20); POTASSIUM 4.6 mmol/L (3.5-5.1)
--- NOTE | 2016-06-12 07:35 | Family Medicine Progress Note ---
Progress Note Date of Service Jun 12, 2016. Subjective Pt evaluation today including: conversation w/ patient, physical exam, chart review, lab review, review of studies, review of inpatient medication list Pain: denies pain PO Intake: adequate Voiding: no voiding problems Patient reports feeling significantly better. Weakness has improved as well as speech. She denies Numbness, tingling. denies CP, SOB, palpitation Medications Current Inpatient Medications Medications (Trade) Dose Ordered Sig/Lindsey Route Start Time Stop Time Status Last Admin Dose Admin Miscellaneous Information (Pharmacist Discharge Med Rec Consult) 1 ea UD PRN N/A 06/09/16 17:15 07/09/16 17:14 Alprazolam (Xanax Tab) 0.25 mg BID PO 06/09/16 21:00 07/09/16 20:59 06/11/16 20:45 0.25 MG Anastrozole (Arimidex Tab) 1 mg QAM PO 06/10/16 09:00 07/10/16 08:59 Future hold 06/11/16 10:06 1 MG Fluoxetine HCl (Prozac Cap) 20 mg QAM PO 06/10/16 09:00 07/10/16 08:59 06/11/16 10:05 20 MG Levetiracetam (Keppra Tab) 250 mg BID PO 06/09/16 21:00 07/09/16 20:59 06/11/16 20:45 250 MG Acetaminophen (Tylenol Tab) 650 mg Q4H PRN PO 06/09/16 17:15 07/09/16 17:14 06/10/16 22:20 650 MG Al Hydrox/Mg Hydrox/Simethicone (Maalox Max Susp) 15 ml Q4H PRN PO 06/09/16 17:15 07/09/16 17:14 Magnesium Hydroxide (Milk Of Magnesia Susp) 30 ml Q12H PRN PO 06/09/16 17:15 07/09/16 17:14 Ondansetron HCl (Zofran Inj) 4 mg Q6H PRN IV 06/09/16 17:15 07/09/16 17:14 Polyethylene (Miralax Powder Packet) 17 gm DAILY PRN PO 06/09/16 17:15 07/09/16 17:14 06/11/16 16:30 17 GM Gadobutrol (Gadavist) 7.5 mmol UD PRN IV 06/09/16 23:30 06/13/16 23:29 Trimethoprim/ Sulfamethoxazole (Septra Ds 800/ 160MG Tab) 1 tab Q12 PO 06/10/16 21:00 06/15/16 20:59 06/11/16 20:45 1 TAB Clopidogrel Bisulfate (plAVix TAB) 75 mg QAM PO 06/12/16 09:00 07/12/16 08:59 Nystatin (Mycostatin Powder) 1 appln DAILY EXT 06/12/16 09:00 07/12/16 08:59 Objective Vital Signs Date Time Temp Pulse Resp B/P Pulse Ox O2 Delivery O2 Flow Rate FiO2 06/12/16 04:30 36.5 65 16 136/80 98 Nasal Cannula 6.0 06/12/16 04:00 Nasal Cannula 6.0 06/12/16 00:00 Nasal Cannula 6.0 06/11/16 23:25 37.0 66 24 128/74 96 Nasal Cannula 6.0 06/11/16 20:00 Nasal Cannula 6.0 06/11/16 19:00 36.8 85 20 132/74 94 Nasal Cannula 6.0 06/11/16 16:23 Nasal Cannula 6.0 Humidified Oxygen 06/11/16 15:15 37.2 79 16 152/102 94 Nasal Cannula 6.0 06/11/16 12:00 Nasal Cannula 6.0 06/11/16 11:00 81 16 127/77 97 Nasal Cannula 6.0 06/11/16 09:46 75 94 06/11/16 08:00 Nasal Cannula 6.0 Humidified Oxygen Physical Exam General Appearance: WD/WN, no apparent distress Eyes: normal inspection, PERRL, EOMI Neck: supple, no carotid bruits Respiratory/Chest: chest non-tender, lungs clear, normal breath sounds, no respiratory distress Cardiovascular: no edema, no gallop, no murmur, + irregularly irregular Abdomen: normal bowel sounds, non tender, soft Extremities: no pedal edema, no calf tenderness Neurologic/Psychiatric: regulatory intern II-XII nml as tested, no motor/sensory deficits, alert, normal mood/affect, oriented x 3, + facial droop, + pertinent finding (5/ 5 strength UE, LE leonor) Skin: normal color, warm/dry, no rash Laboratory Results Results Past 24 Hours Test 06/11/16 11:26 06/11/16 16:13 06/11/16 19:50 06/12/16 05:43 Range/Units Bedside Glucose 101 99 91 70-90 mg/dl White Blood Count 9.67 4.8-10.8 K/uL Red Blood Count 4.77 4.2-5.4 M/uL Hemoglobin 14.8 12.0-16.0 g/dL Hematocrit 44.1 37-47 % Mean Corpuscular Volume 92.5 80-100 fL Mean Corpuscular Hemoglobin 31.0 25-34 pg Mean Corpuscular Hemoglobin Concent 33.6 32-36 g/dl Platelet Count 680 130-400 K/uL Mean Platelet Volume 10.6 7.4-10.4 fL Neutrophils (%) (Auto) 65.0 % Lymphocytes (%) (Auto) 21.1 % Monocytes (%) (Auto) 9.6 % Eosinophils (%) (Auto) 3.3 % Basophils (%) (Auto) 0.6 % Neutrophils # (Auto) 6.28 1.4-6.5 K/uL Lymphocytes # (Auto) 2.04 1.2-3.4 K/uL Monocytes # (Auto) 0.93 0.11-0.59 K/uL Eosinophils # (Auto) 0.32 0-0.5 K/uL Basophils # (Auto) 0.06 0-0.2 K/uL RDW Standard Deviation 53.6 36.4-46.3 fL RDW Coefficient of Variation 15.9 11.5-14.5 % Immature Granulocyte % (Auto) 0.4 % Immature Granulocyte # (Auto) 0.04 0.00-0.02 K/uL Sodium Level 142 136-145 mmol/L Potassium Level 4.6 3.5-5.1 mmol/L Chloride Level 107 98-107 mmol/L Carbon Dioxide Level 28 21-32 mmol/L Anion Gap 7.0 3-11 mmol/L Blood Urea Nitrogen 15 7-18 mg/dl Creatinine 0.60 0.60-1.20 mg/dl Est Creatinine Clear Calc Drug Dose 69.1 ml/min Estimated GFR () 97.7 Estimated GFR (Non- 84.3 BUN/Creatinine Ratio 24.9 10-20 Random Glucose 94 70-99 mg/dl Calcium Level 8.8 8.5-10.1 mg/dl Test 06/12/16 06:37 06/12/16 07:13 Range/Units Bedside Glucose 101 70-90 mg/dl Assessment and Plan 81 yo F with Paroxysmal AFib on warfarin prior to arrival p/w Acute CVA with MRI showing multiple infarcts in watershed regions reflective of most likely a hypotensive episode CVA in watershed regions ode - Weakness, dysarthria Right facial droop significantly improved - likely secondary to hypotensive epis - echo- EF 25%- 30% Mild TR Mild dilation of ascending aorta LV function Severely reduced -Neck MRA: -small caliber left vertebral artery with dampened flow. Moderate chronic narrowing of the carotid system and carotid bifurcations. No evidence for high-grade stenotic process of the carotid systems - Neuro input appreciated - Continue Plavix daily - Continue neurochecks - Restart Coumadin 1mg - Recheck PT/INR in AM Aspiration Risk s/p swallowing evaluation -Appreciate recommendation from Speech Therapy 1.Moist mechanical soft diet, NECTAR thick liquids. No mixed consistencies. (i.e., cereal in milk). 2.Aspiration precautions, NO straws. Fully upright for all p.o. intake and for 30-60 minutes after meals. 3.Safe swallow strategies: Small bites, alternate solids and liquids to clear oral retention. Monitor for oral pocketing. Stringent oral care in order to reduced oral bacteria that can be aspirated in saliva. 4. Would benefit from continued speech therapy services in acute rehab for communication and dysphagia, with focus on improved swallow initiation time and overall pharyngeal strengthening. Would also benefit from further education and training on diet consistency and safe swallow strategies. Cardiomyopathy - Echo as above - As per Cardiology, after discharge, followup in outpatient for work-up/ management Suspected UTI - Leukocytosis resolved -Blood cx's negative -Day 3/5 of Bactrim -Continue to course completion DMII - HBA1C was 6.2 - will continue to monitor glucose Seizure Disorder - continue Keppra Paroxysmal AFib - rate controlled - Coumadin restarted at 1mg daily - F/u PT/INR H/O Breast Ca - hormonal therapy cont Pulmonary Fibrosis O2 per protocol - incentive spirometer HTN - Losartan remains held Depression - Continue fluoxetine and xanax DVt Prophylaxis -Coumadin Diso: Pt Ot [facility] referral made. Awaiting placement Continued [facility] stay due to: abnormal vital signs, home environment unsafe for pt Discharge planning: rehab hospital Resident Tracking Resident Involvement: Resident Care Provided Care Provided: Adult Hospital Medicine Reviewed: Pt Seen/Exam by Me History feeling well this am Constitutional: denies: fever Respiratory: negative: short of breath Cardiovascular: denies chest pain Gastrointestinal/Abdominal: negative: abdominal pain General Appearance: no apparent distress Respiratory: lungs clear, no respiratory distress Cardiovascular: irregularly irregular Neurologic/Psychiatric: alert, oriented x 3, other (right side weakness improving) Assessment/Plan I have reviewed the medical record and performed a history and physical examination of this patient today. I have discussed the case with Dr. Causey. The above note reflects my findings, conclusions, and recommendations.
[2016-06-12 08:10] LABS: INR 2.4 (0.9-1.1); PROTHROMBIN TIME (PATIENT) 26.2 SECONDS (9.0-12.0)
[2016-06-12] MEDS: LEVETIRACETAM 250 MG TAB PO SCH ×2 (08:14→21:30)
[2016-06-12] MEDS: SULFAMETHOXAZOLE/TRIMETHOPRIM DS 800/160MG TAB PO SCH ×2 (08:14→21:30)
[2016-06-12] MEDS: ANASTROZOLE 1 MG TAB PO SCH (08:15)
[2016-06-12] MEDS: CLOPIDOGREL BISULFATE 75 MG TAB PO SCH (08:15)
[2016-06-12] MEDS: FLUOXETINE HCL 20 MG CAP PO SCH (08:15)
[2016-06-12] MEDS: ALPRAZOLAM 0.25 MG TAB PO SCH ×2 (08:20→21:31)
[2016-06-12] MEDS: NYSTATIN POWDER 15GM BTL EXT SCH (08:46)
--- NOTE | 2016-06-12 10:54 | Cardiology Follow-Up ---
Subjective Subjective Date of Service: Jun 12, 2016. Pt evaluation today including: conversation w/ patient, physical exam, chart review, lab review, review of studies, review of inpatient medication list Additional Details: States she is feeling better. Feels like her speech is improving. No chest pain, shortness of breath. Tele reviewed -- no arrhythmias Problem List Medical Problems: (1) Abdominal contusion Status: Acute (2) Abdominal pain Status: Acute (3) Anxiety Status: Acute (4) Anxiety Status: Acute (5) Back contusion Status: Acute (6) Cervical strain Status: Acute (7) Chest pain Status: Acute (8) Confusion Status: Acute (9) Elevated platelet count Status: Acute (10) Fall Status: Acute (11) Fall Status: Acute (12) Generalized weakness Status: Acute (13) Hypoglycemia Status: Acute (14) International normalized ratio (INR) greater than 2 Status: Acute (15) Leukocytosis Status: Acute (16) Lumbar contusion Status: Acute (17) Metastatic breast cancer Status: Acute (18) Rectal bleed Status: Acute (19) Shingles Status: Acute (20) Supratherapeutic INR Status: Acute (21) Weakness Status: Acute (22) Weakness Status: Acute Review of Systems Constitutional: No fever Respiratory: No cough, No shortness of breath Cardiac: No chest pain Abdomen: No nausea, No pain Neurologic: + balance problems, + weakness Psychiatric: No depression symptoms Heme: No abnormal bleeding/bruising Endo: + fatigue Skin: No rash Objective Vital Signs Last Vital Signs Documentation Date Time Temp Pulse Resp B/P Pulse Ox O2 Delivery O2 Flow Rate FiO2 06/12/16 08:00 Nasal Cannula 6.0 Humidified Oxygen 06/12/16 07:48 36.5 71 20 157/86 97 Physical Exam: General Appearance: WD/WN, no apparent distress ENT: normal ENT inspection Neck: supple, no carotid bruits Respiratory/Chest: lungs clear, normal breath sounds, no respiratory distress Cardiovascular: regular rate, rhythm (sinus rhythm today), no edema, no gallop , + extra beats Abdomen: normal bowel sounds, non tender, soft Extremities: no pedal edema, no calf tenderness Neurologic/Psychiatric: alert, normal mood/affect, oriented x 3, + facial droop , + pertinent finding (5/5 strength UE, LE leonor) Skin: normal color, warm/dry, no rash Lymphatic: no adenopathy Assessment and Plan 1. 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 New moderate-severe LV dysfunction -- suspect non-ischemic 3. Paroxysmal AF -- sinus rhythm at present; on chronic anticoagulation with coumadin 4. Pulmonary fibrosis -- on 6L 02 at baseline 5. Breast CA-- on chronic hormonal therapy 6. Hypertension -- permissive HTN post CVA at present 7. Chronic LBBB Well perfused, no significant congestion on exam Electrically stable on telemetry -- when OK per neurology post CVA would resume home beta-elizabeth/ARB for LV dysfunction -- continue anticoagulation with coumadin for her AF prison -- Ok from cardiac standpoint for discharge to rehab with further outpatient work-up/management of cardiomyopathy Continued [facility] stay due to: other Discharge planning: rehab hospital Medications: Current Inpatient Medications Medications (Trade) Dose Ordered Sig/Lindsey Route Start Time Stop Time Status Last Admin Dose Admin Miscellaneous Information (Pharmacist Discharge Med Rec Consult) 1 ea UD PRN N/A 06/09/16 17:15 07/09/16 17:14 Alprazolam (Xanax Tab) 0.25 mg BID PO 06/09/16 21:00 07/09/16 20:59 06/12/16 08:20 0.25 MG Anastrozole (Arimidex Tab) 1 mg QAM PO 06/10/16 09:00 07/10/16 08:59 Future hold 06/12/16 08:15 1 MG Fluoxetine HCl (Prozac Cap) 20 mg QAM PO 06/10/16 09:00 07/10/16 08:59 06/12/16 08:15 20 MG Levetiracetam (Keppra Tab) 250 mg BID PO 06/09/16 21:00 07/09/16 20:59 06/12/16 08:14 250 MG Acetaminophen (Tylenol Tab) 650 mg Q4H PRN PO 06/09/16 17:15 07/09/16 17:14 06/10/16 22:20 650 MG Al Hydrox/Mg Hydrox/Simethicone (Maalox Max Susp) 15 ml Q4H PRN PO 06/09/16 17:15 07/09/16 17:14 Magnesium Hydroxide (Milk Of Magnesia Susp) 30 ml Q12H PRN PO 06/09/16 17:15 07/09/16 17:14 Ondansetron HCl (Zofran Inj) 4 mg Q6H PRN IV 06/09/16 17:15 07/09/16 17:14 Polyethylene (Miralax Powder Packet) 17 gm DAILY PRN PO 06/09/16 17:15 07/09/16 17:14 06/11/16 16:30 17 GM Gadobutrol (Gadavist) 7.5 mmol UD PRN IV 06/09/16 23:30 06/13/16 23:29 Trimethoprim/ Sulfamethoxazole (Septra Ds 800/ 160MG Tab) 1 tab Q12 PO 06/10/16 21:00 06/15/16 20:59 06/12/16 08:14 1 TAB Clopidogrel Bisulfate (plAVix TAB) 75 mg QAM PO 06/12/16 09:00 07/12/16 08:59 06/12/16 08:15 75 MG Nystatin (Mycostatin Powder) 1 appln DAILY EXT 06/12/16 09:00 07/12/16 08:59 Lab Results: Test 06/12/16 05:43 06/12/16 06:37 06/12/16 07:13 06/12/16 07:40 RDW Standard Deviation 53.6 fL (36.4-46.3) RDW Coefficient of Variation 15.9 % (11.5-14.5) White Blood Count 9.67 K/uL (4.8-10.8) Red Blood Count 4.77 M/uL (4.2-5.4) Hemoglobin 14.8 g/dL (12.0-16.0) Hematocrit 44.1 % (37-47) Mean Corpuscular Volume 92.5 fL (80-100) Mean Corpuscular Hemoglobin 31.0 pg (25-34) Mean Corpuscular Hemoglobin Concent 33.6 g/dl (32-36) Platelet Count 680 K/uL (130-400) Mean Platelet Volume 10.6 fL (7.4-10.4) Neutrophils (%) (Auto) 65.0 % Lymphocytes (%) (Auto) 21.1 % Monocytes (%) (Auto) 9.6 % Eosinophils (%) (Auto) 3.3 % Basophils (%) (Auto) 0.6 % Neutrophils # (Auto) 6.28 K/uL (1.4-6.5) Lymphocytes # (Auto) 2.04 K/uL (1.2-3.4) Monocytes # (Auto) 0.93 K/uL (0.11-0.59) Eosinophils # (Auto) 0.32 K/uL (0-0.5) Basophils # (Auto) 0.06 K/uL (0-0.2) Immature Granulocyte % (Auto) 0.4 % Immature Granulocyte # (Auto) 0.04 K/uL (0.00-0.02) Est Creatinine Clear Calc Drug Dose 69.1 ml/min Bedside Glucose 101 mg/dl (70-90) Prothrombin Time 26.2 SECONDS (9.0-12.0) Prothromb Time International Ratio 2.4 (0.9-1.1)
--- NOTE | 2016-06-12 15:05 | DIAGNOSTIC IMAGING REPORT ---
CHEST 2 VIEWS ROUTINE CLINICAL HISTORY: Acute shortness of breath. Left-sided crackles. COMPARISON STUDY: 06/09/2016 FINDINGS: The heart remains enlarged. A line shadow caliber and the left lateral hemithorax is felt to represent a skinfold. There is no lobar consolidation. There is stable bibasal interstitial thickening. Surgical clips project over the left axillary region and left breast. There are postsurgical changes of a right hip arthroplasty[ IMPRESSION: Stable cardiomegaly. Stable basal interstitial thickening. Mild central vascular prominence without evidence of overt failure Electronically signed by: Bartolome Garcia M.D. 06/12/2016 3:04 PM Dictated Date/Time: 06/12/2016 3:02 PM
[2016-06-12 15:31] LABS: HYDROXYETHYLFLURAZEPAM CONF NEGATIVE NG/ML (CUTOFF=50); HYDROXYMIDAZOLAM NEGATIVE NG/ML (CUTOFF=50); HYDROXYTRIAZOLAM CONF NEGATIVE NG/ML (CUTOFF=50); TEMAZEPAM CONF NEGATIVE NG/ML (CUTOFF=50)
[2016-06-12] MEDS ORDERED: WARFARIN SOD 1 MG TAB PO SCH (16:00)
[2016-06-13] MEDS: ACETAMINOPHEN 325 MG TAB PO PRN (03:26)
[2016-06-13 04:20] VITALS: BP 145/75; PULSE 66; TEMP 36.5; O2SAT 95
[2016-06-13 04:49] LABS: INR 2.1 (0.9-1.1); PROTHROMBIN TIME (PATIENT) 22.7 SECONDS (9.0-12.0)
[2016-06-13 07:43] LABS: HEMATOCRIT 43.9 % (37-47); MEAN CELL VOLUME 92.2 fL (80-100); MEAN CORPUSCULAR HEMOGLOBIN 30.7 pg (25-34); MEAN CORPUSCULAR HGB CONC 33.3 g/dl (32-36); MEAN PLATELET VOLUME 10.5 fL (7.4-10.4); PLATELET COUNT 716 K/uL (130-400); RED BLOOD COUNT 4.76 M/uL (4.2-5.4); WHITE BLOOD COUNT 9.62 K/uL (4.8-10.8)
[2016-06-13 07:47] VITALS: BP 141/72; PULSE 68; TEMP 36.4; O2SAT 97
[2016-06-13 08:10] LABS: BUN/CREATININE RATIO 26.7 (10-20); CALCIUM 8.9 mg/dl (8.5-10.1); CREATININE 0.7 mg/dl (0.60-1.20); POTASSIUM 4.4 mmol/L (3.5-5.1)
[2016-06-13] MEDS: LEVETIRACETAM 250 MG TAB PO SCH (08:11)
[2016-06-13] MEDS: FLUOXETINE HCL 20 MG CAP PO SCH (08:11)
[2016-06-13] MEDS: SULFAMETHOXAZOLE/TRIMETHOPRIM DS 800/160MG TAB PO SCH (08:11)
[2016-06-13] MEDS: NYSTATIN POWDER 15GM BTL EXT SCH (08:11)
[2016-06-13] MEDS: CLOPIDOGREL BISULFATE 75 MG TAB PO SCH (08:11)
[2016-06-13] MEDS: ANASTROZOLE 1 MG TAB PO SCH (08:12)
[2016-06-13] MEDS: ALPRAZOLAM 0.25 MG TAB PO SCH (08:15)
[2016-06-13] MEDS ORDERED: WARF2.5T8 PO (11:00)
[2016-06-13] MEDS ORDERED: LOSA1TAB PO (11:00)
--- NOTE | 2016-06-13 11:23 | Discharge Instructions ---
Discharge Instructions Date of Service Jun 13, 2016. Admission Reason for Admission: No Feeling Or Control On Left Side Poss. Stroke Discharge Discharge Diagnosis / Problem: CVA Discharge Goals Goal(s): Decrease discomfort, Improve function, Increase independence, Improve disease control, Improve nutritional status, Learn about illness, Diagnostic testing, Therapeutic intervention, Screening, Prevent Disease Progression, Specific goals Activity Recommendations Activity Level: Assistance Required Therapies: Physical Therapy, Occupational Therapy, Speech Therapy Lifting Limitations: gradually increase as tolerated Exercise/Sports Limitations: as tolerated Shower/Bathe: no limitations . Additional Information Patient informed of condition: Yes Advance Directives: Yes DNR: Yes Level of Care: Acute Rehab Communicable Disease: No Prognosis: Improving Baum Catheter: No Instructions / Follow-Up Instructions / Follow-Up 81 yo F with Paroxysmal AFib on warfarin prior to arrival p/w Acute CVA with MRI showing multiple infarcts in watershed regions reflective of most likely a hypotensive episode CVA in watershed regions ode - Weakness, dysarthria Right facial droop significantly improved - likely secondary to hypotensive epis - echo- EF 25%- 30% Mild TR Mild dilation of ascending aorta LV function Severely reduced -Neck MRA: -small caliber left vertebral artery with dampened flow. Moderate chronic narrowing of the carotid system and carotid bifurcations. No evidence for high-grade stenotic process of the carotid systems - Continue Plavix daily - Coumadin 2.5 mg on D/C - Recheck PT/INR daily -F/u with Neurology following d/c from rehab Aspiration Risk s/p swallowing evaluation -Appreciate recommendation from Speech Therapy 1.Moist mechanical soft diet, NECTAR thick liquids. No mixed consistencies. (i.e., cereal in milk). 2.Aspiration precautions, NO straws. Fully upright for all p.o. intake and for 30-60 minutes after meals. 3.Safe swallow strategies: Small bites, alternate solids and liquids to clear oral retention. Monitor for oral pocketing. Stringent oral care in order to reduced oral bacteria that can be aspirated in saliva. 4. Would benefit from continued speech therapy services in acute rehab for communication and dysphagia, with focus on improved swallow initiation time and overall pharyngeal strengthening. Would also benefit from further education and training on diet consistency and safe swallow strategies. Cardiomyopathy - Echo as above - As per Cardiology, after discharge, followup in outpatient for work-up/management after discharge from [facility] Suspected UTI - Leukocytosis resolved -Blood cx's negative -Day 4/5 of Bactrim -Complete last day of Bactrim DMII - HBA1C was 6.2 - Monitor BGL Seizure Disorder - continue Keppra Paroxysmal AFib - rate controlled - Discharge with 2.5 mg Coumadin daily - Daily PT/INR H/O Breast Ca - hormonal therapy cont Pulmonary Fibrosis O2 per protocol - incentive spirometer HTN -Restart Losartan at 25 mg daily Depression - Continue fluoxetine and xanax DVt Prophylaxis -Coumadin Diso: Pt Ot FOLLOW UP with: Primary Care Provider, Neurologist ( Dr. Andrew Kelley) , Prosecuting Attorney ( Dr. Dimas Ayala) following discharge from rehab Repeat Echocardiogram in 3 mos with Cardiology Current Hospital Diet Patient's current hospital diet: AHA Diet (Heart Healthy), Diabetes Type 2 Diet Discharge Diet Recommended Diet: AHA Diet (Heart Healthy) Diet Texture: Mechanical Soft (ground) (Moist mechanical soft diet) Liquid Consistency: Reedy Thick (No mixed consistencies) Pending Studies Studies pending at discharge: no Physician Orders On Transfer Additional Orders: - Vitals signs. Monitor BP in particular for Hypotension( likely cause of her CVA) -BGL measurements -daily PT/INR's - Patient Followup With Primary Care Provider, Cardiology, Neurology following discharge from [facility] Laboratory Results Hemoglobin A1c Test 06/09/16 14:28 Range/Units Estimated Average Glucose 131 mg/dl Hemoglobin A1c 6.2 H 4.5-5.6 % Lipid Panel Test 06/10/16 02:55 Range/Units Triglycerides Level 39 0-150 mg/dl Cholesterol Level 111 0-200 mg/dl HDL Cholesterol 44 mg/dl Cholesterol/HDL Ratio 2.5 LDL Cholesterol, Calculated 59 mg/dl Medical Emergencies . Who to Call and When: Medical Emergencies: If at any time you feel your situation is an emergency, please call 911 immediately. . Non-Emergent Contact Non-Emergency issues call your: Primary Care Provider, Prosecuting Attorney, Neurologist Call Non-Emergent contact if: you have a fever, temperature is above 101.5, your pain is not controlled, your pain is worsening, your pain is unusual for you, your pain is concerning you, you have any medication questions . . "Provider Documentation" section prepared by Pravin Causey. Core Measure Problem Core Measures: Stroke Stroke Core Measures Reason no t-PA for Stroke: Treatment not indicated Reason no antithrom by day 2: Treatment not indicated Reason no antithrom at D/C: Treatment not indicated Reason no statin at D/C: Treatment provided - N/A Reason no anticoag w/a fib: Treatment provided - N/A
[2016-06-13] MEDS ORDERED: SULF-183 PO (11:26)
[2016-06-13 11:38] VITALS: BP_SYST 119; BP_SYST 128; BP_DIAS 65; BP_DIAS 68; PULSE 70; PULSE 90; TEMP 36.5; TEMP 36.6; O2SAT 97
--- NOTE | 2016-06-13 11:39 | Discharge Summary ---
Discharge Summary Date of Service Jun 13, 2016. (Pravin Causey MD) Discharge Summary Admission Date: Jun 09, 2016 at 17:19 Discharge Date: Jun 13, 2016 Discharge Disposition: Rehab Principal Diagnosis: CVA Problems/Secondary Diagnoses: Cardiomyopathy DMII Seizure Disorder Paroxysmal A Fib HTN Immunizations: Have You Had Influenza Vaccine: Yes Influenza Vaccine Date: Jan 23, 2009 History of Tetanus Vaccine?: Unknown Tetanus Immunization Date: May 26, 2005 History of Pneumococcal: Yes Pneumococcal Date: May 26, 2006 History of Hepatitis B Vaccine: No Procedures: HEAD CT NONCONTRAST CT DOSE: 823.94 mGycm HISTORY: Mental status change Stroke TECHNIQUE: Multiaxial CT images of the head were performed without the use of intravenous contrast. Comparison: 05/11/2016 Findings: The paranasal sinuses and mastoid air cells are clear. The calvarium and skull base are intact. The ventricles and sulci are within normal limits. There is no mass, hematoma, midline shift, or acute infarct. Chronic age-related small vessel change unaltered from the prior exam. No evidence for acute intracranial hemorrhage. Impression: Chronic and age-related change. No acute process. No change from the prior exam. ] CHEST ONE VIEW PORTABLE CLINICAL HISTORY: stroke COMPARISON STUDY: 05/08/2016 FINDINGS: The heart is enlarged. There is minor central pulmonary vascular congestion. There is no lobar consolidation. There are no significant pleural effusions. There are postsurgical changes involving the right shoulder. There are surgical clips project over the left breast and axillary region.[ IMPRESSION: Stable cardiomegaly and minor central pulmonary vascular congestion. No evidence of focal pulmonary consolidation NECK MRA HISTORY: Mental status change Stroke TECHNIQUE: [id number] and gadolinium-enhanced MRA of the neck was performed both before and after the intravenous administration of contrast. All measurements were calculated based on NASCET criteria. COMPARISON STUDY: None. FINDINGS: The aortic arch and proximal great vessels are widely patent. Moderate narrowing of the origin of the carotid systems bilaterally at their is a mild to moderate atherosclerotic narrowing of the carotid bifurcations. Left vertebral artery is very small with dampened flow.] Deep arteries dominant with the basilar unremarkable. IMPRESSION: 1. Very small caliber left vertebral artery with dampened flow. Components of this may be on a congenital basis.. 2. Moderate chronic narrowing of the carotid system and carotid bifurcations. 3. No evidence for high-grade stenotic process of the carotid systems Brain MRI WITHOUT CONTRAST HISTORY: Mental status change Stroke TECHNIQUE: Multiplanar multisequence MRI of the brain was performed without the use of contrast. COMPARISON STUDY: None. FINDINGS: Diffusion-weighted images show multiple punctate acute infarcts of the left occipital lobe, left cerebral hemisphere, and to a lesser extent right occipital lobe. These findings are superimposed upon considerable chronic small vessel change of the periventricular deep white matter regions. Ventricular system is midline. Sella and parasellar regions are unremarkable. There is no evidence for midline shift. IMPRESSION: Multiple multifocal punctate watershed type infarcts of the left cerebral hemisphere as well as right occipital lobe. All findings are superimposed upon chronic small vessel change. VIDEO SWALLOW STUDY CLINICAL HISTORY: Aspiration. History of stroke. COMPARISON STUDY: Video swallow study dated 07/09/2015. Fluoroscopy time: 3.1 minutes. FINDINGS: Fluoroscopic guidance was provided to the Department of Speech Pathology in performing a video swallow study. The patient consumed barium-impregnated pudding, cracker with paste, nectar thick liquid, and thin barium while the swallowing mechanism was observed in real-time. Penetration with silent aspiration was seen on the thin barium texture. No aspiration was seen with the remaining sample textures. IMPRESSION: 1. Silent aspiration was seen with thin barium. 2. No aspiration was seen with the remaining sampled textures. 3. See dedicated speech pathology report for detailed findings and recommendations. CHEST 2 VIEWS ROUTINE CLINICAL HISTORY: Acute shortness of breath. Left-sided crackles. COMPARISON STUDY: 06/09/2016 FINDINGS: The heart remains enlarged. A line shadow caliber and the left lateral hemithorax is felt to represent a skinfold. There is no lobar consolidation. There is stable bibasal interstitial thickening. Surgical clips project over the left axillary region and left breast. There are postsurgical changes of a right hip arthroplasty[ IMPRESSION: Stable cardiomegaly. Stable basal interstitial thickening. Mild central vascular prominence without evidence of overt failure Consultations: Telestroke ([facility]) Neurology ([facility]) Cardiology ([facility]) (Pravin Causey MD) Medication Reconciliation New Medications: Losartan Potassium (Cozaar) 25 Mg Tab 25 MG PO DAILY for 30 Days, #30 TAB Warfarin Sod (Jantoven) 2.5 Mg Tab 2.5 MG PO DAILY for 30 Days, #30 TAB Sulfamethoxazole-Trimethoprim (Smz-Tmp Ds) 1 Tab Tab 1 TAB PO Q12 for 1 Day, #2 TAB 0 Refills Continued Medications: Acetaminophen (Tylenol) 325 Mg Tab 650 MG PO BID PRN for Pain, TAB Alprazolam (Xanax) 0.25 Mg Tab 0.25 MG PO BID, TAB Anastrozole (Anastrozole) 1 Mg Tab 1 MG PO QAM, TAB Calcium Citrate-Vitamin D (Calcium Citrate/Vitamin D) 1 Tab Tab 1 TAB PO BID Cholecalciferol (Vitamin D3) 1,000 Unit Tab 2000 INTER.UNIT PO QAM Denosumab (Xgeva) 120 Mg/1.7 Ml Inj Unknown Dose SQ MONTHLY for OSTEOPOROSIS INJECTION ONCE MONTHLY WITH HEM/ONC Dextromethorphan Polymr Complx (Delsym) 30 Mg/5 Ml Liqcr 10 ML PO Q12 PRN for Cough Fluoxetine (Prozac) 20 Mg Cap 20 MG PO QAM, CAP Levetiractam (Keppra) 250 Mg Tab 250 MG PO BID Nystatin (Topical) (Nystop) 100,000 Unit/Gm Pow 1 APPLN TOP DAILY, #30 Oxygen (Oxygen) Gas 6 LITERS NA CONTINOUS Simvastatin (Simvastatin) 40 Mg Tab 40 MG PO HS [Salonpas] () 1 PATCH TD QAM APPLY AM REMOVE PM Discontinued Medications: Losartan Potassium (Losartan Potassium) 50 Mg Tab 50 MG PO QAM Warfarin Sodium (Warfarin Sodium) 3 Mg Tab 3 MG PO QPM Discharge Exam General Appearance: WD/WN, no apparent distress Eyes: normal inspection, PERRL, EOMI Neck: supple, no carotid bruits Respiratory/Chest: chest non-tender, lungs clear, normal breath sounds, no respiratory distress Cardiovascular: no edema, no gallop, no murmur, + irregularly irregular Abdomen: normal bowel sounds, non tender, soft Extremities: no pedal edema, no calf tenderness Neurologic/Psychiatric: 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, no motor/sensory deficits, alert, normal mood/affect, oriented x 3, + facial droop, + pertinent finding (5/ 5 strength UE, LE leonor) Skin: normal color, warm/dry, no rash Review of Systems: Constitutional: No chills, No fever, No weakness Eyes: No diplopia, No worsening of vision ENT: No trouble swallowing Respiratory: + cough, No shortness of breath Cardiovascular: No chest pain, No edema, No palpitations Abdomen: No constipation, No diarrhea, No nausea, No pain, No vomiting Genitourinary - Female: No dysuria, No urinary frequency, No urinary urgency Neurologic: No numbness/tingling, No paralysis, No weakness Integumentary: No itch, No new/changing skin lesions, No rash (Pravin Causey MD) weakness improving Review of Systems: Constitutional: No fever Respiratory: No shortness of breath Cardiovascular: No chest pain Physical Exam: General Appearance: no apparent distress Respiratory/Chest: lungs clear, no respiratory distress Cardiovascular: regular rate, rhythm Neurologic/Psychiatric: alert, oriented x 3, + pertinent finding (mild right facial droop) (Nicole Sebastian M.D.) Hospital Course 81 yo F with hx of Paroxysmal AFib on Coumadin ,Seizure disorder on Keppra, HTN on Losartan, Chronic Diastolic CHF, Chronic Pulmonary Fibrosis, Metastatic Breast Cancer, Obstructive Sleep Apnea, p/w Acute Right Sided Weakness/Facial droop, admitted for CVA with MRI showing Acute Leonor watershed strokes.She was evaluated by [facility] telestroke service on arrival however she was not eligible for TPA as she due to therapeutic INR with Coumadin. Coumadin was held in ED. MRA neck showed no evidence for high-grade stenotic process of the carotid systems.MRA head showed loss of the left vertebral artery flow with the skull base possible representing slow flow or occlusion. Patient was initially started on ASA and then switched to Plavix following consultation with Neurology. Swallowing study showed moderate oral-pharyngeal dysphagia.Diet was changed to mechanical soft diet. Coumadin was restarted prior to discharge at 2.5mg dose along with a reduced dose of Losartan (25 mg). Also During hospital stay, patient was treated for suspected UTI with 5 day course of Bactrim. Patient was discharged to [facility] for rehab. Total Time Spent: Less than 30 minutes This includes examination of the patient, discharge planning, medication reconciliation, and communication with other providers. (Pravin Causey MD) I have reviewed the medical record and performed a history and physical examination of this patient today. I have discussed the case with Dr. Causey. The above note reflects my findings, conclusions, and recommendations with the following additions Stroke in watershed area - ? sec to episode of hypotension/arrhythmia. Strictly Avoid hypotension. Total Time Spent: Greater than 30 minutes (40) (Nicole Sebastian M.D.) Discharge Instructions Please refer to the electronic Patient Visit Report (Discharge Instructions) for additional information. (Pravin Causey MD) Additional Copies To [facility] Resident Tracking Resident Involvement: Resident Care Provided Care Provided: Adult Hospital Medicine (Pravin Causey MD)
[2016-07-12] MEDS ORDERED: HYDR2.5C37 TOP (11:36)
[2016-07-12] MEDS ORDERED: CLOP1TAB15 PO (11:52)
[2016-07-20] MEDS ORDERED: WARF2TAB PO (12:27)
[2016-08-06] MEDS ORDERED: LSX40 PO (10:31)
[2016-08-25] MEDS ORDERED: SENN8.6T15 PO (12:03)
[2016-08-25] MEDS ORDERED: SENN8.6T11 PO (12:03)
[2016-09-08] MEDS ORDERED: ALBINS INH (08:53)
[2016-09-08] MEDS ORDERED: AMOX1TAB43 PO (08:53)
[2016-09-08] MEDS ORDERED: NYSS5 MT (08:53)
[2016-09-08] MEDS ORDERED: IPRASOL4 INH (08:53)
[2016-09-08] MEDS ORDERED: PRD20 PO (09:02)
[2016-09-08] MEDS ORDERED: ALPR0.25 PO (16:54)
== END 2016-06-13 15:36 | DRG 65 ==
LOC: ENRESERVTM → ENRESERVDT → C.EDB 14:02 → C.2E 17:19
PROVIDERS: ADMIT Internal Medicine; ATTEND Family Medicine
DX: I63.8 Other cerebral infarction (principal); I50.30 Unspecified diastolic (congestive) heart failure; N39.0 Urinary tract infection, site not specified; I42.9 Cardiomyopathy, unspecified; E11.9 Type 2 diabetes mellitus without complications; I48.0 Paroxysmal atrial fibrillation; J84.10 Pulmonary fibrosis, unspecified; D72.829 Elevated white blood cell count, unspecified; G40.909 Epilepsy, unspecified, not intractable, without status epilepticus; I10 Essential (primary) hypertension; F32.9 Major depressive disorder, single episode, unspecified; G47.33 Obstructive sleep apnea (adult) (pediatric); Z66 Do not resuscitate; Z79.01 Long term (current) use of anticoagulants; Z79.899 Other long term (current) drug therapy; Z85.3 Personal history of malignant neoplasm of breast; Z83.3 Family history of diabetes mellitus

== ENCOUNTER → 2016-07-07 | Outpatient (CLI) | payer OTHER ==
[~2016-07-07] MED LIST changes: +ACET-1311 PO; +ALBINS INH; +AMOX1TAB43 PO; -ATRINSX INH; +CALC-453 PO; -CALC625T35 PO; +CARV3.122 PO; +CEPH500C2 PO; +CLC100 PO; +CLOP1TAB15 PO; +CMD1 PO; +CPC PO; +CZR25 PO; -CZR50 PO; +DLSYL PO; +FLUT50SP45; +FURO-85 PO; +HYDR2.5C37 TOP; +HYDRCRE28 RE; +IPRASOL4 INH; -LDDP5 TD; +LOSA1TAB PO; +LSX40 PO; -MULT1TAB22 PO; +NYSS5 MT; +NYST100010 TOP; -ONDA4TAB10 SL; +PRD20 PO; +SALI0.6515 NAE; +SALONPAS TD; +SENN1TAB86 PO; +SENN8.6T96 PO; +SULF-183 PO; +WARF2.5T8 PO; +WARF2TAB PO; +WARF2TAB8 PO; -WARF3TAB PO; +ZOLP5TAB PO; +[UNRECOGNIZED DRUG - CODE] PO
--- NOTE | 2016-07-07 14:09 | DIAGNOSTIC IMAGING REPORT ---
PET/CT HISTORY: BREAST CANCER TECHNIQUE: PET/CT was performed from the base of the skull through the pelvis following the intravenous administration of 13.5 mCi of F18-FDG. Non-contrast CT imaging was performed over the same range without breath-hold for attenuation correction of PET images and anatomic correlation, but not for primary interpretation as it is not of standard diagnostic quality. CT DOSE: COMPARISON: Bone scan 09/11/2013. Thoracic and lumbar spine MRI 03/25/2016. PET CT 02/26/2015. FINDINGS: HEAD AND NECK: There is no FDG-avid disease or significant lymphadenopathy in the imaged portions of the head and the neck. CHEST: There is no FDG-avid disease in the chest. Stable mildly enlarged mediastinal lymph nodes. These do not demonstrate abnormal FDG uptake. No hilar or axillary lymphadenopathy. Postoperative changes within the left axilla and left breast are again noted. The heart is mildly enlarged.. There is no pleural or pericardial effusion. There is no suspicious lung nodule. Pulmonary fibrosis is again noted. ABDOMEN/PELVIS: Below the diaphragm, tracer is distributed physiologically in the gastrointestinal and genitourinary tracts. There is no significant lymphadenopathy and no FDG-avid disease. IVC filter. MUSCULOSKELETAL: Scattered sclerotic lesions seen within the thoracic spine, lumbar spine, sacrum, and pelvis remain unchanged. These do not demonstrate abnormal FDG uptake. Dominant lesion is located within the T9 level. Patchy FDG uptake associated with the right shoulder prosthesis is likely due to the postoperative change. This remains unchanged. There is a right total hip arthroplasty. Patchy areas of FDG uptake within the marrow of the thoracic and lumbar spine is nonspecific. However, there is a 1.8 cm focus of moderate FDG uptake within the right side of the L3 vertebral body which demonstrates an SUV max of 4.7. This is progressed in the interval and corresponds to a lesion seen on the prior lumbar spine MRI. There is also a 2.5 cm focus of moderate FDG uptake with an SUV max of 4 within the right posterior iliac bone. No definite CT corresponding abnormality. However, the FDG uptake has progressed from the prior study when it measured 2.9. There is also a small focus of FDG uptake within the right side of the sacrum with an SUV max of 3.7, previously demonstrating an SUV max of 2.9. No corresponding abnormality by CT. However, these the sites are concerning for areas of progressive metastatic disease. IMPRESSION: 1. Focal areas of moderate FDG uptake seen within the right side of the L3 vertebral body, right side of the sacrum, and right posterior iliac bone which have progressed compared to the prior study. No definite corresponding abnormality by CT. However, the L3 location corresponds to the lesion seen on the most recent lumbar spine MRI. Therefore, these findings are suspicious for progression of metastatic disease. 2. The additional scattered sclerotic lesions seen within the thoracic spine, lumbar spine, sacrum, and pelvis remain unchanged. These do not demonstrate abnormal FDG uptake but are consistent with osteoblastic metastatic disease. 3. Additional areas of patchy mild FDG uptake within the marrow of the thoracic and lumbar spine is nonspecific but could be related to posttreatment changes. Electronically signed by: Jf Dumont M.D. 07/07/2016 2:07 PM Dictated Date/Time: 07/07/2016 1:41 PM
== END | disposition home or self-care (01) ==
LOC: C.PET 10:48
PROVIDERS: ATTEND Internal Medicine Hematology & Oncology
DX: C50.412 Malignant neoplasm of upper-outer quadrant of left female breast (principal)

== ENCOUNTER → 2016-07-09 | Outpatient (CLI) | payer OTHER ==
--- NOTE | 2016-07-09 14:13 | DIAGNOSTIC IMAGING REPORT ---
CHEST 2 VIEWS ROUTINE CLINICAL HISTORY: Shortness of breath. COMPARISON STUDY: Chest radiograph June 12, 2016. FINDINGS: Incidental note is made of left axillary/breast surgical clips and a right shoulder arthroplasty. Cardiomegaly is unchanged. There is no pneumothorax or pleural effusion. Lower lung prominent interstitial thickening is unchanged. IMPRESSION: No acute cardiopulmonary findings. Stable lower lung interstitial thickening which suggests interstitial lung disease. Electronically signed by: Joseph Emery M.D. 07/09/2016 2:10 PM Dictated Date/Time: 07/09/2016 2:08 PM
== END | disposition home or self-care (01) ==
LOC: C.RAD1850 13:55
PROVIDERS: ATTEND Physician Assistant
DX: R06.02 Shortness of breath (principal)

== ENCOUNTER 2016-07-18 13:02 | Emergency (ER) | payer OTHER ==
[~2016-07-18] VITALS: Ht 160 cm; Wt 65.8 kg
[~2016-07-18 13:02] MED LIST changes: -ALBINS INH; -AMOX1TAB43 PO; -CALC-453 PO; -CARV3.122 PO; -CEPH500C2 PO; -CLC100 PO; -CMD1 PO; -CPC PO; -CZR25 PO; -DLSYL PO; -FLUT50SP45; -FURO-85 PO; -HYDRCRE28 RE; -IPRASOL4 INH; -LOSA1TAB PO; -LSX40 PO; -NYSS5 MT; -PRD20 PO; -SALI0.6515 NAE; -SALONPAS TD; -SENN1TAB86 PO; -SENN8.6T96 PO; -SULF-183 PO; -WARF-285 PO; -WARF2.5T8 PO; -WARF2TAB PO; -WARF2TAB8 PO; -ZOLP5TAB PO; -[UNRECOGNIZED DRUG - CODE] PO
[2016-07-18 13:14] VITALS: TEMP 36.5; Ht 160 cm; Wt 65.8 kg
[2016-07-18 13:18] VITALS: O2SAT 96
[2016-07-18 13:53] LABS: BASO % 0.5 %; BASO ABS # 0.06 K/uL (0-0.2); COMPLETE YES; EOS % 2.6 %; HEMATOCRIT 46.9 % (37-47); IG% 0.3 %; LYMPH ABS # 1.82 K/uL (1.2-3.4); MEAN CELL VOLUME 95.5 fL (80-100); MEAN CORPUSCULAR HEMOGLOBIN 32.2 pg (25-34); MEAN CORPUSCULAR HGB CONC 33.7 g/dl (32-36); MEAN PLATELET VOLUME 10.9 fL (7.4-10.4); NEUT % 70.6 %; PLATELET COUNT 843 K/uL (130-400); RED BLOOD COUNT 4.91 M/uL (4.2-5.4); WHITE BLOOD COUNT 11.39 K/uL (4.8-10.8)
[2016-07-18 13:57] LABS: INR 2.1 (0.9-1.1); PARTIAL THROMBOPLASTIN RATIO 1.3
[2016-07-18 14:01] LABS: ALT/SGPT 50 U/L (12-78); AST/SGOT 38 U/L (15-37); BLOOD UREA NITROGEN 16 mg/dl (7-18); BUN/CREATININE RATIO 23.6 (10-20); CALCIUM 9.2 mg/dl (8.5-10.1); CARBON DIOXIDE 28 mmol/L (21-32); CHLORIDE 107 mmol/L (98-107); CREATININE 0.69 mg/dl (0.60-1.20); GLUCOSE 88 mg/dl (70-99); POTASSIUM 4.6 mmol/L (3.5-5.1); SODIUM 145 mmol/L (136-145)
[2016-07-18 14:06] LABS: ALB/GLOB RATIO 0.8 (0.9-2); ALKALINE PHOSPHATASE 91 U/L (45-117); CKMB/CK RATIO 4.5 (0-3.0)
[2016-07-18] MEDS ORDERED: ALBUT/IPRATROP 3MG/0.5MG NEB 3 ML VIAL INH STA (14:24)
--- NOTE | 2016-07-18 14:48 | DIAGNOSTIC IMAGING REPORT ---
SINGLE VIEW CHEST CLINICAL HISTORY: Dyspnea. FINDINGS: An AP, portable, upright chest radiograph is compared to study dated 07/09/2016 and correlated with chest CT dated 02/03/2015. The examination is degraded by portable technique and patient rotation. The heart is enlarged and there is atherosclerotic calcification of the thoracic aorta. The pulmonary vasculature is noncongested. Chronic interstitial thickening is unchanged. There are bibasilar airspace opacities, left greater than right. These are likely similar appearance to previous. No large pleural effusion is identified No pneumothorax is seen. The skeletal structures are osteopenic. A right shoulder arthroplasty is in place. Numerous surgical clips are present in the left axilla. IMPRESSION: 1. Cardiomegaly without radiographic evidence of congestive failure. 2. There is no airspace consolidation typical for pneumonia or large pleural effusion. 3. Chronic interstitial thickening is similar to previous. Electronically signed by: Ricardo Sotomayor M.D. 07/18/2016 2:46 PM Dictated Date/Time: 07/18/2016 2:44 PM
--- NOTE | 2016-07-18 15:10 | EMERGENCY ROOM VISIT NOTE ---
History Report prepared by Christiano: Oracio Peters Under the Supervision of: Dr. Palomo Kimble D.O. First contact with patient: 13:43 Chief Complaint: SHORTNESS OF BREATH Stated Complaint: SOB Nursing Triage Summary: pt reports she has been feeling sob for a few days was recently discharged from [facility] after rehab for cva affecting right side. pt reports she uses 6l o2 nc at home. sob intermittent and has increased. History of Present Illness The patient is an 81 year old female who presents to the Emergency Room with complaints of worsening shortness of breath for the past few days. The patient' s daughter states that the patient is on 6L of oxygen at home, and the patient has not felt that she is breathing well and cannot get enough oxygen in. Additionally, she states that the patient is on CPAP. The patient denies any recent colds or coughs. The daughter states that the patient was recently at her PCP, and they took X-rays that were clear. The daughter additionally states that the patient recently had a stroke due to lack of oxygen, she has a A-fib, and she has congestive heart failure. Source of History: patient, family Onset: few days ago Position: other (global) Quality: other (shortness of breath) Timing: worsening Associated Symptoms: No cough Review of Systems See HPI for pertinent positives & negatives. A total of 10 systems reviewed and were otherwise negative. 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 (15) GI bleed (16) HTN (hypertension) (17) HYPERLIPIDEMIA NEC/NOS (18) HYPERTENSION NOS (19) Hypothyroidism (20) HYPOTHYROIDISM NOS (21) LBBB (left bundle branch block) (22) Osteoporosis (23) Overdose (24) Pulmonary fibrosis (25) Shingles Surgical Problems: (1) H/O lumpectomy (2) History of knee replacement Family History Cancer Diabetes mellitus FHx: stroke Heart disease Hypertension Lung disease Social History Smoking Status: Never Smoker Alcohol Use: occasionally Drug Use: none Marital Status: Housing Status: lives alone Occupation Status: retired Current/Historical Medications Scheduled Alprazolam (Xanax), 0.25 MG PO BID Anastrozole (Anastrozole), 1 MG PO QAM Calcium Citrate-Vitamin D (Calcium Citrate/Vitamin D), 1 TAB PO BID Cholecalciferol (Vitamin D3), 2,000 INTER.UNIT PO QAM Clopidogrel (Plavix), 75 MG PO DAILY Denosumab (Xgeva), Unknown Dose SQ MONTHLY Fluoxetine (Prozac), 20 MG PO QAM Hydrocortisone 2.5% (Rectal) (Anusol-Hc 2.5%), 1 APPLN TOP BID Levetiractam (Keppra), 250 MG PO BID Losartan Potassium (Losartan Potassium), 25 MG PO DAILY Nystatin (Topical) (Nystop), 1 APPLN TOP DAILY Oxygen (Oxygen), 6 LITERS NA CONTINOUS Simvastatin (Simvastatin), 40 MG PO HS Warfarin Sod (Jantoven), 2.5 MG PO DAILY Scheduled PRN Acetaminophen (Tylenol), 650 MG PO BID PRN for Pain Allergies Coded Allergies: No Known Allergies (Verified , 06/09/16) Physical Exam Vital Signs Date Time Temp Pulse Resp B/P Pulse Ox O2 Delivery O2 Flow Rate FiO2 07/18/16 15:29 82 20 138/84 96 Nebulizer 6.0 07/18/16 14:46 75 20 144/77 96 Nebulizer 07/18/16 13:26 79 07/18/16 13:18 96 Nasal Cannula 5.0 07/18/16 13:14 36.5 78 20 150/74 88 Room Air 07/18/16 13:14 88 Room Air Physical Exam CONSTITUTIONAL/VITAL SIGNS: Reviewed / noted above. GENERAL: Non-toxic in appearance. INTEGUMENTARY: Warm, dry, and [place]. HEAD: Normocephalic. EYES: without scleral icterus or trauma. ENT/OROPHARYNX: clear and moist. LYMPHADENOPATHY/NECK: Is supple without lymphadenopathy or meningismus. RESPIRATORY: Lungs clear and equal. CARDIOVASCULAR: Regular rate and rhythm. GI/ABDOMEN: Soft and nontender. No organomegaly or pulsatile mass. No rebound or guarding. Normal bowel sounds. EXTREMITIES: Warm and well perfused. BACK: No CVA tenderness. NEUROLOGICAL: Intact without focal deficits. PSYCHIATRIC: normal affect. MUSCULOSKELETAL: Normally developed with good muscle tone. Medical Decision & Procedures ER Provider Diagnostic Interpretation: X ray results and stated below per my interpretation and radiology interpretation. SINGLE VIEW CHEST CLINICAL HISTORY: Dyspnea. FINDINGS: An AP, portable, upright chest radiograph is compared to study dated 07/09/2016 and correlated with chest CT dated 02/03/2015. The examination is degraded by portable technique and patient rotation. The heart is enlarged and there is atherosclerotic calcification of the thoracic aorta. The pulmonary vasculature is noncongested. Chronic interstitial thickening is unchanged. There are bibasilar airspace opacities, left greater than right. These are likely similar appearance to previous. No large pleural effusion is identified No pneumothorax is seen. The skeletal structures are osteopenic. A right shoulder arthroplasty is in place. Numerous surgical clips are present in the left axilla. IMPRESSION: 1. Cardiomegaly without radiographic evidence of congestive failure. 2. There is no airspace consolidation typical for pneumonia or large pleural effusion. 3. Chronic interstitial thickening is similar to previous. Electronically signed by: Ricardo Sotomayor M.D. 07/18/2016 2:46 PM Dictated Date/Time: 07/18/2016 2:44 PM Laboratory Results 07/18/16 13:10 Red Blood Count 4.91, Mean Corpuscular Volume 95.5, Mean Corpuscular Hemoglobin 32.2, Mean Corpuscular Hemoglobin Concent 33.7, Mean Platelet Volume 10.9, Neutrophils (%) (Auto) 70.6, Lymphocytes (%) (Auto) 16.0, Monocytes (%) (Auto) 10.0, Eosinophils (%) (Auto) 2.6, Basophils (%) (Auto) 0.5, Neutrophils # (Auto ) 8.04, Lymphocytes # (Auto) 1.82, Monocytes # (Auto) 1.14, Eosinophils # (Auto ) 0.30, Basophils # (Auto) 0.06 07/18/16 13:10 Test 07/18/16 13:10 White Blood Count 11.39 K/uL (4.8-10.8) Red Blood Count 4.91 M/uL (4.2-5.4) Hemoglobin 15.8 g/dL (12.0-16.0) Hematocrit 46.9 % (37-47) Mean Corpuscular Volume 95.5 fL (80-100) Mean Corpuscular Hemoglobin 32.2 pg (25-34) Mean Corpuscular Hemoglobin Concent 33.7 g/dl (32-36) Platelet Count 843 K/uL (130-400) Mean Platelet Volume 10.9 fL (7.4-10.4) Neutrophils (%) (Auto) 70.6 % Lymphocytes (%) (Auto) 16.0 % Monocytes (%) (Auto) 10.0 % Eosinophils (%) (Auto) 2.6 % Basophils (%) (Auto) 0.5 % Neutrophils # (Auto) 8.04 K/uL (1.4-6.5) Lymphocytes # (Auto) 1.82 K/uL (1.2-3.4) Monocytes # (Auto) 1.14 K/uL (0.11-0.59) Eosinophils # (Auto) 0.30 K/uL (0-0.5) Basophils # (Auto) 0.06 K/uL (0-0.2) RDW Standard Deviation 55.3 fL (36.4-46.3) RDW Coefficient of Variation 15.8 % (11.5-14.5) Immature Granulocyte % (Auto) 0.3 % Immature Granulocyte # (Auto) 0.03 K/uL (0.00-0.02) Prothrombin Time 23.0 SECONDS (9.0-12.0) Prothromb Time International Ratio 2.1 (0.9-1.1) Activated Partial Thromboplast Time 34.1 SECONDS (21.0-31.0) Partial Thromboplastin Ratio 1.3 Anion Gap 10.0 mmol/L (3-11) Est Creatinine Clear Calc Drug Dose 56.3 ml/min Estimated GFR () 93.3 Estimated GFR (Non- 80.5 BUN/Creatinine Ratio 23.6 (10-20) Calcium Level 9.2 mg/dl (8.5-10.1) Total Bilirubin 0.6 mg/dl (0.2-1) Aspartate Amino Transf (AST/SGOT) 38 U/L (15-37) Alanine Aminotransferase (ALT/SGPT) 50 U/L (12-78) Alkaline Phosphatase 91 U/L (45-117) Total Creatine Kinase 29 U/L (26-192) Creatine Kinase MB 1.3 ng/ml (0.5-3.6) Creatine Kinase MB Ratio 4.5 (0-3.0) Troponin I < 0.015 ng/ml (0-0.045) Total Protein 7.1 gm/dl (6.4-8.2) Albumin 3.2 gm/dl (3.4-5.0) Globulin 3.9 gm/dl (2.5-4.0) Albumin/Globulin Ratio 0.8 (0.9-2) Laboratory results as stated above per my review. Medications Administered Medications (Trade) Dose Ordered Sig/Lindsey Route Start Time Stop Time Status Last Admin Dose Admin Albuterol/ Ipratropium (Duoneb) 3 ml NOW STAT INH 07/18/16 14:24 07/18/16 14:25 DC 07/18/16 14:45 3 ML ECG Indication: SOB/dyspnea Rate (beats per minute): 74 Rhythm: normal sinus Findings: LBBB, no ectopy, other (No acute injury) Comparison ECG Date: 06/12/16 Change: no significant change ED Course 1359: Previous medical records were reviewed. The patient was evaluated in room B11. A complete history and physical examination was performed. 1424: DuoNeb 3ml INH 1514: On reevaluation, the patient is feeling better. I discussed the results and findings with the patient. She verbalized agreement of the treatment plan. She was discharged home. Medical Decision the differential was considered includes acute myocardial infarction, acute coronary syndrome, myocarditis, pericarditis, pericardial effusions /tamponad, esophageal perforation, pulmonary embolism, pneumonia, pneumothorax, cardiomyopathy, congestive heart, anemia , COPD/asthma exacerbation. This is a 81-year-old female who presents to the ED with a chief complaint of shortness of breath. The patient is normally on 6 L of oxygen at home. She states that she feels as though she is not getting enough oxygen. She is currently on 4 L here and saturating 96%. The patient denies any other significant symptoms. Denies any cough, fever, chest pains, weakness, headaches or other symptoms. Her exam was relatively unremarkable. She is in no distress. She is resting comfortably. Her CBC is unremarkable. INR is 2.1. PRP is normal. Other chemistry panel was normal. Troponin is negative. Chest x-ray did not show acute disease. The patient was treated with a DuoNeb treatment. She is felt to be stable for discharge and outpatient follow-up. Impression Primary Impression: Dyspnea Scribe Attestation The scribe's documentation has been prepared under my direction and personally reviewed by me in its entirety. I confirm that the note above accurately reflects all work, treatment, procedures, and medical decision making performed by me. Departure Information Dispostion Home / Self-Care Referrals Abdirashid Chavira M.D. (PCP) Forms HOME CARE DOCUMENTATION FORM, IMPORTANT VISIT INFORMATION Patient Instructions ED Dyspnea Shortness of Breath, My [facility] Additional Instructions Follow-up with your doctor for further care and evaluation in 1-2 days. Return to the emergency department for worsening or new symptoms or any concerns. You have been examined and treated today on an emergency basis only. This is not a substitute for, or an effort to provide, complete comprehensive medical care. It is impossible to recognize and treat all injuries or illnesses in a single emergency department visit. It is therefore important that you follow up closely with your doctor. Call as soon as possible for an appointment.
[2016-07-18 15:29] VITALS: BP 138/84; PULSE 82; O2SAT 96
[2016-07-18] MEDS ORDERED: WARF2.5T8 PO (15:36)
[2016-07-18] MEDS ORDERED: CZR25 PO (15:36)
[2016-07-20] MEDS ORDERED: WARF2TAB PO (12:27)
[2016-08-06] MEDS ORDERED: LSX40 PO (10:31)
[2016-09-08] MEDS ORDERED: ALBINS INH (08:53)
[2016-09-08] MEDS ORDERED: IPRASOL4 INH (08:53)
[2016-09-08] MEDS ORDERED: NYSS5 MT (08:53)
[2016-09-08] MEDS ORDERED: AMOX1TAB43 PO (08:53)
[2016-09-08] MEDS ORDERED: PRD20 PO (09:02)
[2016-09-08] MEDS ORDERED: ALPR0.25 PO (16:54)
== END 2016-07-18 15:31 | disposition home or self-care (01) ==
LOC: EDBD 13:02 → C.EDB 13:03
DX: R06.00 Dyspnea, unspecified (principal); Z99.81 Dependence on supplemental oxygen; I50.9 Heart failure, unspecified; I48.91 Unspecified atrial fibrillation; Z86.73 Personal history of transient ischemic attack (TIA), and cerebral infarction without residual deficits; Z85.3 Personal history of malignant neoplasm of breast; Z86.711 Personal history of pulmonary embolism; I25.10 Atherosclerotic heart disease of native coronary artery without angina pectoris; F32.9 Major depressive disorder, single episode, unspecified; I10 Essential (primary) hypertension; E03.9 Hypothyroidism, unspecified; M81.0 Age-related osteoporosis without current pathological fracture; J84.10 Pulmonary fibrosis, unspecified; Z80.9 Family history of malignant neoplasm, unspecified; Z83.3 Family history of diabetes mellitus; Z82.49 Family history of ischemic heart disease and other diseases of the circulatory system; Z83.6 Family history of other diseases of the respiratory system; Z79.01 Long term (current) use of anticoagulants; Z79.899 Other long term (current) drug therapy

== ENCOUNTER 2016-07-28 13:19 | Emergency (ER) | payer OTHER ==
[~2016-07-28] VITALS: Ht 160 cm; Wt 82.1 kg
[~2016-07-28 13:19] MED LIST changes: +CZR25 PO; +WARF2TAB PO
[2016-07-28 13:27] VITALS: TEMP 36.5
[2016-07-28 13:46] VITALS: O2SAT 94; Ht 160 cm; Wt 82.1 kg
--- NOTE | 2016-07-28 14:04 | EMERGENCY ROOM VISIT NOTE ---
History Report prepared by Christiano: Alphonso Perciado Under the Supervision of: Dr. Abdirashid Vance D.O. First contact with patient: 13:40 Chief Complaint: SHORTNESS OF BREATH Stated Complaint: RIGHT LEG SWELLING/PAIN History of Present Illness The patient is an 81 year old female who presents to the Emergency Room with complaints of worsening shortness of breath that started this morning. She was at the cancer center prior to arrival, and was sent here for testing for a possible clot in the lungs or legs. The patient is 97 percent on oxygen currently. She is on oxygen all the time. Per the patient's family, the patient was complaining of shortness of breath last week, and was seen here in the ED and had a chest x-ray done. Nothing abnormal was found on the x-ray, and she was sent home. The patient saw her television news photographer a few days later, and the television news photographer said that the patient had fluid in her lungs, and was put on Lasix for 3 days. The patient has gained 7 pounds since she was here last week. The patient denies any chest pain, nausea, or vomiting. She is on Coumadin and Plavix daily. Her hemoglobin has been fine recently. She had breast cancer in 2004 with a lumpectomy and with chemotherapy. The patient is no longer having chemotherapy. However, there is concern that the cancer may have metastasized to her bones. Source of History: patient, family Onset: This morning Position: other (global - shortness of breath) Timing: worsening Associated Symptoms: No chest pain, No nausea, No vomiting Note: Associated symptoms: Gained 7 pounds in past week. Review of Systems See HPI for pertinent positives & negatives. A total of 10 systems reviewed and were otherwise negative. 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 (15) GI bleed (16) HTN (hypertension) (17) HYPERLIPIDEMIA NEC/NOS (18) HYPERTENSION NOS (19) Hypothyroidism (20) HYPOTHYROIDISM NOS (21) LBBB (left bundle branch block) (22) Osteoporosis (23) Overdose (24) Pulmonary fibrosis (25) Shingles Surgical Problems: (1) H/O lumpectomy (2) History of knee replacement Family History Cancer Diabetes mellitus FHx: stroke Heart disease Hypertension Lung disease Social History Smoking Status: Never Smoker Alcohol Use: occasionally Drug Use: none Marital Status: Housing Status: lives alone Occupation Status: retired Current/Historical Medications Scheduled Acetaminophen (Tylenol), 500 MG PO BID Alprazolam (Xanax), 0.25 MG PO BID Anastrozole (Anastrozole), 1 MG PO QAM Calcium Citrate-Vitamin D (Calcium Citrate/Vitamin D), 1 TAB PO BID Carvedilol (Coreg), 1 TAB PO BID Cephalexin Monohydrate (Keflex), 500 MG PO QID Cholecalciferol (Vitamin D3), 2,000 INTER.UNIT PO QAM Clopidogrel (Plavix), 75 MG PO DAILY Denosumab (Xgeva), Unknown Dose SQ MONTHLY Fluoxetine (Prozac), 20 MG PO QAM Furosemide (Lasix), 1 TAB PO DAILY Levetiractam (Keppra), 250 MG PO BID Losartan Potassium (Losartan Potassium), 25 MG PO DAILY Nystatin (Topical) (Nystop), 1 APPLN TOP DAILY Oxygen (Oxygen), 6 LITERS NA CONTINOUS Simvastatin (Simvastatin), 40 MG PO HS Warfarin Sodium (Warfarin Sodium), 1 TAB PO DAILY Scheduled PRN Zolpidem Tartrate (Ambien), 5 MG PO HS PRN for Sleep Allergies Coded Allergies: No Known Allergies (Verified , 07/28/16) Physical Exam Vital Signs Date Time Temp Pulse Resp B/P Pulse Ox O2 Delivery O2 Flow Rate FiO2 07/28/16 19:09 67 18 140/76 98 07/28/16 18:09 70 20 147/80 93 Nasal Cannula 6.0 07/28/16 17:47 65 20 123/79 97 Nasal Cannula 4.0 07/28/16 16:19 70 18 127/70 97 Room Air 07/28/16 13:50 67 07/28/16 13:46 94 Nasal Cannula 6.0 07/28/16 13:46 94 Nasal Cannula 6.0 07/28/16 13:32 98 Nasal Cannula 8.0 07/28/16 13:27 36.5 85 18 128/79 98 Nasal Cannula 6.0 Physical Exam GENERAL: Patient is awake, alert, mildly anxious appearing but comfortable. EYES: The conjunctivae are clear. The pupils are round and reactive. EARS, NOSE, MOUTH AND THROAT: The nose is without any evidence of any deformity. Mucous membranes are moist tongue is midline NECK: The neck is nontender and supple. RESPIRATORY: Lung sounds diminished at both bases. No significant tachypnea or conversational dyspnea noted. CARDIOVASCULAR: Regular rate and rhythm noted there no murmurs rubs or gallops normal S1 normal S2 GASTROINTESTINAL: The abdomen is soft. Bowel sounds are present in all quadrants. Abdomen is nontender MUSCULOSKELETAL/EXTREMITIES: There is no evidence of gross deformity full range of motion is noted in the hips and shoulders SKIN: Pedal edema bilaterally, right greater than left. Right calf tenderness to palpation. No signs of cellulitis noted. NEUROLOGIC: Patient is awake alert and oriented x3. Medical Decision & Procedures ER Provider Diagnostic Interpretation: Radiology results as stated below per my review and radiologist interpretation: ULTRASOUND BILATERAL LOWER EXTREMITY VENOUS CLINICAL HISTORY: Lower extremity edema. COMPARISON STUDY: Bilateral lower extremity venous ultrasound dated 10/22/2015. TECHNIQUE: Real-time, grayscale, and color Doppler sonography of the deep veins of the right and left lower extremity was performed from the inguinal crease to the calf. Compression and augmentation were utilized. FINDINGS: There is no sonographic evidence of deep venous thrombosis identified in the right or left lower extremity. The common femoral, superficial femoral, and popliteal veins are patent and normally compressible bilaterally. The greater saphenous vein and the profunda femoris vein at the junction with the common femoral vein are clear in both legs. The visualized calf veins are patent bilaterally. IMPRESSION: There is no sonographic evidence of deep venous thrombosis identified in the right or left lower extremity. Electronically signed by: Ricardo Sotomayor M.D. 07/28/2016 3:31 PM Dictated Date/Time: 07/28/2016 3:30 PM CHEST ONE VIEW PORTABLE CLINICAL HISTORY: Respiratory distress. Dyspnea. COMPARISON STUDY: Chest radiograph July 18, 2016 and PET/CT July 07, 2016. FINDINGS: A right shoulder arthroplasty and left axillary surgical clips are noted. Moderate cardiomegaly is unchanged. There is no pneumothorax or pleural effusion. There is no evidence for pulmonary edema. Interstitial thickening is unchanged. A sclerotic lower thoracic vertebral lesion remains unchanged. IMPRESSION: No acute cardiopulmonary findings. No change in appearance of the chest. Stable cardiomegaly. Electronically signed by: Joseph Emery M.D. 07/28/2016 2:19 PM Dictated Date/Time: 07/28/2016 2:17 PM CHEST CTA for PULMONARY ARTERIES CT DOSE: 616.73 mGy.cm HISTORY: Atypical chest pain. TECHNIQUE: Multiaxial CT images of the chest were performed following the intravenous administration of contrast to evaluate the pulmonary arteries. Maximal intensity projection images were also obtained. COMPARISON STUDY: Chest CT 02/03/2015. FINDINGS: Normal caliber thoracic aorta. However, there is inadequate contrast within the aorta to assess for an aortic dissection. The heart remains enlarged. No significant pleural or pericardial effusions. Bilateral lower lobe subsegmental pulmonary arteries are essentially nondiagnostic due to motion artifact. Otherwise, the remaining pulmonary arteries are patent with no evidence for pulmonary embolus. Retrograde flow of contrast into the hepatic veins consistent with right-sided heart failure. Otherwise, the liver and spleen are unremarkable. No significant mediastinal or hilar lymphadenopathy. Postoperative changes seen within the left breast. Stable sclerotic lesion at T9. Increase in size in the 6 mm sclerotic lesion at T10. No pneumothorax. The central airways are patent. No new focal lung consolidations to suggest pneumonia. Interstitial thickening is again noted. This favors fibrotic change. IMPRESSION: 1. No evidence for pulmonary embolus with limitations as described above. 2. Stable T9 sclerotic lesion. Slight increase in size in the 6 mm T10 sclerotic lesion. This favors metastatic disease until proven otherwise. 3. Chronic interstitial thickening is again noted. No new focal lung consolidations. 4. Stable cardiomegaly. Electronically signed by: Jf Dumont M.D. 07/28/2016 4:44 PM Dictated Date/Time: 07/28/2016 4:35 PM Laboratory Results 07/28/16 14:00 Red Blood Count 4.71, Mean Corpuscular Volume 94.9, Mean Corpuscular Hemoglobin 30.4, Mean Corpuscular Hemoglobin Concent 32.0, Mean Platelet Volume 10.4, Neutrophils (%) (Auto) 66.6, Lymphocytes (%) (Auto) 19.1, Monocytes (%) (Auto) 9.6, Eosinophils (%) (Auto) 3.7, Basophils (%) (Auto) 0.7, Neutrophils # (Auto) 6.89, Lymphocytes # (Auto) 1.97, Monocytes # (Auto) 0.99, Eosinophils # (Auto) 0.38, Basophils # (Auto) 0.07 07/28/16 14:00 Test 07/28/16 14:00 07/28/16 14:05 07/28/16 16:15 White Blood Count 10.33 K/uL (4.8-10.8) Red Blood Count 4.71 M/uL (4.2-5.4) Hemoglobin 14.3 g/dL (12.0-16.0) Hematocrit 44.7 % (37-47) Mean Corpuscular Volume 94.9 fL (80-100) Mean Corpuscular Hemoglobin 30.4 pg (25-34) Mean Corpuscular Hemoglobin Concent 32.0 g/dl (32-36) Platelet Count 718 K/uL (130-400) Mean Platelet Volume 10.4 fL (7.4-10.4) Neutrophils (%) (Auto) 66.6 % Lymphocytes (%) (Auto) 19.1 % Monocytes (%) (Auto) 9.6 % Eosinophils (%) (Auto) 3.7 % Basophils (%) (Auto) 0.7 % Neutrophils # (Auto) 6.89 K/uL (1.4-6.5) Lymphocytes # (Auto) 1.97 K/uL (1.2-3.4) Monocytes # (Auto) 0.99 K/uL (0.11-0.59) Eosinophils # (Auto) 0.38 K/uL (0-0.5) Basophils # (Auto) 0.07 K/uL (0-0.2) RDW Standard Deviation 54.6 fL (36.4-46.3) RDW Coefficient of Variation 15.6 % (11.5-14.5) Immature Granulocyte % (Auto) 0.3 % Immature Granulocyte # (Auto) 0.03 K/uL (0.00-0.02) Prothrombin Time 21.7 SECONDS (9.0-12.0) Prothromb Time International Ratio 2.0 (0.9-1.1) Activated Partial Thromboplast Time 33.1 SECONDS (21.0-31.0) Partial Thromboplastin Ratio 1.3 Anion Gap 5.0 mmol/L (3-11) Est Creatinine Clear Calc Drug Dose 63.6 ml/min Estimated GFR () 93.8 Estimated GFR (Non- 80.9 BUN/Creatinine Ratio 25.8 (10-20) Calcium Level 9.3 mg/dl (8.5-10.1) Total Bilirubin 0.6 mg/dl (0.2-1) Aspartate Amino Transf (AST/SGOT) 50 U/L (15-37) Alanine Aminotransferase (ALT/SGPT) 83 U/L (12-78) Alkaline Phosphatase 93 U/L (45-117) Total Creatine Kinase 32 U/L (26-192) Creatine Kinase MB 1.2 ng/ml (0.5-3.6) Creatine Kinase MB Ratio 3.8 (0-3.0) Troponin I 0.020 ng/ml (0-0.045) Pro-B-Type Natriuretic Peptide 6016 pg/ml (0-1800) Total Protein 6.8 gm/dl (6.4-8.2) Albumin 3.1 gm/dl (3.4-5.0) Globulin 3.7 gm/dl (2.5-4.0) Albumin/Globulin Ratio 0.8 (0.9-2) Bedside D-Dimer > 450 ng/mlFEU (0-450) Urine Color YELLOW Urine Appearance CLOUDY (CLEAR) Urine pH 5.0 (4.5-7.5) Urine Specific [place] 1.020 (1.000-1.030) Urine Protein TRACE (NEG) Urine Glucose (UA) NEG (NEG) Urine Ketones NEG (NEG) Urine Occult Blood NEG (NEG) Urine Nitrite NEG (NEG) Urine Bilirubin NEG (NEG) Urine Urobilinogen NEG (NEG) Urine Leukocyte Esterase MODERATE (NEG) Urine WBC (Auto) 10-30 /hpf (0-5) Urine RBC (Auto) 0-4 /hpf (0-4) Urine Hyaline Casts (Auto) 5-10 /lpf (0-5) Urine Epithelial Cells (Auto) >30 /lpf (0-5) Urine Bacteria (Auto) 1+ (NEG) Urine Renal Epithelial Cells /lpf (0-5) Urine Pathogenic Casts 0-3 GRANULAR CASTS /lpf (0) Urine Yeast (Auto) (NONE PRSENT) Laboratory results per my review. Medications Administered Medications (Trade) Dose Ordered Sig/Lindsey Route Start Time Stop Time Status Last Admin Dose Admin Furosemide (Lasix Inj) 40 mg NOW STAT IV 07/28/16 17:37 07/28/16 17:38 DC 07/28/16 17:46 40 MG Ceftriaxone Sodium (Rocephin Inj) 1 gm NOW STAT IV 07/28/16 17:37 07/28/16 17:38 DC 07/28/16 17:46 1 GM ECG Indication: SOB/dyspnea Rate (beats per minute): 66 Rhythm: normal sinus Findings: 1st degree AV block, LBBB, no ectopy Change: no significant change (from 07/18/16) ED Course 1353: The patient was evaluated in room C8. A complete history and physical examination were performed. 1538: I reevaluated the patient and told her that she needs a CT of her chest. 7: Ordered Rocephin Inj 1 gm IV, Lasix Inj 40 mg IV. 1742: Upon reevaluation, the patient is resting comfortably. I discussed the results and treatment plan with her. She verbalized agreement of the treatment plan. She was discharged home. Medical Decision Prior records reviewed and summarized above. Triage Nursing notes reviewed. Differential diagnosis: Etiologies such as DVT, musculoskeletal, infection, joint effusion, trauma, lymphedema, idiopathic, CHF, as well as others were entertained.. The patient is an 81-year-old female who presented to the emergency department for an evaluation after she was seen at the cancer center. The patient was having shortness of breath which had been ongoing. She doesn't a history of breast cancer. She was sent to the emergency department for rule out pulmonary embolism. The patient's oncologist called emergency department and talk to me and asked me to order CT the chest to rule out pulmonary embolism. The patient initially had chest x-ray laboratory studies as well as Dopplers. No definite signs of venous trouble embolic disease were noted. CT the chest was then ordered. No definite signs of pulmonary embolism were noted. The patient was found have peripheral edema and some signs of CHF. She also has a slight urinary tract infection. She was started on antibiotic. She was also given a dose of Lasix in the emergency department. Her Lasix had recently been decreased because of renal insufficiency. I encouraged her to follow-up with her family doctor tomorrow for reevaluation and to discuss if she needs further Lasix treatment. She was also encouraged to continue all other medications as prescribed and rest. Otherwise she was encouraged to return to the emergency department immediately if symptoms change worsen or the need arises. Impression Primary Impression: Congestive heart failure Additional Impressions: SOB (shortness of breath) UTI (urinary tract infection) Peripheral edema Scribe Attestation The scribe's documentation has been prepared under my direction and personally reviewed by me in its entirety. I confirm that the note above accurately reflects all work, treatment, procedures, and medical decision making performed by me. Departure Information Dispostion Home / Self-Care Prescriptions Cephalexin Monohydrate (KEFLEX) 500 Mg Cap 500 MG PO QID, #28 CAP Prov: Abdirashid Vance, DO 07/28/16 Referrals No Doctor, Assigned (PCP) Forms HOME CARE DOCUMENTATION FORM, IMPORTANT VISIT INFORMATION Patient Instructions ED CHF General, My [facility], Urinary Tract Infecs Women Additional Instructions Follow-up with Dr. bateman this week as scheduled. Continue all medications as prescribed. Rest and avoid any strenuous activity. Return to the emergency Department immediately if symptoms change worsen or the need arises. Problem Qualifiers
[2016-07-28 14:13] LABS: BASO % 0.7 %; BASO ABS # 0.07 K/uL (0-0.2); COMPLETE YES; EOS % 3.7 %; HEMATOCRIT 44.7 % (37-47); IG% 0.3 %; LYMPH % 19.1 %; LYMPH ABS # 1.97 K/uL (1.2-3.4); MEAN CELL VOLUME 94.9 fL (80-100); MEAN CORPUSCULAR HEMOGLOBIN 30.4 pg (25-34); MEAN PLATELET VOLUME 10.4 fL (7.4-10.4); MONO % 9.6 %; NEUT % 66.6 %; PLATELET COUNT 718 K/uL (130-400); RED BLOOD COUNT 4.71 M/uL (4.2-5.4); WHITE BLOOD COUNT 10.33 K/uL (4.8-10.8)
--- NOTE | 2016-07-28 14:22 | DIAGNOSTIC IMAGING REPORT ---
CHEST ONE VIEW PORTABLE CLINICAL HISTORY: Respiratory distress. Dyspnea. COMPARISON STUDY: Chest radiograph July 18, 2016 and PET/CT July 07, 2016. FINDINGS: A right shoulder arthroplasty and left axillary surgical clips are noted. Moderate cardiomegaly is unchanged. There is no pneumothorax or pleural effusion. There is no evidence for pulmonary edema. Interstitial thickening is unchanged. A sclerotic lower thoracic vertebral lesion remains unchanged. IMPRESSION: No acute cardiopulmonary findings. No change in appearance of the chest. Stable cardiomegaly. Electronically signed by: Joseph Emery M.D. 07/28/2016 2:19 PM Dictated Date/Time: 07/28/2016 2:17 PM
[2016-07-28 14:26] LABS: PARTIAL THROMBOPLASTIN RATIO 1.3; PROTHROMBIN TIME (PATIENT) 21.7 SECONDS (9.0-12.0)
[2016-07-28 14:45] LABS: BUN/CREATININE RATIO 25.8 (10-20); CALCIUM 9.3 mg/dl (8.5-10.1); CREATININE 0.68 mg/dl (0.60-1.20); POTASSIUM 4.3 mmol/L (3.5-5.1)
[2016-07-28] MEDS ORDERED: FURO-85 PO (14:50)
[2016-07-28] MEDS ORDERED: WARF-285 PO (14:50)
[2016-07-28] MEDS ORDERED: CARV3.122 PO (14:50)
[2016-07-28] MEDS ORDERED: ZOLP5TAB PO (14:50)
[2016-07-28 14:58] LABS: ALB/GLOB RATIO 0.8 (0.9-2); CKMB/CK RATIO 3.8 (0-3.0)
--- NOTE | 2016-07-28 15:33 | DIAGNOSTIC IMAGING REPORT ---
ULTRASOUND BILATERAL LOWER EXTREMITY VENOUS CLINICAL HISTORY: Lower extremity edema. COMPARISON STUDY: Bilateral lower extremity venous ultrasound dated 10/22/2015. TECHNIQUE: Real-time, grayscale, and color Doppler sonography of the deep veins of the right and left lower extremity was performed from the inguinal crease to the calf. Compression and augmentation were utilized. FINDINGS: There is no sonographic evidence of deep venous thrombosis identified in the right or left lower extremity. The common femoral, superficial femoral, and popliteal veins are patent and normally compressible bilaterally. The greater saphenous vein and the profunda femoris vein at the junction with the common femoral vein are clear in both legs. The visualized calf veins are patent bilaterally. IMPRESSION: There is no sonographic evidence of deep venous thrombosis identified in the right or left lower extremity. Electronically signed by: Ricardo Sotomayor M.D. 07/28/2016 3:31 PM Dictated Date/Time: 07/28/2016 3:30 PM
[2016-07-28 16:33] LABS: URINE APPEARANCE CLOUDY (CLEAR); URINE BILIRUBIN NEG (NEG); URINE COLOR YELLOW; URINE EPITHELIAL CELL AUTO >30 /lpf (0-5); URINE NITRITE NEG (NEG); UROBILINOGEN NEG (NEG)
[2016-07-28 16:34] LABS: MANUAL MICROSCOPIC REQUIRED? NO; REVIEW REQ? YES
[2016-07-28 16:43] LABS: URINE PATH CASTS 0-3 GRANULAR CASTS /lpf (0)
[2016-07-28] MEDS ORDERED: OPTIRAY 320 IV PRN (16:45)
--- NOTE | 2016-07-28 16:46 | DIAGNOSTIC IMAGING REPORT ---
CHEST CTA for PULMONARY ARTERIES CT DOSE: 616.73 mGy.cm HISTORY: Atypical chest pain. TECHNIQUE: Multiaxial CT images of the chest were performed following the intravenous administration of contrast to evaluate the pulmonary arteries. Maximal intensity projection images were also obtained. COMPARISON STUDY: Chest CT 02/03/2015. FINDINGS: Normal caliber thoracic aorta. However, there is inadequate contrast within the aorta to assess for an aortic dissection. The heart remains enlarged. No significant pleural or pericardial effusions. Bilateral lower lobe subsegmental pulmonary arteries are essentially nondiagnostic due to motion artifact. Otherwise, the remaining pulmonary arteries are patent with no evidence for pulmonary embolus. Retrograde flow of contrast into the hepatic veins consistent with right-sided heart failure. Otherwise, the liver and spleen are unremarkable. No significant mediastinal or hilar lymphadenopathy. Postoperative changes seen within the left breast. Stable sclerotic lesion at T9. Increase in size in the 6 mm sclerotic lesion at T10. No pneumothorax. The central airways are patent. No new focal lung consolidations to suggest pneumonia. Interstitial thickening is again noted. This favors fibrotic change. IMPRESSION: 1. No evidence for pulmonary embolus with limitations as described above. 2. Stable T9 sclerotic lesion. Slight increase in size in the 6 mm T10 sclerotic lesion. This favors metastatic disease until proven otherwise. 3. Chronic interstitial thickening is again noted. No new focal lung consolidations. 4. Stable cardiomegaly. Electronically signed by: Jf Dumont M.D. 07/28/2016 4:44 PM Dictated Date/Time: 07/28/2016 4:35 PM
[2016-07-28] MEDS ORDERED: FUROSEMIDE 40 MG/4 ML VIAL IV STA (17:37)
[2016-07-28] MEDS ORDERED: CEFTRIAXONE SOD INJ 1 GM ADDVIAL IV STA (17:37)
[2016-07-28] MEDS ORDERED: CEPH500C2 PO (17:47)
[2016-07-28 19:09] VITALS: BP 140/76; PULSE 67; O2SAT 98
[2016-08-06] MEDS ORDERED: LSX40 PO (10:31)
[2016-09-08] MEDS ORDERED: IPRASOL4 INH (08:53)
[2016-09-08] MEDS ORDERED: ALBINS INH (08:53)
[2016-09-08] MEDS ORDERED: NYSS5 MT (08:53)
[2016-09-08] MEDS ORDERED: AMOX1TAB43 PO (08:53)
[2016-09-08] MEDS ORDERED: PRD20 PO (09:02)
[2016-09-08] MEDS ORDERED: ALPR0.25 PO (16:54)
== END 2016-07-28 19:11 | disposition home or self-care (01) ==
LOC: C.EDB 13:20 → C.EDC 19:11
DX: I50.9 Heart failure, unspecified (principal); R06.02 Shortness of breath; N39.0 Urinary tract infection, site not specified; R60.9 Edema, unspecified; Z85.3 Personal history of malignant neoplasm of breast; I48.91 Unspecified atrial fibrillation; F41.9 Anxiety disorder, unspecified; Z86.711 Personal history of pulmonary embolism; I25.10 Atherosclerotic heart disease of native coronary artery without angina pectoris; F32.9 Major depressive disorder, single episode, unspecified; G40.109 Localization-related (focal) (partial) symptomatic epilepsy and epileptic syndromes with simple partial seizures, not intractable, without status epilepticus; I10 Essential (primary) hypertension; E78.5 Hyperlipidemia, unspecified; E03.9 Hypothyroidism, unspecified; M81.0 Age-related osteoporosis without current pathological fracture; J84.10 Pulmonary fibrosis, unspecified; Z99.81 Dependence on supplemental oxygen; Z80.9 Family history of malignant neoplasm, unspecified; Z83.3 Family history of diabetes mellitus; Z82.49 Family history of ischemic heart disease and other diseases of the circulatory system; Z83.6 Family history of other diseases of the respiratory system; Z79.01 Long term (current) use of anticoagulants; Z79.02 Long term (current) use of antithrombotics/antiplatelets; Z79.899 Other long term (current) drug therapy

== ENCOUNTER 2016-07-30 15:04 | Inpatient (IN) | payer OTHER ==
[~2016-07-30] VITALS: Ht 160 cm; Wt 80.9 kg
[~2016-07-30 15:04] MED LIST changes: +CARV3.122 PO; +CEPH500C2 PO; +FURO-85 PO; -HYDR2.5C37 TOP; +WARF-285 PO; -WARF2TAB PO; +ZOLP5TAB PO
--- NOTE | 2016-07-30 15:55 | EMERGENCY ROOM VISIT NOTE ---
History Report prepared by Christiano: Alphonso Preciado Under the Supervision of: Dr. Sanjuana Easley D.O. First contact with patient: 15:42 Chief Complaint: RESPIRATORY PROBLEMS Stated Complaint: PROBLEMS BREATHING Nursing Triage Summary: Pt reports SOB x1 week Pt has gained 11lbs in 1 week PCP wants pt admitted History of Present Illness The patient is an 81 year old female with a history of CHF who presents to the Emergency Room with complaints of worsening shortness of breath that started around 2 weeks ago. Per the patient's daughter, the patient has gained 11 pounds in the past week. The patient's primary care physician wants the patient to be admitted for monitoring of her kidneys. The patient went to see her doctor at the [facility] last week, and the patient noted that her ankles were swollen, so she was sent here for evaluation of a possible blood clot in the legs or lungs. She had all her tests done, and she was determined to be fine to go back to [facility]. The patient says her current symptoms are worse than when she had COPD in the past. She currently complains of the shortness of breath as well as abdominal pain. She was recently given hemorrhoid cream because her hemorrhoids were very hard to pass for a while. She is normally on 6 liters of oxygen, and wears a CPAP at night. The patient had a stroke last month. She had an echo recently, which revealed that only 30- 45% of her heart is working. She used to be on a water pill, but was taken off by her doctors. Was given additional lasix here 2 days ago. The patient has no history of heart attack or kidney troubles. She has never smoked cigarettes. She has no history of asthma or COPD. Source of History: patient, family Onset: 2 weeks ago Position: other (global - shortness of breath) Timing: worsening Associated Symptoms: + abdominal pain Note: Associated symptoms: Having hemorrhoids recently. Review of Systems See HPI for pertinent positives & negatives. A total of 10 systems reviewed and were otherwise negative. 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 (16) GI bleed (17) HTN (hypertension) (18) HYPERLIPIDEMIA NEC/NOS (19) HYPERTENSION NOS (20) Hypothyroidism (21) HYPOTHYROIDISM NOS (22) LBBB (left bundle branch block) (23) Osteoporosis (24) Overdose (25) Pulmonary fibrosis (26) Shingles Surgical Problems: (1) H/O lumpectomy (2) History of knee replacement Family History Cancer Diabetes mellitus FHx: stroke Heart disease Hypertension Lung disease Social History Smoking Status: Never Smoker Alcohol Use: occasionally Drug Use: none Marital Status: Housing Status: lives alone Occupation Status: retired Current/Historical Medications Scheduled Acetaminophen (Tylenol), 500 MG PO BID Alprazolam (Xanax), 0.25 MG PO BID Anastrozole (Anastrozole), 1 MG PO QAM Calcium Citrate-Vitamin D (Calcium Citrate/Vitamin D), 1 TAB PO BID Carvedilol (Coreg), 1 TAB PO BID Cephalexin Monohydrate (Keflex), 500 MG PO QID Cholecalciferol (Vitamin D3), 2,000 INTER.UNIT PO QAM Clopidogrel (Plavix), 75 MG PO DAILY Denosumab (Xgeva), Unknown Dose SQ MONTHLY Fluoxetine (Prozac), 20 MG PO QAM Levetiractam (Keppra), 250 MG PO BID Losartan Potassium (Losartan Potassium), 25 MG PO DAILY Nystatin (Topical) (Nystop), 1 APPLN TOP DAILY Oxygen (Oxygen), 6 LITERS NA CONTINOUS Simvastatin (Simvastatin), 40 MG PO HS Warfarin Sod (Jantoven), 2 MG PO 6XWK Scheduled PRN Furosemide (Lasix), 20 MG PO DAILY PRN for PRN Zolpidem Tartrate (Ambien), 5 MG PO HS PRN for Sleep Allergies Coded Allergies: No Known Allergies (Verified , 07/30/16) Physical Exam Vital Signs Date Time Temp Pulse Resp B/P Pulse Ox O2 Delivery O2 Flow Rate FiO2 07/30/16 20:59 63 17 133/99 94 BiPAP 07/30/16 20:41 62 17 130/78 95 BiPAP 07/30/16 20:20 64 94 40 07/30/16 19:00 64 18 131/69 96 BiPAP 07/30/16 17:09 65 22 128/68 96 BiPAP 40 07/30/16 17:05 68 97 40 07/30/16 16:16 95 Nasal Cannula 6.0 07/30/16 16:14 95 Nasal Cannula 6.0 07/30/16 16:07 71 07/30/16 15:28 36.4 75 22 96/54 87 Nasal Cannula 6.0 Physical Exam GENERAL: alert, well appearing, well nourished, mild distress, non-toxic EYE EXAM: normal conjunctiva, PERRL and EOM's grossly intact OROPHARYNX: Cyanotic lips. Buccal mucosa, and tongue normal and mucous membranes are moist NECK: supple, no nuchal rigidity, no adenopathy, non-tender LUNGS: Increased work of breathing. Rales bilaterally, but no wheezes or rhonchi. HEART: no murmurs, S1 normal and S2 normal ABDOMEN: abdomen soft, non-tender, normo-active bowel sounds, no masses, no rebound or guarding. BACK: Back is symmetrical on inspection and there is no deformity, no midline tenderness, no CVA tenderness. SKIN: no rashes and no bruising UPPER EXTREMITIES: upper extremities are grossly normal. LOWER EXTREMITIES: 1+ right lower extremity edema. NEURO EXAM: Normal sensorium, cranial nerves II-XII grossly intact, normal speech, no gross weakness of arms, no gross weakness of legs. No drift. Finger to nose intact. Gross sensation intact. Medical Decision & Procedures ER Provider Diagnostic Interpretation: Xray results per the radiologist and my interpretation. CHEST ONE VIEW PORTABLE CLINICAL HISTORY: Torus of breath COMPARISON STUDY: 07/28/2016 FINDINGS: The heart is enlarged. There is mild interstitial thickening/edema similar to the preceding study. There is no lobar consolidation. There are minor left basilar atelectatic changes. There are postsurgical changes of a right shoulder arthroplasty. There are surgical clips in the left axillary region. No pleural effusions are visualized. IMPRESSION: No change the prior study. Stable cardiomegaly and interstitial thickening. No evidence of lobar consolidation. Electronically signed by: Bartolome Garcia M.D. 07/30/2016 4:42 PM Dictated Date/Time: 07/30/2016 4:41 P Laboratory Results Test 07/30/16 16:35 07/30/16 17:38 Immature Granulocyte % (Auto) 0.4 % White Blood Count 9.48 K/uL (4.8-10.8) Red Blood Count 4.74 M/uL (4.2-5.4) Hemoglobin 14.8 g/dL (12.0-16.0) Hematocrit 45.0 % (37-47) Mean Corpuscular Volume 94.9 fL (80-100) Mean Corpuscular Hemoglobin 31.2 pg (25-34) Mean Corpuscular Hemoglobin Concent 32.9 g/dl (32-36) Platelet Count 692 K/uL (130-400) Mean Platelet Volume 10.7 fL (7.4-10.4) Neutrophils (%) (Auto) 70.3 % Lymphocytes (%) (Auto) 13.8 % Monocytes (%) (Auto) 12.1 % Eosinophils (%) (Auto) 2.8 % Basophils (%) (Auto) 0.6 % Neutrophils # (Auto) 6.65 K/uL (1.4-6.5) Lymphocytes # (Auto) 1.31 K/uL (1.2-3.4) Monocytes # (Auto) 1.15 K/uL (0.11-0.59) Eosinophils # (Auto) 0.27 K/uL (0-0.5) Basophils # (Auto) 0.06 K/uL (0-0.2) Immature Granulocyte # (Auto) 0.04 K/uL (0.00-0.02) Nucleated RBC Absolute Count (auto) 0.02 K/uL (0-0) Nucleated Red Blood Cells % 0.2 % Total Bilirubin 0.4 mg/dl (0.2-1) Aspartate Amino Transf (AST/SGOT) 57 U/L (15-37) Alanine Aminotransferase (ALT/SGPT) 76 U/L (12-78) Alkaline Phosphatase 92 U/L (45-117) Troponin I 0.018 ng/ml (0-0.045) Pro-B-Type Natriuretic Peptide 7372 pg/ml (0-1800) Total Protein 6.8 gm/dl (6.4-8.2) Albumin 3.0 gm/dl (3.4-5.0) Globulin 3.8 gm/dl (2.5-4.0) Albumin/Globulin Ratio 0.8 (0.9-2) Urine Color YELLOW Urine Appearance CLEAR (CLEAR) Urine pH 6.5 (4.5-7.5) Urine Specific Thomson 1.010 (1.000-1.030) Urine Protein NEG (NEG) Urine Glucose (UA) NEG (NEG) Urine Ketones NEG (NEG) Urine Occult Blood NEG (NEG) Urine Nitrite NEG (NEG) Urine Bilirubin NEG (NEG) Urine Urobilinogen NEG (NEG) Urine Leukocyte Esterase NEG (NEG) Urine WBC (Auto) 0 /hpf (0-5) Urine RBC (Auto) 0-4 /hpf (0-4) Urine Hyaline Casts (Auto) 0 /lpf (0-5) Urine Epithelial Cells (Auto) 0-5 /lpf (0-5) Urine Bacteria (Auto) NEG (NEG) Laboratory results per my review. Medications Administered Medications (Trade) Dose Ordered Sig/Lindsey Route Start Time Stop Time Status Last Admin Dose Admin Furosemide (Lasix Inj) 40 mg NOW STAT IV 07/30/16 16:47 07/30/16 16:49 DC 07/30/16 17:06 40 MG ECG Indication: SOB/dyspnea Rate (beats per minute): 70 Rhythm: normal sinus Findings: 1st degree AV block, LBBB, left axis deviation, prolonged QT Change: no significant change (from 07/28/16) ED Course 1544: The patient was evaluated in room B9. A complete history and physical exam was performed. 164: Ordered Lasix Inj 40 mg IV. 1653: I reevaluated and updated the patient. 1710: I reevaluated the patient and she is just now getting BiPAP. She is not hypoxic but she still sounds wet. 1857: I reevaluated the patient and she is resting. Her work of breathing is diminished, and she still sounds wet but it is much better. Patient has diuresed 800 mls out. 1946: I reevaluated the patient and she is resting comfortably. The patient verbally expressed understanding and agreement of the treatment plan. The patient will be evaluated for further treatment. 1950: I discussed the patient with Dr. Hunt - [facility] hospitalist - he will evaluate the patient for further treatment. Medical Decision Differential diagnoses includes but is not limited to pneumonia, bronchitis, COPD/Asthma exacerbation, pneumothorax, pulmonary embolism, congestive heart failure, acute coronary syndrome Patient hydrated 48 hours ago for possible DVT/PE and found to be negative. Was given additional diuretics here and discharged home to follow closely with family doctor. Patient not taking daily diuretics. Admits to worsening shortness of breath as well as weight gain. Patient likely with acute on chronic congestive heart failure given history. Patient improved markedly with IV Lasix and BiPAP here. Patient admitted for continued diuresis and monitoring of improvement given pt's cardiac hx and risk. Doubt new PE and INR therapeutic, no evidence of acute infectious process, doubt template, effusion, no evidence or history to suggest dissection. Consults Time Called: 1944 Consulting Physician: Dr. Gilbert GOLDSTEIN hospitalist Returned Call: 1949 I discussed the patient with Dr. Gilbert GOLDSTEIN hospitalist - he will evaluate the patient for further treatment. Impression Primary Impression: Dyspnea Additional Impressions: Pulmonary edema CHF (congestive heart failure) Scribe Attestation The scribe's documentation has been prepared under my direction and personally reviewed by me in its entirety. I confirm that the note above accurately reflects all work, treatment, procedures, and medical decision making performed by me. Departure Information Dispostion Being Evaluated By Hospitalist Referrals Pro,Abdirashid Young M.D. (PCP) Patient Instructions My [facility] Problem Qualifiers Primary Impression: Dyspnea Dyspnea type: shortness of breath Qualified Codes: R06.02 - Shortness of breath Additional Impressions: Pulmonary edema Chronicity: acute Qualified Codes: J81.0 - Acute pulmonary edema CHF (congestive heart failure) Congestive heart failure type: combined Congestive heart failure chronicity: acute on chronic Qualified Codes: I50.43 - Acute on chronic combined systolic (congestive) and diastolic (congestive) heart failure
[2016-07-30] MEDS ORDERED: WARF2TAB8 PO (15:57)
--- NOTE | 2016-07-30 16:43 | DIAGNOSTIC IMAGING REPORT ---
CHEST ONE VIEW PORTABLE CLINICAL HISTORY: Torus of breath COMPARISON STUDY: 07/28/2016 FINDINGS: The heart is enlarged. There is mild interstitial thickening/edema similar to the preceding study. There is no lobar consolidation. There are minor left basilar atelectatic changes. There are postsurgical changes of a right shoulder arthroplasty. There are surgical clips in the left axillary region. No pleural effusions are visualized. IMPRESSION: No change the prior study. Stable cardiomegaly and interstitial thickening. No evidence of lobar consolidation. Electronically signed by: Bartolome Garcia M.D. 07/30/2016 4:42 PM Dictated Date/Time: 07/30/2016 4:41 PM
[2016-07-30] MEDS ORDERED: FUROSEMIDE 40 MG/4 ML VIAL IV STA (16:47)
[2016-07-30 16:53] LABS: BASO % 0.6 %; BASO ABS # 0.06 K/uL (0-0.2); COMPLETE YES; EOS % 2.8 %; IG% 0.4 %; LYMPH % 13.8 %; LYMPH ABS # 1.31 K/uL (1.2-3.4); MEAN CELL VOLUME 94.9 fL (80-100); MEAN CORPUSCULAR HEMOGLOBIN 31.2 pg (25-34); MEAN CORPUSCULAR HGB CONC 32.9 g/dl (32-36); MEAN PLATELET VOLUME 10.7 fL (7.4-10.4); MONO % 12.1 %; NEUT % 70.3 %; PLATELET COUNT 692 K/uL (130-400); RED BLOOD COUNT 4.74 M/uL (4.2-5.4); WHITE BLOOD COUNT 9.48 K/uL (4.8-10.8)
[2016-07-30 17:05] VITALS: PULSE 68; O2SAT 97
[2016-07-30 17:12] LABS: BUN/CREATININE RATIO 28.5 (10-20); CALCIUM 9.2 mg/dl (8.5-10.1); CREATININE 0.86 mg/dl (0.60-1.20); POTASSIUM 4.7 mmol/L (3.5-5.1)
[2016-07-30 17:17] LABS: ALB/GLOB RATIO 0.8 (0.9-2)
[2016-07-30 18:07] LABS: URINE APPEARANCE CLEAR (CLEAR); URINE BILIRUBIN NEG (NEG); URINE COLOR YELLOW; URINE EPITHELIAL CELL AUTO 0-5 /lpf (0-5); URINE NITRITE NEG (NEG); URINE PH 6.5 (4.5-7.5); UROBILINOGEN NEG (NEG); ZZURINE CULT IF INDIC CATH NO
[2016-07-30 18:17] LABS: MANUAL MICROSCOPIC REQUIRED? NO; REVIEW REQ? NO
[2016-07-30 19:35] LABS: INR 2.2 (0.9-1.1); PROTHROMBIN TIME (PATIENT) 24.1 SECONDS (9.0-12.0)
[2016-07-30 20:20] VITALS: PULSE 64; O2SAT 94
[2016-07-30] MEDS ORDERED: MoRPHine SULFATE 2 MG/ML CARP IV PRN (21:15)
[2016-07-30] MEDS ORDERED: ALUMINUM/MAGNESIUM/SIMETH (MAALOX MAX) 30 ML UDC PO PRN (21:15)
[2016-07-30] MEDS ORDERED: ONDANSETRON INJ 2 MG/ML 2 ML VIAL IV PRN (21:15)
[2016-07-30] MEDS ORDERED: NITROGLYCERIN 0.4 MG SL PER TAB CHARGE SL PRN (21:15)
--- NOTE | 2016-07-30 22:07 | History and Physical ---
History & Physical Date & Time of Service: Jul 30, 2016 at 21:42 Chief Complaint: Problems Breathing Primary Care Physician: Abdirashid Chavira M.D. History of Present Illness Source: patient 81 y/o F with an extensive medical history including AF, diastolic CHF, pulmonary fibrosis, breast CA, NIDDM, PE and IVC filter placement CVA 06/18. She presents due to worsening SOB over a 2 week period. She reports and 11 pound weight gain over this time. She was recently in the ER due to SOB and treated for CHF exacerbation and released. She denies any CP, productive cough , N/V, dysuria or fevers. The pt wears 02 6L continuous owing to her fibrosis an has not increased her requirements. Past Medical/Surgical History Medical Problems: (1) A-fib Status: Chronic (2) Anxiety Status: Chronic (3) Arthritis Status: Chronic (4) BLADDER DISORDER NOS Status: Chronic (5) Breast cancer Status: Resolved (6) Bronchitis Status: Chronic (7) Cardiomyopathy Status: Chronic (8) CHF (congestive heart failure) Status: Chronic (9) CHRONIC PULMONARY EMBOLISM Status: Chronic (10) CORONARY ATHEROSCLEROSIS OF [place] CORONARY VESSEL Status: Chronic (11) Depression Status: Chronic (12) Diastolic CHF Status: Chronic (13) Focal epilepsy Status: Chronic (14) HTN (hypertension) Status: Chronic (15) HYPERLIPIDEMIA NEC/NOS Status: Chronic (16) HYPERTENSION NOS Status: Chronic (17) Hypothyroidism Status: Chronic (18) HYPOTHYROIDISM NOS Status: Chronic (19) LBBB (left bundle branch block) Status: Chronic (20) Osteoporosis Status: Chronic (21) Pulmonary fibrosis Status: Chronic (22) Shingles Status: Resolved Surgical Problems: (1) H/O lumpectomy Status: Resolved (2) History of knee replacement Status: Chronic Family History Cancer Diabetes mellitus FHx: stroke Heart disease Hypertension Lung disease Social History Smoking Status: Never Smoker Drug Use: none Marital Status: Housing status: lives alone Occupational Status: retired Immunizations History of Influenza Vaccine: Yes Influenza Vaccine Date: Jan 23, 2009 History of Tetanus Vaccine?: Unknown Tetanus Immunization Date: May 26, 2005 History of Pneumococcal: Yes Pneumococcal Date: May 26, 2006 History of Hepatitis B Vaccine: No Multi-Drug Resistant Organisms History of MDRO: No Allergies Coded Allergies: No Known Allergies (Verified , 07/30/16) Home Medications Scheduled Acetaminophen (Tylenol), 500 MG PO BID Alprazolam (Xanax), 0.25 MG PO BID Anastrozole (Anastrozole), 1 MG PO QAM Calcium Citrate-Vitamin D (Calcium Citrate/Vitamin D), 1 TAB PO BID Carvedilol (Coreg), 1 TAB PO BID Cephalexin Monohydrate (Keflex), 500 MG PO QID Cholecalciferol (Vitamin D3), 2,000 INTER.UNIT PO QAM Clopidogrel (Plavix), 75 MG PO DAILY Denosumab (Xgeva), Unknown Dose SQ MONTHLY Fluoxetine (Prozac), 20 MG PO QAM Levetiractam (Keppra), 250 MG PO BID Losartan Potassium (Losartan Potassium), 25 MG PO DAILY Nystatin (Topical) (Nystop), 1 APPLN TOP DAILY Oxygen (Oxygen), 6 LITERS NA CONTINOUS Simvastatin (Simvastatin), 40 MG PO HS Warfarin Sod (Jantoven), 2 MG PO 6XWK Scheduled PRN Furosemide (Lasix), 20 MG PO DAILY PRN for PRN Zolpidem Tartrate (Ambien), 5 MG PO HS PRN for Sleep Review of Systems Constitutional: No chills, No fever, No sweats Eyes: No eye pain, No worsening of vision ENT: No hearing loss, No nasal symptoms, No unusual epistaxis Respiratory: + dyspnea at rest, + dyspnea on exertion, + shortness of breath, No cough, No sputum, No wheezing Cardiovascular: No PND, No chest pain, No orthopnea Abdomen: No nausea, No pain, No vomiting Musculoskeletal: No joint pain, No muscle pain Genitourinary - Female: No dysuria, No hematuria, No urinary frequency, No urinary incontinence, No urinary retention, No urinary urgency Neurologic: No memory loss, No paralysis, No weakness Psychiatric: No depression symptoms Endocrine: + fatigue Hematologic / Lymphatic: No abnormal bleeding/bruising Integumentary: No rash Allergic / Immunologic: No environmental allergies Physical Exam Vital Signs Date Time Temp Pulse Resp B/P Pulse Ox O2 Delivery O2 Flow Rate FiO2 07/30/16 20:41 62 17 130/78 95 BiPAP 07/30/16 20:20 64 94 40 07/30/16 19:00 64 18 131/69 96 BiPAP 07/30/16 17:09 65 22 128/68 96 BiPAP 40 07/30/16 17:05 68 97 40 07/30/16 16:16 95 Nasal Cannula 6.0 07/30/16 16:14 95 Nasal Cannula 6.0 07/30/16 16:07 71 07/30/16 15:28 36.4 75 22 96/54 87 Nasal Cannula 6.0 General Appearance: WD/WN, no apparent distress Head: normocephalic Eyes: normal inspection, PERRL, EOMI ENT: normal ENT inspection, pharynx normal Neck: supple, no adenopathy, thyroid normal, no JVD Respiratory/Chest: chest non-tender, + decreased breath sounds, + pertinent finding (very poor air movement - cannot discern crackel/wheezing) Cardiovascular: regular rate, rhythm, + systolic murmur Abdomen/GI: normal bowel sounds, non tender, soft Back: normal inspection, no CVA tenderness Extremities/Musculoskelatal: normal inspection, no calf tenderness, normal capillary refill, no pedal edema, normal range of motion Neurologic/Psych: emergency room technician II-XII nml as tested, no motor/sensory deficits, alert, normal mood/affect, normal reflexes, oriented x 3 Skin: normal color, warm/dry, no rash Diagnostics Laboratory Results Results Past 24 Hours Test 07/30/16 16:35 07/30/16 17:38 Range/Units White Blood Count 9.48 4.8-10.8 K/uL Red Blood Count 4.74 4.2-5.4 M/uL Hemoglobin 14.8 12.0-16.0 g/dL Hematocrit 45.0 37-47 % Mean Corpuscular Volume 94.9 80-100 fL Mean Corpuscular Hemoglobin 31.2 25-34 pg Mean Corpuscular Hemoglobin Concent 32.9 32-36 g/dl Platelet Count 692 130-400 K/uL Mean Platelet Volume 10.7 7.4-10.4 fL Neutrophils (%) (Auto) 70.3 % Lymphocytes (%) (Auto) 13.8 % Monocytes (%) (Auto) 12.1 % Eosinophils (%) (Auto) 2.8 % Basophils (%) (Auto) 0.6 % Neutrophils # (Auto) 6.65 1.4-6.5 K/uL Lymphocytes # (Auto) 1.31 1.2-3.4 K/uL Monocytes # (Auto) 1.15 0.11-0.59 K/uL Eosinophils # (Auto) 0.27 0-0.5 K/uL Basophils # (Auto) 0.06 0-0.2 K/uL RDW Standard Deviation 54.5 36.4-46.3 fL RDW Coefficient of Variation 15.6 11.5-14.5 % Immature Granulocyte % (Auto) 0.4 % Immature Granulocyte # (Auto) 0.04 0.00-0.02 K/uL Nucleated RBC Absolute Count (auto) 0.02 0-0 K/uL Nucleated Red Blood Cells % 0.2 % Prothrombin Time 24.1 9.0-12.0 SECONDS Prothromb Time International Ratio 2.2 0.9-1.1 Sodium Level 139 136-145 mmol/L Potassium Level 4.7 3.5-5.1 mmol/L Chloride Level 106 98-107 mmol/L Carbon Dioxide Level 27 21-32 mmol/L Anion Gap 6.0 3-11 mmol/L Blood Urea Nitrogen 24 7-18 mg/dl Creatinine 0.86 0.60-1.20 mg/dl Est Creatinine Clear Calc Drug Dose 50.4 ml/min Estimated GFR () 72.4 Estimated GFR (Non- 62.5 BUN/Creatinine Ratio 28.5 10-20 Random Glucose 107 70-99 mg/dl Calcium Level 9.2 8.5-10.1 mg/dl Total Bilirubin 0.4 0.2-1 mg/dl Aspartate Amino Transf (AST/SGOT) 57 15-37 U/L Alanine Aminotransferase (ALT/SGPT) 76 12-78 U/L Alkaline Phosphatase 92 45-117 U/L Troponin I 0.018 0-0.045 ng/ml Pro-B-Type Natriuretic Peptide 7372 0-1800 pg/ml Total Protein 6.8 6.4-8.2 gm/dl Albumin 3.0 3.4-5.0 gm/dl Globulin 3.8 2.5-4.0 gm/dl Albumin/Globulin Ratio 0.8 0.9-2 Urine Color YELLOW Urine Appearance CLEAR CLEAR Urine pH 6.5 4.5-7.5 Urine Specific [place] 1.010 1.000-1.030 Urine Protein NEG NEG Urine Glucose (UA) NEG NEG Urine Ketones NEG NEG Urine Occult Blood NEG NEG Urine Nitrite NEG NEG Urine Bilirubin NEG NEG Urine Urobilinogen NEG NEG Urine Leukocyte Esterase NEG NEG Urine WBC (Auto) 0 0-5 /hpf Urine RBC (Auto) 0-4 0-4 /hpf Urine Hyaline Casts (Auto) 0 0-5 /lpf Urine Epithelial Cells (Auto) 0-5 0-5 /lpf Urine Bacteria (Auto) NEG NEG Diagnostic Radiology CXR: No change the prior study. Stable cardiomegaly and interstitial thickening. No evidence of lobar consolidation. EKG Sinus - LBBB - L axis Possible prev inf infarct Impression Assessment and Plan 81 y/o F with an extensive medical history including AF, diastolic CHF, pulmonary fibrosis, breast CA, NIDDM, PE and IVC filter placement, CVA 06/18, thrombocytosis. She presents due to worsening SOB over a 2 week period. She reports and 11 pound weight gain over this time. She was recently in the ER due to SOB and treated for CHF exacerbation and released. She denies any CP, productive cough, N/V, dysuria or fevers. The pt wears 02 6L continuous owing to her fibrosis and has not increased her requirements. 1) SOB - this may be either due to Fibrosis/COPD or CHF - she reports weight gain but does not have LE edema - her CXR is unchanged from recent and is essentially equivocal due to her underlying structural disease. It is unclear therefore if her current SOB is due to pulmonary or cardiac etiology or a combination. She appears to have responded well to an initial dose of IV Lasix in the ER so that we will begin treatment with 20mg TID. If there is no improvement and clinical evidence of euvolemia or hypovolemia, would consider treatment for COPD/Fibrosis exacerbation. She is currently comfortable on 6L. Cont B elizabeth, ARB. 2) AF - paroxysmal - currently in a sinus rhythm. INR is therapeutic. Cont Coumadin, B elizabeth. 3) Recent CVA - ASA, Statin - anticoagulated with Coumadin however her INR was therapeutic when she had a CVA. 4) Thrombocytosis - stable 5) Breast CA - listed as metastatic - f/u a outpt 6) Seizure disorder - cont Keppra Full code -Coumadin Total time for this admit including review of labs, meds, EKG, imaging, extensive records - discussion with pt and ER attending 44 min Level of Care Telemetry Resuscitation Status FULL RESUSCITATION VTE Prophylaxis VTE Risk Assessment Done? Y/N: Yes Risk Level: Moderate Given or contraindicated: Warfarin (Coumadin)
[2016-07-30 22:57] VITALS: PULSE 62; O2SAT 97
[2016-07-30 23:23] VITALS: O2SAT 93; Ht 160 cm; Wt 80.9 kg
[2016-07-30 23:57] VITALS: PULSE 97; O2SAT 91
[2016-07-31] VITALS (14 sets, daily range): BP systolic 86–136; BP diastolic 57–85; PULSE 54–91; TEMP 36.4–36.7; O2SAT 92–97
[2016-07-31] MEDS ORDERED: NITROGLYCERIN OINT 2% 1GM PACKET EXT ONE (01:30)
[2016-07-31] MEDS ORDERED: IV FLUIDS COMPLETED PRN (02:00)
[2016-07-31 07:56] LABS: HEMATOCRIT 44.3 % (37-47); MEAN CELL VOLUME 94.9 fL (80-100); MEAN CORPUSCULAR HGB CONC 32.7 g/dl (32-36); MEAN PLATELET VOLUME 10.6 fL (7.4-10.4); PLATELET COUNT 653 K/uL (130-400); RED BLOOD COUNT 4.67 M/uL (4.2-5.4); WHITE BLOOD COUNT 9.06 K/uL (4.8-10.8)
[2016-07-31] MEDS: NYSTATIN POWDER 15GM BTL EXT SCH (08:09)
[2016-07-31 08:10] LABS: INR 1.9 (0.9-1.1); PROTHROMBIN TIME (PATIENT) 20.4 SECONDS (9.0-12.0)
[2016-07-31] MEDS: FUROSEMIDE INJ 20 MG in SYRINGE 0 ML IV SCH ×3 (08:10→21:23)
[2016-07-31] MEDS: ANASTROZOLE 1 MG TAB PO SCH (08:11)
[2016-07-31] MEDS: CEPHALEXIN MONOHYDRATE 500 MG CAP PO SCH ×4 (08:13→21:21)
[2016-07-31] MEDS: CARVEDILOL 3.125 MG TAB PO SCH ×2 (08:14→21:18)
[2016-07-31] MEDS: CHOLECALCIFEROL 1000 INTER.UNIT TAB PO SCH (08:14)
[2016-07-31] MEDS: CLOPIDOGREL BISULFATE 75 MG TAB PO SCH (08:14)
[2016-07-31] MEDS: FLUOXETINE HCL 20 MG CAP PO SCH (08:14)
[2016-07-31] MEDS: LEVETIRACETAM 250 MG TAB PO SCH ×2 (08:15→21:22)
[2016-07-31] MEDS: LOSARTAN POTASSIUM 25 MG TAB PO SCH (08:15)
[2016-07-31] MEDS: ALPRAZOLAM 0.25 MG TAB PO SCH ×2 (08:17→21:17)
[2016-07-31 08:40] LABS: BUN/CREATININE RATIO 32.6 (10-20); CREATININE 0.7 mg/dl (0.60-1.20); MAGNESIUM 2.1 mg/dl (1.8-2.4); POTASSIUM 3.9 mmol/L (3.5-5.1)
[2016-07-31 08:57] LABS: CALCIUM 9.3 mg/dl (8.5-10.1)
[2016-07-31] MEDS ORDERED: POTASSIUM CHLORIDE 20 MEQ TABCR PO ONE (09:45)
[2016-07-31] MEDS ORDERED: ENOXAPARIN 120 MG/0.8 ML SYR SQ ONE (10:00)
[2016-07-31] MEDS ORDERED: WARFARIN SOD 2 MG TAB PO SCH (16:00)
[2016-07-31] MEDS: WARFARIN SOD 3 MG TAB PO SCH (17:00)
[2016-07-31] MEDS: SIMVASTATIN 40 MG TAB PO SCH (21:17)
[2016-07-31] MEDS: MoRPHine SULFATE 4 MG/ML 1 ML CARP\\VIAL IV PRN (21:27)
--- NOTE | 2016-07-31 21:42 | Hospitalist Progress Note ---
Hospitalist Progress Note Date of Service Jul 31, 2016. Subjective Pt evaluation today including: conversation w/ patient, physical exam Patient reports she still feels short of breath but overall a bit better than yesterday. She has some chronic sciatica-type pain in the left leg. Constitutional: No fever Respiratory: + dyspnea on exertion, + shortness of breath Cardiovascular: No chest pain Abdomen: No pain All Other Systems: Reviewed and Negative Objective Vital Signs Date Time Temp Pulse Resp B/P Pulse Ox O2 Delivery O2 Flow Rate FiO2 07/31/16 21:17 67 107/60 07/31/16 19:34 36.6 71 20 86/63 95 Nasal Cannula 6.0 07/31/16 16:00 97 Nasal Cannula 6.0 40 07/31/16 15:15 36.7 66 18 92/57 97 Nasal Cannula 6.0 07/31/16 12:00 97 Nasal Cannula 6.0 40 07/31/16 11:39 36.4 74 18 104/64 92 Nasal Cannula 6.0 07/31/16 08:27 36.4 69 20 123/72 94 07/31/16 08:00 97 Nasal Cannula 6.0 40 07/31/16 05:52 67 97 40 07/31/16 04:03 36.4 67 20 123/72 97 BiPAP 40 07/31/16 04:00 96 BiPAP 40 07/31/16 02:19 63 96 40 07/30/16 23:57 97 91 40 07/30/16 23:26 63 16 132/90 96 07/30/16 23:23 93 BiPAP 6.0 40 07/30/16 23:01 63 16 132/90 96 BiPAP 07/30/16 22:57 62 97 40 07/30/16 22:00 61 16 147/91 96 BiPAP Physical Exam General Appearance: WD/WN, no apparent distress Eyes: normal inspection, sclerae normal ENT: hearing grossly normal Neck: trachea midline Respiratory/Chest: no respiratory distress, no accessory muscle use, + crackles (at the bases bilaterally) Cardiovascular: regular rate, rhythm, + pertinent finding (trace pitting edema in the legs to the knees bilaterally) Abdomen: normal bowel sounds, non tender, soft Extremities: no calf tenderness Neurologic/Psychiatric: alert, normal mood/affect Skin: normal color, warm/dry, no rash Laboratory Results Last 24 Hours Test 07/31/16 07:30 White Blood Count 9.06 K/uL Red Blood Count 4.67 M/uL Hemoglobin 14.5 g/dL Hematocrit 44.3 % Mean Corpuscular Volume 94.9 fL Mean Corpuscular Hemoglobin 31.0 pg Mean Corpuscular Hemoglobin Concent 32.7 g/dl RDW Standard Deviation 54.0 fL RDW Coefficient of Variation 15.6 % Platelet Count 653 K/uL Mean Platelet Volume 10.6 fL Prothrombin Time 20.4 SECONDS Prothromb Time International Ratio 1.9 Sodium Level 142 mmol/L Potassium Level 3.9 mmol/L Chloride Level 105 mmol/L Carbon Dioxide Level 29 mmol/L Anion Gap 8.0 mmol/L Blood Urea Nitrogen 23 mg/dl Creatinine 0.70 mg/dl Est Creatinine Clear Calc Drug Dose 61.1 ml/min Estimated GFR () 92.9 Estimated GFR (Non- 80.1 BUN/Creatinine Ratio 32.6 Random Glucose 99 mg/dl Calcium Level 9.3 mg/dl Magnesium Level 2.1 mg/dl Thyroid Stimulating Hormone (TSH) 2.180 uIu/ml Assessment and Plan 81 y/o F with an extensive medical history including AF, diastolic CHF, pulmonary fibrosis, breast CA, NIDDM, PE and IVC filter placement, CVA 06/18, thrombocytosis. She presents due to worsening SOB over a 2 week period. She reports an 11 pound weight gain over this time. She was recently in the ER due to SOB and treated for CHF exacerbation and released. She denies any CP, productive cough, N/V, dysuria or fevers. The pt wears 02 6L continuous owing to her fibrosis and has not increased her requirements. 1) SOB -likely due acute systolic CHF - LVEF 25-30% on echocardiogram from June 2016 when she was here with her CVA. She reports weight gain but does not have significant LE edema - her CXR is unchanged from recent and is essentially equivocal due to her underlying structural disease. It is unclear therefore if her current SOB is due to pulmonary or cardiac etiology or a combination. She appears to have responded well to IV Lasix. -Cont B elizabeth, ARB. 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 INR is is now subtherapeutic. Cont but with increased dose of Coumadin, -Continue B elizabeth. - Add Lovenox for bridging until INR is therapeutic again 3) Recent CVA -stable, no issues -Continue ASA, Statin - anticoagulated with Coumadin however her INR was therapeutic when she had a CVA her CVAs were watershed and related to hypotension 4) Thrombocytosis - stable from previous 5) Breast CA - listed as metastatic - f/u as outpt -Continue anastrozole 6) Seizure disorder -stable, no current issues - cont Keppra Prophylaxis-Lovenox and Coumadin Full code Disposition-back to shelter when medically stable
[2016-08-01] VITALS (14 sets, daily range): BP systolic 95–116; BP diastolic 55–70; PULSE 61–77; TEMP 36–36.5; O2SAT 91–98
[2016-08-01 07:15] LABS: BASO % 0.7 %; BASO ABS # 0.06 K/uL (0-0.2); COMPLETE YES; EOS % 2.8 %; HEMATOCRIT 45.6 % (37-47); IG% 0.1 %; LYMPH % 17.3 %; LYMPH ABS # 1.48 K/uL (1.2-3.4); MEAN CORPUSCULAR HEMOGLOBIN 30.7 pg (25-34); MEAN PLATELET VOLUME 10.6 fL (7.4-10.4); MONO % 11.6 %; NEUT % 67.5 %; PLATELET COUNT 637 K/uL (130-400); RED BLOOD COUNT 4.75 M/uL (4.2-5.4); WHITE BLOOD COUNT 8.57 K/uL (4.8-10.8)
[2016-08-01 07:25] LABS: PROTHROMBIN TIME (PATIENT) 21.6 SECONDS (9.0-12.0)
[2016-08-01 07:44] LABS: BUN/CREATININE RATIO 26.1 (10-20); CALCIUM 8.4 mg/dl (8.5-10.1); CREATININE 0.84 mg/dl (0.60-1.20); MAGNESIUM 2.3 mg/dl (1.8-2.4); POTASSIUM 4.3 mmol/L (3.5-5.1)
[2016-08-01] MEDS: NYSTATIN POWDER 15GM BTL EXT SCH (08:13)
[2016-08-01] MEDS: FUROSEMIDE INJ 20 MG in SYRINGE 0 ML IV SCH ×3 (08:14→20:41)
[2016-08-01] MEDS: LEVETIRACETAM 250 MG TAB PO SCH ×2 (08:16→20:36)
[2016-08-01] MEDS: CLOPIDOGREL BISULFATE 75 MG TAB PO SCH (08:17)
[2016-08-01] MEDS: FLUOXETINE HCL 20 MG CAP PO SCH (08:17)
[2016-08-01] MEDS: ANASTROZOLE 1 MG TAB PO SCH (08:18)
[2016-08-01] MEDS: CEPHALEXIN MONOHYDRATE 500 MG CAP PO SCH ×4 (08:18→20:39)
[2016-08-01] MEDS: LOSARTAN POTASSIUM 25 MG TAB PO SCH (08:19)
[2016-08-01] MEDS: POTASSIUM CHLORIDE 20 MEQ TABCR PO SCH (08:19)
[2016-08-01] MEDS: CHOLECALCIFEROL 1000 INTER.UNIT TAB PO SCH (08:19)
[2016-08-01] MEDS: CARVEDILOL 3.125 MG TAB PO SCH ×2 (08:20→20:39)
[2016-08-01] MEDS: ALPRAZOLAM 0.25 MG TAB PO SCH ×2 (08:25→20:35)
[2016-08-01] MEDS: MoRPHine SULFATE 4 MG/ML 1 ML CARP\\VIAL IV PRN (11:33)
--- NOTE | 2016-08-01 12:13 | CARDIOLOGY CONSULTATION ---
DATE OF CONSULTATION: 08/01/2016 PERTINENT HISTORY: Mrs. Gilbert is an 81-year-old white female with a complex past medical history who was admitted on July 30 with shortness of breath and decompensated congestive heart failure. This consultation was ordered to assist in her cardiac management. Of note, the patient typically follows with Dr. Dimas Camara, in our practice. The patient claims she was in her usual state of health until approximately 2 weeks ago when she began to note progressive exertional dyspnea and progressive orthopnea. The patient explains that she has gained 11 pounds over that timeframe. She was seen in the Emergency Room on the 28 of July and given a dose of intravenous Lasix. She diuresed well and was sent home. The patient carries a history of a newly recognized cardiomyopathy with an ejection fraction of 25-30%. That echocardiogram was performed in June of this year. The patient has been maintained on carvedilol, losartan and Lasix since that time. The patient also has a history of metastatic breast carcinoma. She was recently diagnosed in 2002 and underwent a left partial mastectomy and radiation therapy. She has been diagnosed with bony metastases and is on hormonal therapy. Currently, the patient is resting comfortably in bed without complaints. PAST MEDICAL HISTORY: 1. Dilated cardiomyopathy - 25-30% - June 2016. 2. Chronic systolic congestive heart failure. 3. Paroxysmal atrial fibrillation. 4. Hypertension. 5. Hypercholesterolemia. 6. Left bundle branch block. 7. Diabetes mellitus. 8. Pulmonary fibrosis - on chronic oxygen therapy. 9. Metastatic breast carcinoma - diagnosed in 2002. 10. Infiltrating ductal carcinoma - 2002. 11. Left partial mastectomy - 2002. 12. 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 13. History of pulmonary embolism and Ghazal filter placement - 2000. 14. Anxiety. 15. Right total shoulder replacement - February 2009. 16. Right total hip replacement. 17. Left total hip replacement. 18. Left upper extremity lymphedema. MEDICATIONS: 1. Lasix 20 mg IV t.i.d. 2. Carvedilol 3.125 mg b.i.d. 3. Losartan 25 mg per day. 4. Potassium 20 mEq daily. 5. Simvastatin 40 mg at bedtime. 6. Warfarin 3 mg daily. 7. Plavix 75 mg per day. 8. Xanax 0.25 mg b.i.d. 9. Arimidex 1 mg daily. 10. Keflex 500 mg q.i.d. 11. Keppra 250 mg b.i.d. 12. Vitamin D 2000 international units daily. ALLERGIES: None. SOCIAL HISTORY: The patient is a . Does not use tobacco or alcohol. FAMILY HISTORY: No early coronary artery disease. REVIEW OF SYSTEMS: A 10-point review of systems is negative except for that described above. PHYSICAL EXAMINATION: GENERAL: This is a well-developed, well-nourished white female seated at the bedside chair without complaints. VITAL SIGNS: Blood pressure is 105/65 with a regular pulse of 62. Respiratory rate is 18. The patient is afebrile at 36.5 degrees Celsius. Saturation is 98% on 6 liters nasal cannula. HEENT: Negative. NECK: Supple with full carotid upstrokes. No carotid bruits. Jugular venous pressure is 8 cm of water at 90 degrees. There is no thyromegaly. CARDIOVASCULAR: Reveals a regular rhythm with normal S1 and S2. A 1/6 systolic murmur is heard along the left sternal border. No S3 or S4. LUNGS: Note bibasilar crackles. ABDOMEN: Soft, nontender without bruits. EXTREMITIES: Reveal intact radial artery pulses bilaterally. Trace pretibial edema is noted. DATA: CBC notes hemoglobin 14.6, hematocrit 45.6, white count 8.5, platelet count 631,000. Electrolytes note a sodium of 143, potassium 4.3, chloride 105, bicarb 31, BUN 22, creatinine 2.8, glucose 134. Troponin I level is normal at 0.018. TSH is normal at 2.18. BNP is elevated at 7372. EKG notes sinus rhythm with first degree AV block, left axis deviation, left bundle branch block, and old anterior myocardial infarction pattern, and an old anterolateral myocardial infarction pattern. Chest x-rays notes cardiomegaly, but no evidence of pulmonary edema. Telemetry monitoring is benign. IMPRESSION: Mrs. Gilbert was admitted in decompensated congestive heart failure. She has known left ventricular dysfunction and presented with complaints of an 11-pound weight gain, orthopnea, and shortness of breath. She has responded well to the use of intravenous diuretics. We have discussed the importance of daily weights and sliding scale diuretics when she is an outpatient. PLAN: 1. Agree with intravenous diuresis for now. 2. Continue usual cardiac medications as you are. 3. Instructed on daily weights and sliding scale diuretics as an outpatient. 4. Further recommendations depending on her clinical course.
[2016-08-01] MEDS: WARFARIN SOD 3 MG TAB PO SCH (19:54)
[2016-08-01] MEDS: ZOLPIDEM TARTRATE 5 MG TAB PO PRN (20:34)
[2016-08-01] MEDS: SIMVASTATIN 40 MG TAB PO SCH (20:40)
--- NOTE | 2016-08-01 23:11 | Hospitalist Progress Note ---
Hospitalist Progress Note Date of Service Aug 01, 2016. Subjective Pt evaluation today including: conversation w/ patient, conversation w/ family Feeling very well, much less short of breath and is diuresing with IV Lasix. No significant events on telemetry overnight. All Other Systems: Reviewed and Negative Objective Vital Signs Date Time Temp Pulse Resp B/P Pulse Ox O2 Delivery O2 Flow Rate FiO2 08/01/16 21:22 69 94 30 08/01/16 20:37 77 102/62 08/01/16 20:10 36.5 08/01/16 20:00 Nasal Cannula 6.0 08/01/16 19:32 36.3 68 18 104/70 95 6.0 08/01/16 16:00 97 Nasal Cannula 6.0 08/01/16 15:44 36.3 69 18 95/60 92 Nasal Cannula 6.0 08/01/16 12:01 36.3 66 18 104/70 97 Nasal Cannula 6.0 08/01/16 12:00 95 Nasal Cannula 6.0 08/01/16 08:00 96 Nasal Cannula 6.0 08/01/16 07:35 36.5 62 18 104/66 98 Nasal Cannula 6.0 08/01/16 05:18 63 93 30 08/01/16 04:00 BiPAP 6.0 08/01/16 04:00 36.3 61 18 116/66 94 BiPAP 6.0 08/01/16 02:10 62 96 30 08/01/16 00:00 BiPAP 6.0 07/31/16 23:44 36.6 91 20 136/85 95 Nasal Cannula 2.0 Physical Exam General Appearance: WD/WN, no apparent distress Eyes: normal inspection, sclerae normal ENT: hearing grossly normal Neck: trachea midline Respiratory/Chest: no respiratory distress, no accessory muscle use, + crackles (bibasilar but improved) Cardiovascular: regular rate, rhythm, no edema, no gallop, no murmur Abdomen: normal bowel sounds, non tender, soft Extremities: non-tender, no pedal edema, no calf tenderness Neurologic/Psychiatric: alert, normal mood/affect Skin: normal color, warm/dry, no rash Laboratory Results Last 24 Hours Test 08/01/16 07:00 White Blood Count 8.57 K/uL Red Blood Count 4.75 M/uL Hemoglobin 14.6 g/dL Hematocrit 45.6 % Mean Corpuscular Volume 96.0 fL Mean Corpuscular Hemoglobin 30.7 pg Mean Corpuscular Hemoglobin Concent 32.0 g/dl Platelet Count 637 K/uL Mean Platelet Volume 10.6 fL Neutrophils (%) (Auto) 67.5 % Lymphocytes (%) (Auto) 17.3 % Monocytes (%) (Auto) 11.6 % Eosinophils (%) (Auto) 2.8 % Basophils (%) (Auto) 0.7 % Neutrophils # (Auto) 5.79 K/uL Lymphocytes # (Auto) 1.48 K/uL Monocytes # (Auto) 0.99 K/uL Eosinophils # (Auto) 0.24 K/uL Basophils # (Auto) 0.06 K/uL RDW Standard Deviation 55.0 fL RDW Coefficient of Variation 15.6 % Immature Granulocyte % (Auto) 0.1 % Immature Granulocyte # (Auto) 0.01 K/uL Prothrombin Time 21.6 SECONDS Prothromb Time International Ratio 2.0 Sodium Level 143 mmol/L Potassium Level 4.3 mmol/L Chloride Level 105 mmol/L Carbon Dioxide Level 31 mmol/L Anion Gap 7.0 mmol/L Blood Urea Nitrogen 22 mg/dl Creatinine 0.84 mg/dl Est Creatinine Clear Calc Drug Dose 50.8 ml/min Estimated GFR () 74.5 Estimated GFR (Non- 64.3 BUN/Creatinine Ratio 26.1 Random Glucose 139 mg/dl Calcium Level 8.4 mg/dl Magnesium Level 2.3 mg/dl Assessment and Plan 81 y/o F with an extensive medical history including PAF, diastolic CHF, pulmonary fibrosis, breast CA, prediabetes, PE and IVC filter placement, CVA , thrombocytosis. She presents due to worsening SOB over a 2 week period. She reports an 11 pound weight gain over this time. She was recently in the ER due to SOB and treated for CHF exacerbation and released. She denies any CP, productive cough, N/V, dysuria or fevers. The pt wears 02 6L continuous owing to her fibrosis and has not increased her requirements. 1) SOB -secondary to acute on chronic systolic CHF superimposed on pulmonary fibrosis, chronic respiratory failure on home O2 - LVEF 25-30% on echocardiogram from June 2016 when she was here with her CVA. She reports weight gain but does not have significant LE edema - her CXR is unchanged from recent and is essentially equivocal due to her underlying structural disease. Her proBNP is elevated at 7000 which corresponds with acute systolic CHF. She appears to have responded well to IV Lasix and is diuresing and clinically improved.. -Cont B elizabeth, ARB. -Continue IV Lasix and replace potassium and magnesium as needed, goal diuresis would be 5 L overall which would account for her 11 pound weight gain -Strict I's and O's and daily weights -Consult to cardiology is appreciated-it is unclear if this is an ischemic cardiomyopathy or related to her recent stroke as per previous cardiology notes -Will need updated echo in 1-2 months to see if her LVEF has recovered status post her acute CVA 2) AF - paroxysmal - currently in a sinus rhythm. INR was subtherapeutic on admission and as history of CVA. -Cont with increased dose of Coumadin 3 mg daily, received Lovenox for bridging but now INR is therapeutic -Continue B elizabeth. -Follow INR -Continue on telemetry 3) Recent CVA -stable, with right-sided hemiparesis -Continue Plavix, Statin - anticoagulated with Coumadin however her INR was therapeutic when she had a CVA her CVAs were watershed and related to hypotension 4) Thrombocytosis - stable from previous in the 600-700 K range 5) Breast CA - listed as metastatic - f/u as outpt -Continue anastrozole 6) Seizure disorder -stable, no current issues - cont Keppra 7) prediabetes-hemoglobin A1c was 6.2% last month-no current issues -Glucose checks not indicated 8) osteoporosis-stable no issues -Continue calcium and vitamin D, Xgeva Prophylaxis- Coumadin Full code Disposition-back to [facility] when medically stable-needs PT/OT evals
[2016-08-02] VITALS (9 sets, daily range): BP systolic 96–125; BP diastolic 56–81; PULSE 60–94; TEMP 34.9–36.6; O2SAT 92–97
[2016-08-02 06:26] LABS: INR 3.1 (0.9-1.1); PROTHROMBIN TIME (PATIENT) 34.7 SECONDS (9.0-12.0)
[2016-08-02] MEDS: POTASSIUM CHLORIDE 20 MEQ TABCR PO SCH (08:37)
[2016-08-02] MEDS: LEVETIRACETAM 250 MG TAB PO SCH ×2 (08:38→20:45)
[2016-08-02] MEDS: CEPHALEXIN MONOHYDRATE 500 MG CAP PO SCH ×4 (08:38→20:46)
[2016-08-02] MEDS: CLOPIDOGREL BISULFATE 75 MG TAB PO SCH (08:39)
[2016-08-02] MEDS: CARVEDILOL 3.125 MG TAB PO SCH ×2 (08:39→20:47)
[2016-08-02] MEDS: CHOLECALCIFEROL 1000 INTER.UNIT TAB PO SCH (08:39)
[2016-08-02] MEDS: LOSARTAN POTASSIUM 25 MG TAB PO SCH (08:39)
[2016-08-02] MEDS: FLUOXETINE HCL 20 MG CAP PO SCH (08:39)
[2016-08-02] MEDS: ALPRAZOLAM 0.25 MG TAB PO SCH ×2 (08:42→20:44)
[2016-08-02] MEDS: ANASTROZOLE 1 MG TAB PO SCH (08:42)
[2016-08-02] MEDS: FUROSEMIDE INJ 20 MG in SYRINGE 0 ML IV SCH ×3 (08:43→20:45)
[2016-08-02] MEDS: NYSTATIN POWDER 15GM BTL EXT SCH (08:44)
--- NOTE | 2016-08-02 10:16 | Cardiology Follow-Up ---
Subjective Subjective Date of Service: August 02, 2016. Pt evaluation today including: conversation w/ patient, physical exam, chart review, lab review, review of studies, review of inpatient medication list Additional Details: Breathing somewhat improved today. Still feels very weak. Endorses pain in her left knee/hip. Very much wants to get back to rehab. States my daughter can't take care of me at home. Problem List Medical Problems: (1) Abdominal contusion Status: Acute (2) Abdominal pain Status: Acute (3) Anxiety Status: Acute (4) Anxiety Status: Acute (5) Back contusion Status: Acute (6) Cervical strain Status: Acute (7) Chest pain Status: Acute (8) CHF (congestive heart failure) Status: Chronic (9) Confusion Status: Acute (10) Congestive heart failure Status: Acute (11) Dyspnea Status: Acute (12) Dyspnea Status: Acute (13) Elevated platelet count Status: Acute (14) Fall Status: Acute (15) Fall Status: Acute (16) Generalized weakness Status: Acute (17) Hypoglycemia Status: Acute (18) International normalized ratio (INR) greater than 2 Status: Acute (19) Leukocytosis Status: Acute (20) Lumbar contusion Status: Acute (21) Metastatic breast cancer Status: Acute (22) Peripheral edema Status: Acute (23) Pulmonary edema Status: Acute (24) Rectal bleed Status: Acute (25) Shingles Status: Acute (26) Supratherapeutic INR Status: Acute (27) UTI (urinary tract infection) Status: Acute (28) Weakness Status: Acute (29) Weakness Status: Acute Review of Systems Constitutional: No fever Respiratory: + dyspnea on exertion, + shortness of breath, No cough, No sputum Cardiac: No chest pain Abdomen: No pain Neurologic: + balance problems, + weakness Heme: No abnormal bleeding/bruising Endo: + fatigue Skin: No rash Objective Vital Signs Last Vital Signs Documentation Date Time Temp Pulse Resp B/P Pulse Ox O2 Delivery O2 Flow Rate FiO2 08/02/16 08:00 Nasal Cannula 6.0 BiPAP 08/02/16 07:39 36.6 62 20 125/81 96 08/02/16 05:36 30 Physical Exam: General Appearance: no apparent distress ENT: hearing grossly normal Neck: trachea midline Respiratory/Chest: no respiratory distress, no accessory muscle use, + crackles (fine bibasilar crackles. chronic) Cardiovascular: regular rate, rhythm, no edema, no murmur, + JVD (JVP ~9-10) Abdomen: normal bowel sounds, non tender, soft Extremities: non-tender, no pedal edema, no calf tenderness Neurologic/Psychiatric: alert, normal mood/affect Skin: normal color, warm/dry, no rash Lymphatic: no adenopathy Assessment and Plan 1. Acute on chronic systolic heart failure 2. Recent bilateral watershed CVA -- chronic small intracranial vessel disease; on plavix 3. Paroxysmal AF -- sinus rhythm at present; on chronic anticoagulation with coumadin 4. Pulmonary fibrosis -- on 6L 02 at baseline 5. Breast CA-- on chronic hormonal therapy 6. Hypertension -- stable on current therapy 7. Chronic LBBB Negative almost 3L since admission. Today well perfused, some continued systemic venous congestion. Renal function stable -- Continue current IV diuretics today, follow I/Os, daily weights. -- continue current ARB/Beta-elizabeth -- Therapeutic on coumadin -- Continue home plavix, statin. Medications: Current Inpatient Medications Medications (Trade) Dose Ordered Sig/Lindsey Route Start Time Stop Time Status Last Admin Dose Admin Alprazolam (Xanax Tab) 0.25 mg BID PO 07/31/16 09:00 08/30/16 08:59 08/02/16 08:42 0.25 MG Anastrozole (Arimidex Tab) 1 mg QAM PO 07/31/16 09:00 08/30/16 08:59 08/02/16 08:42 1 MG Carvedilol (Coreg Tab) 3.125 mg BID PO 07/31/16 09:00 08/30/16 08:59 08/02/16 08:39 3.125 MG Cephalexin Monohydrate (Keflex Cap) 500 mg QID PO 07/31/16 09:00 08/05/16 08:59 08/02/16 08:38 500 MG Cholecalciferol (Vitamin D Tab) 2,000 inter.unit QAM PO 07/31/16 09:00 08/30/16 08:59 08/02/16 08:39 2,000 INTER.UNIT Clopidogrel Bisulfate (plAVix TAB) 75 mg DAILY PO 07/31/16 09:00 08/30/16 08:59 08/02/16 08:39 75 MG Fluoxetine HCl (Prozac Cap) 20 mg QAM PO 07/31/16 09:00 08/30/16 08:59 08/02/16 08:39 20 MG Levetiracetam (Keppra Tab) 250 mg BID PO 07/31/16 09:00 08/30/16 08:59 08/02/16 08:38 250 MG Losartan Potassium (coZAAR TAB) 25 mg DAILY PO 07/31/16 09:00 08/30/16 08:59 08/02/16 08:39 25 MG Nystatin (Mycostatin Powder) 1 appln DAILY EXT 07/31/16 09:00 08/30/16 08:59 08/02/16 08:44 1 APPLN Simvastatin (Zocor Tab) 40 mg HS PO 07/31/16 21:00 08/30/16 20:59 08/01/16 20:40 40 MG Zolpidem Tartrate (Ambien Tab) 5 mg HS PRN PO 07/30/16 21:15 08/29/16 21:14 08/01/16 20:34 5 MG Acetaminophen (Tylenol Tab) 650 mg Q4H PRN PO 07/30/16 21:15 08/29/16 21:14 Al Hydrox/Mg Hydrox/Simethicone (Maalox Max Susp) 15 ml Q4H PRN PO 07/30/16 21:15 08/29/16 21:14 Magnesium Hydroxide (Milk Of Magnesia Susp) 30 ml Q12H PRN PO 07/30/16 21:15 08/29/16 21:14 Ondansetron HCl (Zofran Inj) 4 mg Q6H PRN IV 07/30/16 21:15 08/29/16 21:14 Nitroglycerin 0.4 mg 0.4 mg UD PRN SL 07/30/16 21:15 08/29/16 21:14 Furosemide/Syringe (Lasix Inj/ Syringe) 2 ml @ 4 mls/min TID IV 07/31/16 09:00 08/30/16 08:59 08/02/16 08:43 4 MLS/MIN Miscellaneous (Iv Fluids Completed) 1 ea PRN PRN N/A 07/31/16 02:00 07/31/17 01:59 Warfarin Sodium (Coumadin Tab) 3 mg DAILY@1600 PO 07/31/16 16:00 08/30/16 15:59 08/01/16 19:54 3 MG Potassium Chloride (Klor-Con Tab) 20 meq QAM PO 08/01/16 09:00 08/31/16 08:59 08/02/16 08:37 20 MEQ Morphine Sulfate (MoRPHine SULFATE INJ) 4 mg Q4H PRN IV 07/31/16 13:30 08/14/16 13:29 08/01/16 11:33 4 MG Lab Results: Test 08/02/16 05:30 Prothrombin Time 34.7 SECONDS (9.0-12.0) Prothromb Time International Ratio 3.1 (0.9-1.1)
--- NOTE | 2016-08-02 12:08 | Clinical Documentation Query ---
CLINICAL DOCUMENTATION QUERY Dr. NGUYEN, In your clinical opinion is this patient being managed for: (X ) Acute and chronic respiratory failure with tachypnea, increased work of breathing and O2 sat 87% on 6L-acute phase treated and resolving ( ) Other explanation of clinical findings (Please Explain) ( ) Unable to determine (Please Define) ( ) Need to Discuss ( ) Not Agree The medical record reflects the following clinical findings, treatment, and risk factors. Clinical Indicators: 81 yo female presenting with worsening dyspnea/acute systolic CHF. Upon ER arrival pt was tachypneic (RR 22), hypoxic on 6L (87%) and described as having an increased work of breathing. Subsequent progress notes indicate pt with much less SOB. Treatment: tele, BIPAP/O2 support, IV lasix Risk Factors: age, pulmonary fibrosis, acute systolic CHF, cardiomyopathy, chronic respiratory failure Please clarify and document your clinical opinion in the progress notes and discharge summary. Terms such as "probable", "suspected", "likely", "questionable", "possible", or "still to be ruled out" are acceptable. IF IN AGREEMENT, YOU MUST DOCUMENT ABOVE DIAGNOSTIC STATEMENT IN DAILY PROGRESS NOTES AND DISCHARGE SUMMARY. This document is not part of the patient's record. Thank You, Clara Ayala, RN [phone]
--- NOTE | 2016-08-02 13:05 | Progress Note ---
Subjective Date of Service: August 02, 2016. Subjective Pt evaluation today including: conversation w/ patient, physical exam, chart review, lab review, review of studies, review of inpatient medication list Resting comfortably in bed Breathing improved No cough or worsening swelling No acute events overnight Problem List Medical Problems: (1) Abdominal contusion Status: Acute (2) Abdominal pain Status: Acute (3) Anxiety Status: Acute (4) Anxiety Status: Acute (5) Back contusion Status: Acute (6) Cervical strain Status: Acute (7) Chest pain Status: Acute (8) CHF (congestive heart failure) Status: Chronic (9) Confusion Status: Acute (10) Congestive heart failure Status: Acute (11) Dyspnea Status: Acute (12) Dyspnea Status: Acute (13) Elevated platelet count Status: Acute (14) Fall Status: Acute (15) Fall Status: Acute (16) Generalized weakness Status: Acute (17) Hypoglycemia Status: Acute (18) International normalized ratio (INR) greater than 2 Status: Acute (19) Leukocytosis Status: Acute (20) Lumbar contusion Status: Acute (21) Metastatic breast cancer Status: Acute (22) Peripheral edema Status: Acute (23) Pulmonary edema Status: Acute (24) Rectal bleed Status: Acute (25) Shingles Status: Acute (26) Supratherapeutic INR Status: Acute (27) UTI (urinary tract infection) Status: Acute (28) Weakness Status: Acute (29) Weakness Status: Acute Review of Systems Constitutional: No chills, No fever Respiratory: No cough, No shortness of breath, No sputum, No wheezing Cardiac: No chest pain, No orthopnea Abdomen: No diarrhea, No nausea, No pain, No vomiting Musculoskeletal: No joint pain, No swelling Female : No dysuria, No urinary frequency Psychiatric: No anhedonism, No depression symptoms Objective Vital Signs Date Time Temp Pulse Resp B/P Pulse Ox O2 Delivery O2 Flow Rate FiO2 08/02/16 11:43 36.6 94 18 110/56 96 4.0 08/02/16 08:00 Nasal Cannula 6.0 BiPAP 08/02/16 07:39 36.6 62 20 125/81 96 BiPAP 6.0 08/02/16 05:36 62 96 30 08/02/16 04:33 36.6 90 20 112/69 92 BiPAP 6.0 08/02/16 04:00 BiPAP 6.0 08/02/16 02:47 60 93 30 08/02/16 00:00 BiPAP 6.0 08/01/16 23:06 36.0 66 18 100/55 91 BiPAP 08/01/16 21:22 69 94 30 08/01/16 20:37 77 102/62 08/01/16 20:10 36.5 08/01/16 20:00 Nasal Cannula 6.0 08/01/16 19:32 36.3 68 18 104/70 95 6.0 08/01/16 16:00 97 Nasal Cannula 6.0 08/01/16 15:44 36.3 69 18 95/60 92 Nasal Cannula 6.0 Physical Exam General Appearance: WD/WN, no apparent distress Neck: supple, no adenopathy Respiratory/Chest: lungs clear, normal breath sounds Cardiovascular: no edema, no gallop Abdomen: non tender, soft Neurologic/Psychiatric: alert, oriented x 3 Laboratory Results Last 24 Hours Test 08/02/16 05:30 Prothrombin Time 34.7 SECONDS Prothromb Time International Ratio 3.1 Assessment and Plan 81 y/o F with an extensive medical history including PAF, diastolic CHF, pulmonary fibrosis, breast CA, prediabetes, PE and IVC filter placement, CVA , thrombocytosis. She presents due to worsening SOB over a 2 week period. She reports an 11 pound weight gain over this time. She was recently in the ER due to SOB and treated for CHF exacerbation and released. She denies any CP, productive cough, N/V, dysuria or fevers. The pt wears 02 6L continuous owing to her fibrosis and has not increased her requirements. Acute and chronic respiratory failure with tachypnea, increased work of breathing and O2 sat 87% on 6Lacute phase treated and resolving likely secondary to acute on chronic systolic CHF superimposed on pulmonary fibrosis, chronic respiratory failure on home O2 - LVEF 25-30% on echocardiogram from June 2016 when she was here with her CVA. She reports weight gain but does not have significant LE edema - her CXR is unchanged from recent and is essentially equivocal due to her underlying structural disease. Her proBNP is elevated at 7000 which corresponds with acute systolic CHF. She appears to have responded well to IV Lasix and is diuresing and clinically improved.. -Cont B elizabeth, ARB. -Continue IV Lasix and replace potassium and magnesium as needed, goal diuresis would be 5 L overall which would account for her 11 pound weight gain -Strict I's and O's and daily weights -Consult to cardiology 2) AF - paroxysmal - currently in a sinus rhythm. INR was subtherapeutic on admission and as history of CVA. -Cont with increased dose of Coumadin 3 mg daily, received Lovenox for bridging but now INR is therapeutic -Continue B elizabeth. -Follow INR -Continue on telemetry 3) Recent CVA -stable, with right-sided hemiparesis -Continue Plavix, Statin - anticoagulated with Coumadin however her INR was therapeutic when she had a CVA her CVAs were watershed and related to hypotension 4) Thrombocytosis - stable from previous in the 600-700 K range 5) Breast CA - listed as metastatic - f/u as outpt -Continue anastrozole 6) Seizure disorder -stable, no current issues - cont Keppra 7) prediabetes-hemoglobin A1c was 6.2% last month-no current issues -Glucose checks not indicated 8) osteoporosis-stable no issues -Continue calcium and vitamin D, Xgeva Prophylaxis- Coumadin Full code Disposition-back to long term when medically stable-needs PT/OT haileyals
[2016-08-02] MEDS: ACETAMINOPHEN 325 MG TAB PO PRN (13:33)
[2016-08-02] MEDS: MAGNESIUM HYDROXIDE SUSP 30 ML UDC PO PRN (15:46)
[2016-08-02] MEDS: WARFARIN SOD 3 MG TAB PO SCH (15:48)
[2016-08-02] MEDS: MoRPHine SULFATE 4 MG/ML 1 ML CARP\\VIAL IV PRN (20:43)
[2016-08-02] MEDS: SIMVASTATIN 40 MG TAB PO SCH (20:47)
[2016-08-02] MEDS: ZOLPIDEM TARTRATE 5 MG TAB PO PRN (22:30)
[2016-08-03] VITALS (8 sets, daily range): BP systolic 91–129; BP diastolic 53–76; PULSE 58–65; TEMP 34.8–37; O2SAT 92–99
[2016-08-03] MEDS: LEVETIRACETAM 250 MG TAB PO SCH ×2 (08:05→20:37)
[2016-08-03] MEDS: ALPRAZOLAM 0.25 MG TAB PO SCH ×2 (08:05→20:31)
[2016-08-03] MEDS: POTASSIUM CHLORIDE 20 MEQ TABCR PO SCH (08:07)
[2016-08-03] MEDS: ANASTROZOLE 1 MG TAB PO SCH (08:07)
[2016-08-03] MEDS: CEPHALEXIN MONOHYDRATE 500 MG CAP PO SCH ×4 (08:08→20:31)
[2016-08-03] MEDS: FLUOXETINE HCL 20 MG CAP PO SCH (08:08)
[2016-08-03] MEDS: CHOLECALCIFEROL 1000 INTER.UNIT TAB PO SCH (08:08)
[2016-08-03] MEDS: LOSARTAN POTASSIUM 25 MG TAB PO SCH (08:09)
[2016-08-03] MEDS: CARVEDILOL 3.125 MG TAB PO SCH ×2 (08:10→20:32)
[2016-08-03] MEDS: CLOPIDOGREL BISULFATE 75 MG TAB PO SCH (08:11)
[2016-08-03] MEDS: NYSTATIN POWDER 15GM BTL EXT SCH (08:11)
[2016-08-03] MEDS: FUROSEMIDE INJ 20 MG in SYRINGE 0 ML IV SCH ×3 (08:11→21:16)
[2016-08-03] MEDS: MAGNESIUM HYDROXIDE SUSP 30 ML UDC PO PRN ×2 (08:14→20:36)
[2016-08-03] MEDS: ACETAMINOPHEN 325 MG TAB PO PRN ×2 (08:14→20:36)
--- NOTE | 2016-08-03 15:05 | Progress Note ---
Subjective Date of Service: August 03, 2016. Subjective Pt evaluation today including: conversation w/ patient, conversation w/ family , physical exam, chart review, lab review, review of studies, review of inpatient medication list Pt resting comfortably in bed No distress noted Diuresing well with IV lasix No shortness of breath, no acute events overnight Problem List Medical Problems: (1) Abdominal contusion Status: Acute (2) Abdominal pain Status: Acute (3) Anxiety Status: Acute (4) Anxiety Status: Acute (5) Back contusion Status: Acute (6) Cervical strain Status: Acute (7) Chest pain Status: Acute (8) CHF (congestive heart failure) Status: Chronic (9) Confusion Status: Acute (10) Congestive heart failure Status: Acute (11) Dyspnea Status: Acute (12) Dyspnea Status: Acute (13) Elevated platelet count Status: Acute (14) Fall Status: Acute (15) Fall Status: Acute (16) Generalized weakness Status: Acute (17) Hypoglycemia Status: Acute (18) International normalized ratio (INR) greater than 2 Status: Acute (19) Leukocytosis Status: Acute (20) Lumbar contusion Status: Acute (21) Metastatic breast cancer Status: Acute (22) Peripheral edema Status: Acute (23) Pulmonary edema Status: Acute (24) Rectal bleed Status: Acute (25) Shingles Status: Acute (26) Supratherapeutic INR Status: Acute (27) UTI (urinary tract infection) Status: Acute (28) Weakness Status: Acute (29) Weakness Status: Acute Review of Systems Constitutional: No chills, No fever Respiratory: No cough, No shortness of breath, No sputum, No wheezing Cardiac: No chest pain, No orthopnea Abdomen: No constipation, No diarrhea, No nausea, No pain, No vomiting Musculoskeletal: No joint pain, No muscle pain Female : No dysuria, No urinary frequency Objective Vital Signs Date Time Temp Pulse Resp B/P Pulse Ox O2 Delivery O2 Flow Rate FiO2 08/03/16 12:00 Nasal Cannula 6.0 BiPAP 08/03/16 11:09 36.5 63 18 103/64 99 6.0 08/03/16 08:00 Nasal Cannula 6.0 BiPAP 08/03/16 07:55 36.3 58 18 108/70 97 BiPAP 08/03/16 04:53 34.8 61 20 115/75 94 Nasal Cannula 6.0 5/2/17 04:00 Nasal Cannula 6.0 BiPAP 08/03/16 00:00 Nasal Cannula 6.0 BiPAP 08/02/16 23:44 34.9 63 20 104/63 94 BiPAP 6.0 08/02/16 23:06 68 96 30 08/02/16 20:20 Nasal Cannula 6.0 08/02/16 20:11 36.5 66 18 109/66 95 6.0 08/02/16 16:00 Nasal Cannula 6.0 08/02/16 15:36 36.5 65 18 96/60 97 6.0 Physical Exam General Appearance: WD/WN, no apparent distress Neck: supple, no adenopathy Respiratory/Chest: lungs clear, normal breath sounds Cardiovascular: no gallop, no JVD Abdomen: non tender, soft Neurologic/Psychiatric: alert, oriented x 3 Assessment and Plan 81 y/o F with an extensive medical history including PAF, diastolic CHF, pulmonary fibrosis, breast CA, prediabetes, PE and IVC filter placement, CVA , thrombocytosis. She presents due to worsening SOB over a 2 week period. She reports an 11 pound weight gain over this time. She was recently in the ER due to SOB and treated for CHF exacerbation and released. She denies any CP, productive cough, N/V, dysuria or fevers. The pt wears 02 6L continuous owing to her fibrosis and has not increased her requirements. Acute and chronic respiratory failure with tachypnea, increased work of breathing and O2 sat 87% on 6Lacute phase treated and resolving likely secondary to acute on chronic systolic CHF superimposed on pulmonary fibrosis, chronic respiratory failure on home O2 - LVEF 25-30% on echocardiogram from June 2016 when she was here with her CVA. She reports weight gain but does not have significant LE edema - her CXR is unchanged from recent and is essentially equivocal due to her underlying structural disease. Her proBNP is elevated at 7000 which corresponds with acute systolic CHF. She appears to have responded well to IV Lasix and is diuresing and clinically improved.. -Cont B elizabeth, ARB. -Continue IV Lasix and replace potassium and magnesium as needed, goal diuresis would be 5 L overall which would account for her 11 pound weight gain -Strict I's and O's and daily weights -Consult to cardiology, agreeable with IV diuresis -Likely switch to PO lasix and DC in next 24 hrs 2) AF - paroxysmal - currently in a sinus rhythm. INR was subtherapeutic on admission and as history of CVA. -Cont with increased dose of Coumadin 3 mg daily, received Lovenox for bridging but now INR is therapeutic -Continue B elizabeth. -Follow INR -Continue on telemetry 3) Recent CVA -stable, with right-sided hemiparesis -Continue Plavix, Statin - anticoagulated with Coumadin however her INR was therapeutic when she had a CVA her CVAs were watershed and related to hypotension 4) Thrombocytosis - stable from previous in the 600-700 K range 5) Breast CA - listed as metastatic - f/u as outpt -Continue anastrozole 6) Seizure disorder -stable, no current issues - cont Keppra 7) prediabetes-hemoglobin A1c was 6.2% last month-no current issues -Glucose checks not indicated 8) osteoporosis-stable no issues -Continue calcium and vitamin D, Xgeva Prophylaxis- Coumadin Full code Disposition-back to care home when medically stable-needs PT/OT evals
[2016-08-03] MEDS: WARFARIN SOD 3 MG TAB PO SCH (16:03)
--- NOTE | 2016-08-03 17:57 | Cardiology Follow-Up ---
Subjective Subjective Date of Service: August 03, 2016. Pt evaluation today including: conversation w/ patient, physical exam, chart review, lab review, review of studies, review of inpatient medication list Additional Details: Patient reports continued fatigue. Breathing about the same per patient. Denies any chest pain, palpitations. Telemetry reviewed--no events noted Problem List Medical Problems: (1) Abdominal contusion Status: Acute (2) Abdominal pain Status: Acute (3) Anxiety Status: Acute (4) Anxiety Status: Acute (5) Back contusion Status: Acute (6) Cervical strain Status: Acute (7) Chest pain Status: Acute (8) CHF (congestive heart failure) Status: Chronic (9) Confusion Status: Acute (10) Congestive heart failure Status: Acute (11) Dyspnea Status: Acute (12) Dyspnea Status: Acute (13) Elevated platelet count Status: Acute (14) Fall Status: Acute (15) Fall Status: Acute (16) Generalized weakness Status: Acute (17) Hypoglycemia Status: Acute (18) International normalized ratio (INR) greater than 2 Status: Acute (19) Leukocytosis Status: Acute (20) Lumbar contusion Status: Acute (21) Metastatic breast cancer Status: Acute (22) Peripheral edema Status: Acute (23) Pulmonary edema Status: Acute (24) Rectal bleed Status: Acute (25) Shingles Status: Acute (26) Supratherapeutic INR Status: Acute (27) UTI (urinary tract infection) Status: Acute (28) Weakness Status: Acute (29) Weakness Status: Acute Review of Systems Constitutional: No chills, No fever Respiratory: + shortness of breath, No cough, No sputum, No wheezing Cardiac: No chest pain, No orthopnea Abdomen: No constipation, No diarrhea, No nausea, No pain, No vomiting Musculoskeletal: No joint pain, No muscle pain Female : No dysuria, No urinary frequency Neurologic: + balance problems, + weakness Psychiatric: No anhedonism, No depression symptoms Heme: No abnormal bleeding/bruising Endo: + fatigue Skin: No rash Objective Vital Signs Last Vital Signs Documentation Date Time Temp Pulse Resp B/P Pulse Ox O2 Delivery O2 Flow Rate FiO2 08/03/16 16:10 Nasal Cannula 6.0 08/03/16 15:53 37.0 65 16 97/64 94 08/02/16 23:06 30 Physical Exam: General Appearance: no apparent distress ENT: hearing grossly normal Neck: supple Respiratory/Chest: lungs clear, normal breath sounds Cardiovascular: no gallop, no JVD, + JVD (Approximately 8-9) Abdomen: non tender, soft Extremities: non-tender, no pedal edema, no calf tenderness Neurologic/Psychiatric: alert, oriented x 3 Skin: normal color, warm/dry, no rash Lymphatic: no adenopathy Assessment and Plan 1. Acute on chronic systolic heart failure 2. Recent bilateral watershed CVA -- chronic small intracranial vessel disease; on plavix 3. Paroxysmal AF -- sinus rhythm at present; on chronic anticoagulation with coumadin 4. Pulmonary fibrosis -- on 6L 02 at baseline 5. Breast CA-- on chronic hormonal therapy 6. Hypertension -- stable on current therapy 7. Chronic LBBB 8. Thrombocytosis Negative almost 5 L since admission. She remains well perfused with mild systemic venous congestion on exam. Weight is likely inaccurate. -- agree with continued IV diuretics today and tentative plan for p.o. diuretics tomorrow. -- repeat BMP, electrolytes tomorrow -- continue current ARB/Beta-elizabeth -- Therapeutic on coumadin -- Continue home plavix, statin. Medications: Current Inpatient Medications Medications (Trade) Dose Ordered Sig/Lindsey Route Start Time Stop Time Status Last Admin Dose Admin Alprazolam (Xanax Tab) 0.25 mg BID PO 07/31/16 09:00 08/30/16 08:59 08/03/16 08:05 0.25 MG Anastrozole (Arimidex Tab) 1 mg QAM PO 07/31/16 09:00 08/30/16 08:59 08/03/16 08:07 1 MG Carvedilol (Coreg Tab) 3.125 mg BID PO 07/31/16 09:00 08/30/16 08:59 08/02/16 20:47 3.125 MG Cephalexin Monohydrate (Keflex Cap) 500 mg QID PO 07/31/16 09:00 08/05/16 08:59 08/03/16 16:03 500 MG Cholecalciferol (Vitamin D Tab) 2,000 inter.unit QAM PO 07/31/16 09:00 08/30/16 08:59 08/03/16 08:08 2,000 INTER.UNIT Clopidogrel Bisulfate (plAVix TAB) 75 mg DAILY PO 07/31/16 09:00 08/30/16 08:59 08/03/16 08:11 75 MG Fluoxetine HCl (Prozac Cap) 20 mg QAM PO 07/31/16 09:00 08/30/16 08:59 08/03/16 08:08 20 MG Levetiracetam (Keppra Tab) 250 mg BID PO 07/31/16 09:00 08/30/16 08:59 08/03/16 08:05 250 MG Losartan Potassium (coZAAR TAB) 25 mg DAILY PO 07/31/16 09:00 08/30/16 08:59 08/03/16 08:09 25 MG Nystatin (Mycostatin Powder) 1 appln DAILY EXT 07/31/16 09:00 08/30/16 08:59 08/03/16 08:11 1 APPLN Simvastatin (Zocor Tab) 40 mg HS PO 07/31/16 21:00 08/30/16 20:59 08/02/16 20:47 40 MG Zolpidem Tartrate (Ambien Tab) 5 mg HS PRN PO 07/30/16 21:15 08/29/16 21:14 08/02/16 22:30 5 MG Acetaminophen (Tylenol Tab) 650 mg Q4H PRN PO 07/30/16 21:15 08/29/16 21:14 08/03/16 08:14 650 MG Al Hydrox/Mg Hydrox/Simethicone (Maalox Max Susp) 15 ml Q4H PRN PO 07/30/16 21:15 08/29/16 21:14 Magnesium Hydroxide (Milk Of Magnesia Susp) 30 ml Q12H PRN PO 07/30/16 21:15 08/29/16 21:14 08/03/16 08:14 30 ML Ondansetron HCl (Zofran Inj) 4 mg Q6H PRN IV 07/30/16 21:15 08/29/16 21:14 Nitroglycerin 0.4 mg 0.4 mg UD PRN SL 07/30/16 21:15 08/29/16 21:14 Furosemide/Syringe (Lasix Inj/ Syringe) 2 ml @ 4 mls/min TID IV 07/31/16 09:00 08/30/16 08:59 08/03/16 13:22 4 MLS/MIN Miscellaneous (Iv Fluids Completed) 1 ea PRN PRN N/A 07/31/16 02:00 07/31/17 01:59 Warfarin Sodium (Coumadin Tab) 3 mg DAILY@1600 PO 07/31/16 16:00 08/30/16 15:59 08/03/16 16:03 3 MG Potassium Chloride (Klor-Con Tab) 20 meq QAM PO 08/01/16 09:00 08/31/16 08:59 08/03/16 08:07 20 MEQ Morphine Sulfate (MoRPHine SULFATE INJ) 4 mg Q4H PRN IV 07/31/16 13:30 08/14/16 13:29 08/02/16 20:43 4 MG
[2016-08-03] MEDS: ZOLPIDEM TARTRATE 5 MG TAB PO PRN (20:34)
[2016-08-03] MEDS: SIMVASTATIN 40 MG TAB PO SCH (20:37)
[2016-08-04] VITALS (10 sets, daily range): BP systolic 97–121; BP diastolic 65–82; PULSE 60–91; TEMP 34.7–36.5; O2SAT 95–98
[2016-08-04 07:07] LABS: INR 4.6 (0.9-1.1)
[2016-08-04] MEDS: NYSTATIN POWDER 15GM BTL EXT SCH (08:10)
[2016-08-04] MEDS: CHOLECALCIFEROL 1000 INTER.UNIT TAB PO SCH (08:11)
[2016-08-04] MEDS: LEVETIRACETAM 250 MG TAB PO SCH ×2 (08:12→21:05)
[2016-08-04] MEDS: CEPHALEXIN MONOHYDRATE 500 MG CAP PO SCH ×2 (08:12→14:08)
[2016-08-04] MEDS: CARVEDILOL 3.125 MG TAB PO SCH ×2 (08:12→21:05)
[2016-08-04] MEDS: CLOPIDOGREL BISULFATE 75 MG TAB PO SCH (08:12)
[2016-08-04] MEDS: LOSARTAN POTASSIUM 25 MG TAB PO SCH (08:13)
[2016-08-04] MEDS: POTASSIUM CHLORIDE 20 MEQ TABCR PO SCH (08:13)
[2016-08-04] MEDS: FLUOXETINE HCL 20 MG CAP PO SCH (08:13)
[2016-08-04] MEDS: FUROSEMIDE INJ 20 MG in SYRINGE 0 ML IV SCH ×3 (08:16→21:05)
[2016-08-04] MEDS: ANASTROZOLE 1 MG TAB PO SCH (08:18)
[2016-08-04] MEDS: ACETAMINOPHEN 325 MG TAB PO PRN ×2 (08:27→16:57)
[2016-08-04] MEDS: ALPRAZOLAM 0.25 MG TAB PO SCH ×2 (08:27→21:05)
[2016-08-04] MEDS: WARFARIN SOD 3 MG TAB PO SCH (08:36)
[2016-08-04 08:49] LABS: BUN/CREATININE RATIO 26.9 (10-20); CREATININE 0.74 mg/dl (0.60-1.20)
[2016-08-04 09:25] LABS: CALCIUM 8.6 mg/dl (8.5-10.1)
--- NOTE | 2016-08-04 14:02 | Cardiology Follow-Up ---
Subjective Subjective Date of Service: August 04, 2016. Pt evaluation today including: conversation w/ patient, physical exam, chart review, lab review, review of studies, review of inpatient medication list Additional Details: Breathing improved today. Denies any chest pain overnight. No other new concerns today. Telemetry reviewed no events overnight. Problem List Medical Problems: (1) Abdominal contusion Status: Acute (2) Abdominal pain Status: Acute (3) Anxiety Status: Acute (4) Anxiety Status: Acute (5) Back contusion Status: Acute (6) Cervical strain Status: Acute (7) Chest pain Status: Acute (8) CHF (congestive heart failure) Status: Chronic (9) Confusion Status: Acute (10) Congestive heart failure Status: Acute (11) Dyspnea Status: Acute (12) Dyspnea Status: Acute (13) Elevated platelet count Status: Acute (14) Fall Status: Acute (15) Fall Status: Acute (16) Generalized weakness Status: Acute (17) Hypoglycemia Status: Acute (18) International normalized ratio (INR) greater than 2 Status: Acute (19) Leukocytosis Status: Acute (20) Lumbar contusion Status: Acute (21) Metastatic breast cancer Status: Acute (22) Peripheral edema Status: Acute (23) Pulmonary edema Status: Acute (24) Rectal bleed Status: Acute (25) Shingles Status: Acute (26) Supratherapeutic INR Status: Acute (27) UTI (urinary tract infection) Status: Acute (28) Weakness Status: Acute (29) Weakness Status: Acute Review of Systems Constitutional: No chills, No fever Respiratory: + shortness of breath, No cough, No sputum, No wheezing Cardiac: No chest pain, No orthopnea Abdomen: No constipation, No diarrhea, No nausea, No pain, No vomiting Musculoskeletal: No joint pain, No muscle pain Female : No dysuria, No urinary frequency Neurologic: + balance problems, + weakness Psychiatric: No anhedonism, No depression symptoms Heme: No abnormal bleeding/bruising Endo: + fatigue Skin: No rash Objective Vital Signs Last Vital Signs Documentation Date Time Temp Pulse Resp B/P Pulse Ox O2 Delivery O2 Flow Rate FiO2 08/04/16 12:14 36.4 63 16 97/69 97 Nasal Cannula 4.0 08/04/16 05:14 30 Physical Exam: General Appearance: no apparent distress ENT: hearing grossly normal Neck: supple Respiratory/Chest: lungs clear, normal breath sounds, + crackles (Chronic) Cardiovascular: no gallop, no JVD Abdomen: non tender, soft Extremities: non-tender, no pedal edema, no calf tenderness Neurologic/Psychiatric: alert, oriented x 3 Skin: normal color, warm/dry, no rash Lymphatic: no adenopathy Assessment and Plan 1. Acute on chronic systolic heart failure 2. Recent bilateral watershed CVA -- chronic small intracranial vessel disease; on plavix 3. Paroxysmal AF -- sinus rhythm at present; on chronic anticoagulation with coumadin 4. Pulmonary fibrosis -- on 6L 02 at baseline 5. Breast CA-- on chronic hormonal therapy 6. Hypertension -- stable on current therapy 7. Chronic LBBB 8. Thrombocytosis Negative more than 6 L since admission. Systemic venous congestion improved today on exam. Feel that approaching euvolemic and that weights are likely inaccurate. --can transition to p.o. diuretics today, going forward would plan on 40 mg p.o. daily -- continue current ARB/Beta-elizabeth -- Therapeutic on coumadin -- Continue home plavix, statin. On discharge can follow up with [facility] in the next 2 weeks. Follow up with me in 3 months Medications: Current Inpatient Medications Medications (Trade) Dose Ordered Sig/Lindsey Route Start Time Stop Time Status Last Admin Dose Admin Alprazolam (Xanax Tab) 0.25 mg BID PO 07/31/16 09:00 08/30/16 08:59 08/04/16 08:27 0.25 MG Anastrozole (Arimidex Tab) 1 mg QAM PO 07/31/16 09:00 08/30/16 08:59 08/04/16 08:18 1 MG Carvedilol (Coreg Tab) 3.125 mg BID PO 07/31/16 09:00 08/30/16 08:59 08/04/16 08:12 3.125 MG Cephalexin Monohydrate (Keflex Cap) 500 mg QID PO 07/31/16 09:00 08/05/16 08:59 08/04/16 08:12 500 MG Cholecalciferol (Vitamin D Tab) 2,000 inter.unit QAM PO 07/31/16 09:00 08/30/16 08:59 08/04/16 08:11 2,000 INTER.UNIT Clopidogrel Bisulfate (plAVix TAB) 75 mg DAILY PO 07/31/16 09:00 08/30/16 08:59 08/04/16 08:12 75 MG Fluoxetine HCl (Prozac Cap) 20 mg QAM PO 07/31/16 09:00 08/30/16 08:59 08/04/16 08:13 20 MG Levetiracetam (Keppra Tab) 250 mg BID PO 07/31/16 09:00 08/30/16 08:59 08/04/16 08:12 250 MG Losartan Potassium (coZAAR TAB) 25 mg DAILY PO 07/31/16 09:00 08/30/16 08:59 08/04/16 08:13 25 MG Nystatin (Mycostatin Powder) 1 appln DAILY EXT 07/31/16 09:00 08/30/16 08:59 08/04/16 08:10 1 APPLN Simvastatin (Zocor Tab) 40 mg HS PO 07/31/16 21:00 08/30/16 20:59 08/03/16 20:37 40 MG Zolpidem Tartrate (Ambien Tab) 5 mg HS PRN PO 07/30/16 21:15 08/29/16 21:14 08/03/16 20:34 5 MG Acetaminophen (Tylenol Tab) 650 mg Q4H PRN PO 07/30/16 21:15 08/29/16 21:14 08/04/16 08:27 650 MG Al Hydrox/Mg Hydrox/Simethicone (Maalox Max Susp) 15 ml Q4H PRN PO 07/30/16 21:15 08/29/16 21:14 Magnesium Hydroxide (Milk Of Magnesia Susp) 30 ml Q12H PRN PO 07/30/16 21:15 08/29/16 21:14 08/03/16 20:36 30 ML Ondansetron HCl (Zofran Inj) 4 mg Q6H PRN IV 07/30/16 21:15 08/29/16 21:14 Nitroglycerin 0.4 mg 0.4 mg UD PRN SL 07/30/16 21:15 08/29/16 21:14 Furosemide/Syringe (Lasix Inj/ Syringe) 2 ml @ 4 mls/min TID IV 07/31/16 09:00 08/30/16 08:59 08/04/16 08:16 4 MLS/MIN Miscellaneous (Iv Fluids Completed) 1 ea PRN PRN N/A 07/31/16 02:00 07/31/17 01:59 Potassium Chloride (Klor-Con Tab) 20 meq QAM PO 08/01/16 09:00 08/31/16 08:59 08/04/16 08:13 20 MEQ Morphine Sulfate (MoRPHine SULFATE INJ) 4 mg Q4H PRN IV 07/31/16 13:30 08/14/16 13:29 08/02/16 20:43 4 MG Loperamide HCl (Imodium Cap) 2 mg Q4 PRN PO 08/04/16 09:45 09/03/16 09:44 Lab Results: 08/04/16 06:21 Test 08/04/16 06:21 Prothrombin Time 52.0 SECONDS (9.0-12.0) Prothromb Time International Ratio 4.6 (0.9-1.1) Anion Gap 4.0 mmol/L (3-11) Est Creatinine Clear Calc Drug Dose 59.2 ml/min Estimated GFR () 86.8 Estimated GFR (Non- 74.9 BUN/Creatinine Ratio 26.9 (10-20) Calcium Level 8.6 mg/dl (8.5-10.1)
--- NOTE | 2016-08-04 15:31 | Progress Note ---
Subjective Date of Service: August 04, 2016. Subjective Pt evaluation today including: conversation w/ patient, physical exam, chart review, lab review, review of studies, review of inpatient medication list Problem List Medical Problems: (1) Abdominal contusion Status: Acute (2) Abdominal pain Status: Acute (3) Anxiety Status: Acute (4) Anxiety Status: Acute (5) Back contusion Status: Acute (6) Cervical strain Status: Acute (7) Chest pain Status: Acute (8) CHF (congestive heart failure) Status: Chronic (9) Confusion Status: Acute (10) Congestive heart failure Status: Acute (11) Dyspnea Status: Acute (12) Dyspnea Status: Acute (13) Elevated platelet count Status: Acute (14) Fall Status: Acute (15) Fall Status: Acute (16) Generalized weakness Status: Acute (17) Hypoglycemia Status: Acute (18) International normalized ratio (INR) greater than 2 Status: Acute (19) Leukocytosis Status: Acute (20) Lumbar contusion Status: Acute (21) Metastatic breast cancer Status: Acute (22) Peripheral edema Status: Acute (23) Pulmonary edema Status: Acute (24) Rectal bleed Status: Acute (25) Shingles Status: Acute (26) Supratherapeutic INR Status: Acute (27) UTI (urinary tract infection) Status: Acute (28) Weakness Status: Acute (29) Weakness Status: Acute Review of Systems Constitutional: + fatigue, + weakness, No chills, No fever Respiratory: No cough, No sputum, No wheezing Cardiac: No chest pain, No orthopnea Abdomen: + diarrhea, No nausea, No pain Musculoskeletal: No joint pain, No muscle pain Female : No dysuria, No urinary frequency Objective Vital Signs Date Time Temp Pulse Resp B/P Pulse Ox O2 Delivery O2 Flow Rate FiO2 08/04/16 12:14 36.4 63 16 97/69 97 Nasal Cannula 4.0 08/04/16 12:00 Nasal Cannula 6.0 08/04/16 08:00 98 Nasal Cannula 6.0 08/04/16 07:26 36.4 61 18 118/75 98 Nasal Cannula 4.0 08/04/16 05:29 34.7 60 20 116/71 97 BiPAP 6.0 08/04/16 05:14 60 98 30 08/04/16 04:00 Nasal Cannula 6.0 BiPAP 08/04/16 02:18 91 95 30 08/04/16 00:00 Nasal Cannula 6.0 BiPAP 08/03/16 23:54 36.6 64 18 98/64 92 CPAP 08/03/16 22:02 61 96 30 08/03/16 21:53 Nasal Cannula 6.0 08/03/16 19:46 36.4 63 16 91/53 96 Nasal Cannula 5.0 08/03/16 16:10 Nasal Cannula 6.0 08/03/16 15:53 37.0 65 16 97/64 94 Room Air Physical Exam General Appearance: WD/WN, + mild distress Neck: supple, no adenopathy Respiratory/Chest: lungs clear, normal breath sounds Cardiovascular: no edema, no gallop Abdomen: non tender, soft Neurologic/Psychiatric: alert, normal mood/affect Laboratory Results Last 24 Hours Test 08/04/16 06:21 Prothrombin Time 52.0 SECONDS Prothromb Time International Ratio 4.6 Sodium Level 139 mmol/L Potassium Level 5.0 mmol/L Chloride Level 102 mmol/L Carbon Dioxide Level 33 mmol/L Anion Gap 4.0 mmol/L Blood Urea Nitrogen 20 mg/dl Creatinine 0.74 mg/dl Est Creatinine Clear Calc Drug Dose 59.2 ml/min Estimated GFR () 86.8 Estimated GFR (Non- 74.9 BUN/Creatinine Ratio 26.9 Random Glucose 95 mg/dl Calcium Level 8.6 mg/dl Assessment and Plan 81 y/o F with an extensive medical history including PAF, diastolic CHF, pulmonary fibrosis, breast CA, prediabetes, PE and IVC filter placement, CVA , thrombocytosis. She presents due to worsening SOB over a 2 week period. She reports an 11 pound weight gain over this time. She was recently in the ER due to SOB and treated for CHF exacerbation and released. She denies any CP, productive cough, N/V, dysuria or fevers. The pt wears 02 6L continuous owing to her fibrosis and has not increased her requirements. Acute and chronic respiratory failure with tachypnea, increased work of breathing and O2 sat 87% on 6Lacute phase treated and resolving likely secondary to acute on chronic systolic CHF superimposed on pulmonary fibrosis, chronic respiratory failure on home O2 - LVEF 25-30% on echocardiogram from June 2016 when she was here with her CVA. She reports weight gain but does not have significant LE edema - her CXR is unchanged from recent and is essentially equivocal due to her underlying structural disease. Her proBNP is elevated at 7000 which corresponds with acute systolic CHF. She appears to have responded well to IV Lasix and is diuresing and clinically improved.. -Cont B elizabeth, ARB. -Continue IV Lasix and replace potassium and magnesium as needed, goal diuresis would be 5 L overall which would account for her 11 pound weight gain -Strict I's and O's and daily weights -Consult to cardiology, agreeable with IV diuresis -Likely switch to PO lasix and DC in next 24 hrs Diarrhea Will check C diff and stool cx Loperamide PRN AF - paroxysmal - currently in a sinus rhythm. INR was subtherapeutic on admission and as history of CVA. -Cont with increased dose of Coumadin 3 mg daily, received Lovenox for bridging but now INR is therapeutic -Continue B elizabeth. -Follow INR -Continue on telemetry Recent CVA -stable, with right-sided hemiparesis -Continue Plavix, Statin - anticoagulated with Coumadin however her INR was therapeutic when she had a CVA her CVAs were watershed and related to hypotension Thrombocytosis - stable from previous in the 600-700 K range Breast CA - listed as metastatic - f/u as outpt -Continue anastrozole Seizure disorder -stable, no current issues - cont Keppra Prediabetes-hemoglobin A1c was 6.2% last month-no current issues -Glucose checks not indicated Osteoporosis-stable no issues -Continue calcium and vitamin D, Xgeva Prophylaxis- Coumadin Full code Disposition-back to [facility] when medically stable-needs PT/OT haileyals
[2016-08-04] MEDS: LOPERAMIDE HCL 2 MG CAP PO PRN ×2 (16:56→17:58)
[2016-08-04] MEDS: MoRPHine SULFATE 4 MG/ML 1 ML CARP\\VIAL IV PRN (19:33)
[2016-08-04] MEDS: SIMVASTATIN 40 MG TAB PO SCH (21:05)
[2016-08-05] VITALS (10 sets, daily range): BP systolic 106–136; BP diastolic 68–80; PULSE 59–127; TEMP 36.3–36.9; O2SAT 93–98
[2016-08-05] MEDS: NYSTATIN POWDER 15GM BTL EXT SCH (08:19)
[2016-08-05] MEDS: ANASTROZOLE 1 MG TAB PO SCH (08:20)
[2016-08-05] MEDS: ALPRAZOLAM 0.25 MG TAB PO SCH ×2 (08:21→20:51)
[2016-08-05] MEDS: CHOLECALCIFEROL 1000 INTER.UNIT TAB PO SCH (08:21)
[2016-08-05] MEDS: LOSARTAN POTASSIUM 25 MG TAB PO SCH (08:21)
[2016-08-05] MEDS: POTASSIUM CHLORIDE 20 MEQ TABCR PO SCH (08:22)
[2016-08-05] MEDS: FLUOXETINE HCL 20 MG CAP PO SCH (08:22)
[2016-08-05] MEDS: CLOPIDOGREL BISULFATE 75 MG TAB PO SCH (08:22)
[2016-08-05] MEDS: LEVETIRACETAM 250 MG TAB PO SCH ×2 (08:23→20:51)
[2016-08-05] MEDS: CARVEDILOL 3.125 MG TAB PO SCH ×2 (08:23→20:51)
[2016-08-05] MEDS: FUROSEMIDE 40 MG TAB PO SCH (08:28)
[2016-08-05 09:01] LABS: PROTHROMBIN TIME (PATIENT) 46.1 SECONDS (9.0-12.0)
[2016-08-05 09:07] LABS: INR 4.1 (0.9-1.1)
--- NOTE | 2016-08-05 10:48 | Progress Note ---
Subjective Date of Service: August 05, 2016. Subjective Pt evaluation today including: conversation w/ patient, physical exam, chart review, lab review, review of studies, review of inpatient medication list Pt resting comfortably in bed Feels weak and fatigued States constipation for past couple days No other concerns addressed Problem List Medical Problems: (1) Abdominal contusion Status: Acute (2) Abdominal pain Status: Acute (3) Anxiety Status: Acute (4) Anxiety Status: Acute (5) Back contusion Status: Acute (6) Cervical strain Status: Acute (7) Chest pain Status: Acute (8) CHF (congestive heart failure) Status: Chronic (9) Confusion Status: Acute (10) Congestive heart failure Status: Acute (11) Dyspnea Status: Acute (12) Dyspnea Status: Acute (13) Elevated platelet count Status: Acute (14) Fall Status: Acute (15) Fall Status: Acute (16) Generalized weakness Status: Acute (17) Hypoglycemia Status: Acute (18) International normalized ratio (INR) greater than 2 Status: Acute (19) Leukocytosis Status: Acute (20) Lumbar contusion Status: Acute (21) Metastatic breast cancer Status: Acute (22) Peripheral edema Status: Acute (23) Pulmonary edema Status: Acute (24) Rectal bleed Status: Acute (25) Shingles Status: Acute (26) Supratherapeutic INR Status: Acute (27) UTI (urinary tract infection) Status: Acute (28) Weakness Status: Acute (29) Weakness Status: Acute Review of Systems Constitutional: No chills, No fever Respiratory: No cough, No shortness of breath, No sputum, No wheezing Cardiac: No chest pain, No orthopnea Abdomen: + constipation, No diarrhea, No nausea, No pain, No vomiting Musculoskeletal: No joint pain, No muscle pain Female : No dysuria, No urinary frequency Psychiatric: No anxiety, No depression symptoms Objective Vital Signs Date Time Temp Pulse Resp B/P Pulse Ox O2 Delivery O2 Flow Rate FiO2 08/05/16 07:05 36.3 61 18 118/76 98 Room Air 08/05/16 04:26 36.6 59 18 136/76 94 CPAP 08/05/16 04:00 Nasal Cannula 6.0 08/05/16 00:00 BiPAP 6.0 08/04/16 22:19 69 96 30 08/04/16 21:00 121/82 08/04/16 20:00 Nasal Cannula 6.0 08/04/16 19:32 36.5 64 20 102/65 95 Nasal Cannula 6.0 08/04/16 16:03 35.8 65 20 104/70 96 Nasal Cannula 4.0 08/04/16 16:00 Nasal Cannula 6.0 08/04/16 12:14 36.4 63 16 97/69 97 Nasal Cannula 4.0 08/04/16 12:00 Nasal Cannula 6.0 Physical Exam General Appearance: WD/WN, no apparent distress Neck: supple, no adenopathy Respiratory/Chest: lungs clear, normal breath sounds Cardiovascular: no gallop, no JVD Abdomen: non tender, soft Neurologic/Psychiatric: alert, oriented x 3 Laboratory Results Last 24 Hours Test 08/05/16 08:33 Prothrombin Time 46.1 SECONDS Prothromb Time International Ratio 4.1 Assessment and Plan 81 y/o F with an extensive medical history including PAF, diastolic CHF, pulmonary fibrosis, breast CA, prediabetes, PE and IVC filter placement, CVA , thrombocytosis. She presents due to worsening SOB over a 2 week period. She reports an 11 pound weight gain over this time. She was recently in the ER due to SOB and treated for CHF exacerbation and released. She denies any CP, productive cough, N/V, dysuria or fevers. The pt wears 02 6L continuous owing to her fibrosis and has not increased her requirements. Acute and chronic respiratory failure with tachypnea, increased work of breathing and O2 sat 87% on 6Lacute phase treated and resolving likely secondary to acute on chronic systolic CHF superimposed on pulmonary fibrosis, chronic respiratory failure on home O2 - LVEF 25-30% on echocardiogram from June 2016 when she was here with her CVA. She reports weight gain but does not have significant LE edema - her CXR is unchanged from recent and is essentially equivocal due to her underlying structural disease. Her proBNP is elevated at 7000 which corresponds with acute systolic CHF. She appears to have responded well to IV Lasix and is diuresing and clinically improved.. -Cont B elizabeth, ARB. -Continue IV Lasix and replace potassium and magnesium as needed, goal diuresis would be 5 L overall which would account for her 11 pound weight gain -Strict I's and O's and daily weights -Consult to cardiology, improved with IV diuresis, converted to PO lasix 40 mg PO on 08/05 Diarrhea resolved Will check C diff and stool cx Loperamide PRN AF - paroxysmal - currently in a sinus rhythm. INR was subtherapeutic on admission and as history of CVA. -Cont with increased dose of Coumadin 3 mg daily, received Lovenox for bridging but now INR is therapeutic -Continue B elizabeth. -Follow INR -Continue on telemetry Recent CVA -stable, with right-sided hemiparesis -Continue Plavix, Statin - anticoagulated with Coumadin however her INR was therapeutic when she had a CVA her CVAs were watershed and related to hypotension Thrombocytosis - stable from previous in the 600-700 K range Breast CA - listed as metastatic - f/u as outpt -Continue anastrozole Seizure disorder -stable, no current issues - cont Keppra Prediabetes-hemoglobin A1c was 6.2% last month-no current issues -Glucose checks not indicated Osteoporosis-stable no issues -Continue calcium and vitamin D, Xgeva Prophylaxis- Coumadin Full code [facility]-likely on 08/06
[2016-08-05] MEDS ORDERED: POLYETHYLENE (MIRALAX) 17 GM PACK PO ONE (11:00)
[2016-08-05] MEDS: ACETAMINOPHEN 325 MG TAB PO PRN (19:23)
[2016-08-05] MEDS: SIMVASTATIN 40 MG TAB PO SCH (20:51)
[2016-08-06 03:30] VITALS: BP 125/72; PULSE 62; TEMP 36.5; O2SAT 98
[2016-08-06 05:58] LABS: PROTHROMBIN TIME (PATIENT) 42.7 SECONDS (9.0-12.0)
[2016-08-06 06:05] LABS: INR 3.8 (0.9-1.1)
[2016-08-06 07:08] VITALS: BP 128/80; PULSE 62; TEMP 36.3; O2SAT 97
[2016-08-06 08:00] VITALS: O2SAT 97
[2016-08-06] MEDS: CLOPIDOGREL BISULFATE 75 MG TAB PO SCH (08:13)
[2016-08-06] MEDS: LOSARTAN POTASSIUM 25 MG TAB PO SCH (08:14)
[2016-08-06] MEDS: FLUOXETINE HCL 20 MG CAP PO SCH (08:15)
[2016-08-06] MEDS: FUROSEMIDE 40 MG TAB PO SCH (08:15)
[2016-08-06] MEDS: POTASSIUM CHLORIDE 20 MEQ TABCR PO SCH (08:15)
[2016-08-06] MEDS: LEVETIRACETAM 250 MG TAB PO SCH (08:15)
[2016-08-06] MEDS: CARVEDILOL 3.125 MG TAB PO SCH (08:20)
[2016-08-06] MEDS: CHOLECALCIFEROL 1000 INTER.UNIT TAB PO SCH (08:20)
[2016-08-06] MEDS: ANASTROZOLE 1 MG TAB PO SCH (08:24)
[2016-08-06] MEDS: NYSTATIN POWDER 15GM BTL EXT SCH (08:26)
[2016-08-06] MEDS: ALPRAZOLAM 0.25 MG TAB PO SCH (08:26)
[2016-08-06] MEDS ORDERED: POLYETHYLENE (MIRALAX) 17 GM PACK PO SCH (09:00)
[2016-08-06] MEDS ORDERED: LSX40 PO (10:31)
--- NOTE | 2016-08-06 10:36 | Discharge Instructions ---
Discharge Instructions Date of Service August 06, 2016. Admission Reason for Admission: Chf Exacerbation Discharge Discharge Diagnosis / Problem: acute on chronic respiratory failure, acute on chronic systolic CHF exab Discharge Goals Goal(s): Decrease discomfort, Improve function, Increase independence, Improve disease control, Learn about illness, Diagnostic testing, Therapeutic intervention Activity Recommendations Activity Limitations: resume your previous activity Exercise/Sports Limitations: none Shower/Bathe: no limitations . Instructions / Follow-Up Instructions / Follow-Up [facility] Please note increase in lasix on discharge to 40 mg once daily, prescription sent to pharmacy Please hold coumadin and recheck PT/INR on tuesday or tuesday prior to resuming medication No further changes in medications If worsening fevers, chills, swelling, shortness of breath or chest pain, please report to ER Current Hospital Diet Patient's current hospital diet: AHA Diet (Heart Healthy), Low Sodium Diet (2gm Na) Discharge Diet Recommended Diet: AHA Diet (Heart Healthy), Low Sodium Diet (2gm Na) Pending Studies Studies pending at discharge: no Laboratory Results Hemoglobin A1c Test 06/09/16 14:28 Range/Units Estimated Average Glucose 131 mg/dl Hemoglobin A1c 6.2 H 4.5-5.6 % Lipid Panel Test 06/10/16 02:55 Range/Units Triglycerides Level 39 0-150 mg/dl Cholesterol Level 111 0-200 mg/dl HDL Cholesterol 44 mg/dl Cholesterol/HDL Ratio 2.5 LDL Cholesterol, Calculated 59 mg/dl Medical Emergencies . Who to Call and When: Medical Emergencies: If at any time you feel your situation is an emergency, please call 911 immediately. . Non-Emergent Contact Non-Emergency issues call your: Primary Care Provider Call Non-Emergent contact if: you have a fever, your pain is worsening . . "Provider Documentation" section prepared by [employer]. . VTE Core Measure Inpt VTE Proph given/why not?: Warfarin (Coumadin)
[2016-08-06 11:46] VITALS: BP 118/74; PULSE 60; TEMP 36.4; O2SAT 99
--- NOTE | 2016-08-06 14:15 | Discharge Summary ---
Discharge Summary Date of Service August 06, 2016. Discharge Summary Admission Date: Jul 31, 2016 at 09:33 Discharge Date: August 06, 2016 Discharge Disposition: Rehab ([facility]) Principal Diagnosis: Acute CHF exacerbation Problems/Secondary Diagnoses: (1) CHF (congestive heart failure) Status: Chronic Immunizations: Have You Had Influenza Vaccine: Yes Influenza Vaccine Date: Jan 23, 2009 History of Tetanus Vaccine?: Unknown Tetanus Immunization Date: May 26, 2005 History of Pneumococcal: Yes Pneumococcal Date: May 26, 2006 History of Hepatitis B Vaccine: No Consultations: Cardiology Medication Reconciliation New Medications: Furosemide (Furosemide) 40 Mg Tab 40 MG PO QAM for 30 Days, #30 TAB Continued Medications: Acetaminophen (Tylenol) 325 Mg Tab 500 MG PO BID, TAB Alprazolam (Xanax) 0.25 Mg Tab 0.25 MG PO BID, TAB Anastrozole (Anastrozole) 1 Mg Tab 1 MG PO QAM, TAB Calcium Citrate-Vitamin D (Calcium Citrate/Vitamin D) 1 Tab Tab 1 TAB PO BID Carvedilol (Coreg) 3.125 Mg Tab 1 TAB PO BID, TAB Cholecalciferol (Vitamin D3) 1,000 Unit Tab 2000 INTER.UNIT PO QAM Clopidogrel (Plavix) 75 Mg Tab 75 MG PO DAILY, TAB Denosumab (Xgeva) 120 Mg/1.7 Ml Inj Unknown Dose SQ MONTHLY for OSTEOPOROSIS INJECTION ONCE MONTHLY WITH HEM/ONC Fluoxetine (Prozac) 20 Mg Cap 20 MG PO QAM, CAP Levetiractam (Keppra) 250 Mg Tab 250 MG PO BID Losartan Potassium (Losartan Potassium) 25 Mg Tab 25 MG PO DAILY, #30 Nystatin (Topical) (Nystop) 100,000 Unit/Gm Pow 1 APPLN TOP DAILY, #30 Oxygen (Oxygen) Gas 6 LITERS NA CONTINOUS Simvastatin (Simvastatin) 40 Mg Tab 40 MG PO HS Zolpidem Tartrate (Ambien) 5 Mg Tab 5 MG PO HS PRN for Sleep, TAB Discontinued Medications: Cephalexin Monohydrate (Keflex) 500 Mg Cap 500 MG PO QID, #28 CAP Furosemide (Lasix) 20 Mg Tab 20 MG PO DAILY PRN for PRN, TAB Warfarin Sod (Jantoven) 2 Mg Tab 2 MG PO 6XWK, #35 TAKE 2MG EVERYDAY EXCEPT TUESDAY Discharge Exam Review of Systems: Constitutional: + weakness, No chills, No fever Respiratory: No cough, No sputum Cardiovascular: No chest pain, No orthopnea Abdomen: No nausea, No pain, No vomiting Musculoskeletal: No joint pain, No muscle pain Genitourinary - Female: No dysuria, No urinary frequency, No urinary urgency Psychiatric: No anxiety, No depression symptoms Physical Exam: General Appearance: WD/WN, no apparent distress Neck: supple, no adenopathy Respiratory/Chest: lungs clear, normal breath sounds Cardiovascular: no edema, no gallop Abdomen / GI: non tender, soft Neurologic/Psychiatric: alert, oriented x 3 Hospital Course 81 y/o F with an extensive medical history including PAF, diastolic CHF, pulmonary fibrosis, breast CA, prediabetes, PE and IVC filter placement, CVA , thrombocytosis. She presents due to worsening SOB over a 2 week period. She reports an 11 pound weight gain over this time. She was recently in the ER due to SOB and treated for CHF exacerbation and released. She denies any CP, productive cough, N/V, dysuria or fevers. The pt wears 02 6L continuous owing to her fibrosis and has not increased her requirements. Acute and chronic respiratory failure with tachypnea, increased work of breathing and O2 sat 87% on 6Lacute phase treated and resolving likely secondary to acute on chronic systolic CHF superimposed on pulmonary fibrosis, chronic respiratory failure on home O2 - LVEF 25-30% on echocardiogram from June 2016 when she was here with her CVA. She reports weight gain but does not have significant LE edema - her CXR is unchanged from recent and is essentially equivocal due to her underlying structural disease. Her proBNP is elevated at 7000 which corresponds with acute systolic CHF. She appears to have responded well to IV Lasix and is diuresing and clinically improved.. -Cont B elizabeth, ARB. -Continue IV Lasix and replace potassium and magnesium as needed, goal diuresis would be 5 L overall which would account for her 11 pound weight gain -Strict I's and O's and daily weights -Consult to cardiology, improved with IV diuresis, converted to PO lasix 40 mg PO on 08/05 Diarrhea resolved C diff and stool cx neg Loperamide PRN AF - paroxysmal - currently in a sinus rhythm. INR was subtherapeutic on admission and as history of CVA. -Coumadin initially increased to 3 mg however INR became supratherapeutic, coumadin on hold until recheck on tuesday. -Continue B elizabeth. -Follow INR -Continue on telemetry Recent CVA -stable, with right-sided hemiparesis -Continue Plavix, Statin - anticoagulated with Coumadin however her INR was therapeutic when she had a CVA her CVAs were watershed and related to hypotension Thrombocytosis - stable from previous in the 600-700 K range Breast CA - listed as metastatic - f/u as outpt -Continue anastrozole Seizure disorder -stable, no current issues - cont Keppra Prediabetes-hemoglobin A1c was 6.2% last month-no current issues -Glucose checks not indicated Osteoporosis-stable no issues -Continue calcium and vitamin D, Xgeva Prophylaxis- Coumadin Full code Disposition-back to [facility] when medically stable-likely on 08/06 Total Time Spent: Greater than 30 minutes This includes examination of the patient, discharge planning, medication reconciliation, and communication with other providers. Discharge Instructions Please refer to the electronic Patient Visit Report (Discharge Instructions) for additional information.
[2016-08-06 15:16] VITALS: BP 96/57; PULSE 65; TEMP 36.4; O2SAT 96
[2016-09-08] MEDS ORDERED: ALBINS INH (08:53)
[2016-09-08] MEDS ORDERED: NYSS5 MT (08:53)
[2016-09-08] MEDS ORDERED: IPRASOL4 INH (08:53)
[2016-09-08] MEDS ORDERED: AMOX1TAB43 PO (08:53)
[2016-09-08] MEDS ORDERED: PRD20 PO (09:02)
[2016-09-08] MEDS ORDERED: ALPR0.25 PO (16:54)
== END 2016-08-06 16:20 | DRG 291 ==
LOC: ENRESERVDT → ENRESERVTM → C.EDB 15:04 → C.MED 21:23 → OBSVTOIN 07-31 09:33
PROVIDERS: ADMIT Internal Medicine; ATTEND Hospitalist
DX: I50.33 Acute on chronic diastolic (congestive) heart failure (principal); J96.20 Acute and chronic respiratory failure, unspecified whether with hypoxia or hypercapnia; I42.0 Dilated cardiomyopathy; I27.82 Chronic pulmonary embolism; B02.29 Other postherpetic nervous system involvement; G40.109 Localization-related (focal) (partial) symptomatic epilepsy and epileptic syndromes with simple partial seizures, not intractable, without status epilepticus; I69.351 Hemiplegia and hemiparesis following cerebral infarction affecting right dominant side; I48.0 Paroxysmal atrial fibrillation; J84.10 Pulmonary fibrosis, unspecified; E11.9 Type 2 diabetes mellitus without complications; F32.9 Major depressive disorder, single episode, unspecified; F41.9 Anxiety disorder, unspecified; M19.90 Unspecified osteoarthritis, unspecified site; Z99.81 Dependence on supplemental oxygen; I25.10 Atherosclerotic heart disease of native coronary artery without angina pectoris; E03.9 Hypothyroidism, unspecified; E78.5 Hyperlipidemia, unspecified; N32.9 Bladder disorder, unspecified; I44.7 Left bundle-branch block, unspecified; E78.00 Pure hypercholesterolemia, unspecified; M81.0 Age-related osteoporosis without current pathological fracture; D47.3 Essential (hemorrhagic) thrombocythemia; R19.7 Diarrhea, unspecified; K59.00 Constipation, unspecified; M54.32 Sciatica, left side; Z79.899 Other long term (current) drug therapy; Z79.01 Long term (current) use of anticoagulants; Z82.49 Family history of ischemic heart disease and other diseases of the circulatory system; Z85.3 Personal history of malignant neoplasm of breast; Z87.440 Personal history of urinary (tract) infections; Z96.611 Presence of right artificial shoulder joint; Z96.643 Presence of artificial hip joint, bilateral; Z90.12 Acquired absence of left breast and nipple; Z80.9 Family history of malignant neoplasm, unspecified; Z83.3 Family history of diabetes mellitus; Z83.6 Family history of other diseases of the respiratory system; Z82.3 Family history of stroke; N39.0 Urinary tract infection, site not specified; R60.9 Edema, unspecified; Z86.711 Personal history of pulmonary embolism; I10 Essential (primary) hypertension; Z79.02 Long term (current) use of antithrombotics/antiplatelets

== ENCOUNTER 2016-08-25 10:54 | Inpatient (IN) | payer OTHER ==
[~2016-08-25] VITALS: Ht 160 cm; Wt 83.6 kg
[2016-08-25] VITALS (7 sets, daily range): BP systolic 101–123; BP diastolic 52–69; PULSE 65–70; TEMP 36.6–36.8; O2SAT 94–97; Ht 160 cm; Wt 83.6 kg
[~2016-08-25 10:54] MED LIST changes: -CEPH500C2 PO; -FURO-85 PO; +LSX40 PO; -WARF-285 PO
--- NOTE | 2016-08-25 11:33 | EMERGENCY ROOM VISIT NOTE ---
History Report prepared by Christiano: Alphonso Preciado Under the Supervision of: Dr. Abdirashid Vance D.O. First contact with patient: 11:25 Chief Complaint: SHORTNESS OF BREATH Stated Complaint: SHORTNESS OF BREATH Nursing Triage Summary: Patient presents via ALS ambulance to room C03 with c/o increased shortness of breath Patient is currently at [facility] continuing rehabilitation post stroke, was just admitted to [facility] a few days ago - prior to this she was at [facility] Patient reports that she began feeling cough, short of breath, and fatigued within the last two days Reports she saw her PCP yesterday for symptoms Per EMS report, SOB began 30 minutes prior to arrival of EMS Oxygen saturation at their arrival in the 70s% - reportedly there was a problem with the oxygen distributor History of Present Illness The patient is an 81 year old female who presents to the Emergency Room via EMS from [facility] with complaints of worsening shortness of breath that started 2 days ago. The patient says that she has been seen here many times for similar symptoms. She notes that she was coughing a lot last night and her legs have been more swollen than usual. The patient says that she coughs a lot with eating , but denies any problems with aspiration. She normally wears 6 liters of oxygen. The patient is currently at [facility] continuing rehabilitation post- stroke. The patient was at [facility] prior to being at [facility]. She saw her primary care physician yesterday for her symptoms. Per EMS, the patient had 70% oxygen saturation on their arrival. She is on a blood thinner. Source of History: patient, EMS Onset: 2 days ago Position: other (global - shortness of breath) Timing: worsening Associated Symptoms: + cough (worsened with eating) Note: Associated symptoms: Legs more swollen than usual. 70% oxygen saturation upon EMS arrival. Denies problems with aspiration. Review of Systems See HPI for pertinent positives & negatives. A total of 10 systems reviewed and were otherwise negative. 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 (13) CVA (cerebral vascular accident) (14) Depression (15) Diastolic CHF (16) Focal epilepsy (17) GI bleed (18) HTN (hypertension) (19) HYPERLIPIDEMIA NEC/NOS (20) HYPERTENSION NOS (21) Hypothyroidism (22) HYPOTHYROIDISM NOS (23) LBBB (left bundle branch block) (24) Osteoporosis (25) Overdose (26) Pulmonary fibrosis (27) Shingles Surgical Problems: (1) H/O lumpectomy (2) History of knee replacement Family History Cancer Diabetes mellitus FHx: stroke Heart disease Hypertension Lung disease Social History Smoking Status: Former Smoker Alcohol Use: occasionally Drug Use: none Marital Status: Housing Status: lives alone Occupation Status: retired Current/Historical Medications Scheduled Alprazolam (Xanax), 0.25 MG PO BID Anastrozole (Anastrozole), 1 MG PO QAM Calcium Carbonate-Cholecalcife (Oyster Shell Calcium Plus 500-200 mg-Unit), 1 TAB PO BID Calcium Citrate-Vitamin D (Calcium Citrate/Vitamin D), 1 TAB PO BID Carvedilol (Coreg), 1 TAB PO BID Clopidogrel (Plavix), 75 MG PO DAILY Fluoxetine (Prozac), 20 MG PO QAM Fluticasone Propionate (Nasal) (Allergy Nasal [place] 24 Ho), 2 SPRAYS NA DAILY Furosemide (Furosemide), 40 MG PO QAM Levetiractam (Keppra), 250 MG PO BID Losartan Potassium (Losartan Potassium), 25 MG PO DAILY Oxygen (Oxygen), 6 LITERS NA CONTINOUS Saline (Saline Mist), 4 SPRAYS JENNIE QID Sennosides-Docusate Sodium (Doc-Q-Lax), 1 TAB PO BID Sennosides-Docusate Sodium (Sennalax-S), 1 TAB PO DAILY Simvastatin (Simvastatin), 40 MG PO HS Starch (Thickening) (Thick-It #2), 1 DOSE PO TID Warfarin Sod (Jantoven), 2 MG PO DAILY Scheduled PRN Acetaminophen (Tylenol), 500 MG PO Q4H PRN for Pain or Fever Hydrocortisone (Rectal) (Proctozone-Hc), 1 APPLN RE Q24H PRN for PRN Allergies Coded Allergies: Cranberries (Unverified Allergy, Mild, , 08/25/16) Physical Exam Vital Signs Date Time Temp Pulse Resp B/P Pulse Ox O2 Delivery O2 Flow Rate FiO2 08/25/16 13:40 95 Nasal Cannula 6.0 08/25/16 13:24 70 15 92 08/25/16 13:14 69 08/25/16 13:02 67 20 112/62 95 Nasal Cannula 6.0 08/25/16 13:02 112/62 08/25/16 12:54 68 26 08/25/16 12:24 166 22 92 08/25/16 12:13 104/62 08/25/16 12:11 64 18 104/62 94 Nasal Cannula 6.0 08/25/16 11:54 75 22 94 08/25/16 11:24 71 18 95 08/25/16 11:01 103/55 08/25/16 11:01 70 08/25/16 11:00 93 Nasal Cannula 6.0 08/25/16 11:00 93 Nasal Cannula 6.0 08/25/16 11:00 36.8 71 18 103/55 93 Nasal Cannula 6.0 Physical Exam GENERAL: Patient is awake, alert, anxious appearing and appears to be having significant respiratory distress. EYES: The conjunctivae are clear. The pupils are round and reactive. EARS, NOSE, MOUTH AND THROAT: The nose is without any evidence of any deformity. Mucous membranes are moist tongue is midline NECK: The neck is nontender and supple. RESPIRATORY: Lung sounds diminished throughout. Significant tachypnea and conversational dyspnea noted. Perioral cyanosis noted. CARDIOVASCULAR: Regular rate and rhythm noted, no definite murmur appreciated. GASTROINTESTINAL: The abdomen is soft. Bowel sounds are present in all quadrants. Abdomen is nontender MUSCULOSKELETAL/EXTREMITIES: There is no evidence of gross deformity full range of motion is noted in the hips and shoulders SKIN: Pale and cool, pedal edema bilaterally. NEUROLOGIC: Patient is awake alert and oriented x3. Medical Decision & Procedures ER Provider Diagnostic Interpretation: X-ray results as stated below per interpretation by me and the radiologist. CHEST ONE VIEW PORTABLE CLINICAL HISTORY: Sepsis dyspnea COMPARISON STUDY: 07/30/2016 FINDINGS: Moderate cardiomegaly. Prominent pulmonary vasculature. Post left axilla dissection. Right shoulder arthroplasty. IMPRESSION: Findings consistent with congestive failure versus pulmonary edema. Electronically signed by: Beck Iglesias M.D. 08/25/2016 12:32 PM Dictated Date/Time: 08/25/2016 12:31 PM Laboratory Results 08/25/16 12:10 Red Blood Count 4.89, Mean Corpuscular Volume 89.8, Mean Corpuscular Hemoglobin 28.8, Mean Corpuscular Hemoglobin Concent 32.1, Mean Platelet Volume 10.7, Neutrophils (%) (Auto) 74.6, Lymphocytes (%) (Auto) 9.2, Monocytes (%) (Auto) 13.3, Eosinophils (%) (Auto) 1.8, Basophils (%) (Auto) 0.6, Neutrophils # (Auto ) 7.00, Lymphocytes # (Auto) 0.86, Monocytes # (Auto) 1.25, Eosinophils # (Auto ) 0.17, Basophils # (Auto) 0.06 08/25/16 12:10 Test 08/25/16 12:10 08/25/16 13:30 White Blood Count 9.39 K/uL (4.8-10.8) Red Blood Count 4.89 M/uL (4.2-5.4) Hemoglobin 14.1 g/dL (12.0-16.0) Hematocrit 43.9 % (37-47) Mean Corpuscular Volume 89.8 fL (80-100) Mean Corpuscular Hemoglobin 28.8 pg (25-34) Mean Corpuscular Hemoglobin Concent 32.1 g/dl (32-36) Platelet Count 664 K/uL (130-400) Mean Platelet Volume 10.7 fL (7.4-10.4) Neutrophils (%) (Auto) 74.6 % Lymphocytes (%) (Auto) 9.2 % Monocytes (%) (Auto) 13.3 % Eosinophils (%) (Auto) 1.8 % Basophils (%) (Auto) 0.6 % Neutrophils # (Auto) 7.00 K/uL (1.4-6.5) Lymphocytes # (Auto) 0.86 K/uL (1.2-3.4) Monocytes # (Auto) 1.25 K/uL (0.11-0.59) Eosinophils # (Auto) 0.17 K/uL (0-0.5) Basophils # (Auto) 0.06 K/uL (0-0.2) RDW Standard Deviation 53.5 fL (36.4-46.3) RDW Coefficient of Variation 16.3 % (11.5-14.5) Immature Granulocyte % (Auto) 0.5 % Immature Granulocyte # (Auto) 0.05 K/uL (0.00-0.02) Giant Platelets 1+ Hypochromasia PRESENT Anisocytosis PRESENT Erythrocyte Sedimentation Rate 6 mm/hr (0-21) Prothrombin Time 25.6 SECONDS (9.0-12.0) Prothromb Time International Ratio 2.3 (0.9-1.1) Activated Partial Thromboplast Time 33.4 SECONDS (21.0-31.0) Partial Thromboplastin Ratio 1.3 Venous Blood pH 7.49 (7.36-7.41) Venous Blood Partial Pressure CO2 30 mmHg (38.0-50.0) Venous Blood Partial Pressure O2 64 mmHg Venous Blood HCO3 23 mmol/L Venous Blood Oxygen Saturation 92.0 % Venous Blood Base Excess 0.4 mmol/L Anion Gap 8.0 mmol/L (3-11) Est Creatinine Clear Calc Drug Dose 46.5 ml/min Estimated GFR () 63.4 Estimated GFR (Non- 54.7 BUN/Creatinine Ratio 19.4 (10-20) Bedside Lactic Acid Venous 2.63 mmol/L (0.90-1.70) Calcium Level 8.6 mg/dl (8.5-10.1) Phosphorus Level 2.4 mg/dl (2.5-4.9) Magnesium Level 2.2 mg/dl (1.8-2.4) Total Bilirubin 0.7 mg/dl (0.2-1) Aspartate Amino Transf (AST/SGOT) 64 U/L (15-37) Alanine Aminotransferase (ALT/SGPT) 74 U/L (12-78) Alkaline Phosphatase 99 U/L (45-117) Total Creatine Kinase 32 U/L (26-192) Creatine Kinase MB 0.7 ng/ml (0.5-3.6) Creatine Kinase MB Ratio 2.2 (0-3.0) C-Reactive Protein < 0.29 mg/dl (0-0.29) Pro-B-Type Natriuretic Peptide 5648 pg/ml (0-1800) Total Protein 6.6 gm/dl (6.4-8.2) Albumin 2.9 gm/dl (3.4-5.0) Globulin 3.7 gm/dl (2.5-4.0) Albumin/Globulin Ratio 0.8 (0.9-2) Lipase 74 U/L (73-393) Troponin I 0.020 ng/ml (0-0.045) Laboratory results per my review. Medications Administered Medications (Trade) Dose Ordered Sig/Lindsey Route Start Time Stop Time Status Last Admin Dose Admin Furosemide (Lasix Inj) 40 mg NOW STAT IV 08/25/16 13:31 08/25/16 13:32 DC 08/25/16 13:55 40 MG Acetaminophen (Tylenol Tab) 650 mg Q4H PRN PO 08/25/16 13:45 09/24/16 13:44 08/25/16 16:49 650 MG ECG Indication: SOB/dyspnea Rate (beats per minute): 71 Rhythm: normal sinus Findings: 1st degree AV block, LBBB Change: no significant change (from July 30 of this year) ED Course 1129: The patient was evaluated in room C3. A complete history and physical examination were performed. 1322: I discussed the patient with Dr. Mayur GOLDSTEIN splitting machine tender. He will evaluate the patient for further treatment. 1331: I reevaluated the patient and she is resting. The patient verbally expressed understanding and agreement with the treatment plan. The patient will be evaluated for further treatment. Medical Decision Prior records/ancillary studies reviewed. Triage Nursing notes reviewed. Differential diagnosis: Etiologies such as infections, reactive airway disease, pneumonia, pneumothorax , COPD, CHF, cardiac ischemia, pulmonary embolism, musculoskeletal, gastrointestinal, as well as others were entertained. The patient is an 81-year-old female who presented to the emergency department for an evaluation of hypoxia and shortness of breath. The patient was recently admitted to our facility for stroke. She was discharged to inpatient rehabilitation and then discharged to a assisted. The patient was sent to the emergency department today because of shortness of breath. She had hypoxia. The patient was noted to have a very low oxygen saturation prior to arrival. The patient was placed on supple anoxic. The patient was treated with Lasix for presumed pulmonary edema. I discussed the patient's laboratory and radiographic studies with her. I also discussed his case with the on-call [facility] hospitalist. They've agreed to evaluate the patient in the emergency apartment for further management and disposition. Consults Time Called: 1320 Consulting Physician: Dr. Mayur GOLDSTEIN splitting machine tender Returned Call: 1322 I discussed the patient with Dr. Merchant [facility] splitting machine tender. He will evaluate the patient for further treatment. Impression Primary Impression: Pulmonary edema Additional Impression: Hypoxia Scribe Attestation The scribe's documentation has been prepared under my direction and personally reviewed by me in its entirety. I confirm that the note above accurately reflects all work, treatment, procedures, and medical decision making performed by me. Departure Information Dispostion Being Evaluated By Hospitalist Referrals Pro,Abdirashid Young M.D. (PCP) Patient Instructions My [facility] Problem Qualifiers Primary Impression: Pulmonary edema Chronicity: acute Qualified Codes: J81.0 - Acute pulmonary edema
[2016-08-25] MEDS ORDERED: [UNRECOGNIZED DRUG - CODE] PO (12:03)
[2016-08-25] MEDS ORDERED: CALC-453 PO (12:03)
[2016-08-25] MEDS ORDERED: SALI0.6515 NAE (12:03)
[2016-08-25] MEDS ORDERED: FLUT50SP45 (12:03)
[2016-08-25] MEDS ORDERED: SENN8.6T96 PO (12:03)
[2016-08-25] MEDS ORDERED: WARF2TAB8 PO (12:03)
[2016-08-25] MEDS ORDERED: HYDRCRE28 RE (12:03)
[2016-08-25] MEDS ORDERED: SENN1TAB86 PO (12:03)
[2016-08-25 12:23] LABS: VEN BLOOD GAS BASE EXCESS 0.4 mmol/L
[2016-08-25 12:28] LABS: MEAN CORPUSCULAR HGB CONC 32.1 g/dl (32-36); MEAN PLATELET VOLUME 10.7 fL (7.4-10.4); PLATELET COUNT 664 K/uL (130-400)
--- NOTE | 2016-08-25 12:33 | DIAGNOSTIC IMAGING REPORT ---
CHEST ONE VIEW PORTABLE CLINICAL HISTORY: Sepsis dyspnea COMPARISON STUDY: 07/30/2016 FINDINGS: Moderate cardiomegaly. Prominent pulmonary vasculature. Post left axilla dissection. Right shoulder arthroplasty. IMPRESSION: Findings consistent with congestive failure versus pulmonary edema. Electronically signed by: Beck Iglesias M.D. 08/25/2016 12:32 PM Dictated Date/Time: 08/25/2016 12:31 PM
[2016-08-25 12:44] LABS: INR 2.3 (0.9-1.1); PARTIAL THROMBOPLASTIN RATIO 1.3; PROTHROMBIN TIME (PATIENT) 25.6 SECONDS (9.0-12.0)
[2016-08-25 12:46] LABS: CALCIUM 8.6 mg/dl (8.5-10.1)
[2016-08-25 12:47] LABS: ALT/SGPT 74 U/L (12-78); BLOOD UREA NITROGEN 19 mg/dl (7-18); BUN/CREATININE RATIO 19.4 (10-20); C-REACTIVE PROTEIN < 0.29 mg/dl (0-0.29); CARBON DIOXIDE 26 mmol/L (21-32); CHLORIDE 105 mmol/L (98-107); CREATININE 0.96 mg/dl (0.60-1.20); GLUCOSE 127 mg/dl (70-99); MAGNESIUM 2.2 mg/dl (1.8-2.4); POTASSIUM 3.7 mmol/L (3.5-5.1); SODIUM 139 mmol/L (136-145)
[2016-08-25 12:50] LABS: ALB/GLOB RATIO 0.8 (0.9-2); ALKALINE PHOSPHATASE 99 U/L (45-117); AST/SGOT 64 U/L (15-37); CKMB/CK RATIO 2.2 (0-3.0); PHOSPHORUS 2.4 mg/dl (2.5-4.9)
[2016-08-25 13:00] LABS: ANISOCYTOSIS PRESENT; BASO % 0.6 %; BASO ABS # 0.06 K/uL (0-0.2); COMPLETE YES; EOS % 1.8 %; GIANT PLATELETS 1+; HEMATOCRIT 43.9 % (37-47); HYPOCHROMIA PRESENT; IG% 0.5 %; LYMPH % 9.2 %; LYMPH ABS # 0.86 K/uL (1.2-3.4); MEAN CELL VOLUME 89.8 fL (80-100); MEAN CORPUSCULAR HEMOGLOBIN 28.8 pg (25-34); MONO % 13.3 %; NEUT % 74.6 %; RED BLOOD COUNT 4.89 M/uL (4.2-5.4); WHITE BLOOD COUNT 9.39 K/uL (4.8-10.8)
[2016-08-25] MEDS ORDERED: FUROSEMIDE 40 MG/4 ML VIAL IV STA (13:31)
[2016-08-25] MEDS ORDERED: ONDANSETRON INJ 2 MG/ML 2 ML VIAL IV PRN (13:45)
--- NOTE | 2016-08-25 14:03 | History and Physical ---
History & Physical Date & Time of Service: August 25, 2016 at 13:51 Chief Complaint: Shortness Of Breath Primary Care Physician: Abdirashid Chavira M.D. History of Present Illness Source: patient Pt is a 81 yo female who presents to the ER via EMS from [facility] with complaints of worsening shortness of breath and leg swelling for past 2 days. Pt has was recently admitted to [facility] earlier this month in which she was treated for acute on chronic resp failure likely secondary to systolic CHF exacerbation. Pt was instructed at that time to continue lasix 40 mg once daily. Pt reported initially feeling better until 2 days ago when her shortness of breath and leg swelling worsened. Pt was seen by Dr Ayala just yesterday in which she states her lasix was increased. Pt has noticed weight gain and also cough but states nonproductive. Pt denies any fevers, chills, N/V/D, chest pain or abd pain. Past Medical/Surgical History Medical Problems: (1) A-fib Status: Chronic (2) Anxiety Status: Chronic (3) Arthritis Status: Chronic (4) BLADDER DISORDER NOS Status: Chronic (5) Breast cancer Status: Resolved (6) Bronchitis Status: Chronic (7) Cardiomyopathy Status: Chronic (8) CHF (congestive heart failure) Status: Chronic (9) CHRONIC PULMONARY EMBOLISM Status: Chronic (10) CORONARY ATHEROSCLEROSIS OF [place] CORONARY VESSEL Status: Chronic (11) Depression Status: Chronic (12) Diastolic CHF Status: Chronic (13) Focal epilepsy Status: Chronic (14) HTN (hypertension) Status: Chronic (15) HYPERLIPIDEMIA NEC/NOS Status: Chronic (16) HYPERTENSION NOS Status: Chronic (17) Hypothyroidism Status: Chronic (18) HYPOTHYROIDISM NOS Status: Chronic (19) LBBB (left bundle branch block) Status: Chronic (20) Osteoporosis Status: Chronic (21) Pulmonary fibrosis Status: Chronic (22) Shingles Status: Resolved Surgical Problems: (1) H/O lumpectomy Status: Resolved (2) History of knee replacement Status: Chronic Family History Cancer Diabetes mellitus FHx: stroke Heart disease Hypertension Lung disease Social History Smoking Status: Former Smoker Drug Use: none Marital Status: Housing status: lives alone Occupational Status: retired Immunizations History of Influenza Vaccine: Yes Influenza Vaccine Date: Jan 23, 2009 History of Tetanus Vaccine?: Unknown Tetanus Immunization Date: May 26, 2005 History of Pneumococcal: Yes Pneumococcal Date: May 26, 2006 History of Hepatitis B Vaccine: No Multi-Drug Resistant Organisms History of MDRO: No Allergies Coded Allergies: Cranberries (Unverified Allergy, Mild, , 08/25/16) Home Medications Scheduled Alprazolam (Xanax), 0.25 MG PO BID Anastrozole (Anastrozole), 1 MG PO QAM Calcium Carbonate-Cholecalcife (Oyster Shell Calcium Plus 500-200 mg-Unit), 1 TAB PO BID Calcium Citrate-Vitamin D (Calcium Citrate/Vitamin D), 1 TAB PO BID Carvedilol (Coreg), 1 TAB PO BID Clopidogrel (Plavix), 75 MG PO DAILY Fluoxetine (Prozac), 20 MG PO QAM Fluticasone Propionate (Nasal) (Allergy Nasal [place] 24 Ho), 2 SPRAYS NA DAILY Furosemide (Furosemide), 40 MG PO QAM Levetiractam (Keppra), 250 MG PO BID Losartan Potassium (Losartan Potassium), 25 MG PO DAILY Oxygen (Oxygen), 6 LITERS NA CONTINOUS Saline (Saline Mist), 4 SPRAYS JENNIE QID Sennosides-Docusate Sodium (Doc-Q-Lax), 1 TAB PO BID Sennosides-Docusate Sodium (Sennalax-S), 1 TAB PO DAILY Simvastatin (Simvastatin), 40 MG PO HS Starch (Thickening) (Thick-It #2), 1 DOSE PO TID Warfarin Sod (Jantoven), 2 MG PO DAILY Scheduled PRN Acetaminophen (Tylenol), 500 MG PO Q4H PRN for Pain or Fever Hydrocortisone (Rectal) (Proctozone-Hc), 1 APPLN RE Q24H PRN for PRN Review of Systems Constitutional: No chills, No fever Eyes: No eye pain, No worsening of vision ENT: No hearing loss, No unusual epistaxis Respiratory: + cough, + dyspnea at rest, + dyspnea on exertion, + shortness of breath, + wheezing, No sputum Cardiovascular: + edema, No PND, No chest pain, No orthopnea Abdomen: No constipation, No diarrhea, No nausea, No pain Musculoskeletal: No calf pain, No joint pain, No muscle pain, No swelling Genitourinary - Female: No dysuria, No urinary frequency, No urinary incontinence, No urinary urgency Neurologic: No numbness/tingling, No paralysis, No vertigo, No weakness Psychiatric: No anhedonism, No anxiety, No depression symptoms Endocrine: No excessive thirst, No fatigue Integumentary: No itch, No rash Physical Exam Vital Signs Date Time Temp Pulse Resp B/P Pulse Ox O2 Delivery O2 Flow Rate FiO2 08/25/16 13:14 69 08/25/16 13:02 67 20 112/62 95 Nasal Cannula 6.0 08/25/16 12:11 64 18 104/62 94 Nasal Cannula 6.0 08/25/16 11:01 70 08/25/16 11:00 93 Nasal Cannula 6.0 08/25/16 11:00 93 Nasal Cannula 6.0 08/25/16 11:00 36.8 71 18 103/55 93 Nasal Cannula 6.0 General Appearance: WD/WN, + mild distress Head: normocephalic, atraumatic Eyes: normal inspection, PERRL, EOMI ENT: normal ENT inspection, hearing grossly normal, TMs normal Neck: supple, no adenopathy, thyroid normal Respiratory/Chest: chest non-tender, + decreased breath sounds, + crackles Cardiovascular: regular rate, rhythm, no gallop, no JVD Abdomen/GI: non tender, soft, no organomegaly, no pulsatile mass Back: normal inspection, no CVA tenderness, no muscle spasm, normal range of motion Extremities/Musculoskelatal: normal inspection, no calf tenderness, normal capillary refill, + pedal edema Neurologic/Psych: alert, normal mood/affect, normal reflexes, oriented x 3 Skin: normal color, warm/dry, no rash Diagnostics Laboratory Results Results Past 24 Hours Test 08/25/16 12:10 Range/Units White Blood Count 9.39 4.8-10.8 K/uL Red Blood Count 4.89 4.2-5.4 M/uL Hemoglobin 14.1 12.0-16.0 g/dL Hematocrit 43.9 37-47 % Mean Corpuscular Volume 89.8 80-100 fL Mean Corpuscular Hemoglobin 28.8 25-34 pg Mean Corpuscular Hemoglobin Concent 32.1 32-36 g/dl Platelet Count 664 130-400 K/uL Mean Platelet Volume 10.7 7.4-10.4 fL Neutrophils (%) (Auto) 74.6 % Lymphocytes (%) (Auto) 9.2 % Monocytes (%) (Auto) 13.3 % Eosinophils (%) (Auto) 1.8 % Basophils (%) (Auto) 0.6 % Neutrophils # (Auto) 7.00 1.4-6.5 K/uL Lymphocytes # (Auto) 0.86 1.2-3.4 K/uL Monocytes # (Auto) 1.25 0.11-0.59 K/uL Eosinophils # (Auto) 0.17 0-0.5 K/uL Basophils # (Auto) 0.06 0-0.2 K/uL RDW Standard Deviation 53.5 36.4-46.3 fL RDW Coefficient of Variation 16.3 11.5-14.5 % Immature Granulocyte % (Auto) 0.5 % Immature Granulocyte # (Auto) 0.05 0.00-0.02 K/uL Giant Platelets 1+ Hypochromasia PRESENT Anisocytosis PRESENT Erythrocyte Sedimentation Rate 6 0-21 mm/hr Prothrombin Time 25.6 9.0-12.0 SECONDS Prothromb Time International Ratio 2.3 0.9-1.1 Activated Partial Thromboplast Time 33.4 21.0-31.0 SECONDS Partial Thromboplastin Ratio 1.3 Venous Blood pH 7.49 7.36-7.41 Venous Blood Partial Pressure CO2 30 38.0-50.0 mmHg Venous Blood Partial Pressure O2 64 mmHg Venous Blood HCO3 23 mmol/L Venous Blood Oxygen Saturation 92.0 % Venous Blood Base Excess 0.4 mmol/L Sodium Level 139 136-145 mmol/L Potassium Level 3.7 3.5-5.1 mmol/L Chloride Level 105 98-107 mmol/L Carbon Dioxide Level 26 21-32 mmol/L Anion Gap 8.0 3-11 mmol/L Blood Urea Nitrogen 19 7-18 mg/dl Creatinine 0.96 0.60-1.20 mg/dl Est Creatinine Clear Calc Drug Dose 46.5 ml/min Estimated GFR () 63.4 Estimated GFR (Non- 54.7 BUN/Creatinine Ratio 19.4 10-20 Random Glucose 127 70-99 mg/dl Bedside Lactic Acid Venous 2.63 0.90-1.70 mmol/L Calcium Level 8.6 8.5-10.1 mg/dl Phosphorus Level 2.4 2.5-4.9 mg/dl Magnesium Level 2.2 1.8-2.4 mg/dl Total Bilirubin 0.7 0.2-1 mg/dl Aspartate Amino Transf (AST/SGOT) 64 15-37 U/L Alanine Aminotransferase (ALT/SGPT) 74 12-78 U/L Alkaline Phosphatase 99 45-117 U/L Total Creatine Kinase 32 26-192 U/L Creatine Kinase MB 0.7 0.5-3.6 ng/ml Creatine Kinase MB Ratio 2.2 0-3.0 Troponin I 0.015 0-0.045 ng/ml C-Reactive Protein < 0.29 0-0.29 mg/dl Pro-B-Type Natriuretic Peptide 5648 0-1800 pg/ml Total Protein 6.6 6.4-8.2 gm/dl Albumin 2.9 3.4-5.0 gm/dl Globulin 3.7 2.5-4.0 gm/dl Albumin/Globulin Ratio 0.8 0.9-2 Lipase 74 73-393 U/L Microbiology Results 08/25/16 Blood Culture, Received Pending 08/25/16 Blood Culture, Received Pending Impression Assessment and Plan 81 y/o F with an extensive medical history including PAF, diastolic CHF, pulmonary fibrosis, breast CA, prediabetes, PE and IVC filter placement, CVA , thrombocytosis. She presents due to worsening SOB and swelling in legs for past 2 days Acute on chronic respiratory failure with tachypnea, likely secondary to acute on chronic systolic CHF superimposed on pulmonary fibrosis, chronic respiratory failure on home O2 - LVEF 25-30% on echocardiogram from June 2016 when she was here with her CVA. -CXR determined substantial pulm edema -ProBNP elev at 5648, cont IV lasix 40 mg BID -Cont B elizabeth, ARB once BP stabilizes -Strict I's and O's and daily weights -Consult to cardiology Dr Ayala who recently evaluated pt yesterday AF - paroxysmal - currently in a sinus rhythm. INR therapeutic -Cont coumadin 2 mg daily -Continue B elizabeth. -Follow INR Recent CVA -stable, with right-sided hemiparesis -Continue plavix, statin -Consult PT/OT Breast CA - listed as metastatic - f/u as outpt -Continue anastrozole Seizure disorder -stable, no current issues -Cont keppra Osteoporosis-stable no issues -Continue calcium and vitamin D, xgeva Prophylaxis- Coumadin VTE Prophylaxis VTE Risk Assessment Done? Y/N: Yes Risk Level: Moderate
[2016-08-25] MEDS ORDERED: NURSING VERBAL MED ORDER ONE (15:30)
[2016-08-25] MEDS ORDERED: FUROSEMIDE INJ 20 MG in SYRINGE 0 ML IV ONE (15:45)
[2016-08-25] MEDS: ACETAMINOPHEN 325 MG TAB PO PRN ×2 (16:49→23:35)
--- NOTE | 2016-08-25 17:55 | CARDIOLOGY CONSULTATION ---
DATE OF CONSULTATION: 08/25/2016 REFERRING PHYSICIAN: Arcadio Merchant DO CHIEF COMPLAINT: Dyspnea. HISTORY OF PRESENT ILLNESS: Mrs. 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 The patient was discharged at that time to [facility] for rehabilitation and recently transitioned to a shelter, but has had symptoms of progressive dyspnea over the past few days. This was associated with a significant weight gain of up to 10 pounds. She was seen in the outpatient setting yesterday and advised to double her oral dose of Lasix; however, she was discovered today to have worsening dyspnea, evidence of hypoxia, and was sent to [facility] for an admission. The patient states that she has been minimally ambulatory since cerebrovascular accident earlier this year. She apparently did well at [facility] with rehabilitation, but generally speaking is bedbound, ambulating only with a walker or occasionally out of bed in a wheelchair. She has chronic dyspnea and is on chronic oxygen for presumed pulmonary fibrosis, but was noted in June of this year to have a new cardiomyopathy with an ejection fraction of approximately 25%. Since that time, the patient has had difficulty controlling her weight, edema and has been admitted for pulmonary edema and decompensation more than once. At the time of this interview, the patient has mild dyspnea and some mild chest pressure with deep inspiration and at rest. This is similar, but not as severe to symptoms she had during her admission in late July. She is not aware of any palpitations currently. She cannot report any palpitations recently. She generally does not have dizziness or lightheadedness. She also has some difficulty lying flat and prefers to sit up and she has developed a cough over the past several days, which is nonproductive. She has not had any symptoms of fevers or chills. She has noted some swelling in her lower extremities. PAST MEDICAL HISTORY: Significant for: 1. The aforementioned cardiomyopathy. Once again, this was an acute diagnosis in June of this year. The patient was started on medical therapy at that time. 2. Pulmonary fibrosis, on chronic oxygen, generally 6 liters per minute. 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 3. Breast cancer, metastatic, involving the thoracic spine, currently on hormonal therapy, status post radiation. 4. History of stroke with some residual difficulties in ambulating. This occurred in June of 2016. 5. Esophageal dysmotility. 6. Paroxysmal atrial fibrillation, currently on warfarin therapy. 7. Shingles. 8. Hyperlipidemia. 9. Hypertension. 10. Hypothyroidism. 11. Obstructive sleep apnea, currently using CPAP. 12. Spinal stenosis. PAST SURGICAL HISTORY: Significant for a left shoulder surgery, hammertoe surgery, bladder surgery, aforementioned breast surgery, cataract surgery, surgery on her cervix, knee replacement, and a total hip replacement. SOCIAL HISTORY: The patient is currently a resident at [facility], where she has been now for 2 days. She has no history of significant smoking or drinking alcohol. FAMILY HISTORY: Noncontributory given her advanced age. OUTPATIENT MEDICATIONS: Include anastrozole, carvedilol 3.125 mg twice daily, Cozaar 25 mg daily, Prozac, furosemide 40 mg daily recently increased to twice daily, Keppra, simvastatin, warfarin, and Xgeva monthly injection. MEDICAL ALLERGIES: No known medical allergies. THE PATIENT CURRENTLY HAS INTOLERANCE TO CRANBERRIES. REVIEW OF SYSTEMS: A 10-system review of systems was performed and the pertinent positives are noted in the history of present illness and the remainder being negative. PHYSICAL EXAMINATION: GENERAL: The patient does not appear in any acute distress. She was alert and oriented. Her mood and affect appeared normal. She answered all questions appropriately. VITAL SIGNS: Include blood pressure 117/63 with a pulse of 67. HEENT: Sclerae are anicteric. Her extraocular movements appear to be intact. Palpation of the submandibular region did not reveal any significant lymphadenopathy. NECK: The carotids are palpable bilaterally. I do not appreciate any bruits on auscultation. There was evidence of jugular venous distention, approximately 5 cm at 45 degrees. Thyroid is not enlarged. LUNGS: Auscultation of both lung perdue revealed both fine and coarse crackles at the bases bilaterally, but no expiratory wheezing. Respiratory effort appears to be normal. There was no use of accessory muscles of respiration. HEART: Revealed her to be in a regular rhythm. S1 and S2 were normal. I did not appreciate any murmurs on exam. PMI did not appear to be markedly displaced. ABDOMEN: Soft and nontender. EXTREMITIES: Evaluation of both wrists revealed radial pulses that were equal in intensity. There is no evidence of cyanosis or clubbing. Evaluation of lower extremities revealed 1+ pitting edema to the mid calf. There were no rashes appreciated on examination today. LABORATORY AND IMAGING STUDIES: Obtained on admission include a white cell count of 9.3, hemoglobin of 14.1, and a platelet count of 664. Sodium was 139, potassium was 3.7, BUN was 19, and creatinine was 0.96. N-terminal ProBNP was 5648. Cardiac troponin was normal. A 12-lead EKG was also obtained at the time of admission, which revealed the patient to be in normal sinus rhythm. She does have nonspecific intraventricular conduction delay and possible evidence of both inferior and anterolateral infarcts. Single view chest x-ray was obtained at the time of admission, which was consistent with pulmonary vascular congestion. ASSESSMENT AND PLAN: 1. Acute decompensated left ventricular failure: The patient appears to have evidence of volume overload. She has edema, pulmonary vascular congestion and a significant weight gain. At this juncture, diuresis has been initiated and this would be the initial therapy for her pulmonary vascular congestion. It is very likely that she will need to loose several liters of fluid prior to being euvolemic. She can be continued on the remainder of her cardiac regimen, which currently includes a low dose beta elizabeth and angiotensin receptor elizabeth. The etiology behind her decompensation is unclear as this appears to be a fairly subacute process. I do not believe that she had recent acute coronary syndrome or arrhythmia. She does have a history of atrial fibrillation, but presented in sinus rhythm. She is unaware of any recent palpitations. There may be an element of dietary indiscretion and higher sodium intake, and this will need to be addressed when she is discharged to [facility]. Once the patient is euvolemic, we could assess the options for more intensive medical therapy such as more aggressive diuretic regimen, increasing her beta elizabeth or possibly ARB. 2. Presumed nonischemic cardiomyopathy: The etiology of the patient's left ventricular dysfunction is unclear; however, she does not endorse symptoms of coronary insufficiency or angina. An additional evaluation has not been undertaken given her other severe comorbidities and likelihood that she would do poorly with any revascularization. With respect to other therapies in the setting of a cardiomyopathy, she does not appear to be a good candidate for cardiac resynchronization based on her QRS morphology and relatively short QRS duration. Addition of digoxin could be entertained for reduced hospitalization given her normal renal function. 3. Atrial fibrillation. The patient has a history of paroxysmal atrial fibrillation, currently in sinus rhythm. She does not endorse symptoms of palpitations recently. She is on appropriate anticoagulation and this should be continued.
[2016-08-25] MEDS ORDERED: SODIUM CHLORIDE 0.65% NA SOLN 45 ML (OCEAN) ONE (18:39)
[2016-08-25] MEDS: LEVETIRACETAM 250 MG TAB PO SCH (20:35)
[2016-08-25] MEDS: WARFARIN SOD 2 MG TAB PO SCH (20:35)
[2016-08-25] MEDS: ALPRAZOLAM 0.25 MG TAB PO SCH (20:35)
[2016-08-25] MEDS: SIMVASTATIN 40 MG TAB PO SCH (20:35)
[2016-08-25] MEDS ORDERED: FUROSEMIDE INJ 40 MG in SYRINGE 0 ML IV SCH (21:00)
[2016-08-25 21:15] LABS: URINE APPEARANCE CLEAR (CLEAR); URINE BILIRUBIN NEG (NEG); URINE COLOR YELLOW; URINE NITRITE NEG (NEG); URINE PH 7.5 (4.5-7.5); URINE SPECIFIC GRAVITY 1.015 (1.000-1.030); UROBILINOGEN NEG (NEG); ZZUR CULT IF INDIC CLEAN CATCH NO
[2016-08-25 21:17] LABS: MANUAL MICROSCOPIC REQUIRED? NO; REVIEW REQ? NO
[2016-08-26 04:00] VITALS: BP 124/70; PULSE 63; TEMP 36.5; O2SAT 93
[2016-08-26 06:13] LABS: BASO % 0.9 %; BASO ABS # 0.07 K/uL (0-0.2); COMPLETE YES; EOS % 1.8 %; HEMATOCRIT 44.8 % (37-47); IG% 0.4 %; LYMPH % 15.7 %; LYMPH ABS # 1.16 K/uL (1.2-3.4); MEAN CELL VOLUME 90.3 fL (80-100); MEAN CORPUSCULAR HEMOGLOBIN 27.6 pg (25-34); MEAN CORPUSCULAR HGB CONC 30.6 g/dl (32-36); MEAN PLATELET VOLUME 10.7 fL (7.4-10.4); MONO % 17.5 %; NEUT % 63.7 %; PLATELET COUNT 634 K/uL (130-400); RED BLOOD COUNT 4.96 M/uL (4.2-5.4); WHITE BLOOD COUNT 7.39 K/uL (4.8-10.8)
[2016-08-26 06:24] LABS: INR 2.4 (0.9-1.1); PROTHROMBIN TIME (PATIENT) 26.8 SECONDS (9.0-12.0)
[2016-08-26 06:41] LABS: BUN/CREATININE RATIO 20.2 (10-20); CALCIUM 8.1 mg/dl (8.5-10.1); CREATININE 0.83 mg/dl (0.60-1.20); POTASSIUM 3.8 mmol/L (3.5-5.1)
[2016-08-26 07:47] VITALS: BP 120/76; PULSE 66; TEMP 36.9; O2SAT 93
[2016-08-26] MEDS: ALPRAZOLAM 0.25 MG TAB PO SCH ×2 (08:30→19:49)
[2016-08-26] MEDS: LOSARTAN POTASSIUM 25 MG TAB PO SCH (08:31)
[2016-08-26] MEDS: LEVETIRACETAM 250 MG TAB PO SCH ×2 (08:31→19:48)
[2016-08-26] MEDS: CLOPIDOGREL BISULFATE 75 MG TAB PO SCH (08:32)
[2016-08-26] MEDS: FLUOXETINE HCL 20 MG CAP PO SCH (08:32)
[2016-08-26] MEDS: ANASTROZOLE 1 MG TAB PO SCH (08:33)
[2016-08-26] MEDS: FLUTICASONE PROPIONATE NA SPR 16 GM BTL SCH (08:33)
[2016-08-26] MEDS ORDERED: FUROSEMIDE INJ 60 MG in SYRINGE 0 ML IV SCH (09:00)
[2016-08-26] MEDS: FUROSEMIDE INJ 40 MG in SYRINGE 0 ML IV SCH ×2 (09:53→17:30)
[2016-08-26 11:28] VITALS: BP 125/77; PULSE 76; TEMP 36.3; O2SAT 90
--- NOTE | 2016-08-26 11:29 | History & Physical Bridge Note ---
H&P Re-Evaluation Bridge Note: I have examined the patient, reviewed the History & Physical and in the interval since the performance of the History & Physical I have noted the following changes of clinical significance: No changes noted
--- NOTE | 2016-08-26 12:02 | Progress Note ---
Subjective Date of Service: August 26, 2016. Subjective Pt evaluation today including: conversation w/ patient, physical exam, chart review, lab review, review of studies, conversation w/ systems management consultant, review of inpatient medication list Pt resting comfortably in bed States resp distress improved Less swelling in legs Reports feeling better No acute events overnight Problem List Medical Problems: (1) Abdominal contusion Status: Acute (2) Abdominal pain Status: Acute (3) Anxiety Status: Acute (4) Anxiety Status: Acute (5) Back contusion Status: Acute (6) Cervical strain Status: Acute (7) Chest pain Status: Acute (8) Confusion Status: Acute (9) Congestive heart failure Status: Acute (10) Dyspnea Status: Acute (11) Dyspnea Status: Acute (12) Elevated platelet count Status: Acute (13) Fall Status: Acute (14) Fall Status: Acute (15) Generalized weakness Status: Acute (16) Hypoglycemia Status: Acute (17) Hypoxia Status: Acute (18) International normalized ratio (INR) greater than 2 Status: Acute (19) Leukocytosis Status: Acute (20) Lumbar contusion Status: Acute (21) Metastatic breast cancer Status: Acute (22) Peripheral edema Status: Acute (23) Pulmonary edema Status: Acute (24) Pulmonary edema Status: Acute (25) Rectal bleed Status: Acute (26) Shingles Status: Acute (27) Supratherapeutic INR Status: Acute (28) UTI (urinary tract infection) Status: Acute (29) Weakness Status: Acute (30) Weakness Status: Acute Review of Systems Constitutional: No chills, No fever, No sweats, No weight loss Eyes: No eye pain, No redness, No worsening of vision ENT: No hearing loss, No unusual epistaxis Respiratory: + dyspnea at rest, + shortness of breath, No cough, No sputum, No wheezing Cardiac: + edema, No PND, No chest pain, No orthopnea Abdomen: No constipation, No diarrhea, No nausea, No pain, No vomiting Musculoskeletal: No calf pain, No joint pain, No muscle pain, No swelling Female : No dysuria, No hematuria, No urinary frequency Neurologic: No memory loss, No paralysis Psychiatric: No anhedonism, No anxiety, No depression symptoms Skin: No itch, No rash Objective Vital Signs Date Time Temp Pulse Resp B/P Pulse Ox O2 Delivery O2 Flow Rate FiO2 08/26/16 11:28 36.3 76 22 125/77 90 6.0 08/26/16 07:47 36.9 66 18 120/76 93 6.0 08/26/16 04:00 CPAP 6.0 08/26/16 04:00 36.5 63 18 124/70 93 CPAP 08/25/16 23:59 CPAP 6.0 08/25/16 23:54 36.6 67 18 123/69 94 BiPAP 08/25/16 21:56 65 96 6.0 08/25/16 20:17 36.8 70 18 101/52 94 08/25/16 20:00 97 Nasal Cannula 6.0 08/25/16 16:00 97 Nasal Cannula 6.0 08/25/16 15:45 36.8 67 18 117/63 97 Nasal Cannula 6.0 08/25/16 14:24 69 20 95 08/25/16 14:12 69 20 116/79 94 08/25/16 14:01 116/79 08/25/16 13:54 67 21 97 08/25/16 13:40 95 Nasal Cannula 6.0 08/25/16 13:24 70 15 92 08/25/16 13:14 69 08/25/16 13:02 67 20 112/62 95 Nasal Cannula 6.0 08/25/16 13:02 112/62 08/25/16 12:54 68 26 08/25/16 12:24 166 22 92 08/25/16 12:13 104/62 08/25/16 12:11 64 18 104/62 94 Nasal Cannula 6.0 08/25/16 11:54 75 22 94 Physical Exam General Appearance: WD/WN, no apparent distress Eyes: normal inspection, PERRL, EOMI, sclerae normal Neck: supple, no adenopathy, thyroid normal, no JVD Respiratory/Chest: chest non-tender, no respiratory distress, no accessory muscle use, + wheezing Cardiovascular: regular rate, rhythm, no gallop, no JVD, no murmur Abdomen: normal bowel sounds, non tender, soft, no organomegaly Extremities: normal range of motion, non-tender, normal inspection, + pedal edema Neurologic/Psychiatric: no motor/sensory deficits, alert, normal mood/affect, oriented x 3 Skin: normal color, warm/dry, no rash Laboratory Results Last 24 Hours Test 08/25/16 12:10 08/25/16 13:30 08/25/16 20:40 08/25/16 21:52 White Blood Count 9.39 K/uL Red Blood Count 4.89 M/uL Hemoglobin 14.1 g/dL Hematocrit 43.9 % Mean Corpuscular Volume 89.8 fL Mean Corpuscular Hemoglobin 28.8 pg Mean Corpuscular Hemoglobin Concent 32.1 g/dl Platelet Count 664 K/uL Mean Platelet Volume 10.7 fL Neutrophils (%) (Auto) 74.6 % Lymphocytes (%) (Auto) 9.2 % Monocytes (%) (Auto) 13.3 % Eosinophils (%) (Auto) 1.8 % Basophils (%) (Auto) 0.6 % Neutrophils # (Auto) 7.00 K/uL Lymphocytes # (Auto) 0.86 K/uL Monocytes # (Auto) 1.25 K/uL Eosinophils # (Auto) 0.17 K/uL Basophils # (Auto) 0.06 K/uL RDW Standard Deviation 53.5 fL RDW Coefficient of Variation 16.3 % Immature Granulocyte % (Auto) 0.5 % Immature Granulocyte # (Auto) 0.05 K/uL Giant Platelets 1+ Hypochromasia PRESENT Anisocytosis PRESENT Erythrocyte Sedimentation Rate 6 mm/hr Prothrombin Time 25.6 SECONDS Prothromb Time International Ratio 2.3 Activated Partial Thromboplast Time 33.4 SECONDS Partial Thromboplastin Ratio 1.3 Venous Blood pH 7.49 Venous Blood Partial Pressure CO2 30 mmHg Venous Blood Partial Pressure O2 64 mmHg Venous Blood HCO3 23 mmol/L Venous Blood Oxygen Saturation 92.0 % Venous Blood Base Excess 0.4 mmol/L Sodium Level 139 mmol/L Potassium Level 3.7 mmol/L Chloride Level 105 mmol/L Carbon Dioxide Level 26 mmol/L Anion Gap 8.0 mmol/L Blood Urea Nitrogen 19 mg/dl Creatinine 0.96 mg/dl Est Creatinine Clear Calc Drug Dose 46.5 ml/min Estimated GFR () 63.4 Estimated GFR (Non- 54.7 BUN/Creatinine Ratio 19.4 Random Glucose 127 mg/dl Bedside Lactic Acid Venous 2.63 mmol/L Calcium Level 8.6 mg/dl Phosphorus Level 2.4 mg/dl Magnesium Level 2.2 mg/dl Total Bilirubin 0.7 mg/dl Aspartate Amino Transf (AST/SGOT) 64 U/L Alanine Aminotransferase (ALT/SGPT) 74 U/L Alkaline Phosphatase 99 U/L Total Creatine Kinase 32 U/L Creatine Kinase MB 0.7 ng/ml Creatine Kinase MB Ratio 2.2 Troponin I 0.015 ng/ml 0.020 ng/ml 0.021 ng/ml C-Reactive Protein < 0.29 mg/dl Pro-B-Type Natriuretic Peptide 5648 pg/ml Total Protein 6.6 gm/dl Albumin 2.9 gm/dl Globulin 3.7 gm/dl Albumin/Globulin Ratio 0.8 Lipase 74 U/L Urine Color YELLOW Urine Appearance CLEAR Urine pH 7.5 Urine Specific [place] 1.015 Urine Protein NEG Urine Glucose (UA) NEG Urine Ketones NEG Urine Occult Blood NEG Urine Nitrite NEG Urine Bilirubin NEG Urine Urobilinogen NEG Urine Leukocyte Esterase TRACE Urine WBC (Auto) 1-5 /hpf Urine RBC (Auto) 0-4 /hpf Urine Hyaline Casts (Auto) 1-5 /lpf Urine Epithelial Cells (Auto) 5-10 /lpf Urine Bacteria (Auto) NEG Test 08/26/16 05:50 White Blood Count 7.39 K/uL Red Blood Count 4.96 M/uL Hemoglobin 13.7 g/dL Hematocrit 44.8 % Mean Corpuscular Volume 90.3 fL Mean Corpuscular Hemoglobin 27.6 pg Mean Corpuscular Hemoglobin Concent 30.6 g/dl Platelet Count 634 K/uL Mean Platelet Volume 10.7 fL Neutrophils (%) (Auto) 63.7 % Lymphocytes (%) (Auto) 15.7 % Monocytes (%) (Auto) 17.5 % Eosinophils (%) (Auto) 1.8 % Basophils (%) (Auto) 0.9 % Neutrophils # (Auto) 4.71 K/uL Lymphocytes # (Auto) 1.16 K/uL Monocytes # (Auto) 1.29 K/uL Eosinophils # (Auto) 0.13 K/uL Basophils # (Auto) 0.07 K/uL RDW Standard Deviation 54.7 fL RDW Coefficient of Variation 16.6 % Immature Granulocyte % (Auto) 0.4 % Immature Granulocyte # (Auto) 0.03 K/uL Prothrombin Time 26.8 SECONDS Prothromb Time International Ratio 2.4 Sodium Level 143 mmol/L Potassium Level 3.8 mmol/L Chloride Level 107 mmol/L Carbon Dioxide Level 29 mmol/L Anion Gap 7.0 mmol/L Blood Urea Nitrogen 17 mg/dl Creatinine 0.83 mg/dl Est Creatinine Clear Calc Drug Dose 52.4 ml/min Estimated GFR () 75.6 Estimated GFR (Non- 65.2 BUN/Creatinine Ratio 20.2 Random Glucose 112 mg/dl Calcium Level 8.1 mg/dl Troponin I 0.022 ng/ml Assessment and Plan 81 y/o F with an extensive medical history including PAF, diastolic CHF, pulmonary fibrosis, breast CA, prediabetes, PE and IVC filter placement, CVA , thrombocytosis. She presented to ER with worsening SOB and swelling in legs for past 2 days Acute on chronic respiratory failure with tachypnea, likely secondary to acute on chronic systolic CHF superimposed on pulmonary fibrosis, chronic respiratory failure on home O2 - LVEF 25-30% on echocardiogram from June 2016 when she was here with her CVA. -CXR determined substantial pulm edema upon arrival -Maintain lasix at 40 mg IV BID, pt reports resolving shortness of breath, appropriate diuresis overnight, appreciate cardiology recs, maintain diuresis until euvolemic -Started back on cozaar -Strict I's and O's and daily weights AF - paroxysmal - currently in a sinus rhythm. INR therapeutic at 2.4 -Cont coumadin 2 mg daily -Restat on coreg as BP stabilized, rate controlled -Follow INR Recent CVA -stable, with right-sided hemiparesis -Continue plavix, statin -Consult PT/OT, appreciate recs Breast CA - listed as metastatic - f/u as outpt -Continue anastrozole Seizure disorder -stable, no current issues -Cont keppra Osteoporosis-stable no issues -Continue calcium and vitamin D, xgeva Prophylaxis- Coumadin Pt is full code
[2016-08-26] MEDS: ACETAMINOPHEN 325 MG TAB PO PRN (14:23)
[2016-08-26 16:25] VITALS: BP 107/61; PULSE 70; TEMP 36.8; O2SAT 96
[2016-08-26] MEDS: WARFARIN SOD 2 MG TAB PO SCH (19:47)
[2016-08-26] MEDS: CARVEDILOL 3.125 MG TAB PO SCH (19:47)
[2016-08-26] MEDS: SIMVASTATIN 40 MG TAB PO SCH (19:48)
[2016-08-26 20:23] VITALS: BP 108/67; PULSE 72; TEMP 36.5; O2SAT 96
[2016-08-26 23:14] VITALS: BP 123/74; PULSE 66; TEMP 36.5; O2SAT 95
[2016-08-27 03:37] VITALS: BP 127/76; PULSE 68; TEMP 36.4; O2SAT 95
[2016-08-27 06:15] LABS: BASO % 0.4 %; BASO ABS # 0.03 K/uL (0-0.2); COMPLETE YES; EOS % 3.9 %; HEMATOCRIT 44.7 % (37-47); IG% 0.4 %; LYMPH % 12.7 %; LYMPH ABS # 0.98 K/uL (1.2-3.4); MEAN CORPUSCULAR HEMOGLOBIN 28.5 pg (25-34); MEAN CORPUSCULAR HGB CONC 31.3 g/dl (32-36); MEAN PLATELET VOLUME 10.8 fL (7.4-10.4); NEUT % 65.6 %; PLATELET COUNT 592 K/uL (130-400); RED BLOOD COUNT 4.91 M/uL (4.2-5.4); WHITE BLOOD COUNT 7.72 K/uL (4.8-10.8)
[2016-08-27 06:19] LABS: INR 3.2 (0.9-1.1); PROTHROMBIN TIME (PATIENT) 36.1 SECONDS (9.0-12.0)
[2016-08-27 06:52] LABS: BUN/CREATININE RATIO 25.9 (10-20); CREATININE 0.74 mg/dl (0.60-1.20); POTASSIUM 3.5 mmol/L (3.5-5.1)
[2016-08-27 08:04] VITALS: BP 111/62; PULSE 67; TEMP 36.4; O2SAT 97
[2016-08-27] MEDS: FUROSEMIDE INJ 40 MG in SYRINGE 0 ML IV SCH (08:33)
[2016-08-27] MEDS: FLUTICASONE PROPIONATE NA SPR 16 GM BTL SCH (08:33)
[2016-08-27] MEDS: ANASTROZOLE 1 MG TAB PO SCH (08:34)
[2016-08-27] MEDS: CARVEDILOL 3.125 MG TAB PO SCH ×2 (08:34→19:59)
[2016-08-27] MEDS: LEVETIRACETAM 250 MG TAB PO SCH ×2 (08:35→20:35)
[2016-08-27] MEDS: LOSARTAN POTASSIUM 25 MG TAB PO SCH (08:35)
[2016-08-27] MEDS: FLUOXETINE HCL 20 MG CAP PO SCH (08:35)
[2016-08-27] MEDS: CLOPIDOGREL BISULFATE 75 MG TAB PO SCH (08:35)
[2016-08-27] MEDS: ALPRAZOLAM 0.25 MG TAB PO SCH ×2 (08:36→20:35)
[2016-08-27] MEDS: ACETAMINOPHEN 325 MG TAB PO PRN ×2 (10:27→20:12)
[2016-08-27] MEDS: MAGNESIUM HYDROXIDE SUSP 30 ML UDC PO PRN (11:50)
[2016-08-27] MEDS: DOCUSATE SODIUM 100 MG CAP PO SCH ×2 (11:50→20:35)
[2016-08-27 12:21] VITALS: BP 98/60; PULSE 72; TEMP 36.6; O2SAT 96
--- NOTE | 2016-08-27 12:30 | Hospitalist Progress Note ---
Hospitalist Progress Note Date of Service August 27, 2016. (Ranjan Mitchell CRNP) Subjective Pt evaluation today including: conversation w/ patient, physical exam, chart review, lab review, review of inpatient medication list Pain: denies any PO Intake: tolerating PO well with no nausea or vomiting Voiding: hermosillo catheter in place Not as short of breath. No chest pain. Tolerating PO. Constitutional: No chills, No fatigue, No fever, No problem reported, No see HPI, No sweats, No weakness, No weight loss Eyes: No diplopia, No discharge, No eye pain, No problem reported, No redness, No see HPI, No worsening of vision ENT: No dental problems, No hearing loss, No nasal symptoms, No problem reported, No see HPI, No sore throat, No tinnitus, No trouble swallowing, No unusual epistaxis Respiratory: + cough, + shortness of breath Cardiovascular: + edema, No PND, No chest pain, No claudication, No orthopnea, No palpitations, No problem reported, No see HPI Abdomen: No GI bleeding, No constipation, No diarrhea, No nausea, No pain, No problem reported, No see HPI, No vomiting Musculoskeletal: + problem reported (general weakness) (Ranjan Mitchell CRNP) Medications reviewed (Ranjan Mitchell CRNP) Objective Vital Signs Date Time Temp Pulse Resp B/P Pulse Ox O2 Delivery O2 Flow Rate FiO2 08/27/16 12:00 Nasal Cannula 6.0 08/27/16 08:04 36.4 67 18 111/62 97 Nasal Cannula CPAP 08/27/16 08:00 Nasal Cannula 6.0 08/27/16 04:00 CPAP 6.0 08/27/16 03:37 36.4 68 22 127/76 95 CPAP 6.0 08/27/16 00:00 CPAP 6.0 08/26/16 23:14 36.5 66 17 123/74 95 CPAP 08/26/16 20:23 36.5 72 18 108/67 96 Nasal Cannula 5.0 08/26/16 20:00 Nasal Cannula 6.0 08/26/16 16:25 36.8 70 18 107/61 96 Nasal Cannula 5.0 08/26/16 16:00 Nasal Cannula 6.0 (Ranjan Mitchell CRNP) Physical Exam General Appearance: no apparent distress Eyes: sclerae normal ENT: hearing grossly normal Neck: supple, no JVD Respiratory/Chest: + decreased breath sounds, + wheezing Cardiovascular: regular rate, rhythm, no JVD Abdomen: normal bowel sounds, non tender, soft Extremities: normal inspection, no pedal edema Neurologic/Psychiatric: no motor/sensory deficits, alert, oriented x 3 Skin: normal color, warm/dry (Ranjan Mitchell CRNP) Laboratory Results Last 24 Hours Test 08/27/16 05:30 White Blood Count 7.72 K/uL Red Blood Count 4.91 M/uL Hemoglobin 14.0 g/dL Hematocrit 44.7 % Mean Corpuscular Volume 91.0 fL Mean Corpuscular Hemoglobin 28.5 pg Mean Corpuscular Hemoglobin Concent 31.3 g/dl Platelet Count 592 K/uL Mean Platelet Volume 10.8 fL Neutrophils (%) (Auto) 65.6 % Lymphocytes (%) (Auto) 12.7 % Monocytes (%) (Auto) 17.0 % Eosinophils (%) (Auto) 3.9 % Basophils (%) (Auto) 0.4 % Neutrophils # (Auto) 5.07 K/uL Lymphocytes # (Auto) 0.98 K/uL Monocytes # (Auto) 1.31 K/uL Eosinophils # (Auto) 0.30 K/uL Basophils # (Auto) 0.03 K/uL RDW Standard Deviation 55.4 fL RDW Coefficient of Variation 16.6 % Immature Granulocyte % (Auto) 0.4 % Immature Granulocyte # (Auto) 0.03 K/uL Prothrombin Time 36.1 SECONDS Prothromb Time International Ratio 3.2 Sodium Level 144 mmol/L Potassium Level 3.5 mmol/L Chloride Level 108 mmol/L Carbon Dioxide Level 30 mmol/L Anion Gap 6.0 mmol/L Blood Urea Nitrogen 19 mg/dl Creatinine 0.74 mg/dl Est Creatinine Clear Calc Drug Dose 58.6 ml/min Estimated GFR () 86.8 Estimated GFR (Non- 74.9 BUN/Creatinine Ratio 25.9 Random Glucose 99 mg/dl Calcium Level 8.0 mg/dl (Ranjan Mitchell CRNP) Assessment and Plan 81 y/o F with an extensive medical history including PAF, systolic CHF, pulmonary fibrosis, breast CA, prediabetes, PE and IVC filter placement, CVA , thrombocytosis. She presented to ER with worsening SOB and swelling in legs for past 2 days 1. Acute on chronic respiratory failure with tachypnea, likely secondary to acute on chronic systolic CHF superimposed on pulmonary fibrosis, chronic respiratory failure on home O2 - LVEF 25-30% on echocardiogram from June 2016 when she was here with her CVA. -CXR determined substantial pulm edema upon arrival - Not as short of breath -Change lasix to oral starting this evening. Continue carvedilol, losartan -Strict I's and O's and daily weights AF - paroxysmal - currently in a sinus rhythm. - INR suprtherapeutic at 3.2. Hold coumadin tonight, resume at lower dose tomorrow. Check PT/INR in am - continue BB Recent CVA -stable, with right-sided hemiparesis -Continue plavix, statin -Consult PT/OT, appreciate recs Breast CA - listed as metastatic - f/u as outpt -Continue anastrozole Seizure disorder -stable, no current issues -Cont keppra Osteoporosis-stable no issues -Continue calcium and vitamin D, xgeva Prophylaxis- Coumadin Pt is full code ELS 1 to 2 midnight - move to general medical floor. D/C hermosillo in AM. PT/OT Continued [facility] stay due to: other Discharge planning: home with home health (Ranjan Mitchell ., JULY) Attending Attestation: Chart reviewed in detail. I agree with the villa components of JULY Mitchell's documentation. Solomon Hidalgo MD (Solomon Hidalgo MD)
[2016-08-27 13:48] VITALS: BP 98/60; PULSE 72; TEMP 36.6; O2SAT 96
[2016-08-27 16:07] VITALS: BP 102/64; PULSE 73; TEMP 36.2; O2SAT 93
[2016-08-27] MEDS: FUROSEMIDE 40 MG TAB PO SCH (17:28)
[2016-08-27 19:52] VITALS: BP 105/64; PULSE 71; TEMP 37; O2SAT 92
[2016-08-27] MEDS: SIMVASTATIN 40 MG TAB PO SCH (20:35)
[2016-08-28 00:06] VITALS: BP 100/63; PULSE 66; TEMP 36.3; O2SAT 97
[2016-08-28 07:32] LABS: BASO % 0.8 %; BASO ABS # 0.05 K/uL (0-0.2); COMPLETE YES; EOS % 3.9 %; HEMATOCRIT 44.3 % (37-47); IG% 0.3 %; LYMPH % 21.4 %; LYMPH ABS # 1.37 K/uL (1.2-3.4); MEAN CELL VOLUME 89.9 fL (80-100); MEAN CORPUSCULAR HGB CONC 31.2 g/dl (32-36); MEAN PLATELET VOLUME 10.7 fL (7.4-10.4); MONO % 16.9 %; NEUT % 56.7 %; PLATELET COUNT 602 K/uL (130-400); RED BLOOD COUNT 4.93 M/uL (4.2-5.4); WHITE BLOOD COUNT 6.39 K/uL (4.8-10.8)
[2016-08-28 07:43] LABS: INR 3.2 (0.9-1.1); PROTHROMBIN TIME (PATIENT) 35.8 SECONDS (9.0-12.0)
[2016-08-28 07:59] LABS: BUN/CREATININE RATIO 35.2 (10-20); CALCIUM 8.2 mg/dl (8.5-10.1); CREATININE 0.69 mg/dl (0.60-1.20); POTASSIUM 3.8 mmol/L (3.5-5.1)
[2016-08-28 08:00] VITALS: O2SAT 97
[2016-08-28 08:13] VITALS: BP 116/68; PULSE 62; TEMP 36.5; O2SAT 97
[2016-08-28] MEDS: ALPRAZOLAM 0.25 MG TAB PO SCH ×2 (09:20→21:13)
[2016-08-28] MEDS: DOCUSATE SODIUM 100 MG CAP PO SCH ×2 (09:21→21:20)
[2016-08-28] MEDS: ANASTROZOLE 1 MG TAB PO SCH (09:21)
[2016-08-28] MEDS: FLUOXETINE HCL 20 MG CAP PO SCH (09:21)
[2016-08-28] MEDS: FLUTICASONE PROPIONATE NA SPR 16 GM BTL SCH (09:22)
[2016-08-28] MEDS: CLOPIDOGREL BISULFATE 75 MG TAB PO SCH (09:22)
[2016-08-28] MEDS: FUROSEMIDE 40 MG TAB PO SCH ×2 (09:22→16:37)
[2016-08-28] MEDS: LEVETIRACETAM 250 MG TAB PO SCH ×2 (09:22→21:20)
[2016-08-28] MEDS: LOSARTAN POTASSIUM 25 MG TAB PO SCH (09:22)
[2016-08-28] MEDS: CARVEDILOL 3.125 MG TAB PO SCH ×2 (09:23→21:13)
[2016-08-28 15:36] VITALS: BP 97/61; PULSE 52; TEMP 36.4; O2SAT 92
--- NOTE | 2016-08-28 15:36 | Hospitalist Progress Note ---
Hospitalist Progress Note Date of Service August 28, 2016. (Ranjan Mitchell ., JULY) Subjective Pt evaluation today including: conversation w/ patient, physical exam, lab review, review of inpatient medication list Pain: denies PO Intake: tolerating po not as SOB, no chest pain, overall feels weak but much better than yesterday now requesting to go to assisted living on discharge Constitutional: No chills, No fatigue, No fever, No problem reported, No see HPI, No sweats, No weakness, No weight loss ENT: No dental problems, No hearing loss, No nasal symptoms, No problem reported, No see HPI, No sore throat, No tinnitus, No trouble swallowing, No unusual epistaxis Respiratory: + cough, + dyspnea on exertion, + shortness of breath, + sputum Cardiovascular: No PND, No chest pain, No claudication, No edema, No orthopnea, No palpitations, No problem reported, No see HPI Abdomen: No GI bleeding, No constipation, No diarrhea, No nausea, No pain, No problem reported, No see HPI, No vomiting Musculoskeletal: No calf pain, No joint pain, No muscle pain, No problem reported, No see HPI, No swelling Neurologic: No balance problems, No memory loss, No numbness/tingling, No paralysis, No problem reported, No see HPI, No vertigo, No weakness Skin: No bleeding, No color change, No itch, No new/changing skin lesions, No problem reported, No rash, No see HPI (Ranjan Mitchell, JULY) Medications reviewed (Ranjan Mitchell, JULY) Objective Vital Signs Date Time Temp Pulse Resp B/P Pulse Ox O2 Delivery O2 Flow Rate FiO2 08/28/16 00:06 36.3 66 19 100/63 97 Nasal Cannula 6.0 08/28/16 00:00 Nasal Cannula 6.0 CPAP 08/27/16 21:00 Nasal Cannula 6.0 08/27/16 19:52 37.0 71 22 105/64 92 Nasal Cannula 6.0 08/27/16 16:07 36.2 73 20 102/64 93 Nasal Cannula 6.0 08/27/16 16:00 Nasal Cannula 5.0 08/27/16 13:48 36.6 72 18 96 5.0 08/27/16 12:21 36.6 72 18 98/60 96 Nasal Cannula 5.0 08/27/16 12:00 Nasal Cannula 6.0 08/27/16 08:04 36.4 67 18 111/62 97 Nasal Cannula CPAP 08/27/16 08:00 Nasal Cannula 6.0 (Ranjan Mitchell, JULY) Physical Exam General Appearance: no apparent distress Eyes: normal inspection, sclerae normal ENT: hearing grossly normal, pharynx normal Neck: supple, no adenopathy, no JVD Respiratory/Chest: chest non-tender, + decreased breath sounds, + wheezing Cardiovascular: regular rate, rhythm, no JVD, no murmur Abdomen: normal bowel sounds, non tender, soft Extremities: + swelling Neurologic/Psychiatric: no motor/sensory deficits, alert, oriented x 3 Skin: normal color, warm/dry, no rash (Ranjan Mitchell, JULY) Laboratory Results Last 24 Hours Test 08/27/16 16:44 08/28/16 07:13 Bedside Glucose 99 mg/dl White Blood Count 6.39 K/uL Red Blood Count 4.93 M/uL Hemoglobin 13.8 g/dL Hematocrit 44.3 % Mean Corpuscular Volume 89.9 fL Mean Corpuscular Hemoglobin 28.0 pg Mean Corpuscular Hemoglobin Concent 31.2 g/dl Platelet Count 602 K/uL Mean Platelet Volume 10.7 fL Neutrophils (%) (Auto) 56.7 % Lymphocytes (%) (Auto) 21.4 % Monocytes (%) (Auto) 16.9 % Eosinophils (%) (Auto) 3.9 % Basophils (%) (Auto) 0.8 % Neutrophils # (Auto) 3.62 K/uL Lymphocytes # (Auto) 1.37 K/uL Monocytes # (Auto) 1.08 K/uL Eosinophils # (Auto) 0.25 K/uL Basophils # (Auto) 0.05 K/uL RDW Standard Deviation 54.7 fL RDW Coefficient of Variation 16.7 % Immature Granulocyte % (Auto) 0.3 % Immature Granulocyte # (Auto) 0.02 K/uL Prothrombin Time 35.8 SECONDS Prothromb Time International Ratio 3.2 (Ranjan Mitchell, JULY) Assessment and Plan 81 y/o F with an extensive medical history including PAF, systolic CHF, pulmonary fibrosis, breast CA, prediabetes, PE and IVC filter placement, CVA , thrombocytosis. She presented to ER with worsening SOB and swelling in legs for past 2 days 1. Acute on chronic respiratory failure with tachypnea, likely secondary to acute on chronic systolic CHF superimposed on pulmonary fibrosis, chronic respiratory failure on home O2 - LVEF 25-30% on echocardiogram from June 2016. -Tolerating oral furosemide -Continue carvedilol, losartan -Strict I's and O's and daily weights - wt down 5kg since admission - d/c bay 2. AF - paroxysmal - currently in a sinus rhythm. - INR suprtherapeutic at 3.2. Held coumadin last night. resume tonight at lower dose. Check PT/INR in am - continue BB 3. Recent CVA -stable, with right-sided hemiparesis - Continue plavix, statin - Consult PT/OT 4.Breast CA - listed as metastatic - f/u as outpt - Continue anastrozole 5. Seizure disorder -stable, no current issues - Cont keppra 6. DVT Prophylaxis- Coumadin 7. Full Code 8. Disposition - patient is improving well. Still weak and is requesting assisted living at [facility]. I spoke with Case Management and realistically with holiday weekend patient will not be able to go to [facility] until Tuesday. Continued [facility] stay due to: ambulation difficulties Discharge planning: other (assited living) (Ranjan Mitchell ., JULY) Attending Attestation: Chart reviewed in detail. I agree with the villa components of JULY Mitchell's documentation. Solomon Hidalgo MD (Solomon Hidalgo MD)
[2016-08-28] MEDS ORDERED: WARFARIN SOD 1 MG TAB PO SCH (16:00)
[2016-08-28 16:22] VITALS: O2SAT 92
[2016-08-28] MEDS: SIMVASTATIN 40 MG TAB PO SCH (21:20)
[2016-08-28 21:25] VITALS: BP 109/73; PULSE 88; O2SAT 92
[2016-08-28] MEDS: ACETAMINOPHEN 325 MG TAB PO PRN (23:42)
[2016-08-29 00:25] VITALS: BP 103/67; PULSE 64; TEMP 36.4; O2SAT 94
[2016-08-29 07:54] LABS: BASO % 0.7 %; BASO ABS # 0.05 K/uL (0-0.2); COMPLETE YES; EOS % 3.7 %; HEMATOCRIT 46.8 % (37-47); IG% 0.3 %; LYMPH % 23.2 %; LYMPH ABS # 1.64 K/uL (1.2-3.4); MEAN CELL VOLUME 91.1 fL (80-100); MEAN CORPUSCULAR HEMOGLOBIN 28.2 pg (25-34); MEAN PLATELET VOLUME 10.6 fL (7.4-10.4); MONO % 16.5 %; NEUT % 55.6 %; PLATELET COUNT 591 K/uL (130-400); RED BLOOD COUNT 5.14 M/uL (4.2-5.4); WHITE BLOOD COUNT 7.07 K/uL (4.8-10.8)
[2016-08-29 08:07] LABS: PROTHROMBIN TIME (PATIENT) 41.1 SECONDS (9.0-12.0)
[2016-08-29 08:13] LABS: INR 3.6 (0.9-1.1)
[2016-08-29 08:15] VITALS: BP 129/75; PULSE 62; TEMP 36.8; O2SAT 98
[2016-08-29 08:21] LABS: BUN/CREATININE RATIO 32.5 (10-20); CREATININE 0.76 mg/dl (0.60-1.20); POTASSIUM 3.7 mmol/L (3.5-5.1)
[2016-08-29 08:29] LABS: CALCIUM 8.6 mg/dl (8.5-10.1)
[2016-08-29] MEDS: DOCUSATE SODIUM 100 MG CAP PO SCH ×2 (09:02→20:48)
[2016-08-29] MEDS: FLUTICASONE PROPIONATE NA SPR 16 GM BTL SCH (09:02)
[2016-08-29] MEDS: FUROSEMIDE 40 MG TAB PO SCH ×2 (09:02→16:44)
[2016-08-29] MEDS: LOSARTAN POTASSIUM 25 MG TAB PO SCH (09:02)
[2016-08-29] MEDS: CLOPIDOGREL BISULFATE 75 MG TAB PO SCH (09:03)
[2016-08-29] MEDS: ANASTROZOLE 1 MG TAB PO SCH (09:03)
[2016-08-29] MEDS: FLUOXETINE HCL 20 MG CAP PO SCH (09:04)
[2016-08-29] MEDS: CARVEDILOL 3.125 MG TAB PO SCH ×2 (09:05→20:47)
[2016-08-29] MEDS: ALPRAZOLAM 0.25 MG TAB PO SCH ×2 (09:07→20:46)
[2016-08-29] MEDS: LEVETIRACETAM 250 MG TAB PO SCH ×2 (09:10→20:48)
[2016-08-29 14:54] VITALS: PULSE 67; O2SAT 95
[2016-08-29 15:44] VITALS: BP 109/70; PULSE 72; TEMP 36.5; O2SAT 96
[2016-08-29 16:08] VITALS: O2SAT 92
[2016-08-29] MEDS: ACETAMINOPHEN 325 MG TAB PO PRN ×2 (16:44→20:47)
--- NOTE | 2016-08-29 16:48 | Hospitalist Progress Note ---
Hospitalist Progress Note Date of Service August 29, 2016. (Ranjan Mitchell, JULY) Subjective Pt evaluation today including: conversation w/ patient, physical exam, review of studies, review of inpatient medication list Pain: denies pain PO Intake: tolerating PO - switched from nectar to honey thick liquids last night Voiding: no voiding problems feels she is breathing better, but still short of breath with any exertion. feels weak. Constitutional: No chills, No fatigue, No fever, No problem reported, No see HPI, No sweats, No weakness, No weight loss Respiratory: + cough, + dyspnea on exertion, + shortness of breath, + wheezing Cardiovascular: No PND, No chest pain, No claudication, No edema, No orthopnea, No palpitations, No problem reported, No see HPI Abdomen: No GI bleeding, No constipation, No diarrhea, No nausea, No pain, No problem reported, No see HPI, No vomiting Musculoskeletal: + problem reported (general weakness) Neurologic: No balance problems, No memory loss, No numbness/tingling, No paralysis, No problem reported, No see HPI, No vertigo, No weakness Skin: No bleeding, No color change, No itch, No new/changing skin lesions, No problem reported, No rash, No see HPI (Ranjan Mitchell, JULY) Medications reviewed (Ranjan Mitchell CRNP) Objective Vital Signs Date Time Temp Pulse Resp B/P Pulse Ox O2 Delivery O2 Flow Rate FiO2 08/29/16 15:44 36.5 72 18 109/70 96 Nasal Cannula 6.0 08/29/16 14:54 67 95 08/29/16 08:15 36.8 62 18 129/75 98 Room Air 08/29/16 08:00 Nasal Cannula 6.0 08/29/16 00:25 36.4 64 18 103/67 94 BiPAP 08/28/16 23:40 Nasal Cannula 6.0 CPAP 08/28/16 21:25 88 22 109/73 92 Nasal Cannula 6.0 (Ranjan Mitchell CRNP) Physical Exam General Appearance: no apparent distress Eyes: sclerae normal ENT: hearing grossly normal, pharynx normal Neck: supple, no JVD Respiratory/Chest: chest non-tender, no respiratory distress, no accessory muscle use, + wheezing Cardiovascular: regular rate, rhythm, no JVD, + systolic murmur Abdomen: normal bowel sounds, non tender, soft (large) Extremities: non-tender, + swelling (trace to plus one edema) Neurologic/Psychiatric: alert, normal mood/affect, oriented x 3 Skin: normal color, warm/dry, no rash (Ranjan Mitchell ., FORESTRY [employer]) Laboratory Results Last 24 Hours Test 08/29/16 07:33 White Blood Count 7.07 K/uL Red Blood Count 5.14 M/uL Hemoglobin 14.5 g/dL Hematocrit 46.8 % Mean Corpuscular Volume 91.1 fL Mean Corpuscular Hemoglobin 28.2 pg Mean Corpuscular Hemoglobin Concent 31.0 g/dl Platelet Count 591 K/uL Mean Platelet Volume 10.6 fL Neutrophils (%) (Auto) 55.6 % Lymphocytes (%) (Auto) 23.2 % Monocytes (%) (Auto) 16.5 % Eosinophils (%) (Auto) 3.7 % Basophils (%) (Auto) 0.7 % Neutrophils # (Auto) 3.93 K/uL Lymphocytes # (Auto) 1.64 K/uL Monocytes # (Auto) 1.17 K/uL Eosinophils # (Auto) 0.26 K/uL Basophils # (Auto) 0.05 K/uL RDW Standard Deviation 56.4 fL RDW Coefficient of Variation 16.8 % Immature Granulocyte % (Auto) 0.3 % Immature Granulocyte # (Auto) 0.02 K/uL Prothrombin Time 41.1 SECONDS Prothromb Time International Ratio 3.6 Sodium Level 146 mmol/L Potassium Level 3.7 mmol/L Chloride Level 109 mmol/L Carbon Dioxide Level 29 mmol/L Anion Gap 8.0 mmol/L Blood Urea Nitrogen 25 mg/dl Creatinine 0.76 mg/dl Est Creatinine Clear Calc Drug Dose 56.3 ml/min Estimated GFR () 84.1 Estimated GFR (Non- 72.5 BUN/Creatinine Ratio 32.5 Random Glucose 99 mg/dl Calcium Level 8.6 mg/dl (Ranjan Mitchell ., [employer]) Assessment and Plan 81 y/o F with an extensive medical history including PAF, systolic CHF, pulmonary fibrosis, breast CA, prediabetes, PE and IVC filter placement, CVA , thrombocytosis. She presented to ER with worsening SOB and swelling in legs for past 2 days 1. Acute on chronic respiratory failure with tachypnea, likely secondary to acute on chronic systolic CHF superimposed on pulmonary fibrosis, chronic respiratory failure on home O2 - LVEF 25-30% on echocardiogram from June 2016. -Tolerating oral furosemide BID -Continue carvedilol, losartan -Strict I/O and daily weights - continue fluid restrictions - wt down overall 7kg since admission 2. paroxysmal atrial fibrillation- currently in a sinus rhythm. - INR suprtherapeutic. Hold coumadin. Check PT/INR in am - continue BB 3. Recent CVA -stable, with right-sided hemiparesis - Continue Plavix, statin - PT/OT 4.Breast CA - listed as metastatic - f/u as outpt - Continue anastrozole 5. Seizure disorder -stable, no current issues - Cont keppra 6. DVT Prophylaxis- Coumadin 7. Full Code 8. Disposition - patient medically is improving. Still weak and is requesting personal care at [facility]. I - PT/OT eval today recommended SNF level rehab. I updated case repairer and she will speak with family and patient about SNF. Would not happen until Tuesday at earliest. Continued [facility] stay due to: ambulation difficulties Discharge planning: senior care facility (Ranjan Mitchell ., JULY) Attending Attestation: Chart reviewed in detail. I agree with the villa components of JULY Mitchell's documentation. Solomon Hidalgo MD (Solomon Hiadlgo MD)
[2016-08-29] MEDS: SIMVASTATIN 40 MG TAB PO SCH (20:48)
[2016-08-29] MEDS ORDERED: COUGH DROP (SUGAR FREE) LOZ 24 LOZ/1 BOX PO PRN (21:00)
[2016-08-29] MEDS ORDERED: NURSING DECISION MEDICATION ORDER SCH (21:00)
[2016-08-29 23:06] VITALS: BP 95/58; PULSE 65; TEMP 36.6; O2SAT 98
[2016-08-30 06:46] VITALS: BP_SYST 115; PULSE 63; TEMP 36.6; O2SAT 98
[2016-08-30 07:27] LABS: BASO % 0.8 %; BASO ABS # 0.07 K/uL (0-0.2); COMPLETE YES; EOS % 3.6 %; HEMATOCRIT 51.1 % (37-47); IG% 0.2 %; LYMPH % 28.5 %; LYMPH ABS # 2.36 K/uL (1.2-3.4); MEAN CELL VOLUME 92.2 fL (80-100); MEAN CORPUSCULAR HEMOGLOBIN 28.2 pg (25-34); MEAN CORPUSCULAR HGB CONC 30.5 g/dl (32-36); MEAN PLATELET VOLUME 11.1 fL (7.4-10.4); MONO % 11.3 %; NEUT % 55.6 %; PLATELET COUNT 623 K/uL (130-400); RED BLOOD COUNT 5.54 M/uL (4.2-5.4); WHITE BLOOD COUNT 8.29 K/uL (4.8-10.8)
[2016-08-30 07:39] LABS: INR 3.3 (0.9-1.1); PROTHROMBIN TIME (PATIENT) 37.4 SECONDS (9.0-12.0)
[2016-08-30 08:00] VITALS: O2SAT 98
[2016-08-30 08:11] LABS: BUN/CREATININE RATIO 30.4 (10-20); CALCIUM 8.8 mg/dl (8.5-10.1); CREATININE 0.79 mg/dl (0.60-1.20); POTASSIUM 4.5 mmol/L (3.5-5.1)
[2016-08-30] MEDS: LEVETIRACETAM 250 MG TAB PO SCH ×2 (08:12→20:36)
[2016-08-30] MEDS: CLOPIDOGREL BISULFATE 75 MG TAB PO SCH (08:12)
[2016-08-30] MEDS: LOSARTAN POTASSIUM 25 MG TAB PO SCH (08:12)
[2016-08-30] MEDS: DOCUSATE SODIUM 100 MG CAP PO SCH ×2 (08:12→20:36)
[2016-08-30] MEDS: FLUOXETINE HCL 20 MG CAP PO SCH (08:13)
[2016-08-30] MEDS: FUROSEMIDE 40 MG TAB PO SCH ×2 (08:13→17:18)
[2016-08-30] MEDS: ANASTROZOLE 1 MG TAB PO SCH (08:14)
[2016-08-30] MEDS: FLUTICASONE PROPIONATE NA SPR 16 GM BTL SCH (08:15)
[2016-08-30] MEDS: CARVEDILOL 3.125 MG TAB PO SCH ×2 (08:15→20:35)
[2016-08-30] MEDS: ALPRAZOLAM 0.25 MG TAB PO SCH ×2 (08:18→20:31)
[2016-08-30 08:20] VITALS: BP 116/64; PULSE 85
[2016-08-30] MEDS: MAGNESIUM HYDROXIDE SUSP 30 ML UDC PO PRN (14:31)
[2016-08-30 16:09] VITALS: O2SAT 92
[2016-08-30] MEDS ORDERED: NURSING VERBAL MED ORDER ONE ×2 (16:15)
[2016-08-30] MEDS ORDERED: WARFARIN SOD 2 MG TAB PO SCH (16:17)
[2016-08-30] MEDS: WARFARIN SOD 1 MG TAB PO SCH (17:18)
--- NOTE | 2016-08-30 19:24 | Progress Note ---
Subjective Date of Service: August 30, 2016. Subjective Pt evaluation today including: conversation w/ patient, physical exam, chart review, lab review, review of inpatient medication list feeling better breathing better no new complaints notes that HSR was too much for her last time, hopes SNF for rehab will be better Problem List Medical Problems: (1) Abdominal contusion Status: Acute (2) Abdominal pain Status: Acute (3) Anxiety Status: Acute (4) Anxiety Status: Acute (5) Back contusion Status: Acute (6) Cervical strain Status: Acute (7) Chest pain Status: Acute (8) Confusion Status: Acute (9) Congestive heart failure Status: Acute (10) Dyspnea Status: Acute (11) Dyspnea Status: Acute (12) Elevated platelet count Status: Acute (13) Fall Status: Acute (14) Fall Status: Acute (15) Generalized weakness Status: Acute (16) Hypoglycemia Status: Acute (17) Hypoxia Status: Acute (18) International normalized ratio (INR) greater than 2 Status: Acute (19) Leukocytosis Status: Acute (20) Lumbar contusion Status: Acute (21) Metastatic breast cancer Status: Acute (22) Peripheral edema Status: Acute (23) Pulmonary edema Status: Acute (24) Pulmonary edema Status: Acute (25) Rectal bleed Status: Acute (26) Shingles Status: Acute (27) Supratherapeutic INR Status: Acute (28) UTI (urinary tract infection) Status: Acute (29) Weakness Status: Acute (30) Weakness Status: Acute Review of Systems ros otherwise negative except for as above Objective Vital Signs Date Time Temp Pulse Resp B/P Pulse Ox O2 Delivery O2 Flow Rate FiO2 08/30/16 08:20 85 116/64 08/30/16 08:00 98 Nasal Cannula 6.0 08/30/16 06:46 36.6 63 18 115/ 98 6.0 08/30/16 00:00 CPAP 6.0 08/29/16 23:06 36.6 65 18 95/58 98 2.0 Physical Exam General Appearance: no apparent distress Eyes: EOMI ENT: hearing grossly normal Neck: trachea midline Respiratory/Chest: no respiratory distress, no accessory muscle use Extremities: normal range of motion Neurologic/Psychiatric: plan coordinator II-XII nml as tested, alert, normal mood/affect Laboratory Results Last 24 Hours Test 08/30/16 07:16 08/30/16 11:38 White Blood Count 8.29 K/uL Red Blood Count 5.54 M/uL Hemoglobin 15.6 g/dL Hematocrit 51.1 % Mean Corpuscular Volume 92.2 fL Mean Corpuscular Hemoglobin 28.2 pg Mean Corpuscular Hemoglobin Concent 30.5 g/dl Platelet Count 623 K/uL Mean Platelet Volume 11.1 fL Neutrophils (%) (Auto) 55.6 % Lymphocytes (%) (Auto) 28.5 % Monocytes (%) (Auto) 11.3 % Eosinophils (%) (Auto) 3.6 % Basophils (%) (Auto) 0.8 % Neutrophils # (Auto) 4.60 K/uL Lymphocytes # (Auto) 2.36 K/uL Monocytes # (Auto) 0.94 K/uL Eosinophils # (Auto) 0.30 K/uL Basophils # (Auto) 0.07 K/uL RDW Standard Deviation 57.4 fL RDW Coefficient of Variation 16.9 % Immature Granulocyte % (Auto) 0.2 % Immature Granulocyte # (Auto) 0.02 K/uL Prothrombin Time 37.4 SECONDS Prothromb Time International Ratio 3.3 Sodium Level 147 mmol/L Potassium Level 4.5 mmol/L Chloride Level 109 mmol/L Carbon Dioxide Level 31 mmol/L Anion Gap 7.0 mmol/L Blood Urea Nitrogen 24 mg/dl Creatinine 0.79 mg/dl Est Creatinine Clear Calc Drug Dose 55.0 ml/min Estimated GFR () 80.2 Estimated GFR (Non- 69.2 BUN/Creatinine Ratio 30.4 Random Glucose 105 mg/dl Calcium Level 8.8 mg/dl Bedside Glucose 117 mg/dl Assessment and Plan 1. Acute on chronic respiratory failure with tachypnea, likely secondary to acute on chronic systolic CHF superimposed on pulmonary fibrosis, chronic respiratory failure on home O2 - LVEF 25-30% on echocardiogram from June 2016. -Tolerating oral furosemide BID, faint rales but likely around baseline -Continue carvedilol, losartan, continue to follow BP -Strict I/O and daily weights - continue fluid restrictions - wt down overall 7kg since admission 2. paroxysmal atrial fibrillation- currently in a sinus rhythm. - continue coumadin, continue to follow INR 3. Recent CVA -stable, with right-sided hemiparesis - Continue Plavix, statin - PT/OT 4.Breast CA - listed as metastatic - f/u as outpt - Continue anastrozole 5. Seizure disorder -stable, no current issues - Cont keppra 6. DVT Prophylaxis- Coumadin 7. Full Code 8. Disposition - patient medically is improving. for SNF for rehab. hopefully tomorrow Continued [facility] stay due to: ambulation difficulties Discharge planning: senior care facility
[2016-08-30] MEDS: ACETAMINOPHEN 325 MG TAB PO PRN (20:32)
[2016-08-30] MEDS: SIMVASTATIN 40 MG TAB PO SCH (20:36)
[2016-08-31] VITALS: BP 97/60; PULSE 65; TEMP 36.3; O2SAT 92
[2016-08-31 05:56] LABS: BASO % 0.5 %; BASO ABS # 0.04 K/uL (0-0.2); COMPLETE YES; EOS % 3.2 %; HEMATOCRIT 44.9 % (37-47); IG% 0.1 %; LYMPH ABS # 1.73 K/uL (1.2-3.4); MEAN CELL VOLUME 90.7 fL (80-100); MEAN CORPUSCULAR HEMOGLOBIN 28.1 pg (25-34); MEAN PLATELET VOLUME 11.1 fL (7.4-10.4); MONO % 12.5 %; NEUT % 62.7 %; PLATELET COUNT 585 K/uL (130-400); RED BLOOD COUNT 4.95 M/uL (4.2-5.4); WHITE BLOOD COUNT 8.23 K/uL (4.8-10.8)
[2016-08-31 06:26] LABS: BUN/CREATININE RATIO 34.9 (10-20); CALCIUM 8.2 mg/dl (8.5-10.1); CREATININE 0.83 mg/dl (0.60-1.20); POTASSIUM 4.2 mmol/L (3.5-5.1)
[2016-08-31 07:35] VITALS: BP 120/79; PULSE 68; TEMP 36.4; O2SAT 91
[2016-08-31] MEDS: FLUOXETINE HCL 20 MG CAP PO SCH (08:28)
[2016-08-31] MEDS: LOSARTAN POTASSIUM 25 MG TAB PO SCH (08:28)
[2016-08-31] MEDS: CLOPIDOGREL BISULFATE 75 MG TAB PO SCH (08:28)
[2016-08-31] MEDS: DOCUSATE SODIUM 100 MG CAP PO SCH ×2 (08:28→21:09)
[2016-08-31] MEDS: ALPRAZOLAM 0.25 MG TAB PO SCH ×2 (08:28→21:13)
[2016-08-31] MEDS: FUROSEMIDE 40 MG TAB PO SCH (08:29)
[2016-08-31] MEDS: LEVETIRACETAM 250 MG TAB PO SCH ×2 (08:29→21:09)
[2016-08-31] MEDS: FLUTICASONE PROPIONATE NA SPR 16 GM BTL SCH (08:30)
[2016-08-31] MEDS: CARVEDILOL 3.125 MG TAB PO SCH ×2 (08:30→21:12)
[2016-08-31] MEDS: ANASTROZOLE 1 MG TAB PO SCH (08:35)
[2016-08-31] MEDS: ACETAMINOPHEN 325 MG TAB PO PRN ×3 (10:22→23:38)
--- NOTE | 2016-08-31 11:13 | DIAGNOSTIC IMAGING REPORT ---
ULTRASOUND VENOUS DOPPLER LWR EXT BILA CLINICAL HISTORY: Bilateral leg edema COMPARISON STUDY: 07/28/2016 FINDINGS: On the right, no intraluminal thrombus was visualized. The veins are fully compressible from the groin to the popliteal vein. There is normal augmentation. There was normal color-flow the proximal trifurcation veins of the right calf. There is a small right popliteal cyst measuring 39 x 9 x 9 mm. On the left, the common femoral vein appear normal. There is a tiny focal thrombus adjacent to a proximal left superficial femoral vein valve. The popliteal vein and proximal trifurcation veins of the left calf appear unremarkable as visualized. IMPRESSION: 1. No evidence of right lower extremity DVT 2. Tiny focal thrombus adjacent to a proximal left superficial femoral vein valve Electronically signed by: Bartolome Garcia M.D. 08/31/2016 11:12 AM Dictated Date/Time: 08/31/2016 11:09 AM
--- NOTE | 2016-08-31 11:14 | Cardiology Follow-Up ---
Subjective Subjective Date of Service: August 31, 2016. Pt evaluation today including: conversation w/ patient, physical exam, chart review, lab review, review of studies, review of inpatient medication list Additional Details: Feels more short of breath and weak today with non-productive cough. No chest pain. Question right lower extremity swelling. Problem List Medical Problems: (1) Abdominal contusion Status: Acute (2) Abdominal pain Status: Acute (3) Anxiety Status: Acute (4) Anxiety Status: Acute (5) Back contusion Status: Acute (6) Cervical strain Status: Acute (7) Chest pain Status: Acute (8) Confusion Status: Acute (9) Congestive heart failure Status: Acute (10) Dyspnea Status: Acute (11) Dyspnea Status: Acute (12) Elevated platelet count Status: Acute (13) Fall Status: Acute (14) Fall Status: Acute (15) Generalized weakness Status: Acute (16) Hypoglycemia Status: Acute (17) Hypoxia Status: Acute (18) International normalized ratio (INR) greater than 2 Status: Acute (19) Leukocytosis Status: Acute (20) Lumbar contusion Status: Acute (21) Metastatic breast cancer Status: Acute (22) Peripheral edema Status: Acute (23) Pulmonary edema Status: Acute (24) Pulmonary edema Status: Acute (25) Rectal bleed Status: Acute (26) Shingles Status: Acute (27) Supratherapeutic INR Status: Acute (28) UTI (urinary tract infection) Status: Acute (29) Weakness Status: Acute (30) Weakness Status: Acute Review of Systems Constitutional: + chills, No fever Respiratory: + cough, + dyspnea on exertion, + shortness of breath, + wheezing Cardiac: No chest pain Abdomen: No nausea, No pain Musculoskeletal: + problem reported Neurologic: + weakness Heme: No abnormal bleeding/bruising Endo: + fatigue Skin: No rash Objective Vital Signs Last Vital Signs Documentation Date Time Temp Pulse Resp B/P Pulse Ox O2 Delivery O2 Flow Rate FiO2 08/31/16 07:35 36.4 68 16 120/79 91 Nasal Cannula 3.0 Physical Exam: General Appearance: + pertinent finding (increased work of breathing) ENT: hearing grossly normal Respiratory/Chest: + crackles (at bases, near baseline), + pertinent finding ( increased work of breathing) Cardiovascular: regular rate, rhythm, + JVD (10), + systolic murmur, + pertinent finding (premature beats) Abdomen: normal bowel sounds, non tender, soft Extremities: normal range of motion Neurologic/Psychiatric: alert, normal mood/affect Skin: no rash, + pertinent finding (right lower extremity cool) Lymphatic: no adenopathy Assessment and Plan 1. Acute decompensated heart failure 2. HFrEF 3. PAF 4. Pulmonary fibrosis 5. Prior CVA with residual left sided weakness 6. Prior VTE 7. Metastatic breast CA Breathing appears more labored today. Also with some URI symptoms. Lung exam at baseline, JVD persists. I/Os seem unreliable -- repeat chest xray today -- continue BID diuretics; pending CXR consider restarting IV diuretics. -- continue ARB/beta-elizabeth. -- will consider adding digoxin. -- remains on coumadin, plavix. Will follow. Continued [facility] stay due to: ambulation difficulties Discharge planning: group home facility Medications: Current Inpatient Medications Medications (Trade) Dose Ordered Sig/Lindsey Route Start Time Stop Time Status Last Admin Dose Admin Acetaminophen (Tylenol Tab) 650 mg Q4H PRN PO 08/25/16 13:45 09/24/16 13:44 08/31/16 10:22 650 MG Ondansetron HCl (Zofran Inj) 4 mg Q6H PRN IV 08/25/16 13:45 09/24/16 13:44 Alprazolam (Xanax Tab) 0.25 mg BID PO 08/25/16 21:00 09/24/16 20:59 08/31/16 08:28 0.25 MG Anastrozole (Arimidex Tab) 1 mg QAM PO 08/26/16 09:00 09/25/16 08:59 08/31/16 08:35 1 MG Clopidogrel Bisulfate (plAVix TAB) 75 mg DAILY PO 08/26/16 09:00 09/25/16 08:59 08/31/16 08:28 75 MG Fluoxetine HCl (Prozac Cap) 20 mg QAM PO 08/26/16 09:00 09/25/16 08:59 08/31/16 08:28 20 MG Fluticasone Propionate (Flonase Nasal [place]) 2 sprays DAILY NA 08/26/16 09:00 09/25/16 08:59 08/31/16 08:30 2 SPRAYS Levetiracetam (Keppra Tab) 250 mg BID PO 08/25/16 21:00 09/24/16 20:59 08/31/16 08:29 250 MG Losartan Potassium (coZAAR TAB) 25 mg DAILY PO 08/26/16 09:00 09/25/16 08:59 08/31/16 08:28 25 MG Simvastatin (Zocor Tab) 40 mg HS PO 08/25/16 21:00 09/24/16 20:59 08/30/16 20:36 40 MG Carvedilol (Coreg Tab) 3.125 mg BID PO 08/26/16 21:00 09/25/16 20:59 08/31/16 08:30 3.125 MG Furosemide (Lasix Tab) 40 mg BID17 PO 08/27/16 17:00 09/26/16 16:59 08/31/16 08:29 40 MG Docusate Sodium (coLACE CAP) 100 mg BID PO 08/27/16 12:00 09/26/16 11:59 08/31/16 08:28 100 MG Magnesium Hydroxide (Milk Of Magnesia Susp) 30 ml QD PRN PO 08/27/16 11:15 09/26/16 11:14 08/30/16 14:31 30 ML Albuterol Sulfate (Ventolin 0.083% 2.5MG/3ML Neb) 2.5 mg Q6R PRN INH 08/28/16 21:30 09/27/16 21:29 Menthol (Nice Marisol) 1 marisol PRN PRN PO 08/29/16 21:00 09/28/16 20:59 08/29/16 21:29 1 MARISOL Warfarin Sodium (Coumadin Tab) 1 mg DAILY@16 PO 08/30/16 16:22 09/29/16 16:21 08/30/16 17:18 1 MG Lab Results: 08/31/16 05:31 Red Blood Count 4.95, Mean Corpuscular Volume 90.7, Mean Corpuscular Hemoglobin 28.1, Mean Corpuscular Hemoglobin Concent 31.0, Mean Platelet Volume 11.1, Neutrophils (%) (Auto) 62.7, Lymphocytes (%) (Auto) 21.0, Monocytes (%) (Auto) 12.5, Eosinophils (%) (Auto) 3.2, Basophils (%) (Auto) 0.5, Neutrophils # (Auto ) 5.16, Lymphocytes # (Auto) 1.73, Monocytes # (Auto) 1.03, Eosinophils # (Auto ) 0.26, Basophils # (Auto) 0.04 08/31/16 05:31 Test 08/30/16 11:38 08/31/16 05:31 Bedside Glucose 117 mg/dl (70-90) White Blood Count 8.23 K/uL (4.8-10.8) Red Blood Count 4.95 M/uL (4.2-5.4) Hemoglobin 13.9 g/dL (12.0-16.0) Hematocrit 44.9 % (37-47) Mean Corpuscular Volume 90.7 fL (80-100) Mean Corpuscular Hemoglobin 28.1 pg (25-34) Mean Corpuscular Hemoglobin Concent 31.0 g/dl (32-36) Platelet Count 585 K/uL (130-400) Mean Platelet Volume 11.1 fL (7.4-10.4) Neutrophils (%) (Auto) 62.7 % Lymphocytes (%) (Auto) 21.0 % Monocytes (%) (Auto) 12.5 % Eosinophils (%) (Auto) 3.2 % Basophils (%) (Auto) 0.5 % Neutrophils # (Auto) 5.16 K/uL (1.4-6.5) Lymphocytes # (Auto) 1.73 K/uL (1.2-3.4) Monocytes # (Auto) 1.03 K/uL (0.11-0.59) Eosinophils # (Auto) 0.26 K/uL (0-0.5) Basophils # (Auto) 0.04 K/uL (0-0.2) RDW Standard Deviation 56.2 fL (36.4-46.3) RDW Coefficient of Variation 16.9 % (11.5-14.5) Immature Granulocyte % (Auto) 0.1 % Immature Granulocyte # (Auto) 0.01 K/uL (0.00-0.02) Anion Gap 4.0 mmol/L (3-11) Est Creatinine Clear Calc Drug Dose 52.3 ml/min Estimated GFR () 75.6 Estimated GFR (Non- 65.2 BUN/Creatinine Ratio 34.9 (10-20) Calcium Level 8.2 mg/dl (8.5-10.1)
[2016-08-31] MEDS ORDERED: LSX40 PO (14:08)
[2016-08-31] MEDS ORDERED: CLC100 PO (14:08)
[2016-08-31] MEDS ORDERED: CMD1 PO (14:08)
[2016-08-31] MEDS ORDERED: CPC PO (14:08)
--- NOTE | 2016-08-31 14:09 | Discharge Instructions ---
Discharge Instructions Date of Service August 31, 2016. Admission Reason for Admission: Hypoxia, Pulmonary Edema Discharge Discharge Diagnosis / Problem: CHF Discharge Goals Goal(s): Diagnostic testing, Therapeutic intervention Activity Recommendations Activity Limitations: resume your previous activity (see facility specific discharge instructions - activity as tolerated with assist) . Instructions / Follow-Up Instructions / Follow-Up Call your Primary Care doctor if any of the following symptoms or problems start or get worse: * Shortness of breath or difficulty breathing * Wake up at night short of breath * Chest pain * Cough * Swelling of your hands, feet, or legs * More fatigued or tired with your normal activity * Palpitations - sudden fast heart beats WEIGHT * Weigh yourself every morning after using the bathroom. * Use the same scale. * Wear the same amount of clothing. * Write your weight down on a chart. * Call your Primary Care doctor if you gain more than 2-3 pounds in 1-2 days. MEDICATIONS * Use this discharge instruction sheet for medication instructions. * Take your medications at the time your doctor ordered. * Do not skip a dose of your medicines. * If you miss a dose of medicine, take it as soon as possible, but DO NOT DOUBLE A DOSE. * Read your medicine information when you get home. * Know all of the side effects of your medicine. If in doubt, ask your pharmacist * Call your Primary Care doctor's office if you have any side effects. * Be sure all of your doctors know what medicine and herbs you take (including cold, flu, and herbal medicine). Take the following with you to your follow-up doctor appointments: * Weight Chart * Medication List * List of questions Do not drink excessive alcohol, beer or wine. Current Hospital Diet Patient's current hospital diet: Low Sodium Diet (2gm Na), AHA Diet (Heart Healthy) Discharge Diet Recommended Diet: AHA Diet (Heart Healthy), Low Sodium Diet (2gm Na) Pending Studies Studies pending at discharge: no Laboratory Results Hemoglobin A1c Test 06/09/16 14:28 Range/Units Estimated Average Glucose 131 mg/dl Hemoglobin A1c 6.2 H 4.5-5.6 % Lipid Panel Test 06/10/16 02:55 Range/Units Triglycerides Level 39 0-150 mg/dl Cholesterol Level 111 0-200 mg/dl HDL Cholesterol 44 mg/dl Cholesterol/HDL Ratio 2.5 LDL Cholesterol, Calculated 59 mg/dl Medical Emergencies . Who to Call and When: Call 911 or go to the Emergency Room if: * If at any time you feel your situation is an emergency * You have tightness or pain in your chest that does not go away with rest or Nitroglycerin * You are very short of breath even with rest . Non-Emergent Contact Non-Emergency issues call your: Primary Care Provider . . "Provider Documentation" section prepared by Sukhjinder Whiteside. . VTE Core Measure Inpt VTE Proph given/why not?: Warfarin (Coumadin)
--- NOTE | 2016-08-31 14:20 | Discharge Instructions ---
Discharge Instructions Date of Service August 31, 2016. Admission Reason for Admission: Hypoxia, Pulmonary Edema Discharge Discharge Diagnosis / Problem: pulmonary edema - acute on chronic CHF Discharge Goals Goal(s): Improve disease control, Diagnostic testing, Therapeutic intervention Activity Recommendations . Additional Information Patient informed of condition: Yes Advance Directives: Yes DNR: No Level of Care: Skilled (with rehab emphasis) Communicable Disease: No Prognosis: Stable Current Hospital Diet Patient's current hospital diet: Low Sodium Diet (2gm Na), AHA Diet (Heart Healthy) Discharge Diet Recommended Diet: AHA Diet (Heart Healthy), Low Sodium Diet (2gm Na) Pending Studies Studies pending at discharge: no Laboratory Results Hemoglobin A1c Test 06/09/16 14:28 Range/Units Estimated Average Glucose 131 mg/dl Hemoglobin A1c 6.2 H 4.5-5.6 % Lipid Panel Test 06/10/16 02:55 Range/Units Triglycerides Level 39 0-150 mg/dl Cholesterol Level 111 0-200 mg/dl HDL Cholesterol 44 mg/dl Cholesterol/HDL Ratio 2.5 LDL Cholesterol, Calculated 59 mg/dl Medical Emergencies . Who to Call and When: Medical Emergencies: If at any time you feel your situation is an emergency, please call 911 immediately. . Non-Emergent Contact Non-Emergency issues call your: Primary Care Provider . . "Provider Documentation" section prepared by Sukhjinder Whiteside. . Core Measure Problem Core Measures: None
--- NOTE | 2016-08-31 15:24 | DIAGNOSTIC IMAGING REPORT ---
CHEST 2 VIEWS ROUTINE CLINICAL HISTORY: worsening sob COMPARISON STUDY: 08/25/2016 FINDINGS: The heart remains enlarged. There are postsurgical changes of a right shoulder arthroplasty. There are surgical clips projected over the left axillary region. There is stable mild interstitial thickening. There is no lobar consolidation. There is a stable T9 sclerotic lesion.[ IMPRESSION: 1. Cardiomegaly and and stable mild chronic interstitial thickening. 2. No evidence of acute parenchymal consolidation 3. Stable T9 sclerotic lesion Electronically signed by: Bartolome Garcia M.D. 08/31/2016 3:22 PM Dictated Date/Time: 08/31/2016 3:19 PM
[2016-08-31] MEDS ORDERED: OXYMETAZOLINE HCL 0.05% NA SPR 15 ML BTL ONE (15:30)
[2016-08-31] MEDS ORDERED: AMOXICILLIN/CLAVULANATE TAB 875 MG TAB PO ONE (15:30)
[2016-08-31] MEDS ORDERED: BUMETANIDE IV 1 MG in SYRINGE 0 ML IV SCH (15:45)
[2016-08-31] MEDS: WARFARIN SOD 1 MG TAB PO SCH (16:08)
--- NOTE | 2016-08-31 16:55 | Progress Note ---
Subjective Date of Service: August 31, 2016. Subjective Pt evaluation today including: conversation w/ patient, conversation w/ family , physical exam, chart review, lab review, review of studies, review of inpatient medication list this AM - was feeling about the same, ready to go to SNF for rehab, breathign the same no worse no f/c/s. did have R leg swelling - she wasn't sure if it was new or old dispo to [facility] for 3:30 - then this afternoon was called that she suddenly was feeling more sob, looking more dyspnic. stat CXR ordered and pt seen/examined - she notes: -more sob again -congestion and face pain ros otherwise negative except for as above Problem List Medical Problems: (1) Abdominal contusion Status: Acute (2) Abdominal pain Status: Acute (3) Anxiety Status: Acute (4) Anxiety Status: Acute (5) Back contusion Status: Acute (6) Cervical strain Status: Acute (7) Chest pain Status: Acute (8) Confusion Status: Acute (9) Congestive heart failure Status: Acute (10) Dyspnea Status: Acute (11) Dyspnea Status: Acute (12) Elevated platelet count Status: Acute (13) Fall Status: Acute (14) Fall Status: Acute (15) Generalized weakness Status: Acute (16) Hypoglycemia Status: Acute (17) Hypoxia Status: Acute (18) International normalized ratio (INR) greater than 2 Status: Acute (19) Leukocytosis Status: Acute (20) Lumbar contusion Status: Acute (21) Metastatic breast cancer Status: Acute (22) Peripheral edema Status: Acute (23) Pulmonary edema Status: Acute (24) Pulmonary edema Status: Acute (25) Rectal bleed Status: Acute (26) Shingles Status: Acute (27) Supratherapeutic INR Status: Acute (28) UTI (urinary tract infection) Status: Acute (29) Weakness Status: Acute (30) Weakness Status: Acute Review of Systems see above, ros otherwise negative except for as above Objective Vital Signs Date Time Temp Pulse Resp B/P Pulse Ox O2 Delivery O2 Flow Rate FiO2 08/31/16 14:35 36.4 68 16 91 Nasal Cannula 08/31/16 08:00 Nasal Cannula 6.0 08/31/16 07:35 36.4 68 16 120/79 91 Nasal Cannula 3.0 08/31/16 00:00 CPAP 6.0 08/31/16 00:00 36.3 65 18 97/60 92 Room Air CPAP Physical Exam General Appearance: no apparent distress Eyes: EOMI ENT: hearing grossly normal, + pertinent finding (R maxillary sinus VERY tender to palp) Neck: trachea midline Respiratory/Chest: no respiratory distress, no accessory muscle use, + decreased breath sounds (actually clear on both exams, no r/r/w, but more decreased air entry this afternoon) Neurologic/Psychiatric: installer inspector final II-XII nml as tested, alert, normal mood/affect Skin: normal color, warm/dry Laboratory Results Last 24 Hours Test 08/31/16 05:31 White Blood Count 8.23 K/uL Red Blood Count 4.95 M/uL Hemoglobin 13.9 g/dL Hematocrit 44.9 % Mean Corpuscular Volume 90.7 fL Mean Corpuscular Hemoglobin 28.1 pg Mean Corpuscular Hemoglobin Concent 31.0 g/dl Platelet Count 585 K/uL Mean Platelet Volume 11.1 fL Neutrophils (%) (Auto) 62.7 % Lymphocytes (%) (Auto) 21.0 % Monocytes (%) (Auto) 12.5 % Eosinophils (%) (Auto) 3.2 % Basophils (%) (Auto) 0.5 % Neutrophils # (Auto) 5.16 K/uL Lymphocytes # (Auto) 1.73 K/uL Monocytes # (Auto) 1.03 K/uL Eosinophils # (Auto) 0.26 K/uL Basophils # (Auto) 0.04 K/uL RDW Standard Deviation 56.2 fL RDW Coefficient of Variation 16.9 % Immature Granulocyte % (Auto) 0.1 % Immature Granulocyte # (Auto) 0.01 K/uL Sodium Level 146 mmol/L Potassium Level 4.2 mmol/L Chloride Level 108 mmol/L Carbon Dioxide Level 34 mmol/L Anion Gap 4.0 mmol/L Blood Urea Nitrogen 29 mg/dl Creatinine 0.83 mg/dl Est Creatinine Clear Calc Drug Dose 52.3 ml/min Estimated GFR () 75.6 Estimated GFR (Non- 65.2 BUN/Creatinine Ratio 34.9 Random Glucose 102 mg/dl Calcium Level 8.2 mg/dl Assessment and Plan 1. Acute on chronic respiratory failure with tachypnea, likely secondary to acute on chronic systolic CHF superimposed on pulmonary fibrosis, chronic respiratory failure on home O2 - LVEF 25-30% on echocardiogram from June 2016. -was doing well on PO lasix, then despite controlled environment and controlled diet - decompensated -- ?poor PO lasix absorption - change to bumex IV now then PO starting tomorrow. alternate would be physiologic stress from sinusitis precipitating CHF, although this seems less likely given no appearance of sepsis 1a. acute sinusitis -augmentin -afrin for short course -close f/u 2. paroxysmal atrial fibrillation- currently in a sinus rhythm. - continue coumadin, continue to follow INR, still keep @ 1mg for now 3. Recent CVA -stable, with right-sided hemiparesis - Continue Plavix, statin - PT/OT and PT/OT to continue @ SNF 4.Breast CA - listed as metastatic - f/u as outpt - Continue anastrozole 5. Seizure disorder -stable, no current issues - Cont keppra 6. DVT Prophylaxis- Coumadin 7. Full Code 8. Disposition - was for SNF today, then suddenly worsened w CHF and sinusitis as above (actually right before she was to leave, fortunately before rather than after) -- ultimate plan is still for SNF, will need to see improvement in above first Continued [facility] stay due to: ambulation difficulties Discharge planning: correction facility
[2016-08-31] MEDS: AMOXICILLIN/CLAVULANATE TAB 875 MG TAB PO SCH (17:34)
[2016-08-31 20:00] VITALS: O2SAT 92
[2016-08-31] MEDS: OXYMETAZOLINE HCL 0.05% NA SPR 15 ML BTL SCH (21:08)
[2016-08-31] MEDS: SIMVASTATIN 40 MG TAB PO SCH (21:09)
[2016-08-31 21:17] VITALS: BP 123/79; PULSE 77; O2SAT 92
[2016-08-31 23:47] VITALS: BP 106/72; PULSE 73; TEMP 36.6; O2SAT 92
[2016-09-01 06:43] LABS: BASO % 0.2 %; BASO ABS # 0.04 K/uL (0-0.2); COMPLETE YES; EOS % 0.3 %; HEMATOCRIT 46.5 % (37-47); IG% 0.4 %; LYMPH % 7.3 %; MEAN CELL VOLUME 88.1 fL (80-100); MEAN CORPUSCULAR HEMOGLOBIN 27.8 pg (25-34); MEAN CORPUSCULAR HGB CONC 31.6 g/dl (32-36); MEAN PLATELET VOLUME 10.5 fL (7.4-10.4); MONO % 6.5 %; NEUT % 85.3 %; PLATELET COUNT 648 K/uL (130-400); RED BLOOD COUNT 5.28 M/uL (4.2-5.4); WHITE BLOOD COUNT 16.52 K/uL (4.8-10.8)
[2016-09-01 07:04] VITALS: BP 125/82; PULSE 76; TEMP 36.5; O2SAT 94
[2016-09-01 07:10] LABS: BUN/CREATININE RATIO 32.4 (10-20); CALCIUM 8.5 mg/dl (8.5-10.1); CREATININE 0.87 mg/dl (0.60-1.20); POTASSIUM 4.1 mmol/L (3.5-5.1)
[2016-09-01] MEDS: CLOPIDOGREL BISULFATE 75 MG TAB PO SCH (08:24)
[2016-09-01] MEDS: AMOXICILLIN/CLAVULANATE TAB 875 MG TAB PO SCH ×2 (08:24→17:43)
[2016-09-01] MEDS: OXYMETAZOLINE HCL 0.05% NA SPR 15 ML BTL SCH ×2 (08:24→20:49)
[2016-09-01] MEDS: DOCUSATE SODIUM 100 MG CAP PO SCH ×2 (08:24→20:50)
[2016-09-01] MEDS: FLUTICASONE PROPIONATE NA SPR 16 GM BTL SCH (08:24)
[2016-09-01] MEDS: LEVETIRACETAM 250 MG TAB PO SCH ×2 (08:25→20:51)
[2016-09-01] MEDS: FLUOXETINE HCL 20 MG CAP PO SCH (08:25)
[2016-09-01] MEDS: LOSARTAN POTASSIUM 25 MG TAB PO SCH (08:25)
[2016-09-01] MEDS: CARVEDILOL 3.125 MG TAB PO SCH ×2 (08:26→20:51)
[2016-09-01] MEDS: ALPRAZOLAM 0.25 MG TAB PO SCH ×2 (08:29→20:52)
[2016-09-01] MEDS: ANASTROZOLE 1 MG TAB PO SCH (08:29)
[2016-09-01] MEDS ORDERED: BUMETANIDE 1 MG TAB PO SCH (09:00)
[2016-09-01] MEDS: ACETAMINOPHEN 325 MG TAB PO PRN ×2 (10:37→20:57)
[2016-09-01 15:37] VITALS: BP 82/60; PULSE 66
[2016-09-01 15:40] VITALS: PULSE 77; TEMP 36.3; O2SAT 90
[2016-09-01] MEDS: BUMETANIDE 1 MG TAB PO SCH (15:42)
[2016-09-01] MEDS ORDERED: NURSING VERBAL MED ORDER ONE (15:45)
[2016-09-01 16:10] VITALS: BP 100/62; PULSE 72
--- NOTE | 2016-09-01 17:42 | Progress Note ---
Subjective Date of Service: September 01, 2016. Subjective Pt evaluation today including: conversation w/ patient, physical exam, chart review, lab review, review of inpatient medication list saw twice feeling better- still not great but definitely better than yesterday, breathing easier less face pain revisited - called due to low BP - no sx. no lightheaded no dizzy no fatigue Problem List Medical Problems: (1) Abdominal contusion Status: Acute (2) Abdominal pain Status: Acute (3) Anxiety Status: Acute (4) Anxiety Status: Acute (5) Back contusion Status: Acute (6) Cervical strain Status: Acute (7) Chest pain Status: Acute (8) Confusion Status: Acute (9) Congestive heart failure Status: Acute (10) Dyspnea Status: Acute (11) Dyspnea Status: Acute (12) Elevated platelet count Status: Acute (13) Fall Status: Acute (14) Fall Status: Acute (15) Generalized weakness Status: Acute (16) Hypoglycemia Status: Acute (17) Hypoxia Status: Acute (18) International normalized ratio (INR) greater than 2 Status: Acute (19) Leukocytosis Status: Acute (20) Lumbar contusion Status: Acute (21) Metastatic breast cancer Status: Acute (22) Peripheral edema Status: Acute (23) Pulmonary edema Status: Acute (24) Pulmonary edema Status: Acute (25) Rectal bleed Status: Acute (26) Shingles Status: Acute (27) Supratherapeutic INR Status: Acute (28) UTI (urinary tract infection) Status: Acute (29) Weakness Status: Acute (30) Weakness Status: Acute Review of Systems ros otherwise negative except for as above Objective Vital Signs Date Time Temp Pulse Resp B/P Pulse Ox O2 Delivery O2 Flow Rate FiO2 09/01/16 16:10 72 100/62 09/01/16 16:00 Nasal Cannula 6.0 09/01/16 15:40 36.3 77 20 90 Nasal Cannula 6.0 09/01/16 15:37 66 82/60 09/01/16 08:00 Nasal Cannula 6.0 09/01/16 07:04 36.5 76 20 125/82 94 4.0 09/01/16 00:00 Nasal Cannula 6.0 CPAP 08/31/16 23:47 36.6 73 20 106/72 92 CPAP 08/31/16 21:17 77 18 123/79 92 CPAP 08/31/16 20:00 92 Nasal Cannula 6.0 CPAP Physical Exam General Appearance: no apparent distress Eyes: EOMI ENT: hearing grossly normal, + pertinent finding (less tender R max sinus than before) Neck: trachea midline Respiratory/Chest: no respiratory distress, no accessory muscle use, + rales ( faint mid lung rales) Extremities: normal range of motion Neurologic/Psychiatric: continuous improvement coordinator II-XII nml as tested, alert, normal mood/affect Skin: normal color, warm/dry Laboratory Results Last 24 Hours Test 09/01/16 06:29 White Blood Count 16.52 K/uL Red Blood Count 5.28 M/uL Hemoglobin 14.7 g/dL Hematocrit 46.5 % Mean Corpuscular Volume 88.1 fL Mean Corpuscular Hemoglobin 27.8 pg Mean Corpuscular Hemoglobin Concent 31.6 g/dl Platelet Count 648 K/uL Mean Platelet Volume 10.5 fL Neutrophils (%) (Auto) 85.3 % Lymphocytes (%) (Auto) 7.3 % Monocytes (%) (Auto) 6.5 % Eosinophils (%) (Auto) 0.3 % Basophils (%) (Auto) 0.2 % Neutrophils # (Auto) 14.08 K/uL Lymphocytes # (Auto) 1.20 K/uL Monocytes # (Auto) 1.08 K/uL Eosinophils # (Auto) 0.05 K/uL Basophils # (Auto) 0.04 K/uL RDW Standard Deviation 54.6 fL RDW Coefficient of Variation 16.9 % Immature Granulocyte % (Auto) 0.4 % Immature Granulocyte # (Auto) 0.07 K/uL Sodium Level 144 mmol/L Potassium Level 4.1 mmol/L Chloride Level 108 mmol/L Carbon Dioxide Level 28 mmol/L Anion Gap 8.0 mmol/L Blood Urea Nitrogen 28 mg/dl Creatinine 0.87 mg/dl Est Creatinine Clear Calc Drug Dose 49.9 ml/min Estimated GFR () 71.4 Estimated GFR (Non- 61.6 BUN/Creatinine Ratio 32.4 Random Glucose 144 mg/dl Calcium Level 8.5 mg/dl Assessment and Plan 1. Acute on chronic respiratory failure with tachypnea, likely secondary to acute on chronic systolic CHF superimposed on pulmonary fibrosis, chronic respiratory failure on home O2 - LVEF 25-30% on echocardiogram from June 2016. -was doing well on PO lasix, then despite controlled environment and controlled diet - decompensated -- ?poor PO lasix absorption - changed to bumex - more rales than before but feeling better again - continue hypotension but asymptomatic - will follow and hold PM bumex for now. 1a. acute sinusitis -augmentin -afrin for short course -close f/u -improving 2. paroxysmal atrial fibrillation- currently in a sinus rhythm. - continue coumadin, continue to follow INR, still keep @ 1mg for now 3. Recent CVA -stable, with right-sided hemiparesis - Continue Plavix, statin - PT/OT and PT/OT to continue @ SNF 4.Breast CA - listed as metastatic - f/u as outpt - Continue anastrozole 5. Seizure disorder -stable, no current issues - Cont keppra 6. DVT Prophylaxis- Coumadin 7. Full Code 8. Disposition - SNF once more stable from 1a above - hopefully 09/02 or 09/03 at the latest Continued [facility] stay due to: ambulation difficulties Discharge planning: care home facility
[2016-09-01] MEDS: BOOST VANILLA PUDDING CUP PO SCH (17:43)
[2016-09-01] MEDS: WARFARIN SOD 1 MG TAB PO SCH (17:44)
[2016-09-01] MEDS: SIMVASTATIN 40 MG TAB PO SCH (20:50)
[2016-09-01 20:53] VITALS: BP 111/73; PULSE 77; O2SAT 91
[2016-09-01 23:04] VITALS: BP 100/59; PULSE 71; TEMP 36.5; O2SAT 91
[2016-09-02] VITALS (7 sets, daily range): BP systolic 93–135; BP diastolic 60–81; PULSE 64–81; TEMP 36.4–36.5; O2SAT 90–94
[2016-09-02 07:15] LABS: BASO % 0.2 %; BASO ABS # 0.03 K/uL (0-0.2); COMPLETE YES; EOS % 0.4 %; HEMATOCRIT 45.7 % (37-47); IG% 0.2 %; LYMPH % 5.6 %; LYMPH ABS # 0.96 K/uL (1.2-3.4); MEAN CELL VOLUME 88.9 fL (80-100); MEAN CORPUSCULAR HEMOGLOBIN 28.2 pg (25-34); MEAN CORPUSCULAR HGB CONC 31.7 g/dl (32-36); MEAN PLATELET VOLUME 11.7 fL (7.4-10.4); MONO % 10.4 %; NEUT % 83.2 %; PLATELET COUNT 560 K/uL (130-400); RED BLOOD COUNT 5.14 M/uL (4.2-5.4); WHITE BLOOD COUNT 17.19 K/uL (4.8-10.8)
[2016-09-02 07:58] LABS: BUN/CREATININE RATIO 32.9 (10-20); CALCIUM 8.7 mg/dl (8.5-10.1); CREATININE 0.89 mg/dl (0.60-1.20); POTASSIUM 3.8 mmol/L (3.5-5.1)
[2016-09-02] MEDS: AMOXICILLIN/CLAVULANATE TAB 875 MG TAB PO SCH (09:00)
[2016-09-02] MEDS: FLUTICASONE PROPIONATE NA SPR 16 GM BTL SCH (09:01)
[2016-09-02] MEDS: BOOST VANILLA PUDDING CUP PO SCH ×2 (09:01→16:50)
[2016-09-02] MEDS: OXYMETAZOLINE HCL 0.05% NA SPR 15 ML BTL SCH (09:01)
[2016-09-02] MEDS: DOCUSATE SODIUM 100 MG CAP PO SCH ×2 (09:02→20:31)
[2016-09-02] MEDS: BUMETANIDE 1 MG TAB PO SCH ×2 (09:02→16:50)
[2016-09-02] MEDS: LEVETIRACETAM 250 MG TAB PO SCH ×2 (09:03→20:32)
[2016-09-02] MEDS: CARVEDILOL 3.125 MG TAB PO SCH ×2 (09:03→20:32)
[2016-09-02] MEDS: LOSARTAN POTASSIUM 25 MG TAB PO SCH (09:03)
[2016-09-02] MEDS: FLUOXETINE HCL 20 MG CAP PO SCH (09:06)
[2016-09-02] MEDS: CLOPIDOGREL BISULFATE 75 MG TAB PO SCH (09:06)
[2016-09-02] MEDS: ALPRAZOLAM 0.25 MG TAB PO SCH ×2 (09:07→20:34)
[2016-09-02] MEDS: ACETAMINOPHEN 325 MG TAB PO PRN ×2 (09:08→23:09)
[2016-09-02] MEDS: ANASTROZOLE 1 MG TAB PO SCH (09:09)
[2016-09-02] MEDS ORDERED: NURSING VERBAL MED ORDER ONE (10:45)
[2016-09-02] MEDS ORDERED: BUMETANIDE IV 1 MG in SYRINGE 0 ML IV ONE (11:00)
[2016-09-02] MEDS ORDERED: PANTOprazole INJ 40 MG in SYRINGE 0 ML IV ONE (11:30)
[2016-09-02] MEDS ORDERED: OPTIRAY 320 IV PRN (11:45)
--- NOTE | 2016-09-02 13:02 | DIAGNOSTIC IMAGING REPORT ---
CT SCAN OF THE CHEST WITH IV CONTRAST CLINICAL HISTORY: Hypoxia. COMPARISON STUDY: Chest x-ray dated 08/31/2016. Chest CT scans dated 07/28/2016 and 10/19/2012. TECHNIQUE: Following the IV administration of 92 cc of Optiray 320, CT scan of the thorax was performed from the thoracic inlet to the upper abdomen. Images are reviewed in the axial, sagittal, and coronal planes. IV contrast was administered without complication. CT DOSE: 428.85 mGy.cm FINDINGS: Thyroid: Imaged portions of the thyroid gland are normal in size and attenuation. Thoracic aorta: There is advanced atherosclerotic calcification of the thoracic aorta, which is normal in caliber and demonstrates standard 3-vessel arch anatomy. No dissection is seen. 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 Pulmonary vasculature: The pulmonary trunk is dilated measuring 3.4 cm. This suggests pulmonary hypertension. There are no filling defects identified in the central pulmonary vessels to indicate pulmonary embolus. Note that this examination was not protocoled for evaluation of the pulmonary arteries. Heart: The heart is enlarged and without pericardial effusion. The coronary arteries are densely calcified. Reflux of contrast into the IVC and hepatic veins suggests cardiac dysfunction. Lungs and pleural spaces: There is mild diffuse intralobular septal thickening. Patchy airspace consolidation is seen at both lung bases. No pleural effusion is identified. The trachea and central airways are clear. A 6 mm perifissural nodule in the superior segment of the left lower lobe on image #85 is similar appearance to them back to 2013 and of low suspicion. Mediastinum: An enlarged prevascular node on image 90 measures 11 mm short axis. Prominent right paratracheal nodes measure up to 11 mm short axis. Belle: Mildly enlarged hilar nodes measure up to 1.4 cm short axis. Axillae: There is no axillary lymphadenopathy. Upper abdomen: There is a tiny hiatal hernia. Nodularity of the hepatic surface contour suggests cirrhotic change. Skeletal structures: The skeletal structures are osteopenic. A right shoulder arthroplasty is in place. A large sclerotic metastatic lesion is again seen in the body of T9. Small sclerotic lesions are also seen in the body of T10 and the right posterior ninth rib. Degenerative changes seen throughout the thoracic spine. IMPRESSION: 1. Cardiomegaly with evidence of cardiac dysfunction. Intralobular septal thickening may represent a component of acute versus chronic congestive change. Clinical correlation will be required. 2. Patchy airspace consolidation is seen at both lung bases. Clinically for evidence of an infectious/inflammatory pneumonitis. 3. Early changes of cirrhosis are identified in the liver. 4. 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 Note that this places the patient risk for subclavian steal phenomenon. 5. Mildly enlarged mediastinal and hilar lymph nodes are nonspecific and may be on a reactive basis. 6. Presumed sclerotic metastatic bone lesions are unchanged from previous. Electronically signed by: Ricardo Sotomayor M.D. 09/02/2016 1:00 PM Dictated Date/Time: 09/02/2016 12:50 PM
[2016-09-02] MEDS ORDERED: PIPERACILL/TAZOBAC CONSULT ACTIVE PRN (13:45)
[2016-09-02] MEDS ORDERED: PIPERACILL/TAZOBAC IV 3.375 GM in DEXTROSE 5% 100ML 100 ML IV ONE (13:45)
--- NOTE | 2016-09-02 15:48 | Progress Note ---
Subjective Date of Service: Sep 02, 2016. Subjective Pt evaluation today including: conversation w/ patient, physical exam, chart review, lab review, review of inpatient medication list feelign worse flushed and more sob more congested. notes that face pain/pressure is better but breathing and chest congestion is worse weaker, generally feels worse nauseated did not throw up but felt worse after breakfast Problem List Medical Problems: (1) Abdominal contusion Status: Acute (2) Abdominal pain Status: Acute (3) Anxiety Status: Acute (4) Anxiety Status: Acute (5) Back contusion Status: Acute (6) Cervical strain Status: Acute (7) Chest pain Status: Acute (8) Confusion Status: Acute (9) Congestive heart failure Status: Acute (10) Dyspnea Status: Acute (11) Dyspnea Status: Acute (12) Elevated platelet count Status: Acute (13) Fall Status: Acute (14) Fall Status: Acute (15) Generalized weakness Status: Acute (16) Hypoglycemia Status: Acute (17) Hypoxia Status: Acute (18) International normalized ratio (INR) greater than 2 Status: Acute (19) Leukocytosis Status: Acute (20) Lumbar contusion Status: Acute (21) Metastatic breast cancer Status: Acute (22) Peripheral edema Status: Acute (23) Pulmonary edema Status: Acute (24) Pulmonary edema Status: Acute (25) Rectal bleed Status: Acute (26) Shingles Status: Acute (27) Supratherapeutic INR Status: Acute (28) UTI (urinary tract infection) Status: Acute (29) Weakness Status: Acute (30) Weakness Status: Acute Review of Systems ros otherwise negative except for as above Objective Vital Signs Date Time Temp Pulse Resp B/P (MAP) Pulse Ox O2 Delivery O2 Flow Rate FiO2 09/02/16 15:09 36.4 74 16 93/60 (71) 94 Nasal Cannula 6.0 09/02/16 11:17 36.5 73 18 96/62 (73) 93 6.0 09/02/16 10:39 81 110/74 (86) 09/02/16 08:00 92 Nasal Cannula 6.0 09/02/16 07:25 36.5 73 16 135/81 (99) 92 Nasal Cannula 6.0 09/02/16 00:00 CPAP 6.0 09/01/16 23:04 36.5 71 20 100/59 (73) 91 CPAP 6.0 09/01/16 20:53 77 16 111/73 (86) 91 Nasal Cannula 6.0 09/01/16 20:00 Nasal Cannula 6.0 CPAP 09/01/16 16:10 72 100/62 (75) 09/01/16 16:00 Nasal Cannula 6.0 Physical Exam General Appearance: + pertinent finding (fatigued, flushed, mildly diaphoretic) Eyes: EOMI ENT: hearing grossly normal Neck: trachea midline Respiratory/Chest: no respiratory distress, no accessory muscle use, + rales ( bibasilar worse than before (and despite having had 1mg IV bumex shortly prior to my exam)) Cardiovascular: regular rate, rhythm Abdomen: soft, + distended (mildly distended, mild moderate epigastric tenderness no guarding no rebound no rigidity) Extremities: normal range of motion Neurologic/Psychiatric: nnp II-XII nml as tested, alert, normal mood/affect Skin: normal color, warm/dry Laboratory Results Last 24 Hours Test 09/02/16 06:46 09/02/16 11:05 09/02/16 15:34 White Blood Count 17.19 K/uL Red Blood Count 5.14 M/uL Hemoglobin 14.5 g/dL Hematocrit 45.7 % Mean Corpuscular Volume 88.9 fL Mean Corpuscular Hemoglobin 28.2 pg Mean Corpuscular Hemoglobin Concent 31.7 g/dl Platelet Count 560 K/uL Mean Platelet Volume 11.7 fL Neutrophils (%) (Auto) 83.2 % Lymphocytes (%) (Auto) 5.6 % Monocytes (%) (Auto) 10.4 % Eosinophils (%) (Auto) 0.4 % Basophils (%) (Auto) 0.2 % Neutrophils # (Auto) 14.31 K/uL Lymphocytes # (Auto) 0.96 K/uL Monocytes # (Auto) 1.78 K/uL Eosinophils # (Auto) 0.07 K/uL Basophils # (Auto) 0.03 K/uL RDW Standard Deviation 56.4 fL RDW Coefficient of Variation 17.2 % Immature Granulocyte % (Auto) 0.2 % Immature Granulocyte # (Auto) 0.04 K/uL Nucleated RBC Absolute Count (auto) 0.02 K/uL Nucleated Red Blood Cells % 0.1 % Sodium Level 146 mmol/L Potassium Level 3.8 mmol/L Chloride Level 109 mmol/L Carbon Dioxide Level 29 mmol/L Anion Gap 8.0 mmol/L Blood Urea Nitrogen 29 mg/dl Creatinine 0.89 mg/dl Est Creatinine Clear Calc Drug Dose 48.8 ml/min Estimated GFR () 69.5 Estimated GFR (Non- 59.9 BUN/Creatinine Ratio 32.9 Random Glucose 138 mg/dl Calcium Level 8.7 mg/dl Bedside Glucose 142 mg/dl Assessment and Plan 1. Acute on chronic respiratory failure with tachypnea -initially due to CHF/pulmonary edema -now due to HCAP -- clinically suspicious due to increasing WBC, flushed appearance, worsening rales despite more aggressive diuresis but otherwise picture not overtly c/w ongoing refractory CHF. CT obtained - confirmed suspicions - start zosyn, stat MRSA nares, vanco if (+). sinusitis will be treated by this regimen as well - augmentin stopped. 2. paroxysmal atrial fibrillation- currently in a sinus rhythm. - continue coumadin, continue to follow INR, still keep @ 1mg for now, rate controlled despite pneumonia above 3. Recent CVA -stable, with right-sided hemiparesis - Continue Plavix, statin - PT/OT and PT/OT to continue @ SNF once stable to go there 4.Breast CA - listed as metastatic - f/u as outpt - Continue anastrozole 5. Seizure disorder -stable, no current issues - Cont keppra, no active problems right now 6. DVT Prophylaxis- Coumadin 7. Full Code 8. Disposition - SNF once more stable w HCAP obviously slowing down ability to safely dispo Discharge planning: shelter facility
[2016-09-02 16:25] LABS: INR 3.4 (0.9-1.1); PROTHROMBIN TIME (PATIENT) 37.9 SECONDS (9.0-12.0)
[2016-09-02] MEDS: WARFARIN SOD 1 MG TAB PO SCH (16:51)
[2016-09-02] MEDS: ALBUTEROL 0.083% NEBU SOLN 3 ML VIAL INH PRN (17:03)
[2016-09-02] MEDS: PIPERACILL/TAZOBAC IV 3.375 GM in DEXTROSE 5% 100ML 100 ML IV SCH (20:30)
[2016-09-02] MEDS: PANTOprazole INJ 40 MG in SYRINGE 0 ML IV SCH (20:31)
[2016-09-02] MEDS: SIMVASTATIN 40 MG TAB PO SCH (20:31)
[2016-09-02] MEDS ORDERED: VANCOMYCIN CONSULT ACTIVE PRN (20:45)
[2016-09-02] MEDS ORDERED: VANCOMYCIN INJ 2,100 MG in SODIUM CHLORIDE 0.9% 500ML 500 ML IV SCH (21:00)
--- NOTE | 2016-09-02 22:53 | Pharmacy Progress Note ---
Pharmacy Antibiotic Consult Date of Service: Sep 02, 2016. Pharmacy Dosing Scope Pharmacy is consulted to initiate IV Vancomycin dosing therapy, order appropriate labs and adjust drug dose/frequency. Subjective The patient is a 81 year old female admitted on August 25, 2016 at 13:45. Objective Height (Feet): 5 Height (Inches): 3.00 Weight (Kilograms): 82.800 Lab Results (24hrs): Test 09/02/16 06:46 09/02/16 11:05 09/02/16 15:50 White Blood Count 17.19 K/uL (4.8-10.8) Red Blood Count 5.14 M/uL (4.2-5.4) Hemoglobin 14.5 g/dL (12.0-16.0) Hematocrit 45.7 % (37-47) Mean Corpuscular Volume 88.9 fL (80-100) Mean Corpuscular Hemoglobin 28.2 pg (25-34) Mean Corpuscular Hemoglobin Concent 31.7 g/dl (32-36) Platelet Count 560 K/uL (130-400) Mean Platelet Volume 11.7 fL (7.4-10.4) Neutrophils (%) (Auto) 83.2 % Lymphocytes (%) (Auto) 5.6 % Monocytes (%) (Auto) 10.4 % Eosinophils (%) (Auto) 0.4 % Basophils (%) (Auto) 0.2 % Neutrophils # (Auto) 14.31 K/uL (1.4-6.5) Lymphocytes # (Auto) 0.96 K/uL (1.2-3.4) Monocytes # (Auto) 1.78 K/uL (0.11-0.59) Eosinophils # (Auto) 0.07 K/uL (0-0.5) Basophils # (Auto) 0.03 K/uL (0-0.2) RDW Standard Deviation 56.4 fL (36.4-46.3) RDW Coefficient of Variation 17.2 % (11.5-14.5) Immature Granulocyte % (Auto) 0.2 % Immature Granulocyte # (Auto) 0.04 K/uL (0.00-0.02) Nucleated RBC Absolute Count (auto) 0.02 K/uL (0-0) Nucleated Red Blood Cells % 0.1 % Sodium Level 146 mmol/L (136-145) Potassium Level 3.8 mmol/L (3.5-5.1) Chloride Level 109 mmol/L (98-107) Carbon Dioxide Level 29 mmol/L (21-32) Anion Gap 8.0 mmol/L (3-11) Blood Urea Nitrogen 29 mg/dl (7-18) Creatinine 0.89 mg/dl (0.60-1.20) Est Creatinine Clear Calc Drug Dose 48.8 ml/min Estimated GFR () 69.5 Estimated GFR (Non- 59.9 BUN/Creatinine Ratio 32.9 (10-20) Random Glucose 138 mg/dl (70-99) Calcium Level 8.7 mg/dl (8.5-10.1) Bedside Glucose 142 mg/dl (70-90) Prothrombin Time 37.9 SECONDS (9.0-12.0) Prothromb Time International Ratio 3.4 (0.9-1.1) Micro Results: Item Value Date Time Blood Culture - Final Complete 08/25/16 1155 Blood NO GROWTH Blood Culture - Final Complete 08/25/16 1210 Blood NO GROWTH MRSA DNA Surveillance Screen - Final Complete 09/02/16 1400 Nasal Specimen Positive for MRSA by DNA Probe Recent Pertinent Medications Item Value Date Time Vancomycin HCl 542 ml @ 200 mls/hr 09/02/16 2100 2100 mg/Sodium TODAY@2100/IV 09/02/16 2126 Chloride Vancomycin HCl 275 ml @ 125 mls/hr 09/03/16 1600 1250 mg/Sodium Q18H/IV Chloride Assessment & Plan Vancomycin * Loading dose: Vancomycin 2100mg IV x 1 dose * Goal peak level: 30-40mcg/mL * Goal trough level: 15-20mcg/mL * Est half-life ~13-16hr, BMI ~32kg/m2 (potential for accumulation) * Trough level has been ordered for: 09/05/16 0400 dose Pharmacy will continue to follow and will adjust dose/frequency as necessary. Thank you
[2016-09-03] VITALS (7 sets, daily range): BP systolic 89–108; BP diastolic 42–70; PULSE 62–88; TEMP 35.8–36.4; O2SAT 92–98
[2016-09-03] MEDS: PIPERACILL/TAZOBAC IV 3.375 GM in DEXTROSE 5% 100ML 100 ML IV SCH ×3 (04:28→19:52)
[2016-09-03 05:39] LABS: BASO % 0.2 %; BASO ABS # 0.02 K/uL (0-0.2); COMPLETE YES; HEMATOCRIT 46.2 % (37-47); IG% 0.3 %; LYMPH % 7.8 %; MEAN CELL VOLUME 89.2 fL (80-100); MEAN CORPUSCULAR HEMOGLOBIN 27.4 pg (25-34); MEAN CORPUSCULAR HGB CONC 30.7 g/dl (32-36); MEAN PLATELET VOLUME 11.2 fL (7.4-10.4); MONO % 6.4 %; NEUT % 85.3 %; PLATELET COUNT 539 K/uL (130-400); RED BLOOD COUNT 5.18 M/uL (4.2-5.4); WHITE BLOOD COUNT 12.74 K/uL (4.8-10.8)
[2016-09-03 06:08] LABS: BUN/CREATININE RATIO 30.8 (10-20); CALCIUM 8.1 mg/dl (8.5-10.1); CREATININE 0.86 mg/dl (0.60-1.20); POTASSIUM 3.8 mmol/L (3.5-5.1)
[2016-09-03] MEDS: LEVETIRACETAM 250 MG TAB PO SCH ×2 (08:59→20:38)
[2016-09-03] MEDS: CLOPIDOGREL BISULFATE 75 MG TAB PO SCH (08:59)
[2016-09-03] MEDS: BOOST VANILLA PUDDING CUP PO SCH ×2 (08:59→15:59)
[2016-09-03] MEDS: LOSARTAN POTASSIUM 25 MG TAB PO SCH (09:00)
[2016-09-03] MEDS: CARVEDILOL 3.125 MG TAB PO SCH ×2 (09:00→20:38)
[2016-09-03] MEDS: BUMETANIDE 1 MG TAB PO SCH ×2 (09:01→16:01)
[2016-09-03] MEDS: FLUOXETINE HCL 20 MG CAP PO SCH (09:03)
[2016-09-03] MEDS: DOCUSATE SODIUM 100 MG CAP PO SCH ×2 (09:03→20:37)
[2016-09-03] MEDS: FLUTICASONE PROPIONATE NA SPR 16 GM BTL SCH (09:04)
[2016-09-03] MEDS: ALPRAZOLAM 0.25 MG TAB PO SCH ×2 (09:07→20:39)
[2016-09-03] MEDS: PANTOprazole INJ 40 MG in SYRINGE 0 ML IV SCH (09:08)
[2016-09-03] MEDS: ANASTROZOLE 1 MG TAB PO SCH (09:08)
[2016-09-03] MEDS: ACETAMINOPHEN 325 MG TAB PO PRN ×3 (09:27→20:40)
[2016-09-03] MEDS: ALBUTEROL 0.083% NEBU SOLN 3 ML VIAL INH PRN ×2 (11:44→22:09)
--- NOTE | 2016-09-03 13:41 | Progress Note ---
Subjective Date of Service: Sep 03, 2016. Subjective Pt evaluation today including: conversation w/ patient, conversation w/ family (~45mins face to face in the room discussions with pt and family), physical exam , chart review, lab review, review of inpatient medication list was on pt's unit, dj instructor approached letting me know that pt was requesting last rites. immediately saw/evaluated - looking better than yesterday, just fatigued. family present and tearful. extensive discussions on initial dx w CHF, current new dx w HCAP, overall trend of improvement. answered all questions to the best of my ability and to their satisfaction breathing better, coughing more. no f/c/s. less flushed and sweaty. generally feeling better ~45mins after i left room, nursing noted that she choked some on a strawberry - they suctioned, she was looking somewhat improved. asked for respiratory to give nebulizer, discussed situation w RT directly. before i revisited, RT came to me and noted that after neb pt was looking much better, feeling good, no stridor or distress Problem List Medical Problems: (1) Abdominal contusion Status: Acute (2) Abdominal pain Status: Acute (3) Anxiety Status: Acute (4) Anxiety Status: Acute (5) Back contusion Status: Acute (6) Cervical strain Status: Acute (7) Chest pain Status: Acute (8) Confusion Status: Acute (9) Congestive heart failure Status: Acute (10) Dyspnea Status: Acute (11) Dyspnea Status: Acute (12) Elevated platelet count Status: Acute (13) Fall Status: Acute (14) Fall Status: Acute (15) Generalized weakness Status: Acute (16) Hypoglycemia Status: Acute (17) Hypoxia Status: Acute (18) International normalized ratio (INR) greater than 2 Status: Acute (19) Leukocytosis Status: Acute (20) Lumbar contusion Status: Acute (21) Metastatic breast cancer Status: Acute (22) Peripheral edema Status: Acute (23) Pulmonary edema Status: Acute (24) Pulmonary edema Status: Acute (25) Rectal bleed Status: Acute (26) Shingles Status: Acute (27) Supratherapeutic INR Status: Acute (28) UTI (urinary tract infection) Status: Acute (29) Weakness Status: Acute (30) Weakness Status: Acute Review of Systems ros otherwise negative except for as above Objective Vital Signs Date Time Temp Pulse Resp B/P (MAP) Pulse Ox O2 Delivery O2 Flow Rate FiO2 09/03/16 11:44 81 20 92 Nasal Cannula 6.0 09/03/16 11:30 86 22 92 Nasal Cannula 6.0 09/03/16 08:00 Nasal Cannula 6.0 09/03/16 07:39 35.8 62 20 89/42 (58) 94 Nasal Cannula 6.0 09/03/16 00:00 92 Nasal Cannula 6.0 09/02/16 23:10 36.4 64 18 111/71 (84) 90 Nasal Cannula 6.0 09/02/16 17:03 76 20 92 Nasal Cannula 6.0 09/02/16 16:00 Nasal Cannula 6.0 09/02/16 15:09 36.4 74 16 93/60 (71) 94 Nasal Cannula 6.0 Physical Exam General Appearance: no apparent distress Eyes: EOMI ENT: hearing grossly normal Neck: trachea midline Respiratory/Chest: no respiratory distress, no accessory muscle use, + rales ( basilar rales, scattered rhonchi, better air entry than before, no wheeze) Extremities: normal range of motion Neurologic/Psychiatric: hostess II-XII nml as tested, alert, normal mood/affect ( fatigued) Skin: normal color, warm/dry Laboratory Results Last 24 Hours Test 09/02/16 15:50 09/03/16 05:29 09/03/16 13:29 Prothrombin Time 37.9 SECONDS Prothromb Time International Ratio 3.4 White Blood Count 12.74 K/uL Red Blood Count 5.18 M/uL Hemoglobin 14.2 g/dL Hematocrit 46.2 % Mean Corpuscular Volume 89.2 fL Mean Corpuscular Hemoglobin 27.4 pg Mean Corpuscular Hemoglobin Concent 30.7 g/dl Platelet Count 539 K/uL Mean Platelet Volume 11.2 fL Neutrophils (%) (Auto) 85.3 % Lymphocytes (%) (Auto) 7.8 % Monocytes (%) (Auto) 6.4 % Eosinophils (%) (Auto) 0.0 % Basophils (%) (Auto) 0.2 % Neutrophils # (Auto) 10.87 K/uL Lymphocytes # (Auto) 1.00 K/uL Monocytes # (Auto) 0.81 K/uL Eosinophils # (Auto) 0.00 K/uL Basophils # (Auto) 0.02 K/uL RDW Standard Deviation 56.5 fL RDW Coefficient of Variation 17.3 % Immature Granulocyte % (Auto) 0.3 % Immature Granulocyte # (Auto) 0.04 K/uL Sodium Level 147 mmol/L Potassium Level 3.8 mmol/L Chloride Level 111 mmol/L Carbon Dioxide Level 29 mmol/L Anion Gap 7.0 mmol/L Blood Urea Nitrogen 27 mg/dl Creatinine 0.86 mg/dl Est Creatinine Clear Calc Drug Dose 50.5 ml/min Estimated GFR () 72.4 Estimated GFR (Non- 62.5 BUN/Creatinine Ratio 30.8 Random Glucose 146 mg/dl Calcium Level 8.1 mg/dl Assessment and Plan 1. Acute on chronic respiratory failure with tachypnea -initially due to CHF/pulmonary edema - this appears stable, continue diuretics and follow volume status. looks slightly dry side of euvolemic -now due to HCAP -- zosyn and vanco. sepsis resolving. appearing better. continue abx and supportive care 2. paroxysmal atrial fibrillation- currently in a sinus rhythm. - continue coumadin, continue to follow INR, still keep @ 1mg for now, rate still controlled despite pneumonia above 3. Recent CVA -stable, with right-sided hemiparesis - Continue Plavix, statin - PT/OT and PT/OT to continue @ SNF once stable to go there 4.Breast CA - listed as metastatic - f/u as outpt - Continue anastrozole 5. Seizure disorder -stable, no current issues - Cont keppra, no active problems right now 6. DVT Prophylaxis- Coumadin 7. Full Code 8. Disposition - SNF once more stable w HCAP obviously slowing down ability to safely dispo 9. choking episode - appears to have quickly resolved improving, stable. extensive ~45mins face to face d/w pt and family in the room. Discharge planning: nursing home facility
[2016-09-03 14:10] LABS: INR 3.5 (0.9-1.1); PROTHROMBIN TIME (PATIENT) 39.1 SECONDS (9.0-12.0)
[2016-09-03] MEDS: VANCOMYCIN INJ 1,250 MG in SODIUM CHLORIDE 0.9% 250ML 250 ML IV SCH (15:59)
[2016-09-03] MEDS: WARFARIN SOD 1 MG TAB PO SCH (16:02)
[2016-09-03] MEDS: SIMVASTATIN 40 MG TAB PO SCH (20:37)
[2016-09-03] MEDS: PANTOprazole SOD 40 MG TAB PO SCH (20:39)
[2016-09-04] VITALS (8 sets, daily range): BP systolic 91–122; BP diastolic 54–78; PULSE 58–80; TEMP 36.4–36.6; O2SAT 95–98
[2016-09-04] MEDS: PIPERACILL/TAZOBAC IV 3.375 GM in DEXTROSE 5% 100ML 100 ML IV SCH ×3 (04:28→20:17)
[2016-09-04 07:05] LABS: BASO % 0.5 %; BASO ABS # 0.06 K/uL (0-0.2); COMPLETE YES; HEMATOCRIT 46.1 % (37-47); IG% 0.4 %; LYMPH % 15.5 %; MEAN CELL VOLUME 90.7 fL (80-100); MEAN CORPUSCULAR HGB CONC 30.8 g/dl (32-36); MEAN PLATELET VOLUME 11.3 fL (7.4-10.4); MONO % 11.1 %; NEUT % 70.5 %; PLATELET COUNT 542 K/uL (130-400); RED BLOOD COUNT 5.08 M/uL (4.2-5.4); WHITE BLOOD COUNT 10.96 K/uL (4.8-10.8)
[2016-09-04 07:49] LABS: CALCIUM 8.2 mg/dl (8.5-10.1); POTASSIUM 3.6 mmol/L (3.5-5.1)
[2016-09-04] MEDS: BOOST VANILLA PUDDING CUP PO SCH ×2 (09:00→16:16)
[2016-09-04] MEDS ORDERED: BOOST PLUS VANILLA PO ONE ×2 (09:19)
[2016-09-04] MEDS: FLUTICASONE PROPIONATE NA SPR 16 GM BTL SCH (09:20)
[2016-09-04] MEDS: BUMETANIDE 1 MG TAB PO SCH ×2 (09:22→16:20)
[2016-09-04] MEDS: DOCUSATE SODIUM 100 MG CAP PO SCH ×2 (09:22→20:26)
[2016-09-04] MEDS: CLOPIDOGREL BISULFATE 75 MG TAB PO SCH (09:22)
[2016-09-04] MEDS: LEVETIRACETAM 250 MG TAB PO SCH ×2 (09:22→20:28)
[2016-09-04] MEDS: CARVEDILOL 3.125 MG TAB PO SCH ×2 (09:23→20:27)
[2016-09-04] MEDS: LOSARTAN POTASSIUM 25 MG TAB PO SCH (09:24)
[2016-09-04] MEDS: ALPRAZOLAM 0.25 MG TAB PO SCH ×2 (09:24→20:31)
[2016-09-04] MEDS: ANASTROZOLE 1 MG TAB PO SCH (09:28)
[2016-09-04] MEDS: VANCOMYCIN INJ 1,250 MG in SODIUM CHLORIDE 0.9% 250ML 250 ML IV SCH (09:32)
[2016-09-04] MEDS ORDERED: DRONABINOL 2.5 MG CAP PO ONE (10:00)
[2016-09-04] MEDS: ACETAMINOPHEN 325 MG TAB PO PRN ×2 (10:30→20:37)
[2016-09-04] MEDS: PANTOprazole SOD 40 MG TAB PO SCH (10:31)
[2016-09-04] MEDS: FLUOXETINE HCL 20 MG CAP PO SCH (10:32)
--- NOTE | 2016-09-04 13:40 | Progress Note ---
Subjective Date of Service: Sep 04, 2016. Subjective Pt evaluation today including: conversation w/ patient, physical exam, chart review, lab review, review of inpatient medication list feeling about the same, no new sob cough actually better fatigue about the same. no c/o stomach pain now but does note no appetite relates it to having been sick so much for last seeveral months but just doesn't really want to eat. discussed extensively Problem List Medical Problems: (1) Abdominal contusion Status: Acute (2) Abdominal pain Status: Acute (3) Anxiety Status: Acute (4) Anxiety Status: Acute (5) Back contusion Status: Acute (6) Cervical strain Status: Acute (7) Chest pain Status: Acute (8) Confusion Status: Acute (9) Congestive heart failure Status: Acute (10) Dyspnea Status: Acute (11) Dyspnea Status: Acute (12) Elevated platelet count Status: Acute (13) Fall Status: Acute (14) Fall Status: Acute (15) Generalized weakness Status: Acute (16) Hypoglycemia Status: Acute (17) Hypoxia Status: Acute (18) International normalized ratio (INR) greater than 2 Status: Acute (19) Leukocytosis Status: Acute (20) Lumbar contusion Status: Acute (21) Metastatic breast cancer Status: Acute (22) Peripheral edema Status: Acute (23) Pulmonary edema Status: Acute (24) Pulmonary edema Status: Acute (25) Rectal bleed Status: Acute (26) Shingles Status: Acute (27) Supratherapeutic INR Status: Acute (28) UTI (urinary tract infection) Status: Acute (29) Weakness Status: Acute (30) Weakness Status: Acute Review of Systems Respiratory: + cough (better), + shortness of breath (same) Abdomen: + see HPI (poor appetite) ROS otherwise negative except for as above Objective Vital Signs Date Time Temp Pulse Resp B/P (MAP) Pulse Ox O2 Delivery O2 Flow Rate FiO2 09/04/16 09:40 98 Nasal Cannula 6.0 09/04/16 08:24 98 Nasal Cannula 6.0 09/04/16 08:00 Nasal Cannula 7.0 09/04/16 08:00 36.6 60 18 122/78 (93) 98 Nasal Cannula 7.0 09/04/16 06:59 36.4 61 18 121/76 (91) 95 Nasal Cannula 6.0 09/04/16 00:00 36.4 64 19 99/65 (76) 98 CPAP 09/03/16 23:59 BiPAP 6.0 09/03/16 22:09 88 20 94 Nasal Cannula 5.0 09/03/16 20:34 64 93/55 (68) 98 09/03/16 20:00 Nasal Cannula 6.0 09/03/16 15:05 36.4 81 18 93/59 (70) 92 Nasal Cannula 6.0 Physical Exam General Appearance: no apparent distress (fatigued appearing) Eyes: EOMI ENT: hearing grossly normal Neck: trachea midline Respiratory/Chest: no respiratory distress, no accessory muscle use Extremities: normal range of motion Neurologic/Psychiatric: doll wig hackler II-XII nml as tested, alert, normal mood/affect Skin: normal color, warm/dry Laboratory Results Last 24 Hours Test 09/04/16 06:46 09/04/16 13:29 White Blood Count 10.96 K/uL Red Blood Count 5.08 M/uL Hemoglobin 14.2 g/dL Hematocrit 46.1 % Mean Corpuscular Volume 90.7 fL Mean Corpuscular Hemoglobin 28.0 pg Mean Corpuscular Hemoglobin Concent 30.8 g/dl Platelet Count 542 K/uL Mean Platelet Volume 11.3 fL Neutrophils (%) (Auto) 70.5 % Lymphocytes (%) (Auto) 15.5 % Monocytes (%) (Auto) 11.1 % Eosinophils (%) (Auto) 2.0 % Basophils (%) (Auto) 0.5 % Neutrophils # (Auto) 7.72 K/uL Lymphocytes # (Auto) 1.70 K/uL Monocytes # (Auto) 1.22 K/uL Eosinophils # (Auto) 0.22 K/uL Basophils # (Auto) 0.06 K/uL RDW Standard Deviation 58.4 fL RDW Coefficient of Variation 17.6 % Immature Granulocyte % (Auto) 0.4 % Immature Granulocyte # (Auto) 0.04 K/uL Sodium Level 146 mmol/L Potassium Level 3.6 mmol/L Chloride Level 107 mmol/L Carbon Dioxide Level 30 mmol/L Anion Gap 9.0 mmol/L Blood Urea Nitrogen 24 mg/dl Creatinine 1.00 mg/dl Est Creatinine Clear Calc Drug Dose 43.4 ml/min Estimated GFR () 60.3 Estimated GFR (Non- 52.1 BUN/Creatinine Ratio 24.0 Random Glucose 131 mg/dl Calcium Level 8.2 mg/dl Assessment and Plan 1. Acute on chronic respiratory failure with tachypnea -initially due to CHF/pulmonary edema - this appears stable, continue diuretics and follow volume status. still appearing slightly dry side of euvolemic -now due to HCAP -- zosyn and vanco. sepsis resolving. appearing better. continue abx and supportive care -does appear slowly improving 2. paroxysmal atrial fibrillation- currently in a sinus rhythm. - continue coumadin, continue to follow INR, still keep @ 1mg for now, rate still controlled despite pneumonia above 3. Recent CVA -stable, with right-sided hemiparesis - Continue Plavix, statin - PT/OT and PT/OT to continue @ SNF once stable to go there 4.Breast CA - listed as metastatic - f/u as outpt - Continue anastrozole 5. Seizure disorder -stable, no current issues - Cont keppra, no active problems right now 6. DVT Prophylaxis- Coumadin 7. Full Code 8. Disposition - SNF once more stable w HCAP obviously slowing down ability to safely dispo 9. choking episode - had another today - first having CREATIVE SERVICES INTERN with her at meals to ensure she's not rushing/etc. if still appearing to be at all an issue, will modify diet and then have speech eval and treat to continue 10. poor appetite - after extensive discussions of risks/benefits and options - will start marinol 2.5mg daily titrate up every day until either good improvement in appetite or reaches 10mg bid (as long as no ADRs noted) and add protein shakes TID improving, stable. at this rate of improvement, anticipate SNF tuesday
[2016-09-04] MEDS ORDERED: BOOST PLUS VANILLA PO SCH ×2 (14:00)
[2016-09-04 14:25] LABS: PROTHROMBIN TIME (PATIENT) 49.7 SECONDS (9.0-12.0)
[2016-09-04 14:26] LABS: INR 4.4 (0.9-1.1)
[2016-09-04] MEDS: WARFARIN SOD 1 MG TAB PO SCH (16:20)
[2016-09-04] MEDS ORDERED: NURSING VERBAL MED ORDER ONE (18:00)
[2016-09-04] MEDS: NYSTATIN SUSP 500,000 U/5 ML UDC MT SCH (20:21)
[2016-09-04] MEDS: BOOST PLUS VANILLA PO SCH ×2 (20:25)
[2016-09-04] MEDS: SIMVASTATIN 40 MG TAB PO SCH (20:26)
[2016-09-05] MEDS ORDERED: VANCOMYCIN TROUGH SCH (03:30)
[2016-09-05] MEDS: VANCOMYCIN INJ 1,250 MG in SODIUM CHLORIDE 0.9% 250ML 250 ML IV SCH (04:00)
[2016-09-05 04:05] LABS: INR 2.8 (0.9-1.1); PROTHROMBIN TIME (PATIENT) 31.6 SECONDS (9.0-12.0)
[2016-09-05 04:13] LABS: CREATININE 1.2 mg/dl (0.60-1.20)
[2016-09-05] MEDS: PIPERACILL/TAZOBAC IV 3.375 GM in DEXTROSE 5% 100ML 100 ML IV SCH ×3 (05:00→19:42)
[2016-09-05 07:28] VITALS: BP 129/79; PULSE 55; TEMP 36.5; O2SAT 96
[2016-09-05] MEDS: ALPRAZOLAM 0.25 MG TAB PO SCH ×2 (08:09→20:46)
[2016-09-05] MEDS: DOCUSATE SODIUM 100 MG CAP PO SCH ×2 (08:09→20:47)
[2016-09-05] MEDS: CLOPIDOGREL BISULFATE 75 MG TAB PO SCH (08:09)
[2016-09-05] MEDS: LEVETIRACETAM 250 MG TAB PO SCH ×2 (08:10→20:47)
[2016-09-05] MEDS: LOSARTAN POTASSIUM 25 MG TAB PO SCH (08:10)
[2016-09-05] MEDS: FLUTICASONE PROPIONATE NA SPR 16 GM BTL SCH (08:11)
[2016-09-05] MEDS: CARVEDILOL 3.125 MG TAB PO SCH ×2 (08:11→20:50)
[2016-09-05] MEDS: BOOST PLUS VANILLA PO SCH ×6 (08:12→20:46)
[2016-09-05] MEDS: NYSTATIN SUSP 500,000 U/5 ML UDC MT SCH ×4 (08:12→20:46)
[2016-09-05] MEDS: BUMETANIDE 1 MG TAB PO SCH (08:12)
[2016-09-05] MEDS: FLUOXETINE HCL 20 MG CAP PO SCH (08:14)
[2016-09-05] MEDS: ANASTROZOLE 1 MG TAB PO SCH (08:16)
[2016-09-05] MEDS ORDERED: BOOST VANILLA PUDDING CUP PO SCH (09:00)
[2016-09-05] MEDS: DRONABINOL 2.5 MG CAP PO SCH (09:20)
[2016-09-05] MEDS: METHYLPREDNISOLONE IV 40 MG in SYRINGE 0 ML IV SCH (10:11)
[2016-09-05] MEDS: VANCOMYCIN INJ 1,350 MG in SODIUM CHLORIDE 0.9% 250ML 250 ML IV SCH ×2 (10:11→23:32)
[2016-09-05] MEDS: ACETAMINOPHEN 325 MG TAB PO PRN ×2 (11:26→21:00)
--- NOTE | 2016-09-05 13:35 | Pharmacy Progress Note ---
Pharmacy Antibiotic Prog Note Date of Service Sep 05, 2016. Subjective The patient is currently receiving Vancomycin 1250 mg (~15mg/kg) IV every 18 hours for HCAP. The patient is currently on day # 4 of Vancomycin IV therapy. Objective Height (Feet): 5 Height (Inches): 3.00 Weight (Kilograms): 82.800 Levels: Item Value Date Time Vancomycin Level Trough 8.5 mcg/ml 09/05/16 0345 Lab Results (24hrs): Test 09/04/16 13:54 09/05/16 03:45 Prothrombin Time 49.7 SECONDS (9.0-12.0) 31.6 SECONDS (9.0-12.0) Prothromb Time International Ratio 4.4 (0.9-1.1) 2.8 (0.9-1.1) Creatinine 1.20 mg/dl (0.60-1.20) Est Creatinine Clear Calc Drug Dose 36.2 ml/min Estimated GFR () 48.4 Estimated GFR (Non- 41.8 Vancomycin Level Trough 8.5 mcg/ml (SEE COMMENT) Micro Results: Item Value Date Time MRSA DNA Surveillance Screen - Final Complete 09/02/16 1400 Nasal Specimen Positive for MRSA by DNA Probe Blood Culture - Final Complete 08/25/16 1210 Blood NO GROWTH Blood Culture - Final Complete 08/25/16 1155 Blood NO GROWTH Recent Pertinent Medications Item Value Date Time Piperacillin Sod/ 115 ml @ 28.75 mls/hr 09/02/16 2000 Tazobactam Sod Q8@0400,1200,2000/IV 09/05/16 1301 3.375 gm/Dextrose pharmacy consult Piperacillin Sod/ 115 ml @ 200 mls/hr 09/02/16 1345 Tazobactam Sod NOW ONCE/IV 09/02/16 1415 3.375 gm/Dextrose pharmacy consult Vancomycin HCl 542 ml @ 200 mls/hr 09/02/16 2100 2100 mg/Sodium TODAY@2100/IV 09/02/16 2126 Chloride pharmacy consult Vancomycin HCl 275 ml @ 125 mls/hr 09/03/16 1600 1250 mg/Sodium Q18H/IV 09/05/16 0400 Chloride pharmacy consult Assessment & Plan Pharmacy has been consulted to dose and monitor Vancomycin for HCAP. Vancomycin trough level of 8.5mcg/mL is: Subtherapeutic Change to Vancomycin 1350 mg (~16mg/kg) IV every 12 hours. * Goal trough level estimate: between 15 - 20 mcg/mL. * Trough level has been ordered for: ~30 minutes before the 2200 dose in order to ensure therapeutic concentrations without causing Vancomycin accumulation and toxicity. Pharmacy will continue to follow and will adjust dose/frequency as necessary. Thank you
[2016-09-05 15:04] VITALS: BP 112/73; PULSE 64; TEMP 36.5; O2SAT 96
[2016-09-05 15:31] VITALS: PULSE 63; O2SAT 96
[2016-09-05] MEDS: ALBUT/IPRATROP 3MG/0.5MG NEB 3 ML VIAL INH SCH ×2 (15:31→19:03)
--- NOTE | 2016-09-05 15:55 | Progress Note ---
Subjective Date of Service: Sep 05, 2016. Subjective Pt evaluation today including: conversation w/ patient, physical exam, chart review, lab review, review of inpatient medication list still no appetite, still difficulty swallowing but admits that she often hasn't been practicing swallow strategies and has been going too fast - compared to what speech therapy recommended. mouth irritated - just started nystatin last night sob about the same - cough maybe slightly more productive. Problem List Medical Problems: (1) Abdominal contusion Status: Acute (2) Abdominal pain Status: Acute (3) Anxiety Status: Acute (4) Anxiety Status: Acute (5) Back contusion Status: Acute (6) Cervical strain Status: Acute (7) Chest pain Status: Acute (8) Confusion Status: Acute (9) Congestive heart failure Status: Acute (10) Dyspnea Status: Acute (11) Dyspnea Status: Acute (12) Elevated platelet count Status: Acute (13) Fall Status: Acute (14) Fall Status: Acute (15) Generalized weakness Status: Acute (16) Hypoglycemia Status: Acute (17) Hypoxia Status: Acute (18) International normalized ratio (INR) greater than 2 Status: Acute (19) Leukocytosis Status: Acute (20) Lumbar contusion Status: Acute (21) Metastatic breast cancer Status: Acute (22) Peripheral edema Status: Acute (23) Pulmonary edema Status: Acute (24) Pulmonary edema Status: Acute (25) Rectal bleed Status: Acute (26) Shingles Status: Acute (27) Supratherapeutic INR Status: Acute (28) UTI (urinary tract infection) Status: Acute (29) Weakness Status: Acute (30) Weakness Status: Acute Review of Systems Constitutional: + weakness, + fatigue Respiratory: + cough, + shortness of breath ROS otherwise negative except for as above Objective Vital Signs Date Time Temp Pulse Resp B/P (MAP) Pulse Ox O2 Delivery O2 Flow Rate FiO2 09/05/16 15:31 63 20 96 Nasal Cannula 6.0 09/05/16 15:04 36.5 64 18 112/73 (86) 96 Nasal Cannula 2.0 09/05/16 08:00 Nasal Cannula 6.0 Humidified Oxygen 09/05/16 07:28 36.5 55 18 129/79 (96) 96 CPAP 09/04/16 23:59 Nasal Cannula 6.0 09/04/16 23:30 36.4 58 18 98/59 (72) 97 Nasal Cannula 6.0 09/04/16 20:20 62 109/68 (82) 09/04/16 20:00 Nasal Cannula 6.0 09/04/16 16:00 Nasal Cannula 6.0 Physical Exam General Appearance: no apparent distress Eyes: EOMI ENT: hearing grossly normal Neck: trachea midline Respiratory/Chest: no respiratory distress, no accessory muscle use, + rales ( base to ~1/3 on R. left faint base rales only; elsewhere no r/r/w good effort ( except for one faint then rapidly clearing wheeze L upper lung)) Extremities: normal range of motion Neurologic/Psychiatric: advertising designer II-XII nml as tested, alert Skin: normal color, warm/dry Laboratory Results Last 24 Hours Test 09/05/16 03:45 Prothrombin Time 31.6 SECONDS Prothromb Time International Ratio 2.8 Creatinine 1.20 mg/dl Est Creatinine Clear Calc Drug Dose 36.2 ml/min Estimated GFR () 48.4 Estimated GFR (Non- 41.8 Vancomycin Level Trough 8.5 mcg/ml Assessment and Plan 1. Acute on chronic respiratory failure with tachypnea -initially due to CHF/pulmonary edema - this appears stable, continue diuretics and follow volume status. still appearing slightly dry side of euvolemic, which seems to be optimal for her -now due to pneumonia -- zosyn and vanco. sepsis resolving. appearing better. initially thought to be clearly HCAP - on further review - w bibasilar pneumonia clearing R slower than L, and with ongoing dysphagia issues - very easily could have been aspiration as well. continue abx and supportive care -does appear slowly improving 2. paroxysmal atrial fibrillation- currently in a sinus rhythm. - continue coumadin, continue to follow INR, still keep @ 1mg for now, rate still controlled despite pneumonia above 3. Recent CVA -stable, with right-sided hemiparesis - Continue Plavix, statin - PT/OT and PT/OT to continue @ SNF once stable to go there 4.Breast CA - listed as metastatic - f/u as outpt - Continue anastrozole 5. Seizure disorder -stable, no current issues - Cont keppra, no active problems right now 6. DVT Prophylaxis- Coumadin 7. Full Code 8. Disposition - SNF once more stable w HCAP obviously slowing down ability to safely dispo 9. dysphagia - ongoing speech eval and treat - she does have dysphagia, but also lack of follow through (she even openly admits to this) on speech recommendations and guidance have led to recurrent choking events (and possibly her pneumonia as above) 10. poor appetite - 6/3 discussed risks and benefits, started marinol 6/3 rapidly titrate as tolerated --> if no ADRs then continue to increase until either max dosing achieved or appetite improving. added protein shakes TID 11. DVT proph - anticoagulation 12. thrush - nystatin swish and swallow improving, stable. at this rate of improvement, hopefully SNF tuesday ongoing abx/PT/OT/speech
[2016-09-05] MEDS: WARFARIN SOD 1 MG TAB PO SCH (17:01)
[2016-09-05 19:04] VITALS: PULSE 62; O2SAT 97
[2016-09-05] MEDS: SIMVASTATIN 40 MG TAB PO SCH (20:46)
[2016-09-05 20:51] VITALS: BP 116/67; PULSE 68
[2016-09-06] VITALS (8 sets, daily range): BP systolic 105–127; BP diastolic 64–79; PULSE 55–75; TEMP 36.4–36.9; O2SAT 93–100
[2016-09-06] MEDS: ACETAMINOPHEN 325 MG TAB PO PRN ×3 (00:46→20:53)
[2016-09-06] MEDS: PIPERACILL/TAZOBAC IV 3.375 GM in DEXTROSE 5% 100ML 100 ML IV SCH ×3 (04:11→20:39)
[2016-09-06] MEDS: ALBUT/IPRATROP 3MG/0.5MG NEB 3 ML VIAL INH SCH ×5 (07:20→19:10)
[2016-09-06 07:47] LABS: BASO % 0.2 %; BASO ABS # 0.02 K/uL (0-0.2); COMPLETE YES; EOS % 0.6 %; HEMATOCRIT 45.4 % (37-47); IG% 0.6 %; LYMPH % 10.8 %; LYMPH ABS # 1.17 K/uL (1.2-3.4); MEAN CELL VOLUME 88.5 fL (80-100); MEAN CORPUSCULAR HEMOGLOBIN 27.5 pg (25-34); MEAN CORPUSCULAR HGB CONC 31.1 g/dl (32-36); MEAN PLATELET VOLUME 11.3 fL (7.4-10.4); MONO % 12.1 %; NEUT % 75.7 %; PLATELET COUNT 559 K/uL (130-400); RED BLOOD COUNT 5.13 M/uL (4.2-5.4); WHITE BLOOD COUNT 10.87 K/uL (4.8-10.8)
[2016-09-06 07:54] LABS: INR 2.6 (0.9-1.1); PROTHROMBIN TIME (PATIENT) 29.4 SECONDS (9.0-12.0)
[2016-09-06 08:16] LABS: BUN/CREATININE RATIO 23.3 (10-20); CREATININE 0.82 mg/dl (0.60-1.20); POTASSIUM 3.2 mmol/L (3.5-5.1)
[2016-09-06] MEDS ORDERED: POTASSIUM CHLORIDE 10 MEQ TABCR PO STA (08:19)
[2016-09-06 08:38] LABS: CALCIUM 8.5 mg/dl (8.5-10.1)
[2016-09-06] MEDS ORDERED: ALBUT/IPRATROP 3MG/0.5MG NEB 3 ML VIAL INH ONE (08:45)
[2016-09-06] MEDS: VANCOMYCIN INJ 1,350 MG in SODIUM CHLORIDE 0.9% 250ML 250 ML IV SCH ×2 (08:58→22:55)
[2016-09-06] MEDS: ALPRAZOLAM 0.25 MG TAB PO SCH ×2 (08:59→20:49)
[2016-09-06] MEDS: CLOPIDOGREL BISULFATE 75 MG TAB PO SCH (09:00)
[2016-09-06] MEDS: CARVEDILOL 3.125 MG TAB PO SCH ×2 (09:00→20:45)
[2016-09-06] MEDS: NYSTATIN SUSP 500,000 U/5 ML UDC MT SCH ×4 (09:00→20:44)
[2016-09-06] MEDS: DOCUSATE SODIUM 100 MG CAP PO SCH ×2 (09:01→20:45)
[2016-09-06] MEDS: LOSARTAN POTASSIUM 25 MG TAB PO SCH (09:03)
[2016-09-06] MEDS: LEVETIRACETAM 250 MG TAB PO SCH ×2 (09:03→20:46)
[2016-09-06] MEDS: BUMETANIDE 1 MG TAB PO SCH (09:03)
[2016-09-06] MEDS: FLUOXETINE HCL 20 MG CAP PO SCH (09:04)
[2016-09-06] MEDS: BOOST PLUS VANILLA PO SCH ×6 (09:07→20:44)
[2016-09-06] MEDS: FLUTICASONE PROPIONATE NA SPR 16 GM BTL SCH (09:07)
[2016-09-06] MEDS: ANASTROZOLE 1 MG TAB PO SCH (09:11)
[2016-09-06] MEDS: DRONABINOL 2.5 MG CAP PO SCH (09:26)
[2016-09-06] MEDS: METHYLPREDNISOLONE IV 40 MG in SYRINGE 0 ML IV SCH (10:42)
--- NOTE | 2016-09-06 11:54 | Hospitalist Progress Note ---
Hospitalist Progress Note Date of Service Sep 06, 2016. Subjective Pt evaluation today including: conversation w/ patient, physical exam, chart review, lab review, review of studies, review of inpatient medication list Patient seen and evaluated. No acute events overnight. Is on supervision for feedings. Reports that she doesn't feel worse but isn't noticing improvement. Feels generally weak. Looks pale and gets cyanotic with laying flat and some movements. Respiratory exam limited as patient reporting increased SOB with rolling over in bed and began coughing and audibly wheezing. Reports that the breathing treatments do improve symptoms and helps break up her chest congestion. Constitutional: + weakness (generalized), + fatigue, No fever, No chills Respiratory: + cough, + shortness of breath Cardiovascular: No chest pain Abdomen: No pain, No nausea, No vomiting, No diarrhea, No constipation Musculoskeletal: No calf pain Female : No dysuria Medications Current Inpatient Medications Medications (Trade) Dose Ordered Sig/Lindsey Route Start Time Stop Time Status Last Admin Dose Admin Acetaminophen (Tylenol Tab) 650 mg Q4H PRN PO 08/25/16 13:45 09/24/16 13:44 09/06/16 09:00 650 MG Ondansetron HCl (Zofran Inj) 4 mg Q6H PRN IV 08/25/16 13:45 09/24/16 13:44 09/02/16 10:30 4 MG Alprazolam (Xanax Tab) 0.25 mg BID PO 08/25/16 21:00 09/24/16 20:59 09/06/16 08:59 0.25 MG Anastrozole (Arimidex Tab) 1 mg QAM PO 08/26/16 09:00 09/25/16 08:59 09/06/16 09:11 1 MG Clopidogrel Bisulfate (plAVix TAB) 75 mg DAILY PO 08/26/16 09:00 09/25/16 08:59 09/06/16 09:00 75 MG Fluoxetine HCl (Prozac Cap) 20 mg QAM PO 08/26/16 09:00 09/25/16 08:59 09/06/16 09:04 20 MG Fluticasone Propionate (Flonase Nasal [place]) 2 sprays DAILY NA 08/26/16 09:00 09/25/16 08:59 09/06/16 09:07 2 SPRAYS Levetiracetam (Keppra Tab) 250 mg BID PO 08/25/16 21:00 09/24/16 20:59 09/06/16 09:03 250 MG Losartan Potassium (coZAAR TAB) 25 mg DAILY PO 08/26/16 09:00 09/25/16 08:59 09/06/16 09:03 25 MG Simvastatin (Zocor Tab) 40 mg HS PO 08/25/16 21:00 09/24/16 20:59 09/05/16 20:46 40 MG Carvedilol (Coreg Tab) 3.125 mg BID PO 08/26/16 21:00 09/25/16 20:59 09/05/16 20:50 3.125 MG Docusate Sodium (coLACE CAP) 100 mg BID PO 08/27/16 12:00 09/26/16 11:59 09/06/16 09:01 100 MG Magnesium Hydroxide (Milk Of Magnesia Susp) 30 ml QD PRN PO 08/27/16 11:15 09/26/16 11:14 08/30/16 14:31 30 ML Albuterol Sulfate (Ventolin 0.083% 2.5MG/3ML Neb) 2.5 mg Q6R PRN INH 08/28/16 21:30 09/27/16 21:29 09/03/16 22:09 2.5 MG Menthol (Nice Marisol) 1 marisol PRN PRN PO 08/29/16 21:00 09/28/16 20:59 08/29/16 21:29 1 MARISOL Warfarin Sodium (Coumadin Tab) 1 mg DAILY@16 PO 08/30/16 16:22 09/29/16 16:21 09/05/16 17:01 1 MG Ioversol (Optiray 320) 125 ml UD PRN IV 09/02/16 11:45 09/06/16 11:44 Piperacillin Sod/ Tazobactam Sod 3.375 gm/Dextrose 115 ml @ 28.75 mls/ hr Q8@0400,1200,2000 IV 09/02/16 20:00 09/09/16 19:59 09/06/16 04:11 28.75 MLS/HR Piperacillin Sod/ Tazobactam Sod (Consult) 1 ea UD PRN N/A 09/02/16 13:45 7/1/17 13:44 Vancomycin HCl (Consult) 1 ea UD PRN N/A 09/02/16 20:45 10/02/16 20:44 Dronabinol (Marinol Cap) 2.5 mg DAILY PO 09/05/16 09:00 10/05/16 08:59 09/06/16 09:26 2.5 MG Enteral Nutritional Formula (Boost Plus Vanilla) 1 can TID PO 09/04/16 21:00 10/04/16 20:59 09/06/16 09:07 1 CAN Nystatin (Mycostatin Susp) 5 ml QID MT 09/04/16 21:00 09/14/16 20:59 09/06/16 09:00 5 ML Bumetanide (Bumex Tab) 1 mg DAILY PO 09/06/16 09:00 10/06/16 08:59 09/06/16 09:03 1 MG Albuterol/ Ipratropium (Duoneb) 3 ml QIDR INH 09/05/16 12:00 10/05/16 11:59 09/06/16 11:18 3 ML Methylprednisolone Sodium Succinate 40 mg/Syringe 0.64 ml @ 1.5 mls/min Q24H IV 09/05/16 10:00 10/05/16 09:59 09/06/16 10:42 1.5 MLS/MIN Vancomycin HCl 1350 mg/Sodium Chloride 277 ml @ 125 mls/hr Q12H IV 09/05/16 10:00 09/10/16 15:59 09/06/16 08:58 125 MLS/HR Objective Vital Signs Date Time Temp Pulse Resp B/P (MAP) Pulse Ox O2 Delivery O2 Flow Rate FiO2 09/06/16 11:18 61 18 98 Nasal Cannula 6.0 09/06/16 08:00 Nasal Cannula 6.0 Humidified Oxygen 09/06/16 07:49 36.4 59 19 122/64 (83) 100 Nasal Cannula 6.0 09/06/16 07:20 55 20 100 Nasal Cannula 6.0 09/06/16 00:02 36.9 61 18 105/67 (80) 95 CPAP 09/05/16 23:59 BiPAP 6.0 09/05/16 20:51 68 116/67 (83) 09/05/16 20:00 Nasal Cannula 6.0 09/05/16 19:04 62 20 97 Nasal Cannula 6.0 09/05/16 15:31 63 20 96 Nasal Cannula 6.0 09/05/16 15:04 36.5 64 18 112/73 (86) 96 Nasal Cannula 2.0 Physical Exam General Appearance: + mild distress (SOB), + pertinent finding (ill-appearing; mildly cyanotic with position changes kiera. laying flat) Eyes: sclerae normal ENT: hearing grossly normal Neck: supple, no JVD, trachea midline Respiratory/Chest: no accessory muscle use, + respiratory distress (mild), + rales (bilat lower lobes), + wheezing (audible after movement/coughing during exam) Cardiovascular: regular rate, rhythm, no gallop, no murmur Abdomen: normal bowel sounds, non tender, soft Extremities: no calf tenderness Neurologic/Psychiatric: alert, oriented x 3 Skin: + pallor Laboratory Results Last 24 Hours Test 09/06/16 06:53 White Blood Count 10.87 K/uL Red Blood Count 5.13 M/uL Hemoglobin 14.1 g/dL Hematocrit 45.4 % Mean Corpuscular Volume 88.5 fL Mean Corpuscular Hemoglobin 27.5 pg Mean Corpuscular Hemoglobin Concent 31.1 g/dl Platelet Count 559 K/uL Mean Platelet Volume 11.3 fL Neutrophils (%) (Auto) 75.7 % Lymphocytes (%) (Auto) 10.8 % Monocytes (%) (Auto) 12.1 % Eosinophils (%) (Auto) 0.6 % Basophils (%) (Auto) 0.2 % Neutrophils # (Auto) 8.23 K/uL Lymphocytes # (Auto) 1.17 K/uL Monocytes # (Auto) 1.32 K/uL Eosinophils # (Auto) 0.07 K/uL Basophils # (Auto) 0.02 K/uL RDW Standard Deviation 55.4 fL RDW Coefficient of Variation 17.1 % Immature Granulocyte % (Auto) 0.6 % Immature Granulocyte # (Auto) 0.06 K/uL Prothrombin Time 29.4 SECONDS Prothromb Time International Ratio 2.6 Sodium Level 143 mmol/L Potassium Level 3.2 mmol/L Chloride Level 106 mmol/L Carbon Dioxide Level 28 mmol/L Anion Gap 9.0 mmol/L Blood Urea Nitrogen 19 mg/dl Creatinine 0.82 mg/dl Est Creatinine Clear Calc Drug Dose 53.0 ml/min Estimated GFR () 76.7 Estimated GFR (Non- 66.2 BUN/Creatinine Ratio 23.3 Random Glucose 115 mg/dl Calcium Level 8.5 mg/dl Assessment and Plan Acute on Chronic Respiratory Failure with Tachypnea: SLOW IMPROVEMENT - Initially CHF/Pulmonary Edema - Stablized -- Currently HCAP and Aspiration - SEPSIS RESOLVING - Zosyn Q8H and Vancomycin - Methylprednisolone 40 mg IV daily - Bumex 1 mg daily - Duonebs and Albuterol Nebs Aspiration/Dysphagia: - Silent aspiration on June video swallow - patient reporting non-compliance with eating - currently supervision with meals - Video swallow - pending Poor Appetite: - Marinol 2.5 mg daily - continue to increase until either max dosing achieved or appetite improving. added protein shakes TID Paroxysmal Atrial Fibrillation: NSR - Coumadin 1 mg daily - INR 2.6 - Coreg 3.125 mg BID - continue coumadin, continue to follow INR, still keep @ 1mg for now, rate still controlled despite pneumonia above Recent CVA - STABLE with Right-Sided Hemiparesis - Plavix 75 mg daily and Zocor 40 mg HS - Continue Plavix, statin - PT/OT and PT/OT to continue @ SNF once stable to go there Metastatic Breast CA - f/u as outpt - Anastrozole 1 mg daily Seizure Disorder: STABLE - Keppra 250 mg BID Thrush: - Nystatin QID DVT Prophylaxis: Coumadin Code Status: Full RESUSCITATION Disposition: Video Swallow - consideration for Palliative consult will discuss with family - [place] approved - ongoing PT/OT/Speech Continued [facility] stay due to: inadequate po fluid intake (choking) Discharge planning: alf facility
[2016-09-06] MEDS: WARFARIN SOD 1 MG TAB PO SCH (16:08)
--- NOTE | 2016-09-06 16:42 | DIAGNOSTIC IMAGING REPORT ---
VIDEO SWALLOW STUDY CLINICAL HISTORY: Aspiration. COMPARISON STUDY: Video swallow study dated 06/10/2016. Fluoroscopy time: 3.2 minutes. FINDINGS: Fluoroscopic guidance was provided to the Department of Speech Pathology in performing a video swallow study. The patient consumed barium-impregnated cracker with paste, pudding, nectar thick liquid, and thin barium while the swallowing mechanism was observed in real-time. There was silent aspiration seen with thin barium. No penetration or aspiration was seen with the remaining sampled textures. A tracheostomy is noted. IMPRESSION: 1. Solid aspiration was seen with thin barium. 2. No penetration or aspiration was seen with the remaining sampled textures. 3. See dedicated speech pathology report for detailed findings and recommendations. Dictated: 09/06/2016 4:16 PM Transcribed: 09/06/2016 4:42 PM [email or web address] Electronically signed by: Ricardo Sotomayor M.D. 09/07/2016 4:15 PM Dictated Date/Time: 09/06/2016 4:16 PM
[2016-09-06] MEDS: SIMVASTATIN 40 MG TAB PO SCH (20:45)
[2016-09-06] MEDS ORDERED: VANCOMYCIN TROUGH SCH (21:30)
[2016-09-07] VITALS (11 sets, daily range): BP systolic 92–145; BP diastolic 55–93; PULSE 58–71; TEMP 36.3–37.1; O2SAT 92–98
[2016-09-07] MEDS: ALBUT/IPRATROP 3MG/0.5MG NEB 3 ML VIAL INH SCH ×5 (03:42→19:31)
[2016-09-07] MEDS: PIPERACILL/TAZOBAC IV 3.375 GM in DEXTROSE 5% 100ML 100 ML IV SCH ×2 (03:58→11:35)
[2016-09-07 06:49] LABS: HEMATOCRIT 44.8 % (37-47); MEAN CELL VOLUME 89.2 fL (80-100); MEAN CORPUSCULAR HEMOGLOBIN 28.1 pg (25-34); MEAN CORPUSCULAR HGB CONC 31.5 g/dl (32-36); MEAN PLATELET VOLUME 11.2 fL (7.4-10.4); PLATELET COUNT 527 K/uL (130-400); RED BLOOD COUNT 5.02 M/uL (4.2-5.4)
[2016-09-07 07:22] LABS: BUN/CREATININE RATIO 20.5 (10-20); CALCIUM 8.6 mg/dl (8.5-10.1); CREATININE 0.88 mg/dl (0.60-1.20); POTASSIUM 3.4 mmol/L (3.5-5.1)
[2016-09-07] MEDS ORDERED: POTASSIUM CHLORIDE 10 MEQ TABCR PO STA (07:24)
[2016-09-07] MEDS: FLUTICASONE PROPIONATE NA SPR 16 GM BTL SCH (09:09)
[2016-09-07] MEDS: NYSTATIN SUSP 500,000 U/5 ML UDC MT SCH ×4 (09:09→20:58)
[2016-09-07] MEDS: CARVEDILOL 3.125 MG TAB PO SCH ×2 (09:10→21:01)
[2016-09-07] MEDS: DOCUSATE SODIUM 100 MG CAP PO SCH ×2 (09:10→21:00)
[2016-09-07] MEDS: FLUOXETINE HCL 20 MG CAP PO SCH (09:10)
[2016-09-07] MEDS: BUMETANIDE 1 MG TAB PO SCH (09:11)
[2016-09-07] MEDS: ANASTROZOLE 1 MG TAB PO SCH (09:12)
[2016-09-07] MEDS: CLOPIDOGREL BISULFATE 75 MG TAB PO SCH (09:12)
[2016-09-07] MEDS: LOSARTAN POTASSIUM 25 MG TAB PO SCH (09:13)
[2016-09-07] MEDS: LEVETIRACETAM 250 MG TAB PO SCH ×2 (09:13→21:01)
[2016-09-07] MEDS: METHYLPREDNISOLONE IV 40 MG in SYRINGE 0 ML IV SCH (09:14)
[2016-09-07] MEDS: BOOST PLUS VANILLA PO SCH ×6 (09:14→19:25)
[2016-09-07] MEDS: ALPRAZOLAM 0.25 MG TAB PO SCH ×2 (09:14→20:56)
[2016-09-07 09:23] LABS: INR 2.7 (0.9-1.1); PROTHROMBIN TIME (PATIENT) 29.9 SECONDS (9.0-12.0)
[2016-09-07] MEDS: DRONABINOL 2.5 MG CAP PO SCH (09:26)
--- NOTE | 2016-09-07 12:15 | Hospitalist Progress Note ---
Hospitalist Progress Note Date of Service Sep 07, 2016. Subjective Pt evaluation today including: conversation w/ patient, physical exam, chart review, lab review, review of studies, review of inpatient medication list Patient seen and evaluated. On baseline O2 at 6 L. States cough lessens as the day progresses but reports continued generalized weakness that is not improving. With limited movements and coughing spells she can turn cyanotic. Swallow study reports silent aspiration and no drastic change from evaluation in June. Had a long conversation over the phone with the daughter/POA and bridge the concept of palliative care/goals of care. Daughter and patient report that this has been a progressive thing with one hospital stay/rehab stay after another and reports that this affects her well-being. Patient does slightly look better today compared to yesterday and she reports feeling a little better. It is hard to predict general prognosis however suspect this could be poor given poor appetite, silent aspiration, systolic CHF , and baseline O2 requirements of 6L. Would definitely benefit from palliative care but unsure if patient or family are at the state of comfort measures only but agreeable to look at everything for the future. It is hard to say what recovery will be like after removing the component of HCAP but suspect a lot of deconditioning. Constitutional: No fever, No chills Respiratory: + cough, + wheezing, + shortness of breath, No sputum Cardiovascular: No chest pain Abdomen: No pain, No nausea, No vomiting, No diarrhea, No constipation Musculoskeletal: No calf pain Female : No dysuria Heme: No abnormal bleeding/bruising Medications Current Inpatient Medications Medications (Trade) Dose Ordered Sig/Lindsey Route Start Time Stop Time Status Last Admin Dose Admin Acetaminophen (Tylenol Tab) 650 mg Q4H PRN PO 08/25/16 13:45 09/24/16 13:44 09/06/16 20:53 650 MG Ondansetron HCl (Zofran Inj) 4 mg Q6H PRN IV 08/25/16 13:45 09/24/16 13:44 09/02/16 10:30 4 MG Alprazolam (Xanax Tab) 0.25 mg BID PO 08/25/16 21:00 09/24/16 20:59 09/07/16 09:14 0.25 MG Anastrozole (Arimidex Tab) 1 mg QAM PO 08/26/16 09:00 09/25/16 08:59 09/07/16 09:12 1 MG Clopidogrel Bisulfate (plAVix TAB) 75 mg DAILY PO 08/26/16 09:00 09/25/16 08:59 09/07/16 09:12 75 MG Fluoxetine HCl (Prozac Cap) 20 mg QAM PO 08/26/16 09:00 09/25/16 08:59 09/07/16 09:10 20 MG Fluticasone Propionate (Flonase Nasal [place]) 2 sprays DAILY NA 08/26/16 09:00 09/25/16 08:59 09/07/16 09:09 2 SPRAYS Levetiracetam (Keppra Tab) 250 mg BID PO 08/25/16 21:00 09/24/16 20:59 09/07/16 09:13 250 MG Losartan Potassium (coZAAR TAB) 25 mg DAILY PO 08/26/16 09:00 09/25/16 08:59 09/07/16 09:13 25 MG Simvastatin (Zocor Tab) 40 mg HS PO 08/25/16 21:00 09/24/16 20:59 09/06/16 20:45 40 MG Carvedilol (Coreg Tab) 3.125 mg BID PO 08/26/16 21:00 09/25/16 20:59 09/07/16 09:10 3.125 MG Docusate Sodium (coLACE CAP) 100 mg BID PO 08/27/16 12:00 09/26/16 11:59 09/07/16 09:10 100 MG Magnesium Hydroxide (Milk Of Magnesia Susp) 30 ml QD PRN PO 08/27/16 11:15 09/26/16 11:14 08/30/16 14:31 30 ML Albuterol Sulfate (Ventolin 0.083% 2.5MG/3ML Neb) 2.5 mg Q6R PRN INH 08/28/16 21:30 09/27/16 21:29 09/03/16 22:09 2.5 MG Menthol (Nice Marisol) 1 marisol PRN PRN PO 08/29/16 21:00 09/28/16 20:59 08/29/16 21:29 1 MARISOL Warfarin Sodium (Coumadin Tab) 1 mg DAILY@16 PO 08/30/16 16:22 09/29/16 16:21 09/06/16 16:08 1 MG Piperacillin Sod/ Tazobactam Sod 3.375 gm/Dextrose 115 ml @ 28.75 mls/ hr Q8@0400,1200,2000 IV 09/02/16 20:00 09/09/16 19:59 09/07/16 11:35 28.75 MLS/HR Piperacillin Sod/ Tazobactam Sod (Consult) 1 ea UD PRN N/A 09/02/16 13:45 10/02/16 13:44 Vancomycin HCl (Consult) 1 ea UD PRN N/A 09/02/16 20:45 10/02/16 20:44 Dronabinol (Marinol Cap) 2.5 mg DAILY PO 09/05/16 09:00 10/05/16 08:59 09/07/16 09:26 2.5 MG Enteral Nutritional Formula (Boost Plus Vanilla) 1 can TID PO 09/04/16 21:00 10/04/16 20:59 09/07/16 13:11 1 CAN Nystatin (Mycostatin Susp) 5 ml QID MT 09/04/16 21:00 09/14/16 20:59 09/07/16 13:11 5 ML Bumetanide (Bumex Tab) 1 mg DAILY PO 09/06/16 09:00 10/06/16 08:59 09/07/16 09:11 1 MG Albuterol/ Ipratropium (Duoneb) 3 ml QIDR INH 09/05/16 12:00 10/05/16 11:59 09/07/16 11:10 3 ML Methylprednisolone Sodium Succinate 40 mg/Syringe 0.64 ml @ 1.5 mls/min Q24H IV 09/05/16 10:00 10/05/16 09:59 09/07/16 09:14 1.5 MLS/MIN Vancomycin HCl 1350 mg/Sodium Chloride 277 ml @ 125 mls/hr Q12H IV 09/05/16 10:00 09/10/16 15:59 Future Hold 09/06/16 22:55 125 MLS/HR Objective Vital Signs Date Time Temp Pulse Resp B/P (MAP) Pulse Ox O2 Delivery O2 Flow Rate FiO2 09/07/16 11:10 64 18 96 Nasal Cannula 6.0 09/07/16 08:20 96 Nasal Cannula 6.0 09/07/16 07:25 36.5 58 16 143/72 (95) 96 Nasal Cannula 5.0 09/07/16 07:16 58 20 96 Nasal Cannula 6.0 09/07/16 03:42 68 18 98 Nasal Cannula 6.0 09/07/16 00:00 Nasal Cannula 6.0 09/06/16 23:55 36.4 75 22 116/72 (87) 94 Nasal Cannula 6.0 09/06/16 20:42 67 127/79 (95) 94 Nasal Cannula 6.0 09/06/16 20:00 Nasal Cannula 6.0 09/06/16 19:10 67 18 98 Nasal Cannula 6.0 09/06/16 15:45 36.7 67 18 111/73 (86) 93 Nasal Cannula 6.0 Physical Exam General Appearance: no apparent distress Eyes: sclerae normal ENT: hearing grossly normal Neck: supple, no JVD, trachea midline Respiratory/Chest: no respiratory distress, no accessory muscle use, + pertinent finding (Breathes heavier between bites of food; course breath sounds but inspiration limited by coughing spells) Cardiovascular: regular rate, rhythm, no gallop, no murmur Abdomen: normal bowel sounds, non tender, soft Neurologic/Psychiatric: alert, oriented x 3 Skin: + pallor, + pertinent finding (intermittent cyanosis) Laboratory Results Last 24 Hours Test 09/06/16 21:55 09/07/16 06:20 09/07/16 09:05 Vancomycin Level Trough 27.6 mcg/ml White Blood Count 12.20 K/uL Red Blood Count 5.02 M/uL Hemoglobin 14.1 g/dL Hematocrit 44.8 % Mean Corpuscular Volume 89.2 fL Mean Corpuscular Hemoglobin 28.1 pg Mean Corpuscular Hemoglobin Concent 31.5 g/dl RDW Standard Deviation 56.4 fL RDW Coefficient of Variation 17.2 % Platelet Count 527 K/uL Mean Platelet Volume 11.2 fL Sodium Level 145 mmol/L Potassium Level 3.4 mmol/L Chloride Level 108 mmol/L Carbon Dioxide Level 31 mmol/L Anion Gap 6.0 mmol/L Blood Urea Nitrogen 18 mg/dl Creatinine 0.88 mg/dl Est Creatinine Clear Calc Drug Dose 49.4 ml/min Estimated GFR () 70.4 Estimated GFR (Non- 60.8 BUN/Creatinine Ratio 20.5 Random Glucose 127 mg/dl Calcium Level 8.6 mg/dl Prothrombin Time 29.9 SECONDS Prothromb Time International Ratio 2.7 Assessment and Plan Acute on Chronic Respiratory Failure with Tachypnea: SLOW IMPROVEMENT - Initially CHF/Pulmonary Edema - Stablized -- Currently HCAP and Aspiration - SEPSIS RESOLVING - Zosyn Q8H and Vancomycin -- Reporting minor improvement from yesterday but looks more comfortable up in chair compared to yesterday - Methylprednisolone 40 mg IV daily - Bumex 1 mg daily and watch electrolytes - Duonebs and Albuterol Nebs Aspiration/Dysphagia: - Silent aspiration on June video swallow - patient reporting non-compliance with eating recommendations - currently supervision with meals - Video swallow performed yesterday without change from June with silent aspiration Poor Appetite: - Marinol 2.5 mg daily - not reporting much change - can increase to 2.5 BID today and change to 5 mg BID tomorrow and monitor -- Can consider moving to 7.5 mg BID pending tolerance Paroxysmal Atrial Fibrillation: NSR - Coumadin 1 mg daily and trend INR - currently therapeutic - Coreg 3.125 mg BID Recent CVA - STABLE with Right-Sided Hemiparesis - Plavix 75 mg daily and Zocor 40 mg HS Metastatic Breast CA - f/u as outpt - Anastrozole 1 mg daily Seizure Disorder: STABLE - Keppra 250 mg BID Thrush: - Nystatin QID DVT Prophylaxis: Coumadin Code Status: Full RESUSCITATION Disposition: Long discussion with daughter about palliative care on 09/06 and discussed with Flakita Ch for consultation for goals of care. - [place] approved - ongoing PT/OT/Speech - Consideration for oral conversion of antibiotics - discussed with ID for unofficial consultation with consideration for Zyvox (on Prozac) vs Augmentin use Continued [facility] stay due to: multiple IV medications needed Discharge planning: shelter facility
[2016-09-07] MEDS: WARFARIN SOD 1 MG TAB PO SCH (16:16)
[2016-09-07] MEDS: AMOXICILLIN/CLAVULANATE TAB 875 MG TAB PO SCH (16:17)
[2016-09-07] MEDS: ACETAMINOPHEN 325 MG TAB PO PRN ×2 (16:20→20:57)
[2016-09-07] MEDS: SIMVASTATIN 40 MG TAB PO SCH (20:59)
[2016-09-07] MEDS ORDERED: DRONABINOL 2.5 MG CAP PO SCH (21:00)
[2016-09-08 07:06] VITALS: PULSE 55; O2SAT 98
[2016-09-08] MEDS: ALBUT/IPRATROP 3MG/0.5MG NEB 3 ML VIAL INH SCH (07:06)
[2016-09-08 07:21] VITALS: BP 137/69; PULSE 100; TEMP 36.7; O2SAT 100
[2016-09-08] MEDS: ALPRAZOLAM 0.25 MG TAB PO SCH (08:13)
[2016-09-08] MEDS: AMOXICILLIN/CLAVULANATE TAB 875 MG TAB PO SCH (08:14)
[2016-09-08] MEDS: BOOST PLUS VANILLA PO SCH ×2 (08:14)
[2016-09-08] MEDS: CLOPIDOGREL BISULFATE 75 MG TAB PO SCH (08:15)
[2016-09-08] MEDS: CARVEDILOL 3.125 MG TAB PO SCH (08:15)
[2016-09-08] MEDS: FLUOXETINE HCL 20 MG CAP PO SCH (08:15)
[2016-09-08] MEDS: NYSTATIN SUSP 500,000 U/5 ML UDC MT SCH (08:15)
[2016-09-08] MEDS: DOCUSATE SODIUM 100 MG CAP PO SCH (08:15)
[2016-09-08] MEDS: LOSARTAN POTASSIUM 25 MG TAB PO SCH (08:15)
[2016-09-08] MEDS: BUMETANIDE 1 MG TAB PO SCH (08:16)
[2016-09-08] MEDS: LEVETIRACETAM 250 MG TAB PO SCH (08:16)
[2016-09-08] MEDS: FLUTICASONE PROPIONATE NA SPR 16 GM BTL SCH (08:17)
[2016-09-08] MEDS: ANASTROZOLE 1 MG TAB PO SCH (08:20)
[2016-09-08] MEDS: ACETAMINOPHEN 325 MG TAB PO PRN (08:27)
[2016-09-08] MEDS ORDERED: ALBINS INH (08:53)
[2016-09-08] MEDS ORDERED: NYSS5 MT (08:53)
[2016-09-08] MEDS ORDERED: IPRASOL4 INH (08:53)
[2016-09-08] MEDS ORDERED: AMOX1TAB43 PO (08:53)
--- NOTE | 2016-09-08 08:53 | Discharge Instructions ---
Discharge Instructions Date of Service Sep 08, 2016. Admission Reason for Admission: Hypoxia, Pulmonary Edema Discharge Discharge Diagnosis / Problem: Acute on Chronic Respiratory Failure with Tachypnea: Discharge Goals Goal(s): Decrease discomfort Activity Recommendations Activity Level: OOB In Chair . Additional Information Patient informed of condition: Yes Advance Directives: Yes DNR: Yes Level of Care: Skilled Communicable Disease: No Prognosis: Deteriorating Oxygen at (LPM): 6 LPM Baum Catheter: No Instructions / Follow-Up Instructions / Follow-Up you have Acute on Chronic Respiratory Failure with Tachypnea: SLOW IMPROVEMENT you have Aspiration/Dysphagia, with Silent aspiration on June video swallow you need to have currently supervision with meals - Video swallow performed yesterday without change from June with silent aspiration you have Paroxysmal Atrial Fibrillation: NSR continue Coumadin 1 mg daily and trend INR , monitor INR continue ongoing PT/OT/Speech in [facility] may plan to enter to hospice care after arriving to ECF - you need to follow up with your primary care physician in 1 week, - fall precaution - diet as instructed Current Hospital Diet Patient's current hospital diet: Low Sodium Diet (2gm Na) Discharge Diet Recommended Diet: Kosher Diet Pending Studies Studies pending at discharge: no Physician Orders On Transfer POLST Discussion: with POLST completion Laboratory Results Hemoglobin A1c Test 06/09/16 14:28 Range/Units Estimated Average Glucose 131 mg/dl Hemoglobin A1c 6.2 H 4.5-5.6 % Lipid Panel Test 06/10/16 02:55 Range/Units Triglycerides Level 39 0-150 mg/dl Cholesterol Level 111 0-200 mg/dl HDL Cholesterol 44 mg/dl Cholesterol/HDL Ratio 2.5 LDL Cholesterol, Calculated 59 mg/dl Medical Emergencies . Who to Call and When: Medical Emergencies: If at any time you feel your situation is an emergency, please call 911 immediately. . Non-Emergent Contact Non-Emergency issues call your: Primary Care Provider . . "Provider Documentation" section prepared by Riley Carpenter. . Core Measure Problem Core Measures: None
[2016-09-08] MEDS ORDERED: DRONABINOL 2.5 MG CAP PO SCH (09:00)
[2016-09-08] MEDS ORDERED: PRD20 PO (09:02)
[2016-09-08] MEDS: METHYLPREDNISOLONE IV 40 MG in SYRINGE 0 ML IV SCH (10:17)
[2016-09-08 11:21] VITALS: PULSE 62; O2SAT 98
--- NOTE | 2016-09-08 15:35 | Discharge Summary ---
Discharge Summary Date of Service Sep 08, 2016. Discharge Summary Admission Date: August 25, 2016 at 13:45 Discharge Date: Sep 08, 2016 Discharge Disposition: senior living facility Principal Diagnosis: Acute on Chronic Respiratory Failure with Tachypnea Problems/Secondary Diagnoses: HCAP and Aspiration Immunizations: Have You Had Influenza Vaccine: Yes Influenza Vaccine Date: Jan 23, 2009 History of Tetanus Vaccine?: Unknown Tetanus Immunization Date: May 26, 2005 History of Pneumococcal: Yes Pneumococcal Date: May 26, 2006 History of Hepatitis B Vaccine: No Procedures: No Consultations: Deputy [employer] Medication Reconciliation New Medications: Prednisone (Prednisone) 20 Mg Tab 40 MG PO DAILY for 5 Days, #10 Albuterol Sulf (Albuterol Sulfate) 2.5 Mg/3 Ml Nebu 2.5 MG INH Q6R PRN for Shortness of Breath for 7 Days Amoxicillin & Pot Clavulanate (Amoxicillin/Clavulanate P) 1 Tab Tab 875 MG PO BIDM for 7 Days, TAB Docusate Sodium (Docusate Sodium) 100 Mg Cap 100 MG PO BID, #60 CAP Furosemide (Furosemide) 40 Mg Tab 40 MG PO BID17, #60 TAB Ipratropium-Albuterol (Duoneb) 3 Ml Nebu 3 ML INH QIDR for 7 Days Menthol (Ricola) 24 Marisol/1 Box Lozg 1 MARISOL PO PRN PRN for SORE THROAT, #30 Nystatin (Nystatin) 5 Ml Susp 5 ML MT QID for 7 Days Warfarin Sod (Coumadin) 1 Mg Tab 1 MG PO DAILY@16, #30 TAB Continued Medications: Acetaminophen (Tylenol) 325 Mg Tab 500 MG PO Q4H PRN for Pain or Fever, TAB Alprazolam (Xanax) 0.25 Mg Tab 0.25 MG PO BID, TAB Anastrozole (Anastrozole) 1 Mg Tab 1 MG PO QAM, TAB Calcium Carbonate-Cholecalcife (Oyster Shell Calcium Plus 500-200 mg-Unit) 1 Tab Tab 1 TAB PO BID Calcium Citrate-Vitamin D (Calcium Citrate/Vitamin D) 1 Tab Tab 1 TAB PO BID Carvedilol (Coreg) 3.125 Mg Tab 1 TAB PO BID, TAB Clopidogrel (Plavix) 75 Mg Tab 75 MG PO DAILY, TAB Fluoxetine (Prozac) 20 Mg Cap 20 MG PO QAM, CAP Fluticasone Propionate (Nasal) (Allergy Nasal [place] 24 Ho) 50 Mcg/Act Spr 2 SPRAYS NA DAILY Hydrocortisone (Rectal) (Proctozone-Hc) 2.5 % Cre 1 APPLN RE Q24H PRN for PRN Levetiractam (Keppra) 250 Mg Tab 250 MG PO BID Losartan Potassium (Losartan Potassium) 25 Mg Tab 25 MG PO DAILY, #30 Oxygen (Oxygen) Gas 6 LITERS NA CONTINOUS Saline (Saline Mist) 0.65 % Spr 4 SPRAYS JENNIE QID Sennosides-Docusate Sodium (Doc-Q-Lax) 1 Tab Tab 1 TAB PO BID Sennosides-Docusate Sodium (Sennalax-S) 1 Tab Tab 1 TAB PO DAILY Simvastatin (Simvastatin) 40 Mg Tab 40 MG PO HS Starch (Thickening) (Thick-It #2) 1 Pow Pow 1 DOSE PO TID Discontinued Medications: Furosemide (Furosemide) 40 Mg Tab 40 MG PO QAM for 30 Days, #30 TAB Warfarin Sod (Jantoven) 2 Mg Tab 2 MG PO DAILY, TAB Discharge Exam Doing the same, feeling tired, no other complaint Review of Systems: Constitutional: + weakness, + fatigue, No fever, No chills, No sweats, No weight loss, No problem reported Eyes: No worsening of vision, No eye pain, No redness, No discharge, No diplopia, No problem reported ENT: No hearing loss, No unusual epistaxis, No nasal symptoms, No sore throat, No tinnitus, No dental problems, No trouble swallowing, No problem reported Respiratory: + shortness of breath (is in baseline) Cardiovascular: No chest pain, No orthopnea, No PND, No edema, No claudication, No palpitations, No problem reported Abdomen: No pain, No nausea, No vomiting, No diarrhea, No constipation, No GI bleeding, No problem reported Musculoskeletal: No joint pain, No muscle pain, No swelling, No calf pain, No problem reported Genitourinary - Female: No dysuria, No urinary frequency, No urinary urgency , No urinary incontinence, No urinary retention, No hematuria, No dysmenorrhea, No menorrhagia, No metrorrhagia, No rash, No vaginal bleeding, No vaginal discharge, No vaginal itching, No vulvodynia, No , No problem reported Neurologic: No memory loss, No paralysis, No weakness, No numbness/tingling , No vertigo, No balance problems, No problem reported Psychiatric: No depression symptoms, No anhedonism, No anxiety, No insomnia , No substance abuse, No problem reported Endocrine: No fatigue, No excessive thirst, No excessive urination, No problem reported Hematologic / Lymphatic: No abnormal bleeding/bruising, No clotting problems , No swollen lymph nodes, No night sweats, No problem reported Integumentary: No rash, No itch, No new/changing skin lesions, No color change, No bleeding, No problem reported Physical Exam: General Appearance: + thin, + pertinent finding (frail) Eyes: normal inspection, PERRL ENT: normal ENT inspection, hearing grossly normal Neck: supple, no adenopathy Respiratory/Chest: chest non-tender, normal breath sounds, no respiratory distress, no accessory muscle use, + decreased breath sounds, + wheezing ( occasional) Cardiovascular: regular rate, rhythm, no edema, no gallop, no JVD Abdomen / GI: normal bowel sounds, non tender, soft, no organomegaly Extremities: normal inspection, no calf tenderness, normal capillary refill Neurologic/Psychiatric: hr generalist II-XII nml as tested, no motor/sensory deficits , alert, normal mood/affect, normal reflexes Skin: normal color, warm/dry Hospital Course 81 y/o F with an extensive medical history including PAF, diastolic CHF, pulmonary fibrosis, breast CA, prediabetes, PE and IVC filter placement, CVA , thrombocytosis. She she was admitted on 08/25/2016 due to worsening SOB and swelling in legs for past 2 days Acute on chronic respiratory failure with tachypnea, likely secondary to acute on chronic systolic CHF superimposed on pulmonary fibrosis, chronic respiratory failure on home O2 - LVEF 25-30% on echocardiogram from June 2016 when she was here with her CVA. Acute on Chronic Respiratory Failure with Tachypnea: SLOW IMPROVEMENT/relative stable - Initially CHF/Pulmonary Edema - Stablized -Possible HCAP and Aspiration - SEPSIS RESOLVING Has been on Zosyn Q8H and Vancomycin, later changed to Augmentin - Condition looks not good but possible in the baseline - Has been on Methylprednisolone 40 mg IV daily, will change to oral - Bumex 1 mg daily and watch electrolytes - Duonebs and Albuterol Nebs Aspiration/Dysphagia: - Silent aspiration on June video swallow - patient reporting non-compliance with eating recommendations - currently supervision with meals - Video swallow performed yesterday without change from June with silent aspiration Poor Appetite: - Marinol 2.5 mg daily - not reporting much change - can increase to 2.5 BID today and change to 5 mg BID tomorrow and monitor -- Can consider moving to 7.5 mg BID pending tolerance Paroxysmal Atrial Fibrillation: NSR - Coumadin 1 mg daily and trend INR - currently therapeutic - Coreg 3.125 mg BID Recent CVA - STABLE with Right-Sided Hemiparesis - Plavix 75 mg daily and Zocor 40 mg HS Metastatic Breast CA - f/u as outpt - Anastrozole 1 mg daily Seizure Disorder: STABLE - Keppra 250 mg BID Thrush: - Nystatin QID DVT Prophylaxis: Coumadin Code Status: Full RESUSCITATION Disposition: Long discussion with daughter about palliative care on 09/06 and discussed with Flakita Ch for consultation for goals of care. - Jozef Hernandez approved - ongoing PT/OT/Speech - Consideration for oral conversion of antibiotics - discussed with ID for unofficial consultation with consideration for Zyvox (on Prozac) vs Augmentin use - POLST form signed, patient is DO NOT RESUSCITATE, okay to use antibiotics, no artificial tube feeding, Instructions / Follow-Up you have Acute on Chronic Respiratory Failure with Tachypnea: SLOW IMPROVEMENT you have Aspiration/Dysphagia, with Silent aspiration on June video swallow you need to have currently supervision with meals - Video swallow performed yesterday without change from June with silent aspiration you have Paroxysmal Atrial Fibrillation: NSR continue Coumadin 1 mg daily and trend INR , monitor INR continue ongoing PT/OT/Speech in [facility] may plan to enter to hospice care after arriving to ECF - you need to follow up with your primary care physician in 1 week, - fall precaution - diet as instructed Total Time Spent: Greater than 30 minutes This includes examination of the patient, discharge planning, medication reconciliation, and communication with other providers. Discharge Instructions Please refer to the electronic Patient Visit Report (Discharge Instructions) for additional information. Additional Copies To Mary Haskins; Abdirashid Chavira M.D.
[2016-09-08] MEDS ORDERED: ALPR0.25 PO (16:54)
== END 2016-09-08 13:03 | DRG 291 ==
LOC: ENRESERVTM → ENRESERVDT → EDBD 10:54 → C.EDC 10:55 → C.2E 13:45 → C.MS2W 08-27 15:04
PROVIDERS: ADMIT Hospitalist; ATTEND Hospitalist
DX: I50.23 Acute on chronic systolic (congestive) heart failure (principal); J96.21 Acute and chronic respiratory failure with hypoxia; J18.9 Pneumonia, unspecified organism; I27.82 Chronic pulmonary embolism; G40.109 Localization-related (focal) (partial) symptomatic epilepsy and epileptic syndromes with simple partial seizures, not intractable, without status epilepticus; B37.0 Candidal stomatitis; I42.9 Cardiomyopathy, unspecified; C79.51 Secondary malignant neoplasm of bone; I69.951 Hemiplegia and hemiparesis following unspecified cerebrovascular disease affecting right dominant side; C50.919 Malignant neoplasm of unspecified site of unspecified female breast; S20.222A Contusion of left back wall of thorax, initial encounter; I48.0 Paroxysmal atrial fibrillation; T17.990A Other foreign object in respiratory tract, part unspecified in causing asphyxiation, initial encounter; Z85.3 Personal history of malignant neoplasm of breast; E03.9 Hypothyroidism, unspecified; S30.1XXA Contusion of abdominal wall, initial encounter; M81.0 Age-related osteoporosis without current pathological fracture; J84.10 Pulmonary fibrosis, unspecified; F32.9 Major depressive disorder, single episode, unspecified; Z83.3 Family history of diabetes mellitus; R13.10 Dysphagia, unspecified; K22.4 Dyskinesia of esophagus; G47.33 Obstructive sleep apnea (adult) (pediatric); J01.90 Acute sinusitis, unspecified; X58.XXXA Exposure to other specified factors, initial encounter; Z87.891 Personal history of nicotine dependence; Y92.89 Other specified places as the place of occurrence of the external cause